=== PATIENT | male | born 1950 | race Caucasian/White ===

== ENCOUNTER 2017-10-06 09:36 | Outpatient (RCR) | payer MEDICARE, OTHER, SELFPAY ==
[2017-10-06 12:10] LABS: Absolute Lymphocyte Count 0.62 X10^3/ul (0.83-4.51); Absolute Neutrophil Count 4.2 X10^3/uL (2.0-7.7); Basophil# 0.03 X10^3/uL; Basophil% 0.5 % (0-1); Eosinophil# 0.29 X10^3/uL; Eosinophils% 5.1 % (0-5); Hematocrit 40.5 % (40-54); Hemoglobin 12.5 g/dl (13.0-16.5); Lymphocyte # 0.62 X10^3/ul (4.0); Lymphocyte % 10.8 % (19-41); Mean Corp Hgb Conc 30.9 g/gl (32-36); Mean Corpuscular Volume 84.4 fL (80-94); Mean Platelet Vol. 11.2 fl (6.2-12.0); Monocyte# 0.61 X10^3/uL; Monocyte% 10.7 % (0-10); Neutrophil # 4.16 X10^3/uL (2.7-7.7); Neutrophil % 72.7 % (47-70); Platelet Count 270 K/mm3 (150-450); RBC Distribution Width SD 55.1 fl (35.1-43.9); White Blood Count 5.7 K/mm3 (4.4-11.0)
[2017-10-06 12:25] LABS: POSITIVE COUNT NO; POSITIVE DIFFERENTIAL NO; POSITIVE MORPHOLOGY NO
[2017-10-06 12:27] LABS: Alanine Aminotransfer ALT/SGPT 26 U/L (12-78); Albumin, Serum 3.8 g/dL (3.4-5.0); Alkaline Phosphatase 46 U/L (45-117); Anion Gap 7 (5-15); BUN 31 mg/dL (7-18); Bilirubin, Direct 0.07 mg/dL (0.00-0.30); Calcium,Total 8.8 mg/dL (8.5-10.1); Chloride 100 mmol/L (98-107); Creatinine, Serum 1.35 mg/dL (0.70-1.30); EST Glomerular Filtration Rate 56 mL/min (>60); Est Glom Filt Rate - Afr Amer 68 mL/min (>60); GGTP 18 U/L (15-85); Glucose 97 mg/dL (70-110); Phosphorus 2.6 mg/dL (2.5-4.9); Potassium 4.4 mmol/L (3.5-5.1); Sodium Level 136 mmol/L (136-145); Uric Acid 5.9 mg/dL (3.5-7.2)
[2017-10-06 14:16] LABS: AST(SGOT) 23 U/L (15-37)
[2017-10-09 08:44] LABS: CMV by PCR Negative (Negative); Sirolimus,Blood 2.7 ng/mL (3.0-20.0); Tacrolimus (FK506) 4.8 ng/mL (2.0-20.0)
== END 2017-10-06 10:00 | disposition home or self-care (01) ==
LOC: MTLAB 09:36
PROVIDERS: Family Provider Family Medicine; PCP Family Medicine; Visit Provider Internal Medicine Pulmonary Disease
DX: Z48.24 Encounter for aftercare following lung transplant (principal); D89.9 Disorder involving the immune mechanism, unspecified; R79.9 Abnormal finding of blood chemistry, unspecified; Z94.2 Lung transplant status; Z79.899 Other long term (current) drug therapy
CPT/HCPCS: 36415; 80048; 80195; 80197; 82040; 82247; 82248; 82977; 83735; 84075; 84100; 84450; 84460; 84550; 85025; 87496

== ENCOUNTER 2017-12-03 07:31 | Outpatient (RCR) | payer MEDICARE, OTHER, SELFPAY ==
[2017-05-05 00:22] VITALS: BP 128/84
[2017-11-09 12:29] LABS: Absolute Lymphocyte Count 0.68 X10^3/ul (0.83-4.51); Absolute Neutrophil Count 4.3 X10^3/uL (2.0-7.7); Basophil# 0.04 X10^3/uL; Basophil% 0.7 % (0-1); Eosinophil# 0.19 X10^3/uL; Eosinophils% 3.3 % (0-5); Hematocrit 42.1 % (40-54); Hemoglobin 12.9 g/dl (13.0-16.5); Lymphocyte # 0.68 X10^3/ul (4.0); Lymphocyte % 11.8 % (19-41); Mean Corp Hgb Conc 30.6 g/gl (32-36); Mean Corpuscular Hgb 26.3 pg (27.0-32.0); Mean Corpuscular Volume 85.9 fL (80-94); Mean Platelet Vol. 11.9 fl (6.2-12.0); Monocyte# 0.56 X10^3/uL; Monocyte% 9.8 % (0-10); Neutrophil # 4.26 X10^3/uL (2.7-7.7); Neutrophil % 74.2 % (47-70); Platelet Count 282 K/mm3 (150-450); RBC Distribution Width CV 16.6 % (11.6-14.6); RBC Distribution Width SD 52.1 fl (35.1-43.9); White Blood Count 5.7 K/mm3 (4.4-11.0)
[2017-11-09 12:30] LABS: POSITIVE COUNT NO; POSITIVE DIFFERENTIAL NO; POSITIVE MORPHOLOGY NO
[2017-11-09 12:42] LABS: AST(SGOT) 19 U/L (15-37); Alanine Aminotransfer ALT/SGPT 28 U/L (16-61); Albumin, Serum 3.8 g/dL (3.2-5.0); Alkaline Phosphatase 49 U/L (45-117); Anion Gap 7 (5-15); BUN 29 mg/dL (7-18); BUN/Creat Ratio 25.4 RATIO (10-20); Calcium,Total 8.6 mg/dL (8.5-10.1); Chloride 103 mmol/L (98-107); Creatinine, Serum 1.14 mg/dL (0.70-1.30); EST Glomerular Filtration Rate 68 mL/min (>60); Est Glom Filt Rate - Afr Amer 83 mL/min (>60); GGTP 22 U/L (15-85); Glucose 100 mg/dL (74-106); Magnesium 2.2 mg/dL (1.6-2.6); Phosphorus 2.2 mg/dL (2.5-4.9); Potassium 4.6 mmol/L (3.5-5.1); Sodium Level 138 mmol/L (136-145); Uric Acid 6.5 mg/dL (3.5-7.2)
[2017-11-09 14:15] LABS: Cholesterol 269 mg/dL (200); High Density Lipoprotein 50 mg/dL; Triglycerides 280 mg/dL; Very Low Density Lipoprotein 56 mg/dL (5-40)
[2017-11-09 14:38] LABS: Hemoglobin A1c 5.7 % (4.2-6.3)
[2017-11-19 08:51] LABS: CMV by PCR Negative (Negative); Sirolimus,Blood 4.5 ng/mL (3.0-20.0); Tacrolimus (FK506) 5.5 ng/mL (2.0-20.0)
[2017-12-03 10:07] LABS: Absolute Lymphocyte Count 0.76 X10^3/ul (0.83-4.51); Basophil# 0.04 X10^3/uL; Basophil% 0.6 % (0-1); Eosinophil# 0.33 X10^3/uL; Eosinophils% 4.7 % (0-5); Hematocrit 40.1 % (40-54); Hemoglobin 12.5 g/dl (13.0-16.5); Lymphocyte # 0.76 X10^3/ul (4.0); Lymphocyte % 10.8 % (19-41); Mean Corp Hgb Conc 31.2 g/gl (32-36); Mean Corpuscular Hgb 26.5 pg (27.0-32.0); Mean Corpuscular Volume 85.1 fL (80-94); Mean Platelet Vol. 11.7 fl (6.2-12.0); Monocyte# 0.84 X10^3/uL; Monocyte% 11.9 % (0-10); Neutrophil # 5.04 X10^3/uL (2.7-7.7); Neutrophil % 71.7 % (47-70); POSITIVE COUNT NO; POSITIVE DIFFERENTIAL NO; POSITIVE MORPHOLOGY NO; Platelet Count 242 K/mm3 (150-450); RBC Distribution Width CV 15.2 % (11.6-14.6); RBC Distribution Width SD 47.1 fl (35.1-43.9); Red Blood Count 4.71 M/mm3 (4.6-6.2)
[2017-12-03 10:26] LABS: AST(SGOT) 15 U/L (15-37); Alanine Aminotransfer ALT/SGPT 20 U/L (16-61); Albumin, Serum 3.5 g/dL (3.2-5.0); Alkaline Phosphatase 50 U/L (45-117); Anion Gap 6 (5-15); BUN 32 mg/dL (7-18); BUN/Creat Ratio 25.4 RATIO (10-20); Bilirubin, Direct 0.05 mg/dL (0.00-0.30); Calcium,Total 8.3 mg/dL (8.5-10.1); Chloride 104 mmol/L (98-107); Creatinine, Serum 1.26 mg/dL (0.70-1.30); EST Glomerular Filtration Rate 61 mL/min (>60); Est Glom Filt Rate - Afr Amer 74 mL/min (>60); GGTP 16 U/L (15-85); Glucose 95 mg/dL (74-106); Magnesium 1.9 mg/dL (1.6-2.6); Phosphorus 2.7 mg/dL (2.5-4.9); Potassium 4.1 mmol/L (3.5-5.1); Sodium Level 140 mmol/L (136-145); Uric Acid 5.9 mg/dL (3.5-7.2)
[2017-12-06 07:54] LABS: CMV by PCR Negative (Negative); Sirolimus,Blood 2.2 ng/mL (3.0-20.0); Tacrolimus (FK506) 3.9 ng/mL (2.0-20.0)
== END 2017-12-03 08:00 | disposition home or self-care (01) ==
LOC: MTLAB 07:31
PROVIDERS: Family Provider Family Medicine; PCP Family Medicine; Visit Provider Internal Medicine Pulmonary Disease
DX: Z48.24 Encounter for aftercare following lung transplant (principal); Z94.2 Lung transplant status; D89.9 Disorder involving the immune mechanism, unspecified; R79.9 Abnormal finding of blood chemistry, unspecified; Z79.899 Other long term (current) drug therapy
CPT/HCPCS: 36415; 80048; 80061; 80195; 80197; 82040; 82247; 82248; 82977; 83036; 83735; 84075; 84100; 84450; 84460; 84550; 85025; 87496

== ENCOUNTER 2018-01-05 09:18 | Outpatient (RCR) | payer MEDICARE, OTHER, SELFPAY ==
[2018-01-05 11:18] LABS: Absolute Lymphocyte Count 0.53 X10^3/ul (0.83-4.51); Absolute Neutrophil Count 4.4 X10^3/uL (2.0-7.7); Basophil# 0.02 X10^3/uL; Basophil% 0.3 % (0-1); Eosinophils% 5.2 % (0-5); Hematocrit 40.5 % (40-54); Hemoglobin 12.6 g/dl (13.0-16.5); Lymphocyte # 0.53 X10^3/ul (4.0); Lymphocyte % 9.1 % (19-41); Mean Corp Hgb Conc 31.1 g/gl (32-36); Mean Corpuscular Hgb 26.5 pg (27.0-32.0); Mean Corpuscular Volume 85.3 fL (80-94); Mean Platelet Vol. 11.4 fl (6.2-12.0); Monocyte# 0.54 X10^3/uL; Monocyte% 9.3 % (0-10); Neutrophil # 4.41 X10^3/uL (2.7-7.7); Neutrophil % 75.8 % (47-70); Platelet Count 191 K/mm3 (150-450); RBC Distribution Width CV 15.7 % (11.6-14.6); RBC Distribution Width SD 47.9 fl (35.1-43.9); Red Blood Count 4.75 M/mm3 (4.6-6.2); White Blood Count 5.8 K/mm3 (4.4-11.0)
[2018-01-05 11:19] LABS: Differential Indicated SCAN CRITERIA MET; POSITIVE COUNT NO; POSITIVE DIFFERENTIAL YES; POSITIVE MORPHOLOGY NO
[2018-01-05 11:23] LABS: Hemoglobin A1c 6.1 % (4.2-6.3)
[2018-01-05 11:31] LABS: AST(SGOT) 18 U/L (15-37); Alanine Aminotransfer ALT/SGPT 22 U/L (16-61); Albumin, Serum 3.6 g/dL (3.2-5.0); Alkaline Phosphatase 50 U/L (45-117); Anion Gap 4 (5-15); BUN 26 mg/dL (7-18); BUN/Creat Ratio 19.1 RATIO (10-20); Bilirubin, Direct 0.09 mg/dL (0.00-0.30); Calcium,Total 8.6 mg/dL (8.5-10.1); Chloride 107 mmol/L (98-107); Creatinine, Serum 1.36 mg/dL (0.70-1.30); EST Glomerular Filtration Rate 56 mL/min (>60); Est Glom Filt Rate - Afr Amer 67 mL/min (>60); GGTP 16 U/L (15-85); Glucose 94 mg/dL (74-106); High Density Lipoprotein 42 mg/dL; Magnesium 2.1 mg/dL (1.6-2.6); Phosphorus 2.3 mg/dL (2.5-4.9); Potassium 4.3 mmol/L (3.5-5.1); Sodium Level 141 mmol/L (136-145); Uric Acid 6.2 mg/dL (3.5-7.2)
[2018-01-08 09:20] LABS: Tacrolimus (FK506) 6.7 ng/mL (2.0-20.0)
[2018-01-08 09:21] LABS: CMV by PCR Negative (Negative); Sirolimus,Blood 4.3 ng/mL (3.0-20.0)
== END 2018-01-05 10:00 | disposition home or self-care (01) ==
LOC: MTLAB 09:18
PROVIDERS: Family Provider Family Medicine; PCP Family Medicine; Visit Provider Internal Medicine Pulmonary Disease
DX: Z48.24 Encounter for aftercare following lung transplant (principal); Z94.2 Lung transplant status; D89.9 Disorder involving the immune mechanism, unspecified; R79.9 Abnormal finding of blood chemistry, unspecified; Z79.899 Other long term (current) drug therapy
CPT/HCPCS: 36415; 80048; 80195; 80197; 82040; 82247; 82248; 82977; 83036; 83718; 83735; 84075; 84100; 84450; 84460; 84550; 85025; 87496

== ENCOUNTER 2018-02-08 08:30 | Outpatient (RCR) | payer MEDICARE, OTHER, SELFPAY ==
[2018-02-08 10:07] LABS: Absolute Lymphocyte Count 0.55 X10^3/ul (0.83-4.51); Absolute Neutrophil Count 2.9 X10^3/uL (2.0-7.7); Basophil# 0.02 X10^3/uL; Basophil% 0.5 % (0-1); Eosinophil# 0.27 X10^3/uL; Eosinophils% 6.1 % (0-5); Hematocrit 38.6 % (40-54); Hemoglobin 12.2 g/dl (13.0-16.5); Lymphocyte # 0.55 X10^3/ul (4.0); Lymphocyte % 12.5 % (19-41); Mean Corp Hgb Conc 31.6 g/gl (32-36); Mean Corpuscular Hgb 27.5 pg (27.0-32.0); Mean Corpuscular Volume 86.9 fL (80-94); Mean Platelet Vol. 11.2 fl (6.2-12.0); Monocyte# 0.63 X10^3/uL; Monocyte% 14.3 % (0-10); Neutrophil # 2.93 X10^3/uL (2.7-7.7); Neutrophil % 66.6 % (47-70); Platelet Count 264 K/mm3 (150-450); RBC Distribution Width CV 16.9 % (11.6-14.6); RBC Distribution Width SD 53.5 fl (35.1-43.9); Red Blood Count 4.44 M/mm3 (4.6-6.2); White Blood Count 4.4 K/mm3 (4.4-11.0)
[2018-02-08 10:13] LABS: Differential Indicated SCAN CRITERIA MET; POSITIVE COUNT NO; POSITIVE DIFFERENTIAL YES; POSITIVE MORPHOLOGY NO
[2018-02-08 10:15] LABS: AST(SGOT) 16 U/L (15-37); Alanine Aminotransfer ALT/SGPT 18 U/L (16-61); Albumin, Serum 3.8 g/dL (3.2-5.0); Alkaline Phosphatase 45 U/L (45-117); Anion Gap 8 (5-15); BUN 41 mg/dL (7-18); BUN/Creat Ratio 32.3 RATIO (10-20); Bilirubin, Direct 0.07 mg/dL (0.00-0.30); Chloride 104 mmol/L (98-107); Creatinine, Serum 1.27 mg/dL (0.70-1.30); EST Glomerular Filtration Rate 60 mL/min (>60); Est Glom Filt Rate - Afr Amer 73 mL/min (>60); GGTP 17 U/L (15-85); Glucose 94 mg/dL (74-106); Magnesium 2.1 mg/dL (1.6-2.6); Phosphorus 3.2 mg/dL (2.5-4.9); Potassium 4.5 mmol/L (3.5-5.1); Sodium Level 140 mmol/L (136-145); Uric Acid 7.6 mg/dL (3.5-7.2)
[2018-02-11 09:26] LABS: CMV by PCR Negative (Negative); Sirolimus,Blood 3.5 ng/mL (3.0-20.0); Tacrolimus (FK506) 7.1 ng/mL (2.0-20.0)
== END 2018-02-08 09:00 | disposition home or self-care (01) ==
LOC: MTLAB 08:30
PROVIDERS: Family Provider Family Medicine; PCP Family Medicine; Visit Provider Internal Medicine Pulmonary Disease
DX: Z48.24 Encounter for aftercare following lung transplant (principal); Z94.2 Lung transplant status; D89.9 Disorder involving the immune mechanism, unspecified; R79.9 Abnormal finding of blood chemistry, unspecified; Z79.899 Other long term (current) drug therapy
CPT/HCPCS: 36415; 80048; 80195; 80197; 82040; 82247; 82248; 82977; 83735; 84075; 84100; 84450; 84460; 84550; 85025; 87496

== ENCOUNTER 2018-03-12 08:34 | Outpatient (RCR) | payer MEDICARE, OTHER, SELFPAY ==
--- NOTE | 2018-03-12 08:34 | DT_ITS ---
This patient was seen during an EMR downtime March 08, 2018 - March 15, 2018. This patient may have a combination of paper and electronic documentation or all paper documentation. All documentation is viewable within the e-chart portion of [employer] for each patient visit.
[2018-03-12 12:01] LABS: White Blood Count 5.3 K/mm3 (4.4-11.0)
[2018-03-12 12:02] LABS: Absolute Neutrophil Count 3.4 X10^3/uL (2.0-7.7); Basophil% 0.6 % (0-1); Eosinophils% 5.7 % (0-5); Hematocrit 40.3 % (40-54); Hemoglobin 12.7 g/dl (13.0-16.5); Lymphocyte % 12.7 % (19-41); Mean Corp Hgb Conc 31.5 g/gl (32-36); Mean Corpuscular Hgb 27.8 pg (27.0-32.0); Mean Corpuscular Volume 88.2 fL (80-94); Neutrophil # 3.38 X10^3/uL (2.7-7.7); Neutrophil % 63.8 % (47-70); POSITIVE COUNT NO; POSITIVE DIFFERENTIAL NO; POSITIVE MORPHOLOGY NO; Platelet Count 276 K/mm3 (150-450); RBC Distribution Width CV 16.3 % (11.6-14.6); RBC Distribution Width SD 52.3 fl (35.1-43.9); Red Blood Count 4.57 M/mm3 (4.6-6.2)
[2018-03-12 12:03] LABS: Absolute Lymphocyte Count 0.67 X10^3/ul (0.83-4.51); Basophil# 0.03 X10^3/uL; Lymphocyte # 0.67 X10^3/ul (4.0)
[2018-03-12 14:59] LABS: BUN 36 mg/dL (7-18); BUN/Creat Ratio 26.7 RATIO (10-20); Creatinine, Serum 1.35 mg/dL (0.70-1.30); EST Glomerular Filtration Rate 56 mL/min (>60); Est Glom Filt Rate - Afr Amer 68 mL/min (>60); Glucose 97 mg/dL (74-106)
[2018-03-12 15:00] LABS: AST(SGOT) 17 U/L (15-37); Alanine Aminotransfer ALT/SGPT 22 U/L (16-61); Albumin, Serum 3.7 g/dL (3.2-5.0); Alkaline Phosphatase 45 U/L (45-117); Anion Gap 9 (5-15); Bilirubin, Direct 0.08 mg/dL (0.00-0.30); Calcium,Total 8.8 mg/dL (8.5-10.1); Chloride 104 mmol/L (98-107); GGTP 17 U/L (15-85); Phosphorus 2.8 mg/dL (2.5-4.9); Potassium 4.5 mmol/L (3.5-5.1); Sodium Level 140 mmol/L (136-145); Uric Acid 6.5 mg/dL (3.5-7.2)
== END 2018-03-12 09:00 | disposition home or self-care (01) ==
LOC: MTLAB 08:34
PROVIDERS: Family Provider Family Medicine; PCP Family Medicine; Visit Provider Internal Medicine Pulmonary Disease
DX: D89.9 Disorder involving the immune mechanism, unspecified (principal); Z48.24 Encounter for aftercare following lung transplant; Z94.2 Lung transplant status; R79.9 Abnormal finding of blood chemistry, unspecified; Z79.899 Other long term (current) drug therapy
CPT/HCPCS: 36415; 80048; 80195; 80197; 82040; 82247; 82248; 82977; 83735; 84075; 84100; 84450; 84460; 84550; 85025; 87496

== ENCOUNTER 2018-04-06 08:21 | Outpatient (RCR) | payer MEDICARE, OTHER, SELFPAY ==
[2018-04-06 11:51] LABS: Absolute Lymphocyte Count 0.77 X10^3/ul (0.83-4.51); Absolute Neutrophil Count 3.5 X10^3/uL (2.0-7.7); Basophil# 0.04 X10^3/uL; Basophil% 0.8 % (0-1); Eosinophil# 0.27 X10^3/uL; Eosinophils% 5.2 % (0-5); Hematocrit 39.5 % (40-54); Hemoglobin 12.3 g/dl (13.0-16.5); Lymphocyte # 0.77 X10^3/ul (4.0); Lymphocyte % 14.8 % (19-41); Mean Corp Hgb Conc 31.1 g/gl (32-36); Mean Corpuscular Hgb 27.6 pg (27.0-32.0); Mean Corpuscular Volume 88.8 fL (80-94); Mean Platelet Vol. 11.8 fl (6.2-12.0); Monocyte# 0.61 X10^3/uL; Monocyte% 11.7 % (0-10); Neutrophil # 3.52 X10^3/uL (2.7-7.7); Neutrophil % 67.3 % (47-70); Platelet Count 252 K/mm3 (150-450); RBC Distribution Width CV 15.7 % (11.6-14.6); Red Blood Count 4.45 M/mm3 (4.6-6.2); White Blood Count 5.2 K/mm3 (4.4-11.0)
[2018-04-06 11:52] LABS: POSITIVE COUNT NO; POSITIVE DIFFERENTIAL NO; POSITIVE MORPHOLOGY NO
[2018-04-06 11:57] LABS: AST(SGOT) 23 U/L (15-37); Alanine Aminotransfer ALT/SGPT 28 U/L (16-61); Albumin, Serum 3.7 g/dL (3.2-5.0); Alkaline Phosphatase 43 U/L (45-117); BUN 28 mg/dL (7-18); BUN/Creat Ratio 18.5 RATIO (10-20); Bilirubin, Direct 0.08 mg/dL (0.00-0.30); Calcium,Total 8.7 mg/dL (8.5-10.1); Chloride 101 mmol/L (98-107); Cholesterol 251 mg/dL (200); Creatinine, Serum 1.51 mg/dL (0.70-1.30); EST Glomerular Filtration Rate 49 mL/min (>60); Est Glom Filt Rate - Afr Amer 60 mL/min (>60); GGTP 24 U/L (15-85); Glucose 98 mg/dL (74-106); Magnesium 2.2 mg/dL (1.6-2.6); Potassium 4.9 mmol/L (3.5-5.1); Sodium Level 139 mmol/L (136-145); Triglycerides 201 mg/dL
[2018-04-06 11:58] LABS: Anion Gap 9 (5-15); High Density Lipoprotein 50 mg/dL; Very Low Density Lipoprotein 40 mg/dL (5-40)
[2018-04-06 12:01] LABS: Hemoglobin A1c 5.8 % (4.2-6.3)
[2018-04-12 10:16] LABS: CMV by PCR Negative (Negative); Sirolimus,Blood 2.4 ng/mL (3.0-20.0)
== END 2018-04-06 09:00 ==
LOC: MTLAB 08:21
PROVIDERS: Family Provider Family Medicine; PCP Family Medicine; Visit Provider Internal Medicine Pulmonary Disease
DX: Z94.2 Lung transplant status (principal); D89.9 Disorder involving the immune mechanism, unspecified; Z48.24 Encounter for aftercare following lung transplant; R79.9 Abnormal finding of blood chemistry, unspecified; Z79.899 Other long term (current) drug therapy
CPT/HCPCS: 36415; 80048; 80061; 80195; 80197; 82040; 82247; 82248; 82977; 83036; 83735; 84075; 84100; 84450; 84460; 84550; 85025; 87496

== ENCOUNTER 2018-05-06 08:30 | Outpatient (RCR) | payer MEDICARE, OTHER, SELFPAY ==
[2018-05-06 10:23] LABS: Absolute Lymphocyte Count 0.56 X10^3/ul (0.83-4.51); Absolute Neutrophil Count 3.8 X10^3/uL (2.0-7.7); Basophil# 0.02 X10^3/uL; Basophil% 0.4 % (0-1); Eosinophil# 0.29 X10^3/uL; Eosinophils% 5.6 % (0-5); Hematocrit 42.5 % (40-54); Hemoglobin 12.9 g/dl (13.0-16.5); Lymphocyte # 0.56 X10^3/ul (4.0); Lymphocyte % 10.7 % (19-41); Mean Corp Hgb Conc 30.4 g/gl (32-36); Mean Corpuscular Volume 89.1 fL (80-94); Mean Platelet Vol. 10.6 fl (6.2-12.0); Monocyte# 0.54 X10^3/uL; Monocyte% 10.3 % (0-10); Neutrophil % 72.8 % (47-70); Platelet Count 278 K/mm3 (150-450); RBC Distribution Width CV 14.9 % (11.6-14.6); RBC Distribution Width SD 48.5 fl (35.1-43.9); Red Blood Count 4.77 M/mm3 (4.6-6.2); White Blood Count 5.2 K/mm3 (4.4-11.0)
[2018-05-06 10:25] LABS: Differential Indicated SCAN CRITERIA MET; POSITIVE COUNT NO; POSITIVE DIFFERENTIAL YES; POSITIVE MORPHOLOGY NO
[2018-05-06 10:49] LABS: AST(SGOT) 20 U/L (15-37); Alanine Aminotransfer ALT/SGPT 25 U/L (16-61); Albumin, Serum 3.7 g/dL (3.2-5.0); Alkaline Phosphatase 47 U/L (45-117); Bilirubin, Direct 0.09 mg/dL (0.00-0.30); Calcium,Total 9.1 mg/dL (8.5-10.1); GGTP 16 U/L (15-85); Phosphorus 3.6 mg/dL (2.5-4.9); Uric Acid 6.8 mg/dL (3.5-7.2)
[2018-05-09 09:07] LABS: Tacrolimus (FK506) 5.9 ng/mL (2.0-20.0)
[2018-05-13 11:08] LABS: CMV by PCR Negative (Negative); Sirolimus,Blood 7.1 ng/mL (3.0-20.0)
== END 2018-05-06 10:00 | disposition home or self-care (01) ==
LOC: MTLAB 08:30
PROVIDERS: Family Provider Family Medicine; PCP Family Medicine; Visit Provider Internal Medicine Pulmonary Disease
DX: Z94.2 Lung transplant status (principal); Z48.24 Encounter for aftercare following lung transplant; D89.9 Disorder involving the immune mechanism, unspecified; Z79.899 Other long term (current) drug therapy; R79.9 Abnormal finding of blood chemistry, unspecified
CPT/HCPCS: 36415; 80195; 80197; 82040; 82247; 82248; 82310; 82977; 83735; 84075; 84100; 84450; 84460; 84550; 85025; 87496

== ENCOUNTER 2018-06-11 08:34 | Outpatient (RCR) | payer MEDICARE, OTHER, SELFPAY ==
[2018-06-11 11:04] LABS: Absolute Lymphocyte Count 0.52 X10^3/ul (0.83-4.51); Absolute Neutrophil Count 4.8 X10^3/uL (2.0-7.7); Basophil# 0.03 X10^3/uL; Basophil% 0.5 % (0-1); Eosinophil# 0.26 X10^3/uL; Eosinophils% 4.1 % (0-5); Hematocrit 42.2 % (40-54); Lymphocyte # 0.52 X10^3/ul (4.0); Lymphocyte % 8.3 % (19-41); Mean Corp Hgb Conc 30.8 g/gl (32-36); Mean Corpuscular Hgb 27.3 pg (27.0-32.0); Mean Corpuscular Volume 88.7 fL (80-94); Mean Platelet Vol. 10.8 fl (6.2-12.0); Monocyte# 0.66 X10^3/uL; Monocyte% 10.5 % (0-10); Neutrophil # 4.81 X10^3/uL (2.7-7.7); Neutrophil % 76.4 % (47-70); Platelet Count 266 K/mm3 (150-450); RBC Distribution Width CV 15.1 % (11.6-14.6); RBC Distribution Width SD 48.9 fl (35.1-43.9); Red Blood Count 4.76 M/mm3 (4.6-6.2); White Blood Count 6.3 K/mm3 (4.4-11.0)
[2018-06-11 11:08] LABS: Differential Indicated SCAN CRITERIA MET; POSITIVE COUNT NO; POSITIVE DIFFERENTIAL YES; POSITIVE MORPHOLOGY NO
[2018-06-11 11:15] LABS: AST(SGOT) 21 U/L (15-37); Alanine Aminotransfer ALT/SGPT 27 U/L (16-61); Albumin, Serum 3.7 g/dL (3.2-5.0); Alkaline Phosphatase 46 U/L (45-117); Anion Gap 7 (5-15); BUN 33 mg/dL (7-18); BUN/Creat Ratio 25.4 RATIO (10-20); Bilirubin, Direct < 0.05 mg/dL (0.00-0.30); Calcium,Total 9.2 mg/dL (8.5-10.1); Chloride 104 mmol/L (98-107); EST Glomerular Filtration Rate 59 mL/min (>60); Est Glom Filt Rate - Afr Amer 71 mL/min (>60); GGTP 21 U/L (15-85); Glucose 98 mg/dL (74-106); Magnesium 1.8 mg/dL (1.6-2.6); Phosphorus 3.2 mg/dL (2.5-4.9); Potassium 4.7 mmol/L (3.5-5.1); Sodium Level 140 mmol/L (136-145); Uric Acid 6.2 mg/dL (3.5-7.2)
[2018-06-17 08:22] LABS: CMV by PCR Negative (Negative); Sirolimus,Blood 5.5 ng/mL (3.0-20.0); Tacrolimus (FK506) 7.5 ng/mL (2.0-20.0)
== END 2018-06-11 10:00 | disposition home or self-care (01) ==
LOC: MTLAB 08:34
PROVIDERS: Family Provider Family Medicine; PCP Family Medicine; Visit Provider Internal Medicine Pulmonary Disease
DX: Z94.2 Lung transplant status (principal); Z48.24 Encounter for aftercare following lung transplant; D89.9 Disorder involving the immune mechanism, unspecified; Z79.899 Other long term (current) drug therapy; R79.9 Abnormal finding of blood chemistry, unspecified
CPT/HCPCS: 36415; 80048; 80195; 80197; 82040; 82247; 82248; 82977; 83735; 84075; 84100; 84450; 84460; 84550; 85025; 87496

== ENCOUNTER 2018-07-12 08:18 | Outpatient (RCR) | payer MEDICARE, OTHER, SELFPAY ==
[2018-07-12 10:22] LABS: Absolute Neutrophil Count 4.2 X10^3/uL (2.0-7.7); Basophil# 0.03 X10^3/uL; Basophil% 0.5 % (0-1); Eosinophil# 0.31 X10^3/uL; Eosinophils% 5.3 % (0-5); Hematocrit 41.7 % (40-54); Lymphocyte % 12.1 % (19-41); Mean Corp Hgb Conc 31.2 g/gl (32-36); Mean Corpuscular Hgb 27.6 pg (27.0-32.0); Mean Corpuscular Volume 88.5 fL (80-94); Mean Platelet Vol. 10.9 fl (6.2-12.0); Monocyte# 0.58 X10^3/uL; Neutrophil # 4.16 X10^3/uL (2.7-7.7); Neutrophil % 71.8 % (47-70); Platelet Count 290 K/mm3 (150-450); RBC Distribution Width CV 15.1 % (11.6-14.6); RBC Distribution Width SD 49.2 fl (35.1-43.9); Red Blood Count 4.71 M/mm3 (4.6-6.2); White Blood Count 5.8 K/mm3 (4.4-11.0)
[2018-07-12 10:29] LABS: POSITIVE COUNT NO; POSITIVE DIFFERENTIAL NO; POSITIVE MORPHOLOGY NO
[2018-07-12 10:37] LABS: Hemoglobin A1c 5.8 % (4.2-6.3)
[2018-07-12 11:13] LABS: AST(SGOT) 19 U/L (15-37); Alanine Aminotransfer ALT/SGPT 26 U/L (16-61); Albumin, Serum 3.7 g/dL (3.2-5.0); Alkaline Phosphatase 47 U/L (45-117); BUN 43 mg/dL (7-18); Bilirubin, Direct 0.09 mg/dL (0.00-0.30); Calcium,Total 9.6 mg/dL (8.5-10.1); Chloride 101 mmol/L (98-107); Cholesterol 266 mg/dL (200); Creatinine, Serum 1.24 mg/dL (0.70-1.30); EST Glomerular Filtration Rate 62 mL/min (>60); Est Glom Filt Rate - Afr Amer 75 mL/min (>60); GGTP 21 U/L (15-85); Glucose 92 mg/dL (74-106); High Density Lipoprotein 53 mg/dL; Phosphorus 4.1 mg/dL (2.5-4.9); Potassium 4.6 mmol/L (3.5-5.1); Sodium Level 138 mmol/L (136-145); Triglycerides 222 mg/dL; Uric Acid 6.6 mg/dL (3.5-7.2)
[2018-07-16 13:37] LABS: CMV by PCR Negative (Negative); Sirolimus,Blood 4.9 ng/mL (3.0-20.0); Tacrolimus (FK506) 6.3 ng/mL (2.0-20.0)
== END 2018-07-12 10:00 | disposition home or self-care (01) ==
LOC: MTLAB 08:18
PROVIDERS: Family Provider Family Medicine; PCP Family Medicine; Referring Provider Internal Medicine Pulmonary Disease; Visit Provider Internal Medicine Pulmonary Disease
DX: Z94.2 Lung transplant status (principal); Z48.24 Encounter for aftercare following lung transplant; D89.9 Disorder involving the immune mechanism, unspecified; Z79.899 Other long term (current) drug therapy; R79.9 Abnormal finding of blood chemistry, unspecified
CPT/HCPCS: 36415; 80195; 80197; 82040; 82247; 82248; 82310; 82374; 82435; 82465; 82565; 82947; 82977; 83036; 83718; 83735; 84075; 84100; 84132; 84295; 84450; 84460; 84478; 84520; 84550; 85025; 87496

== ENCOUNTER → 2018-08-17 09:54 | Outpatient (CLI) | payer MEDICARE, OTHER, SELFPAY ==
--- NOTE | 2018-08-17 16:02 | SPIR_ITS ---
Spirometry PFT Testing Spirometry PFT Testing: COMPLETE PULMONARY FUNCTION TEST INTERPRETATION Brief HPI: Patient is a 68 year old male, currently under the care of Dr. Richey, who presents to [facility] for complete pulmonary function tests secondary to diagnosis of status post lung transplant. Respiratory therapist reports good effort and reproducible results. Interpretation: Forced expiration spirometry shows a severe large airways obstructive ventilatory defect with an FEV1 of 37% predicted. Bronchodilators were not used during the study. Spirograms are of good quality and plateau slowly, indicating slowly emptying areas of the lungs. The respiratory flow volume loop shows decreased expiratory flow rates at all lung volumes consistent with airway obstruction. No previous pulmonary function tests were available for review. Impression: Severe large airways obstructive ventilatory defect. No previous studies available for comparison.
== END ==
PROVIDERS: Family Provider Family Medicine; PCP Family Medicine
DX: Z94.2 Lung transplant status (principal)
CPT/HCPCS: 94010

== ENCOUNTER → 2018-09-16 08:58 | Outpatient (CLI) | payer MEDICARE, OTHER, SELFPAY ==
--- NOTE | 2018-09-16 10:15 | SPIR ---
Spirometry PFT Testing Spirometry PFT Testing: COMPLETE PULMONARY FUNCTION TEST INTERPRETATION Brief HPI: Patient is a 68 year old male, currently under the care of an outside physician, who presents to [facility] for complete pulmonary function tests secondary to diagnosis of status post lung transplant. Respiratory therapist reports good effort and reproducible results. Interpretation: Forced expiration spirometry shows a severe large airways obstructive ventilatory defect with an FEV1 of 37% predicted. Spirograms are of good quality and plateau slowly, indicating slowly emptying areas of the lungs. The respiratory flow volume loop shows decreased expiratory flow rates at all lung volumes consistent with airway obstruction. Compared to previous pulmonary function tests from 08/17/2018, there has been no significant change. Impression: Severe large airways obstructive ventilatory defect with no significant change compared to previous
--- OUTSIDE RECORDS SUMMARY | 2018-11-02 02:17 | XMS RPT_ITS | Summary of Care ---
:[address] [facility] Address [address] [place] [address] Phone Care Team Providers Name Role Phone Santino Nicholson MD Primary Care Provider Nell Howell RN Unavailable Unavailable Divya Chacon RN L[employer] Unavailable Binh Richey MD, PhD [employer] Attributed Madeline Sargent RN [employer] Unavailable Reason for Visit Reason Comments Medication Refill Encounter Details Date Type Department Care Team Description 08/31/2018 Refill Transplant Lung Ross Nell Howell, RN [address] [place] [address] Allergies No Known Allergiesas of this encounter Medications Prescription Sig. Disp. Refills Start Date End Date Status acetaminophen 325 take 1-2 06/06/2015 Active MG tablet tablets by mouth every 4 hours as needed for Mild Pain. Do NOT take Tylenol or products with Tylenol while taking this medication. The maximum daily dose of Tylenol is 4000 mg. Please do not take for fever unless you have discussed with your interior design coordinator. sirolimus Take 2 tablets 60 tablet 11 11/24/2017 Active (generic) 0.5 MG by mouth daily. Tab PANTOPRAZOLE 40 MG TAKE 1 TABLET 90 tablet 3 01/06/[address] BY MOUTH DAILY tabletIndications: Inpt Stress Ulcer Prophylaxis AZITHROMYCIN 250 TAKE 1 TABLET 90 tablet 01/06/2018 Active MG Tab tablet BY MOUTH DAILY PRAVASTATIN 20 MG TAKE 1 TABLET 90 tablet 01/06/2018 Active Tab tablet BY MOUTH AT BEDTIME.. METOPROLOL 50 MG TAKE 2 TABLETS 360 tablet 3 01/06/2018 Active tab regular BY MOUTH EVERY release 12 HOURS ALENDRONATE 70 MG TAKE 1 TABLET 12 tablet 3 01/06/2018 Active Tab tablet BY MOUTH EVERY 7 DAYS lisinopril 5 MG Take 1 tablet 90 tablet 3 01/07/2018 Active Tab tablet by mouth daily. mycophenolate Take 2 capsules 360 capsule 3 06/03/2018 Active mofetil (generic) by mouth 2 250 MG Cap capsule times daily. PREDNISONE 5 MG TAKE 1 TABLET 90 tablet 3 06/14/2018 Active Tab tablet BY MOUTH EVERY DAY FUROSEMIDE 20 MG TAKE 1 TABLET 90 tablet 3 06/14/2018 Active Tab tablet BY MOUTH DAILY SULFAMETHOXAZOLE-T TAKE 1 TABLET 39 tablet 3 06/14/2018 Active RIMETHOPRIM BY MOUTH EVERY 9 800-160 MG Tab per THURSDAY, tablet THURSDAY, AND THURSDAY MORNING tacrolimus Take 2mg (4 210 capsule 11 08/25/2018 Active (generic) 0.5 MG caps) in the Cap morning and 1.5mg (3 caps) in the evening. tacrolimus Take 2mg (4 30 capsule 11 08/30/2018 Active (generic) 0.5 MG caps) by mouth Cap in the morning and 1.5mg (3 caps) by mouth in the evening; Take 1-0.5mg cap every evening along with 1mg capsules to complete dose. tacrolimus 2mg QAM and 90 capsule 11 08/31/2018 Active (generic) 1 MG Cap 1.5mg QPM (Use capsule with 0.5mg capsule to complete dose) tacrolimus 2mg QAM and 90 capsule 11 08/30/2018 Discontinued (generic) 1 MG Cap 1.5mg QPM (Use 8 capsule with 0.5mg capsule to complete dose) as of this encounter Active Problems Problem Noted Date Obesity: body mass index of 35.0-39.9 04/15/2017 Chronic gastroesophageal reflux disease 03/04/2017 Overview: Added automatically from request for surgery [id number] Encounter for aftercare following lung transplant 02/24/2017 Overview: Added automatically from request for surgery [id number] S/P lung transplant 02/24/2017 Overview: Added automatically from request for surgery [id number] Chronic rejection of lung transplant 08/13/2016 Bronchiolitis obliterans syndrome, grade 3 05/19/2016 Lung transplant rejection 05/19/2016 Immunosuppression 04/17/2016 Lung transplant complication 04/17/2016 Vertebral compression fracture 12/22/2015 Pulmonary nodule 12/22/2015 Obesity 12/20/2015 Lung transplant status, bilateral 05/17/15 05/17/2015 High risk medication use 05/17/2015 Increased infection risk status post immunosuppressive therapy 05/17/2015 Aftercare following organ transplant 05/17/2015 Need for prophylactic antibiotic 05/17/2015 Pulmonary hypertension Resolved Problems Problem Noted Date Resolved Date S/P Taniya fundoplication (without gastrostomy tube) 04/15/2017 04/16/2018 procedure Acute rejection of lung transplant 05/28/2016 05/23/2017 Shingles 05/19/2016 05/19/2016 C. difficile colitis 05/28/2015 03/26/2016 Ileus 05/23/2015 03/26/2016 Postoperative hypovolemic shock 05/17/2015 03/26/2016 Hypotension 05/17/2015 03/26/2016 Acute blood loss anemia 05/17/2015 03/26/2016 Hematuria 05/17/2015 03/26/2016 Shock circulatory 05/17/2015 03/26/2016 Protein calorie malnutrition 05/17/2015 03/26/2016 Coagulopathy 05/17/2015 03/26/2016 Preoperative evaluation to rule out surgical 10/13/2014 05/17/2015 contraindication COPD (chronic obstructive pulmonary disease) 09/20/2014 03/26/2016 End stage COPD 03/26/2016 Chronic respiratory failure 03/26/2016 Hypoxemic respiratory failure, chronic 03/26/2016 Hypercapnia 03/26/2016 Hypoxemia 03/26/2016 Dyspnea 03/26/2016 Immunizations Name Dates Previously Given Next Due Hep A/Hep B Combined Vaccine 12/08/2014 Influenza Vaccine 07/20/2017 Tdap Vaccine 12/08/2014 influenza, injectable, quadrivalent, preservative 07/22/2018 free as of this encounter Social History Tobacco Use Types Packs/Day Years Used Date Former Smoker Cigarettes 1.5 40 Quit: 07/05/2014 Smokeless Tobacco: Never Used Alcohol Use Drinks/Week oz/Week Comments Yes 2 Cans of beer 1.0 Occasional Sex Assigned at Date Recorded Not on file as of this encounter Functional Status Functional Status Response Date of Assessment Are you deaf or do you have serious difficulty hearing? No 04/15/2017 Are you blind or do you have serious difficulty seeing, No 04/15/2017 even when wearing glasses? Do you have serious difficulty walking or climbing stairs No 04/15/2017 (5 years or older)? Do you have difficulty dressing or bathing (5 yrs or No 04/15/2017 older)? Because of a physical, mental, or emotional condition, do No 04/15/2017 you have difficulty doing errands alone such as visiting a doctor's office or shopping (5 yrs or older)? Cognitive Status Response Date of Assessment Because of a physical, mental, or emotional condition, do No 04/15/2017 you have serious difficulty concentrating, remembering, or making decisions (5 yrs or older)? as of this encounter Plan of Treatment Upcoming Encounters Date Type Specialty Care Team Description 10/21/2018 Appointment Diagnostic Radiology Courtney Hightower MD [address] [place] [address] 10/21/2018 Appointment Pulmonary Diagnostics Courtney Hightower MD [address] [place] [address] 10/21/2018 Office Visit Transplant Surgery Joel Negron MD [address] [place] [address] Health Maintenance Due Date Last Done Comments LUNG CANCER SCREENING 2006 ABDOMINAL AORTIC ANEURYSM HIGH 2016 RISK SCREEN PNEUMOCOCCAL VACCINE SERIES (1 of 2016 2 - PCV13) COLON CANCER SCREENING DISCUSSION 01/20/2017 01/21/2016 PROSTATE CANCER SCREENING 06/19/2018 06/19/2017, 06/19/2017, DISCUSSION 06/19/2017, Additional history exists POTASSIUM 07/12/2019 07/12/2018, 06/11/2018, 04/12/2018, Additional history exists LIPID SCREENING 04/12/2023 04/12/2018, 06/19/2017, 05/19/2016, Additional history exists TETANUS 12/08/2024 12/08/2014 HEPATITIS C VIRUS SCREENING Completed 12/04/2014 TDAP (ADULT) Completed 12/08/2014 INFLUENZA VACCINE Completed 07/22/2018, 07/20/2017, 07/08/2017, Additional history exists as of this encounter
--- OUTSIDE RECORDS SUMMARY | 2018-11-02 02:18 | XMS RPT_ITS ---
:1950 Author Organization OHIP Support Name Relationship Address Phone MARÍA ELENA ANTONIO Unavailable [address] + [place] [address] PACO KARIN Unavailable Unavailable Unavailable PACO, MARÍA ELENA Unavailable [address] + [place] [address] PACO KARIN Unavailable Unavailable Unavailable PACO, MARÍA ELENA Unavailable [address] + [place] [address] PACO, KARIN Unavailable Unavailable Unavailable PACO, MARÍA ELENA Unavailable [address] + [place] [address] PACO KARIN Unavailable Unavailable Unavailable PACO, NATALYA Unavailable [address] + [place] [address] R Unavailable Unavailable Unavailable PACO, NATALYA Unavailable [address] + [place] [address] R Unavailable Unavailable Unavailable PACO, NATALYA Unavailable [address] + [place] [address] R Unavailable Unavailable Unavailable PACO, NATALYA Unavailable [address] + [place] [address] R Unavailable Unavailable Unavailable PACO, NATALYA Unavailable [address] + [place] [address] R Unavailable Unavailable Unavailable PACO, NATALYA Unavailable [address] + [place] [address] R Unavailable Unavailable Unavailable PACO, NATALYA Unavailable [address] + [place] [address] R Unavailable Unavailable Unavailable PACO, MARÍA ELENA Unavailable [address] + [place] [address] PACO, KARIN Unavailable Unavailable Unavailable PACO, MARÍA ELENA Unavailable [address] + [place] [address] PACO KARIN Unavailable Unavailable Unavailable PACO, MARÍA ELENA Unavailable [address] + [place] [address] PACO, KARIN Unavailable Unavailable Unavailable PACO, MARÍA ELENA Unavailable [address] + [place] [address] PACO, KARIN Unavailable Unavailable Unavailable PACO, NATALYA Unavailable [address] + [place] [address] R Unavailable Unavailable Unavailable PACO, NATALYA Unavailable [address] + [place] [address] R Unavailable Unavailable Unavailable PACO, NATALYA Unavailable [address] + [place] [address] R Unavailable Unavailable Unavailable PACO, NATALYA Unavailable [address] + [place] [address] R Unavailable Unavailable Unavailable PACO, MARÍA ELENA Unavailable [address] + [place] [address] PACO, KARIN Unavailable Unavailable Unavailable PACO, MARÍA ELENA Unavailable [address] + [place] [address] PACO, KARIN Unavailable Unavailable Unavailable PACO, MARÍA ELENA Unavailable [address] + [place] [address] PACO, KARIN Unavailable Unavailable Unavailable PACO, MARÍA ELENA Unavailable [address] + [place] [address] PACO, KARIN Unavailable Unavailable Unavailable PACO, MARÍA ELENA Unavailable [address] + [place] [address] PACO, KARIN Unavailable Unavailable Unavailable PACO, MARÍA ELENA Unavailable [address] + [place] [address] PACO, KARIN Unavailable Unavailable Unavailable PACO, NATALYA Unavailable [address] + [place] [address] R Unavailable Unavailable Unavailable PACO, NATALYA Unavailable [address] [phone] [place] [address] R Unavailable Unavailable Unavailable PACO, NATALYA Unavailable [address] [phone] [place] [address] R Unavailable Unavailable Unavailable PACO, NATALYA Unavailable [address] [phone] [place] [address] R Unavailable Unavailable Unavailable PACO, MARÍA ELENA Unavailable [address] + [place] [address] KARIN ANTONIO Unavailable Unavailable Unavailable PACO, MARÍA ELENA Unavailable [address] + [place] [address] KARIN ANTONIO Unavailable Unavailable Unavailable PACO, MARÍA ELENA Unavailable [address] + [place] [address] PACO KARIN Unavailable Unavailable Unavailable PACO, MARÍA ELENA Unavailable [address] + [place] [address] PACO KARIN Unavailable Unavailable Unavailable PACO, NATALYA Unavailable [address] [phone] [place] [address] R Unavailable Unavailable Unavailable PACO, MARÍA ELENA Unavailable [address] + [place] [address] PACO KARIN Unavailable Unavailable Unavailable Care Team Providers Name Role Phone DESEAN RICHEY Attending Unavailable WILKINS, SUMI T Referring Unavailable HINDS, FINA K Primary Care Unavailable DESEAN RICHEY Attending Unavailable DESEAN RICHEY Referring Unavailable HINDS, FINA K Primary Care Unavailable SAMANTHA WHITE Attending Unavailable WILKINS, SUMI T Referring Unavailable HINDS, FINA K Primary Care Unavailable DESEAN RICHEY Attending Unavailable DESEAN RICHEY Referring Unavailable HINDS, FINA K Primary Care Unavailable RIKABI, FRANCIS A Admitting Unavailable RIKABI, ALI A Attending Unavailable HINDS, FINA K Primary Care Unavailable CATALINA CUMMINS Attending Unavailable CATALINA CUMMINS Referring Unavailable HINDS, FINA K Primary Care Unavailable CATALINA CUMMINS Attending Unavailable WILKINS, SUMI T Referring Unavailable HINDS, FINA K Primary Care Unavailable CATALINA CUMMINS Attending Unavailable WILKINS, SUMI T Referring Unavailable HINDS, FINA K Primary Care Unavailable BAUTISTA-DOUGLASCATALINA L Attending Unavailable WILKINS, SUMI T Referring Unavailable HINDS, FINA K Primary Care Unavailable DESEAN RICHEY Attending Unavailable DESEAN RICHEY Referring Unavailable HINDS, FINA K Primary Care Unavailable DESEAN RICHEY Attending Unavailable WILKINS, SUMI T Referring Unavailable HINDS, FINA K Primary Care Unavailable SAMANTHA WHITE Referring Unavailable HINDS, FINA K Primary Care Unavailable SAMANTHA WHITE Referring Unavailable HINDS, FINA K Primary Care Unavailable SAMANTHA WHITE Attending Unavailable SAMANTHA WHITE Referring Unavailable HINDS, FINA K Primary Care Unavailable SAMANTHA WHITE Referring Unavailable HINDS, FINA K Primary Care Unavailable POOJARY, ISHNA Attending Unavailable WILKINS, SUMI T Referring Unavailable HINDS, FINA K Primary Care Unavailable POOJARY, ISHNA Attending Unavailable RICHEYDESEAN FRANCIS Referring Unavailable HINDS, FINA K Primary Care Unavailable SAMANTHA WHITE Attending Unavailable WILKINS, SUMI T Referring Unavailable HINDS, FINA K Primary Care Unavailable POOJARY, ISHNA Attending Unavailable RICHEY, DESEAN Referring Unavailable HINDS, FINA K Primary Care Unavailable CATALINA ROJO Attending Unavailable Hinds, Fina Primary Care Unavailable iKrk Hennessy Attending Unavailable Gerhard, Kirk Referring Unavailable BAUTISTA-PLUMMER, CATALINA Attending Unavailable BAUTISTA-PLUMMER, CATALINA Referring Unavailable Hinds, Fina Primary Care Unavailable BAUTISTA-PLUMMER, CATALINA Attending Unavailable BAUTISTA-PLUMMER, CATALINA Referring Unavailable Hinds, Fina Primary Care Unavailable BAUTISTA-PLUMMER, CATALINA Attending Unavailable BAUTISTA-PLUMMER, CATALINA Referring Unavailable Hinds, Fina Primary Care Unavailable CATALINA ROJO Attending Unavailable CATALINA ROJO Referring Unavailable Hinds, Fina Primary Care Unavailable BAUTISTA-PLUMMER, CATALINA Attending Unavailable BAUTISTA-PLUMMER, CATALINA Referring Unavailable Hinds, Fina Primary Care Unavailable BAUTISTA-PLUMMER, CATALINA Attending Unavailable BAUTISTA-PLUMMER, CATALINA Referring Unavailable Hinds, Fina Primary Care Unavailable BAUTISTA-PLUMMER, CATALINA Attending Unavailable BAUTISTA-PLUMMER, CATALINA Referring Unavailable Hinds, Fina Primary Care Unavailable BAUTISTA-PLUMMER, CATALINA Attending Unavailable BAUTISTA-PLUMMER, CATALINA Referring Unavailable Hinds, Fina Primary Care Unavailable BAUTISTA-PLUMMER, CATALINA Attending Unavailable BAUTISTA-PLUMMER, CATALINA Referring Unavailable Hinds, Fina Primary Care Unavailable BAUTISTA-PLUMMER, CATALINA Attending Unavailable BAUTISTA-PLUMMER, CATALINA Referring Unavailable Hinds, Fina Primary Care Unavailable Hinds, Fina Primary Care Unavailable CATALINA ROJO Attending Unavailable CATALINA ROJO Referring Unavailable CATALINA ROJO Attending Unavailable CATALINA ROJO Referring Unavailable Hinds, Fina Primary Care Unavailable CATALINA ROJO Consulting Unavailable Kirk Hennessy Attending Unavailable Kirk Hennessy Referring Unavailable CATALINA ROJO Attending Unavailable CATALINA ROJO Referring Unavailable Hinds, Fina Primary Care Unavailable PROBLEMS PROBLEMS DATE TYPE CONDITION / CODE ATTENDING STATUS SOURCE 10/04/2018 Unknown Z94.2 - Lung CATALINA ROJO Active [place] transplant status Community / Z94.2(ICD-10) Hospital Repository 10/04/2018 Unknown Z79.899 - Other CATALINA ROJO Active [place] custodial Community (current) drug Hospital therapy / Repository Z79.899(ICD-10) 10/04/2018 Unknown R79.9 - Abnormal CATALINA ROJO Active [place] finding of [facility] chemistry, [facility] unspecified / Repository R79.9(ICD-10) 12/22/2015 Admitting Solitary NA Active [facility] diagnosis pulmonary nodule [place] / R91.1(ICD-10) [facility] Repository 04/12/2018 Admitting Abnormal finding DESEAN RICHEY Active [facility] diagnosis of blood University chemistry, [facility] unspecified / Center R79.9(ICD-10) Repository 04/12/2018 Admitting Hyperlipidemia, DESEAN RICHEY Active [facility] diagnosis unspecified / University E78.5(ICD-10) [facility] Repository 10/29/2017 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, [facility] unspecified / Center D89.9(ICD-10) Repository 04/12/2018 Admitting S/p Lung SAMANTHA WHITE Active [facility] diagnosis Transplant / University 255() [facility] Repository 04/02/2018 Unknown D89.9 - Disorder BAUTISTA-PLUMMER, Active [place] [facility] immune mechanism, [facility] unspecified / Repository D89.9(ICD-10) 03/04/2018 Unknown Z48.24 - BAUTISTA-PLUMMER, Active [place] Encounter for [facility] following lung Repository transplant / Z48.24(ICD-10) 10/29/2017 Admitting Lung transplant BAUTISTA-DOUGLAS, [facility] diagnosis status / [facility] [place] Z94.2(ICD-10) [facility] Repository 10/29/2017 Admitting Encounter for BAUTISTA-DOUGLAS, Active [facility] diagnosis aftercare CATALINA L [place] following lung [facility] transplant / Center Z48.24(ICD-10) Repository 10/29/2017 Admitting Unspecified BAUTISTA-DOUGLAS, 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 / [facility] J42(ICD-10) Center Repository 10/29/2017 Admitting Lung transplant RICAROLYNBI, ALI A Active [facility] diagnosis status (HCC) / University Z94.2(ICD-10) [facility] Repository 10/29/2017 Admitting Chronic RIKABI, ALI A Active [facility] diagnosis obstructive [facility] pulmonary [facility], Center unspecified ([facility]) Repository / J44.9(ICD-10) 10/29/2017 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 (current) drug [facility] therapy / [facility] Z79.899(ICD-10) Center Repository 10/29/2017 Admitting Disorder FRANCIS BAL A Active [facility] diagnosis involving the [facility] immune mechanism, [facility] unspecified ([facility]) Center / D89.9(ICD-10) Repository 10/29/2017 Admitting Encounter for FRANCIS BAL A Active [facility] diagnosis aftercare [facility] following lung [facility] transplant ([facility]) Center / Z48.24(ICD-10) Repository PROCEDURES PROCEDURES No Procedure Records FoundRESULTS RESULTS XR CHEST PA AND Observed: 10/21/2018 Status: F Source: [facility] LATERAL 1:[address] [facility] REPOSITORY EXAM: XR CHEST PA AND LATERAL, 10/21/2018 13:18 PM COMPARISON: April 12, 2018 CLINICAL INDICATIONS: s/p lung transplant RELEVANT CLINICAL HISTORY: Z94.2:S/P lung transplant FINDINGS: (Adequate technique) Implanted Devices: None Chest Wall: Clamshell sternotomy postop changes. Healed rib fractures bilaterally. Vale: Normal Mediastinum: Normal Pleural Spaces: Trace pleural effusions. No pneumothorax. Lungs: Bilateral lung transplant. No consolidation. 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 W/DIFF, AUTOMATED Collected: 10/15/2018 Status: F Source: [place] 8:20 AM [facility] REPOSITORY TYPE CODE TESTS RESULT OUT OF RANGE REFERENCE UNITS LAB L100.1000 4.4-11.0 K/mm3 Normal WBC 4.7 LAB L100.1200 4.6-6.2 M/mm3 Normal RBC 4.65 LAB L100.1300 13.0-16.5 g/dl Low HGB 12.6 LAB L100.1400 40-54 % Normal HCT 41.7 LAB L100.1500 80-94 fL Normal MCV 89.7 LAB L100.1600 27.0-32.0 pg Normal MCH 27.1 LAB L100.1700 32-36 g/gl Low MCHC 30.2 LAB L100.1810 11.6-14.6 % High RDW CV 15.6 LAB L100.1820 35.1-43.9 fl High RDW SD 50.4 LAB L100.1900 150-450 K/mm3 Normal PLT 267 LAB L100.2000 6.2-12.0 fl Normal MPV 10.9 LAB L100.2100 47-70 % Normal NEUT% 66.8 LAB L100.2200 19-41 % Low LY% 14.8 LAB L100.2300 0-10 % High MONO% 11.2 LAB L100.2400 0-5 % High EO% 6.6 LAB L100.2500 0-1 % Normal BASO% 0.4 LAB L100.2550 0.0-0.9 % Normal IM GRAN % 0.200 Result Comment: IG% - Immature Granulocytes (promyelocytes, myelocytes and metamyelocytes) > 1% indicates that a LEFT SHIFT is Present. LAB L100.2620 2.0-7.7 X10 3/uL Normal Absolute Neut 3.2 LAB L100.2720 0.83-4.51 X10 3/ul Low Absolute Lymph 0.70 Performed By: #### L100.0100 #### [facility] [address] [place], [address] COMPREHENSIVE METABOLIC Collected: 10/15/2018 Status: F Source: [facility] 8:20 AM [facility] REPOSITORY TYPE CODE TESTS RESULT OUT OF RANGE REFERENCE UNITS LAB L501.0100 74-106 mg/dL Normal GLU 91 Result Comment: Please note revised GLUCOSE reference range effective 2017. LAB L501.1000 7-18 mg/dL High BUN 35 LAB L501.1100 0.70-1.30 mg/dL High CREAT,SERUM 1.38 Result Comment: The validity of the calculated GFR AND GFRAA in patients over 70 years has not been determined. Clinical correlation is essential. LAB L501.1110 >60 mL/min Low EST GFR 55 Result Comment: Non- GFR Calc LAB L501.1115 >60 mL/min Normal EST GFR - AA 66 Result Comment: GFR Calc LAB L501.1300 10-20 RATIO High BUN/CRE 25.4 LAB L501.1500 6.4-8.2 g/dL T Normal PROT 7.4 LAB L501.1800 3.2-5.0 g/dL Normal ALB 3.8 LAB L501.1950 2.2-4.2 g/dL Normal GLOB 3.6 LAB L501.2000 0.9-2.4 RATIO Normal A/G 1.1 LAB L501.2200 8.5-10.1 mg/dL CA Normal 9.0 LAB L501.4100 15-37 U/L Normal AST 17 LAB L501.4305 45-117 U/L Normal ALK P 46 LAB L501.4405 16-61 U/L Normal ALT 25 LAB L501.4600 0.20-1.00 mg/dL T Normal BILI 0.30 LAB L501.5300 136-145 mmol/L NA Normal 138 LAB L501.5600 3.5-5.1 mmol/L K Normal 4.5 LAB L501.5900 98-107 mmol/L CL Normal 104 LAB L501.6100 21.0-32.0 mmol/L Normal CO2 27.0 LAB L501.6200 5-15 Normal GAP 7 Performed By: #### L500.4050, L501.1400, L501.2300, L501.4700, L501.5100, L501.5200 #### [facility] [address] [place], [place], [address] URIC ACID Collected: 10/15/2018 Status: F Source: [place] 8:20 AM [facility] REPOSITORY TYPE CODE TESTS RESULT OUT OF RANGE REFERENCE UNITS LAB L501.1400 3.5-7.2 mg/dL Normal URIC 6.7 Result Comment: The drugs N-Acetylcysteine and Metamizole may falsely depress this assay. Performed By: #### L500.4050, L501.1400, L501.2300, L501.4700, L501.5100, L501.5200 #### [facility] [address] [place], [place], [id number] PHOSPHORUS Collected: 10/15/2018 Status: F Source: [place] 8:20 AM [facility] REPOSITORY TYPE CODE TESTS RESULT OUT OF RANGE REFERENCE UNITS LAB L501.2300 2.5-4.9 mg/dL Normal PHOS 3.5 Performed By: #### L500.4050, L501.1400, L501.2300, L501.4700, L501.5100, L501.5200 #### [facility] [address] [place], [address] BILIRUBIN, DIRECT Collected: 10/15/2018 Status: F Source: [place] 8:20 AM [facility] REPOSITORY TYPE CODE TESTS RESULT OUT OF RANGE REFERENCE UNITS LAB L501.4700 0.00-0.30 mg/dL Normal D BILI 0.07 Performed By: #### L500.4050, L501.1400, L501.2300, L501.4700, L501.5100, L501.5200 #### [facility] [place], [place], [id number] GGTP Collected: 10/15/2018 Status: F Source: [place] 8:20 AM [facility] REPOSITORY TYPE CODE TESTS RESULT OUT OF RANGE REFERENCE UNITS LAB L501.5100 15-85 U/L Normal GGTP 20 Performed By: #### L500.4050, L501.1400, L501.2300, L501.4700, L501.5100, L501.5200 #### [facility] [address] [place], [place], [id number] (541) MAGNESIUM Collected: 10/15/2018 Status: F Source: [place] 8:20 AM [facility] REPOSITORY TYPE CODE TESTS RESULT OUT OF RANGE REFERENCE UNITS LAB L501.5200 1.6-2.6 mg/dL Normal MG 1.9 Performed By: #### L500.4050, L501.1400, L501.2300, L501.4700, L501.5100, L501.5200 #### [facility] [address] [place], [address] TACROLIMUS (PROGRAF) Collected: 10/15/2018 Status: F Source: [place] 8:20 AM [facility] REPOSITORY TYPE CODE TESTS RESULT OUT OF RANGE REFERENCE UNITS LAB L3380.1100 2.0-20.0 ng/mL Normal TACROLIMUS 6.1 Result Comment: Trough (immediately following transplant) 15.0 Trough (steady state, 2 weeks or more after transplant): 3.0 - 8.0 Detection Limit = 1.0 Performed by LC-MS/MS technology. Performed By: #### L3380.1000, L3400.1525, L3400.5200 #### [facility] (refer to report for specific site) refer to report for address and phone number CMV BY PCR Collected: 10/15/2018 Status: F Source: [place] 8:20 AM [facility] REPOSITORY TYPE CODE TESTS RESULT OUT OF RANGE REFERENCE UNITS LAB L3400.1525 Negative Normal CMV PCR Negative [id number] Result Comment: No Cytomegalovirus DNA Detected. This test was developed and its performance characteristics determined by [facility]. It has not been cleared or approved by the Food and Drug Administration. The FDA has determined that such clearance or approval is not necessary. Performed By: #### L3380.1000, L3400.1525, L3400.5200 #### [facility] (refer to report for specific site) refer to report for address and phone number SIROLIMUS (RAPAMUNE) Collected: 10/15/2018 Status: F Source: [place] LEVEL 8:20 AM [facility] REPOSITORY TYPE CODE TESTS RESULT OUT OF RANGE REFERENCE UNITS LAB L3400.5210 3.0-20.0 ng/mL Normal 4.0 SIROLIMUS,BL OOD Result Comment: Detection Limit = 1.0 Performed by LC/MS-MS technology Performed at: [address] [id number] Green Plumber: Sanjay Pope MD, Phone: [phone] Performed By: #### L3380.1000, L3400.1525, L3400.5200 #### [facility] (refer to report for specific site) refer to report for address and phone number CBC W/DIFF, AUTOMATED Collected: 09/24/2018 Status: F Source: [place] 9:28 AM [facility] REPOSITORY TYPE CODE TESTS RESULT OUT OF RANGE REFERENCE UNITS LAB L100.1000 4.4-11.0 K/mm3 Normal WBC 6.3 LAB L100.1200 4.6-6.2 M/mm3 Normal RBC 4.67 LAB L100.1300 13.0-16.5 g/dl Normal HGB 13.0 LAB L100.1400 40-54 % Normal HCT 41.7 LAB L100.1500 80-94 fL Normal MCV 89.3 LAB L100.1600 27.0-32.0 pg Normal MCH 27.8 LAB L100.1700 32-36 g/gl Low MCHC 31.2 LAB L100.1810 11.6-14.6 % High RDW CV 15.3 LAB L100.1820 35.1-43.9 fl High RDW SD 49.5 LAB L100.1900 150-450 K/mm3 Normal PLT 251 LAB L100.2000 6.2-12.0 fl Normal MPV 11.2 LAB L100.2100 47-70 % High NEUT% 73.2 LAB L100.2200 19-41 % Low LY% 11.3 LAB L100.2300 0-10 % Normal MONO% 9.4 LAB L100.2400 0-5 % High EO% 5.3 LAB L100.2500 0-1 % Normal BASO% 0.5 LAB L100.2550 0.0-0.9 % Normal IM GRAN % 0.300 Result Comment: IG% - Immature Granulocytes (promyelocytes, myelocytes and metamyelocytes) > 1% indicates that a LEFT SHIFT is Present. LAB L100.2620 2.0-7.7 X10 3/uL Normal Absolute Neut 4.6 LAB L100.2720 0.83-4.51 X10 3/ul Low Absolute Lymph 0.71 Performed By: #### L100.0100 #### [facility] [address] [facility]. [place], [place], [address] COMPREHENSIVE METABOLIC Collected: 09/24/2018 Status: F Source: [facility] 9:28 AM [facility] REPOSITORY TYPE CODE TESTS RESULT OUT OF RANGE REFERENCE UNITS LAB L501.0100 74-106 mg/dL Normal GLU 97 Result Comment: Please note revised GLUCOSE reference range effective 2017. LAB L501.1000 7-18 mg/dL High BUN 41 LAB L501.1100 0.70-1.30 mg/dL High CREAT,SERUM 1.38 Result Comment: The validity of the calculated GFR AND GFRAA in patients over 70 years has not been determined. Clinical correlation is essential. LAB L501.1110 >60 mL/min Low EST GFR 55 Result Comment: Non- GFR Calc LAB L501.1115 >60 mL/min Normal EST GFR - AA 66 Result Comment: GFR Calc LAB L501.1300 10-20 RATIO High BUN/CRE 29.7 LAB L501.1500 6.4-8.2 g/dL T Normal PROT 7.3 LAB L501.1800 3.2-5.0 g/dL Normal ALB 3.8 LAB L501.1950 2.2-4.2 g/dL Normal GLOB 3.5 LAB L501.2000 0.9-2.4 RATIO Normal A/G 1.1 LAB L501.2200 8.5-10.1 mg/dL CA Normal 9.0 LAB L501.4100 15-37 U/L Normal AST 16 LAB L501.4305 45-117 U/L Normal ALK P 46 LAB L501.4405 16-61 U/L Normal ALT 21 LAB L501.4600 0.20-1.00 mg/dL T Normal BILI 0.30 LAB L501.5300 136-145 mmol/L NA Normal 138 LAB L501.5600 3.5-5.1 mmol/L K Normal 4.5 LAB L501.5900 98-107 mmol/L CL Normal 103 LAB L501.6100 21.0-32.0 mmol/L Normal CO2 28.0 LAB L501.6200 5-15 Normal GAP 7 Performed By: #### L500.4050, L500.4100, L501.1400, L501.2300, L501.4700, L501.5100, L501.5200, L503.6030 #### [facility] [address] [place], [place], [address] LIPID PROFILE Collected: 09/24/2018 Status: F Source: [place] 9:28 AM [facility] REPOSITORY TYPE CODE TESTS RESULT OUT OF RANGE REFERENCE UNITS LAB L501.4900 200 mg/dL High CHOL 261 Result Comment: <200 mg/dL Desirable 200-240 mg/dL Borderline >240 mg/dL High Risk LAB L501.5000 mg/dL High TRIG 203 Result Comment: The drugs N-Acetylcysteine and Metamizole may falsely depress this assay. Serum Triglycerides Reference Interval Normal <150 mg/dL Borderline high 150 - 199 mg/dL High 200 - 499 mg/dL Very High > or = 500 mg/dL LAB L501.6400 mg/dL Normal HDL 48 Result Comment: The drugs N-Acetylcysteine and Metamizole may falsely depress this assay. Reference Range HDL <40 mg/dL Low HDL Cholesterol HDL >or= 60 mg/dL High HDL Cholesterol LAB L501.6500 0-130 mg/dL High LDL 172 LAB L501.6600 5-40 mg/dL High VLDL 41 Performed By: #### L500.4050, L500.4100, L501.1400, L501.2300, L501.4700, L501.5100, L501.5200, L503.6030 #### [facility] [address] [place], [place], [id number] URIC ACID Collected: 09/24/2018 Status: F Source: [place] 9:28 [facility] REPOSITORY TYPE CODE TESTS RESULT OUT OF RANGE REFERENCE UNITS LAB L501.1400 3.5-7.2 mg/dL Normal URIC 5.9 Result Comment: The drugs N-Acetylcysteine and Metamizole may falsely depress this assay. Performed By: #### L500.4050, L500.4100, L501.1400, L501.2300, L501.4700, L501.5100, L501.5200, L503.6030 #### [facility] [address] [facility] [place], [place], [address] PHOSPHORUS Collected: 09/24/2018 Status: F Source: [place] 9:28 AM [facility] REPOSITORY TYPE CODE TESTS RESULT OUT OF RANGE REFERENCE UNITS LAB L501.2300 2.5-4.9 mg/dL Normal PHOS 3.2 Performed By: #### L500.4050, L500.4100, L501.1400, L501.2300, L501.4700, L501.5100, L501.5200, L503.6030 #### [facility] [address] [place], [place], [address] BILIRUBIN, DIRECT Collected: 09/24/2018 Status: F Source: [facility] 9:28 AM [facility] REPOSITORY TYPE CODE TESTS RESULT OUT OF RANGE REFERENCE UNITS LAB L501.4700 0.00-0.30 mg/dL Normal D BILI 0.10 Performed By: #### L500.4050, L500.4100, L501.1400, L501.2300, L501.4700, L501.5100, L501.5200, L503.6030 #### [facility] [address] [place], [place], [id number] GGTP Collected: 09/24/2018 Status: F Source: [place] 9:28 AM [facility] REPOSITORY TYPE CODE TESTS RESULT OUT OF RANGE REFERENCE UNITS LAB L501.5100 15-85 U/L Normal GGTP 18 Performed By: #### L500.4050, L500.4100, L501.1400, L501.2300, L501.4700, L501.5100, L501.5200, L503.6030 #### [facility] [place], [place], [address] MAGNESIUM Collected: 09/24/2018 Status: F Source: [place] 9:28 AM [facility] REPOSITORY TYPE CODE TESTS RESULT OUT OF RANGE REFERENCE UNITS LAB L501.5200 1.6-2.6 mg/dL Normal MG 1.8 Performed By: #### L500.4050, L500.4100, L501.1400, L501.2300, L501.4700, L501.5100, L501.5200, L503.6030 #### [facility] [address] [place], [place], [id number] IRON+IRON BINDING Collected: 09/24/2018 Status: F Source: [facility] 9:28 AM [facility] REPOSITORY TYPE CODE TESTS RESULT OUT OF RANGE REFERENCE UNITS LAB L503.6075 250-450 ug/dL TIBC Normal 324 LAB L503.6150 65-175 ug/dL Low IRON 53 LAB L503.6250 15.0-55.0 % IRON Normal SATURATION 16.4 Performed By: #### L500.4050, L500.4100, L501.1400, L501.2300, L501.4700, L501.5100, L501.5200, L503.6030 #### [facility] [address] [place], [place], [address] HEMOGLOBIN A1C Collected: 09/24/2018 Status: F Source: [place] 9:28 AM [facility] REPOSITORY TYPE CODE TESTS RESULT OUT OF RANGE REFERENCE UNITS LAB L501.9985 4.2-6.3 % Normal HGB A1C 6.1 Performed By: #### L501.9985 #### [facility] [address] [place], [address] IMMUNOGLOBULINS G/A/M/E Collected: 09/24/2018 Status: F Source: [place] 9:28 AM [facility] REPOSITORY Order Comment: Is Patient Fasting? Y TYPE CODE TESTS RESULT OUT OF RANGE REFERENCE UNITS LAB L3200.3794 166-0094 mg/dL Normal IMMUNO G 746 LAB L3200.1400 61-437 mg/dL Normal IMMUNO A 71 LAB L3200.1500 20-172 mg/dL Low IMMUNOGL M 6 Result Comment: Result confirmed on concentration. LAB L3200.1600 0-100 IU/mL Normal IMMUNO E < 2 Performed By: #### L3200.1100, L3380.1000, L3400.1525, L3400.5200 #### [facility] (refer to report for specific site) refer to report for address and phone number TACROLIMUS (PROGRAF) Collected: 09/24/2018 Status: F Source: [place] 9:28 AM [facility] REPOSITORY Order Comment: Is Patient Fasting? Y TYPE CODE TESTS RESULT OUT OF RANGE REFERENCE UNITS LAB L3380.1100 2.0-20.0 ng/mL Normal TACROLIMUS 6.8 Result Comment: Trough (immediately following transplant) 15.0 Trough (steady state, 2 weeks or more after transplant): 3.0 - 8.0 Detection Limit = 1.0 Performed by LC-MS/MS technology. Performed By: #### L3200.1100, L3380.1000, L3400.1525, L3400.5200 #### [facility] (refer to report for specific site) refer to report for address and phone number CMV BY PCR Collected: 09/24/2018 Status: F Source: [place] 9:28 AM [facility] REPOSITORY Order Comment: Is Patient Fasting? Y TYPE CODE TESTS RESULT OUT OF RANGE REFERENCE UNITS LAB L3400.1525 Negative Normal CMV PCR Negative [id number] Result Comment: No Cytomegalovirus DNA Detected. This test was developed and its performance characteristics determined by [facility]. It has not been cleared or approved by the Food and Drug Administration. The FDA has determined that such clearance or approval is not necessary. Performed By: #### L3200.1100, L3380.1000, L3400.1525, L3400.5200 #### [facility] (refer to report for specific site) refer to report for address and phone number SIROLIMUS (RAPAMUNE) Collected: 09/24/2018 Status: F Source: [facility] 9:28 AM [facility] REPOSITORY Order Comment: Is Patient Fasting? Y TYPE CODE TESTS RESULT OUT OF RANGE REFERENCE UNITS LAB L3400.5210 3.0-20.0 ng/mL Normal 5.5 SIROLIMUS,BL OOD Result Comment: Detection Limit = 1.0 Performed by LC/MS-MS technology Performed at: [address] [id number] Green Plumber: John Latif PhD, Phone: [phone] Performed at: [facility] Lab[address] [id number] Green Plumber: Sanjay Pope MD, Phone: [phone] Performed By: #### L3200.1100, L3380.1000, L3400.1525, L3400.5200 #### [facility] (refer to report for specific site) refer to report for address and phone number SPIROMETRY PFT TESTING Observed: 09/17/2018 Status: F Source: [place] 6:02 AM [facility] REPOSITORY [facility] Pulmonary Services/Neurology [address] [place] [address] MR#: [id number] Acct: [id number] Name: KARIN ANTONIO Jr. Rep #: [id number] : 1950 68 From: Kirk Hennessy MD Referring Dr: Status: REG CLI Ordering Dr: Date: Location: [facility] Sex: M C Spirometry PFT Testing Spirometry PFT Testing: COMPLETE PULMONARY FUNCTION TEST INTERPRETATION Brief HPI: Patient is a 68 year old male, currently under the care of an outside physician, who presents to [facility] for complete pulmonary function tests secondary to diagnosis of status post lung transplant. Respiratory therapist reports good effort and reproducible results. Interpretation: Forced expiration spirometry shows a severe large airways obstructive ventilatory defect with an FEV1 of 37% predicted. Spirograms are of good quality and plateau slowly, indicating slowly emptying areas of the lungs. The respiratory flow volume loop shows decreased expiratory flow rates at all lung volumes consistent with airway obstruction. Compared to previous pulmonary function tests from 08/17/2018, there has been no significant change. Impression: Severe large airways obstructive ventilatory defect with no significant change compared to previous 09/17/18 0602 <Electronically signed by Kirk Hennessy MD> Date Kirk Hennessy MD CC: Date Dictated: 09/16/18 1015 Date Transcribed: 09/16/18 1015 Dandy Tender: LULÚ Signed SPIROMETRY PFT TESTING Observed: 08/18/2018 Status: F Source: [place] 5:47 AM [facility] REPOSITORY [facility] Pulmonary Services/Neurology [address] [place], [place] [id number] MR#: [id number] Acct: [id number] Name: KARIN ANTONIO Jr. Rep #: [id number] : 1950 68 From: Kirk Hennessy MD Referring Dr: Status: REG CLI Ordering Dr: Date: Location: [facility] Sex: M C Spirometry PFT Testing Spirometry PFT Testing: COMPLETE PULMONARY FUNCTION TEST INTERPRETATION Brief HPI: Patient is a 68 year old male, currently under the care of Dr. Richey, who presents to [facility] for complete pulmonary function tests secondary to diagnosis of status post lung transplant. Respiratory therapist reports good effort and reproducible results. Interpretation: Forced expiration spirometry shows a severe large airways obstructive ventilatory defect with an FEV1 of 37% predicted. Bronchodilators were not used during the study. Spirograms are of good quality and plateau slowly, indicating slowly emptying areas of the lungs. The respiratory flow volume loop shows decreased expiratory flow rates at all lung volumes consistent with airway obstruction. No previous pulmonary function tests were available for review. Impression: Severe large airways obstructive ventilatory defect. No previous studies available for comparison. 08/18/18 0547 <Electronically signed by Kirk Hennessy MD> Date Kirk Hennessy MD CC: Date Dictated: 08/17/181599 Date Transcribed: 08/17/181599 Dandy Tender: LULÚ Signed CT CHEST WITHOUT Observed: 07/22/2018 Status: F Source: [facility] CONTRAST 3:[address] [facility] REPOSITORY EXAM: CT CHEST WITHOUT CONTRAST, 07/22/2018 13:10 PM COMPARISON: CT January 04, 2018 CLINICAL INDICATIONS: Nodules; s/p Lung Transplant; RELEVANT CLINICAL HISTORY: Z94.2:S/P lung transplant D89.9:Immunosuppression Z48.24:Encounter for aftercare following lung transplant R91.1:Pulmonary nodule High Resolution; TECHNIQUE: Axial CT images were reconstructed from the volumetric data set, from the thoracic inlet through the adrenal glands. No intravenous contrast was used. Coronal MIP images were also reconstructed. FINDINGS: Lungs and Pleura: The patient is status post bilateral lung transplants.. Some respiratory motion artifact degrades the lung bases. No dominant mass, consolidation or pleural effusion. Scarring is again noted in the medial right lower lobe. This extends posteriorly to the pleural surface where there is focal thickening measuring 1.5 cm on axial image 49, previously 1.6 cm. A few punctate pulmonary nodules are again noted, unchanged. A mild mosaic pattern is faintly present as described previously. Tracheobronchial tree: No abnormality. Mediastinum/Vale: No mediastinal or hilar lymphadenopathy. Calcified granulomatous disease is present. The visualized thyroid and esophagus are unremarkable. Axilla and Supraclavicular Regions: No axillary or supraclavicular adenopathy. Cardiovascular: The heart size is top normal with no pericardial effusion. Calcified atherosclerotic disease is scattered throughout the aorta and coronary arteries. The aorta and central pulmonary vasculature are of normal caliber. Upper Abdomen: Limited evaluation the upper abdomen shows no active disease. The liver and spleen are of normal size and other visualized extent. The adrenal glands are normal. No ascites. Bones and Soft Tissue: No suspicious osseous lesion. Mild degenerative changes are noted throughout the thoracic spine. There is mild height loss at multiple levels in the thoracic spine, not significantly changed. Lower sternotomy wires in place. IMPRESSION: 1. Stable pleural-parenchymal scarring in the posterior right lung base with a previously measured focal area of pleural thickening in the posterior right base, essentially unchanged. No change in a couple punctate pulmonary nodules. No new lung lesions or disease. 2. Previously described mosaic pattern somewhat faint but grossly unchanged. 3. No thoracic lymphadenopathy or other active disease appreciated. W/DIFF, AUTOMATED Collected: 07/12/2018 Status: F Source: [facility] 8:28 AM [facility] REPOSITORY TYPE CODE TESTS RESULT OUT OF RANGE REFERENCE UNITS LAB L100.1000 4.4-11.0 K/mm3 Normal WBC 5.8 LAB L100.1200 4.6-6.2 M/mm3 Normal RBC 4.71 LAB L100.1300 13.0-16.5 g/dl Normal HGB 13.0 LAB L100.1400 40-54 % Normal HCT 41.7 LAB L100.1500 80-94 fL Normal MCV 88.5 LAB L100.1600 27.0-32.0 pg Normal MCH 27.6 LAB L100.1700 32-36 g/gl Low MCHC 31.2 LAB L100.1810 11.6-14.6 % High RDW CV 15.1 LAB L100.1820 35.1-43.9 fl High RDW SD 49.2 LAB L100.1900 150-450 K/mm3 Normal PLT 290 LAB L100.2000 6.2-12.0 fl Normal MPV 10.9 LAB L100.2100 47-70 % High NEUT% 71.8 LAB L100.2200 19-41 % Low LY% 12.1 LAB L100.2300 0-10 % Normal MONO% 10.0 LAB L100.2400 0-5 % High EO% 5.3 LAB L100.2500 0-1 % Normal BASO% 0.5 LAB L100.2550 0.0-0.9 % Normal IM GRAN % 0.300 Result Comment: IG% - Immature Granulocytes (promyelocytes, myelocytes and metamyelocytes) > 1% indicates that a LEFT SHIFT is Present. LAB L100.2620 2.0-7.7 X10 3/uL Normal Absolute Neut 4.2 LAB L100.2720 0.83-4.51 X10 3/ul Low Absolute Lymph 0.70 Performed By: #### L100.0100 #### [facility] [address] [place], [address] HEMOGLOBIN A1C Collected: 07/12/2018 Status: F Source: [place] 8:28 AM [facility] REPOSITORY TYPE CODE TESTS RESULT OUT OF RANGE REFERENCE UNITS LAB L501.9985 4.2-6.3 % Normal HGB A1C 5.8 Performed By: #### L501.9985 #### [facility] [address] [place], [place], [address] GLUCOSE Collected: 07/12/2018 Status: F Source: [place] 8:28 AM [facility] REPOSITORY TYPE CODE TESTS RESULT OUT OF RANGE REFERENCE UNITS LAB L501.0100 74-106 mg/dL Normal GLU 92 Result Comment: Please note revised GLUCOSE reference range effective 2017. Performed By: #### L501.0100, L501.1000, L501.1105, L501.1400, L501.1800, L501.2200, L501.2300, L501.4100, L501.4305, L501.4405, L501.4600, L501.4700, L501.4900, L501.5000, L501.5100, L501.5200, L501.53 00, L501.5600, L501.5900, L501.6100, L501.6400 #### [facility] [address] [place], [place], [address] BUN Collected: 07/12/2018 Status: F Source: [place] 8:28 AM [facility] REPOSITORY TYPE CODE TESTS RESULT OUT OF RANGE REFERENCE UNITS LAB L501.1000 7-18 mg/dL High BUN 43 Performed By: #### L501.0100, L501.1000, L501.1105, L501.1400, L501.1800, L501.2200, L501.2300, L501.4100, L501.4305, L501.4405, L501.4600, L501.4700, L501.4900, L501.5000, L501.5100, L501.5200, L501.53 00, L501.5600, L501.5900, L501.6100, L501.6400 #### [facility] [address] [place], [place], [address] SERUM CREATININE AND Collected: 07/12/2018 Status: F Source: [place] GFR 8:28 AM [facility] REPOSITORY TYPE CODE TESTS RESULT OUT OF RANGE REFERENCE UNITS LAB L501.1100 0.70-1.30 mg/dL Normal 1.24 CREAT,SERUM Result Comment: The validity of the calculated GFR AND GFRAA in patients over 70 years has not been determined. Clinical correlation is essential. LAB L501.1110 >60 mL/min Normal EST GFR 62 Result Comment: Non- GFR Calc LAB L501.1115 >60 mL/min Normal EST GFR - AA 75 Result Comment: GFR Calc Performed By: #### L501.0100, L501.1000, L501.1105, L501.1400, L501.1800, L501.2200, L501.2300, L501.4100, L501.4305, L501.4405, L501.4600, L501.4700, L501.4900, L501.5000, L501.5100, L501.5200, L501.53 00, L501.5600, L501.5900, L501.6100, L501.6400 #### [facility] [address] [place], [place], [address] URIC ACID Collected: 07/12/2018 Status: F Source: [place] 8:28 AM [facility] REPOSITORY TYPE CODE TESTS RESULT OUT OF RANGE REFERENCE UNITS LAB L501.1400 3.5-7.2 mg/dL Normal URIC 6.6 Result Comment: The drugs N-Acetylcysteine and Metamizole may falsely depress this assay. Performed By: #### L501.0100, L501.1000, L501.1105, L501.1400, L501.1800, L501.2200, L501.2300, L501.4100, L501.4305, L501.4405, L501.4600, L501.4700, L501.4900, L501.5000, L501.5100, L501.5200, L501.53 00, L501.5600, L501.5900, L501.6100, L501.6400 #### [facility] [address] [facility] [place], [place], [address] ALBUMIN, SERUM Collected: 07/12/2018 Status: F Source: [place] 8:28 AM [facility] REPOSITORY TYPE CODE TESTS RESULT OUT OF RANGE REFERENCE UNITS LAB L501.1800 3.2-5.0 g/dL Normal ALB 3.7 Performed By: #### L501.0100, L501.1000, L501.1105, L501.1400, L501.1800, L501.2200, L501.2300, L501.4100, L501.4305, L501.4405, L501.4600, L501.4700, L501.4900, L501.5000, L501.5100, L501.5200, L501.53 00, L501.5600, L501.5900, L501.6100, L501.6400 #### [facility] [address] [facility] [place], [address] CALCIUM,TOTAL Collected: 07/12/2018 Status: F Source: [place] 8:28 AM [facility] REPOSITORY TYPE CODE TESTS RESULT OUT OF RANGE REFERENCE UNITS LAB L501.2200 8.5-10.1 mg/dL Normal CA 9.6 Performed By: #### L501.0100, L501.1000, L501.1105, L501.1400, L501.1800, L501.2200, L501.2300, L501.4100, L501.4305, L501.4405, L501.4600, L501.4700, L501.4900, L501.5000, L501.5100, L501.5200, L501.53 00, L501.5600, L501.5900, L501.6100, L501.6400 #### [facility] [address] [place], [place], [address] PHOSPHORUS Collected: 07/12/2018 Status: F Source: [place] 8:28 AM [facility] REPOSITORY TYPE CODE TESTS RESULT OUT OF RANGE REFERENCE UNITS LAB L501.2300 2.5-4.9 mg/dL Normal PHOS 4.1 Performed By: #### L501.0100, L501.1000, L501.1105, L501.1400, L501.1800, L501.2200, L501.2300, L501.4100, L501.4305, L501.4405, L501.4600, L501.4700, L501.4900, L501.5000, L501.5100, L501.5200, L501.53 00, L501.5600, L501.5900, L501.6100, L501.6400 #### [facility] [place], [place], [address] AST(SGOT) Collected: 07/12/2018 Status: F Source: [place] 8:28 AM [facility] REPOSITORY TYPE CODE TESTS RESULT OUT OF RANGE REFERENCE UNITS LAB L501.4100 15-37 U/L Normal AST 19 Performed By: #### L501.0100, L501.1000, L501.1105, L501.1400, L501.1800, L501.2200, L501.2300, L501.4100, L501.4305, L501.4405, L501.4600, L501.4700, L501.4900, L501.5000, L501.5100, L501.5200, L501.53 00, L501.5600, L501.5900, L501.6100, L501.6400 #### [facility] [address] [place], [place], [address] ALKALINE PHOSPHATASE Collected: 07/12/2018 Status: F Source: [place] 8:28 AM [facility] REPOSITORY TYPE CODE TESTS RESULT OUT OF RANGE REFERENCE UNITS LAB L501.4305 45-117 U/L Normal ALK P 47 Performed By: #### L501.0100, L501.1000, L501.1105, L501.1400, L501.1800, L501.2200, L501.2300, L501.4100, L501.4305, L501.4405, L501.4600, L501.4700, L501.4900, L501.5000, L501.5100, L501.5200, L501.53 00, L501.5600, L501.5900, L501.6100, L501.6400 #### [facility] [address] [place], [address] ALANINE AMINOTRANSFERAS Collected: 07/12/2018 Status: F Source: [facility] (SGPT) 8:28 AM [facility] REPOSITORY TYPE CODE TESTS RESULT OUT OF RANGE REFERENCE UNITS LAB L501.4405 16-61 U/L Normal ALT 26 Performed By: #### L501.0100, L501.1000, L501.1105, L501.1400, L501.1800, L501.2200, L501.2300, L501.4100, L501.4305, L501.4405, L501.4600, L501.4700, L501.4900, L501.5000, L501.5100, L501.5200, L501.53 00, L501.5600, L501.5900, L501.6100, L501.6400 #### [facility] [address] [place], [address] TOTAL BILIRUBIN Collected: 07/12/2018 Status: F Source: [facility] 8:28 AM [facility] REPOSITORY TYPE CODE TESTS RESULT OUT OF RANGE REFERENCE UNITS LAB L501.4600 0.20-1.00 mg/dL Normal T BILI 0.30 Performed By: #### L501.0100, L501.1000, L501.1105, L501.1400, L501.1800, L501.2200, L501.2300, L501.4100, L501.4305, L501.4405, L501.4600, L501.4700, L501.4900, L501.5000, L501.5100, L501.5200, L501.53 00, L501.5600, L501.5900, L501.6100, L501.6400 #### [facility] [address] [place], [place], [id number] BILIRUBIN, DIRECT Collected: 07/12/2018 Status: F Source: [place] 8:28 AM [facility] REPOSITORY TYPE CODE TESTS RESULT OUT OF RANGE REFERENCE UNITS LAB L501.4700 0.00-0.30 mg/dL Normal D BILI 0.09 Performed By: #### L501.0100, L501.1000, L501.1105, L501.1400, L501.1800, L501.2200, L501.2300, L501.4100, L501.4305, L501.4405, L501.4600, L501.4700, L501.4900, L501.5000, L501.5100, L501.5200, L501.53 00, L501.5600, L501.5900, L501.6100, L501.6400 #### [facility]. [place], [place], [address] CHOLESTEROL Collected: 07/12/2018 Status: F Source: [place] 8:28 AM [facility] REPOSITORY TYPE CODE TESTS RESULT OUT OF RANGE REFERENCE UNITS LAB L501.4900 200 mg/dL High CHOL 266 Result Comment: <200 mg/dL Desirable 200-240 mg/dL Borderline >240 mg/dL High Risk Performed By: #### L501.0100, L501.1000, L501.1105, L501.1400, L501.1800, L501.2200, L501.2300, L501.4100, L501.4305, L501.4405, L501.4600, L501.4700, L501.4900, L501.5000, L501.5100, L501.5200, L501.53 00, L501.5600, L501.5900, L501.6100, L501.6400 #### [facility] [address] [facility] [place], [place], [address] TRIGLYCERIDES Collected: 07/12/2018 Status: F Source: [place] 8:28 AM [facility] REPOSITORY TYPE CODE TESTS RESULT OUT OF RANGE REFERENCE UNITS LAB L501.5000 mg/dL High TRIG 222 Result Comment: The drugs N-Acetylcysteine and Metamizole may falsely depress this assay. Serum Triglycerides Reference Interval Normal <150 mg/dL Borderline high 150 - 199 mg/dL High 200 - 499 mg/dL Very High > or = 500 mg/dL Performed By: #### L501.0100, L501.1000, L501.1105, L501.1400, L501.1800, L501.2200, L501.2300, L501.4100, L501.4305, L501.4405, L501.4600, L501.4700, L501.4900, L501.5000, L501.5100, L501.5200, L501.53 00, L501.5600, L501.5900, L501.6100, L501.6400 #### [facility] [address] [facility] [place], [place], [id number] GGTP Collected: 07/12/2018 Status: F Source: [place] 8:28 AM [facility] REPOSITORY TYPE CODE TESTS RESULT OUT OF RANGE REFERENCE UNITS LAB L501.5100 15-85 U/L Normal GGTP 21 Performed By: #### L501.0100, L501.1000, L501.1105, L501.1400, L501.1800, L501.2200, L501.2300, L501.4100, L501.4305, L501.4405, L501.4600, L501.4700, L501.4900, L501.5000, L501.5100, L501.5200, L501.53 00, L501.5600, L501.5900, L501.6100, L501.6400 #### [facility] [address] [facility] [place], [place], [address] MAGNESIUM Collected: 07/12/2018 Status: F Source: [facility] 8:28 AM [facility] REPOSITORY TYPE CODE TESTS RESULT OUT OF RANGE REFERENCE UNITS LAB L501.5200 1.6-2.6 mg/dL Normal MG 2.0 Performed By: #### L501.0100, L501.1000, L501.1105, L501.1400, L501.1800, L501.2200, L501.2300, L501.4100, L501.4305, L501.4405, L501.4600, L501.4700, L501.4900, L501.5000, L501.5100, L501.5200, L501.53 00, L501.5600, L501.5900, L501.6100, L501.6400 #### [facility]. [place], [place], [address] SODIUM LEVEL Collected: 07/12/2018 Status: F Source: [place] 8:28 AM [facility] REPOSITORY TYPE CODE TESTS RESULT OUT OF RANGE REFERENCE UNITS LAB L501.5300 136-145 mmol/L Normal NA 138 Performed By: #### L501.0100, L501.1000, L501.1105, L501.1400, L501.1800, L501.2200, L501.2300, L501.4100, L501.4305, L501.4405, L501.4600, L501.4700, L501.4900, L501.5000, L501.5100, L501.5200, L501.53 00, L501.5600, L501.5900, L501.6100, L501.6400 #### [facility]. [place], [place], [address] POTASSIUM Collected: 07/12/2018 Status: F Source: [place] 8:28 AM [facility] REPOSITORY TYPE CODE TESTS RESULT OUT OF RANGE REFERENCE UNITS LAB L501.5600 3.5-5.1 mmol/L Normal K 4.6 Performed By: #### L501.0100, L501.1000, L501.1105, L501.1400, L501.1800, L501.2200, L501.2300, L501.4100, L501.4305, L501.4405, L501.4600, L501.4700, L501.4900, L501.5000, L501.5100, L501.5200, L501.53 00, L501.5600, L501.5900, L501.6100, L501.6400 #### [facility] [address] [place], [place], [id number] CHLORIDE Collected: 07/12/2018 Status: F Source: [place] 8:28 AM [facility] REPOSITORY TYPE CODE TESTS RESULT OUT OF RANGE REFERENCE UNITS LAB L501.5900 98-107 mmol/L Normal CL 101 Performed By: #### L501.0100, L501.1000, L501.1105, L501.1400, L501.1800, L501.2200, L501.2300, L501.4100, L501.4305, L501.4405, L501.4600, L501.4700, L501.4900, L501.5000, L501.5100, L501.5200, L501.53 00, L501.5600, L501.5900, L501.6100, L501.6400 #### [facility] [address] [facility]. [place], [place], [id number] CARBON DIOXIDE Collected: 07/12/2018 Status: F Source: [place] 8:28 AM [facility] REPOSITORY TYPE CODE TESTS RESULT OUT OF RANGE REFERENCE UNITS LAB L501.6100 21.0-32.0 mmol/L Normal CO2 30.0 Performed By: #### L501.0100, L501.1000, L501.1105, L501.1400, L501.1800, L501.2200, L501.2300, L501.4100, L501.4305, L501.4405, L501.4600, L501.4700, L501.4900, L501.5000, L501.5100, L501.5200, L501.53 00, L501.5600, L501.5900, L501.6100, L501.6400 #### [facility] [address] [place], [place], [address] HIGH DENSITY Collected: 07/12/2018 Status: F Source: [facility] 8:28 AM [facility] REPOSITORY TYPE CODE TESTS RESULT OUT OF RANGE REFERENCE UNITS LAB L501.6400 mg/dL Normal HDL 53 Result Comment: The drugs N-Acetylcysteine and Metamizole may falsely depress this assay. Reference Range HDL <40 mg/dL Low HDL Cholesterol HDL >or= 60 mg/dL High HDL Cholesterol Performed By: #### L501.0100, L501.1000, L501.1105, L501.1400, L501.1800, L501.2200, L501.2300, L501.4100, L501.4305, L501.4405, L501.4600, L501.4700, L501.4900, L501.5000, L501.5100, L501.5200, L501.53 00, L501.5600, L501.5900, L501.6100, L501.6400 #### [facility] [address] [facility]. [place], [place], [id number] TACROLIMUS (PROGRAF) Collected: 07/12/2018 Status: F Source: [place] 8:28 [facility] REPOSITORY TYPE CODE TESTS RESULT OUT OF RANGE REFERENCE UNITS LAB L3380.1100 2.0-20.0 ng/mL Normal TACROLIMUS 6.3 Result Comment: Trough (immediately following transplant) 15.0 Trough (steady state, 2 weeks or more after transplant): 3.0 - 8.0 Detection Limit = 1.0 Performed by LC-MS/MS technology. Performed By: #### L3380.1000, L3400.1525, L3400.5200 #### [facility] (refer to report for specific site) refer to report for address and phone number CMV BY PCR Collected: 07/12/2018 Status: F Source: [facility] 8:28 AM [facility] REPOSITORY TYPE CODE TESTS RESULT OUT OF RANGE REFERENCE UNITS LAB L3400.1525 Negative Normal CMV PCR Negative [id number] Result Comment: No Cytomegalovirus DNA Detected. This test was developed and its performance characteristics determined by [facility] It has not been cleared or approved by the Food and Drug Administration. The FDA has determined that such clearance or approval is not necessary. Performed By: #### L3380.1000, L3400.1525, L3400.5200 #### [facility] (refer to report for specific site) refer to report for address and phone number SIROLIMUS (RAPAMUNE) Collected: 07/12/2018 Status: F Source: [facility] LEVEL 8:28 AM [facility] REPOSITORY TYPE CODE TESTS RESULT OUT OF RANGE REFERENCE UNITS LAB L3400.5210 3.0-20.0 ng/mL Normal 4.9 SIROLIMUS,BL OOD Result Comment: Detection Limit = 1.0 Performed by LC/MS-MS technology Performed at: [address] [id number] Green Plumber: Karin Lima MD, Phone: [phone] Performed By: #### L3380.1000, L3400.1525, L3400.5200 #### [facility] (refer to report for specific site) refer to report for address and phone number CBC W/DIFF, AUTOMATED Collected: 06/11/2018 Status: F Source: [facility] 8:41 AM [facility] REPOSITORY TYPE CODE TESTS RESULT OUT OF RANGE REFERENCE UNITS LAB L100.1000 4.4-11.0 K/mm3 Normal WBC 6.3 LAB L100.1200 4.6-6.2 M/mm3 Normal RBC 4.76 LAB L100.1300 13.0-16.5 g/dl Normal HGB 13.0 LAB L100.1400 40-54 % Normal HCT 42.2 LAB L100.1500 80-94 fL Normal MCV 88.7 LAB L100.1600 27.0-32.0 pg Normal MCH 27.3 LAB L100.1700 32-36 g/gl Low MCHC 30.8 LAB L100.1810 11.6-14.6 % High RDW CV 15.1 LAB L100.1820 35.1-43.9 fl High RDW SD 48.9 LAB L100.1900 150-450 K/mm3 Normal PLT 266 LAB L100.2000 6.2-12.0 fl Normal MPV 10.8 LAB L100.2100 47-70 % High NEUT% 76.4 LAB L100.2200 19-41 % Low LY% 8.3 LAB L100.2300 0-10 % High MONO% 10.5 LAB L100.2400 0-5 % Normal EO% 4.1 LAB L100.2500 0-1 % Normal BASO% 0.5 LAB L100.2550 0.0-0.9 % Normal IM GRAN % 0.200 Result Comment: IG% - Immature Granulocytes (promyelocytes, myelocytes and metamyelocytes) > 1% indicates that a LEFT SHIFT is Present. LAB L100.2620 2.0-7.7 X10 3/uL Normal Absolute Neut 4.8 LAB L100.2720 0.83-4.51 X10 3/ul Low Absolute Lymph 0.52 Performed By: #### L100.0100 #### [facility] [address] [place], [address] BASIC METABOLIC Collected: 06/11/2018 Status: F Source: [facility] PROFILE ([facility]) 8:41 AM [facility] REPOSITORY TYPE CODE TESTS RESULT OUT OF RANGE REFERENCE UNITS LAB L501.0100 74-106 mg/dL Normal GLU 98 Result Comment: Please note revised GLUCOSE reference range effective 2017. LAB L501.1000 7-18 mg/dL High BUN 33 LAB L501.1100 0.70-1.30 mg/dL Normal CREAT,SERUM 1.30 Result Comment: The validity of the calculated GFR AND GFRAA in patients over 70 years has not been determined. Clinical correlation is essential. LAB L501.1110 >60 mL/min Low EST GFR 59 Result Comment: Non- GFR Calc LAB L501.1115 >60 mL/min Normal EST GFR - AA 71 Result Comment: GFR Calc LAB L501.1300 10-20 RATIO High BUN/CRE 25.4 LAB L501.2200 8.5-10.1 mg/dL CA Normal 9.2 LAB L501.5300 136-145 mmol/L NA Normal 140 LAB L501.5600 3.5-5.1 mmol/L K Normal 4.7 LAB L501.5900 98-107 mmol/L CL Normal 104 LAB L501.6100 21.0-32.0 mmol/L Normal CO2 29.0 LAB L501.6200 5-15 Normal GAP 7 Performed By: #### L500.2500, L501.1400, L501.1800, L501.2300, L501.4100, L501.4305, L501.4405, L501.4600, L501.4700, L501.5100, L501.5200 #### [facility] [address] [place], [place], [address] URIC ACID Collected: 06/11/2018 Status: F Source: [place] 8:41 AM [facility] REPOSITORY TYPE CODE TESTS RESULT OUT OF RANGE REFERENCE UNITS LAB L501.1400 3.5-7.2 mg/dL Normal URIC 6.2 Result Comment: The drugs N-Acetylcysteine and Metamizole may falsely depress this assay. Performed By: #### L500.2500, L501.1400, L501.1800, L501.2300, L501.4100, L501.4305, L501.4405, L501.4600, L501.4700, L501.5100, L501.5200 #### [facility] [address] [place], [place], [address] ALBUMIN, SERUM Collected: 06/11/2018 Status: F Source: [place] 8:41 AM [facility] REPOSITORY TYPE CODE TESTS RESULT OUT OF RANGE REFERENCE UNITS LAB L501.1800 3.2-5.0 g/dL Normal ALB 3.7 Performed By: #### L500.2500, L501.1400, L501.1800, L501.2300, L501.4100, L501.4305, L501.4405, L501.4600, L501.4700, L501.5100, L501.5200 #### [facility] [address] [place], [place], [address] PHOSPHORUS Collected: 06/11/2018 Status: F Source: [place] 8:41 AM [facility] REPOSITORY TYPE CODE TESTS RESULT OUT OF RANGE REFERENCE UNITS LAB L501.2300 2.5-4.9 mg/dL Normal PHOS 3.2 Performed By: #### L500.2500, L501.1400, L501.1800, L501.2300, L501.4100, L501.4305, L501.4405, L501.4600, L501.4700, L501.5100, L501.5200 #### [facility] [address] [place], [place], [id number] AST(SGOT) Collected: 06/11/2018 Status: F Source: [place] 8:41 AM [facility] REPOSITORY TYPE CODE TESTS RESULT OUT OF RANGE REFERENCE UNITS LAB L501.4100 15-37 U/L Normal AST 21 Performed By: #### L500.2500, L501.1400, L501.1800, L501.2300, L501.4100, L501.4305, L501.4405, L501.4600, L501.4700, L501.5100, L501.5200 #### [facility] [address] [place], [address] ALKALINE PHOSPHATASE Collected: 06/11/2018 Status: F Source: [place] 8:41 AM [facility] REPOSITORY TYPE CODE TESTS RESULT OUT OF RANGE REFERENCE UNITS LAB L501.4305 45-117 U/L Normal ALK P 46 Performed By: #### L500.2500, L501.1400, L501.1800, L501.2300, L501.4100, L501.4305, L501.4405, L501.4600, L501.4700, L501.5100, L501.5200 #### [facility] [address] [place], [address] ALANINE AMINOTRANSFERAS Collected: 06/11/2018 Status: F Source: [facility] ([facility]PT) 8:41 AM [facility] REPOSITORY TYPE CODE TESTS RESULT OUT OF RANGE REFERENCE UNITS LAB L501.4405 16-61 U/L Normal ALT 27 Performed By: #### L500.2500, L501.1400, L501.1800, L501.2300, L501.4100, L501.4305, L501.4405, L501.4600, L501.4700, L501.5100, L501.5200 #### [facility] [address] [facility] [place], [place], [address] TOTAL BILIRUBIN Collected: 06/11/2018 Status: F Source: [place] 8:41 AM [facility] REPOSITORY TYPE CODE TESTS RESULT OUT OF RANGE REFERENCE UNITS LAB L501.4600 0.20-1.00 mg/dL Normal T BILI 0.30 Performed By: #### L500.2500, L501.1400, L501.1800, L501.2300, L501.4100, L501.4305, L501.4405, L501.4600, L501.4700, L501.5100, L501.5200 #### [facility] [address] [place] [address]. [place], [place], [address] BILIRUBIN, DIRECT Collected: 06/11/2018 Status: F Source: [place] 8:41 AM [facility] REPOSITORY TYPE CODE TESTS RESULT OUT OF RANGE REFERENCE UNITS LAB L501.4700 0.00-0.30 mg/dL Normal D BILI < 0.05 Performed By: #### L500.2500, L501.1400, L501.1800, L501.2300, L501.4100, L501.4305, L501.4405, L501.4600, L501.4700, L501.5100, L501.5200 #### [facility] [address] [facility] [place], [place], [id number] GGTP Collected: 06/11/2018 Status: F Source: [place] 8:41 AM [facility] REPOSITORY TYPE CODE TESTS RESULT OUT OF RANGE REFERENCE UNITS LAB L501.5100 15-85 U/L Normal GGTP 21 Performed By: #### L500.2500, L501.1400, L501.1800, L501.2300, L501.4100, L501.4305, L501.4405, L501.4600, L501.4700, L501.5100, L501.5200 #### [facility] [address] [place], [place], [address] MAGNESIUM Collected: 06/11/2018 Status: F Source: [place] 8:41 AM [facility] REPOSITORY TYPE CODE TESTS RESULT OUT OF RANGE REFERENCE UNITS LAB L501.5200 1.6-2.6 mg/dL Normal MG 1.8 Performed By: #### L500.2500, L501.1400, L501.1800, L501.2300, L501.4100, L501.4305, L501.4405, L501.4600, L501.4700, L501.5100, L501.5200 #### [facility] [address] [place], [place], [address] TACROLIMUS (PROGRAF) Collected: 06/11/2018 Status: F Source: [place] 8:41 AM [facility] REPOSITORY TYPE CODE TESTS RESULT OUT OF RANGE REFERENCE UNITS LAB L3380.1100 2.0-20.0 ng/mL Normal TACROLIMUS 7.5 Result Comment: Trough (immediately following transplant) 15.0 Trough (steady state, 2 weeks or more after transplant): 3.0 - 8.0 Detection Limit = 1.0 Performed by LC-MS/MS technology. Performed By: #### L3380.1000, L3400.1525, L3400.5200 #### [facility] (refer to report for specific site) refer to report for address and phone number CMV BY PCR Collected: 06/11/2018 Status: F Source: [place] 8:41 AM [facility] REPOSITORY TYPE CODE TESTS RESULT OUT OF RANGE REFERENCE UNITS LAB L3400.1525 Negative Normal CMV PCR Negative [id number] Result Comment: No Cytomegalovirus DNA Detected. This test was developed and its performance characteristics determined by [facility]. It has not been cleared or approved by the Food and Drug Administration. The FDA has determined that such clearance or approval is not necessary. Performed By: #### L3380.1000, L3400.1525, L3400.5200 #### [facility] (refer to report for specific site) refer to report for address and phone number SIROLIMUS (RAPAMUNE) Collected: 06/11/2018 Status: F Source: [facility] LEVEL 8:41 AM [facility] REPOSITORY TYPE CODE TESTS RESULT OUT OF RANGE REFERENCE UNITS LAB L3400.5210 3.0-20.0 ng/mL Normal 5.5 SIROLIMUS,BL OOD Result Comment: Detection Limit = 1.0 Performed by LC/MS-MS technology Performed at: [facility] [id number] Green Plumber: Karin Lima MD, Phone: [phone] Performed By: #### L3380.1000, L3400.1525, L3400.5200 #### [facility] (refer to report for specific site) refer to report for address and phone number CBC W/DIFF, AUTOMATED Collected: 05/06/2018 Status: F Source: [facility] 8:40 AM [facility] REPOSITORY TYPE CODE TESTS RESULT OUT OF RANGE REFERENCE UNITS LAB L100.1000 4.4-11.0 K/mm3 Normal WBC 5.2 LAB L100.1200 4.6-6.2 M/mm3 Normal RBC 4.77 LAB L100.1300 13.0-16.5 g/dl Low HGB 12.9 LAB L100.1400 40-54 % Normal HCT 42.5 LAB L100.1500 80-94 fL Normal MCV 89.1 LAB L100.1600 27.0-32.0 pg Normal MCH 27.0 LAB L100.1700 32-36 g/gl Low MCHC 30.4 LAB L100.1810 11.6-14.6 % High RDW CV 14.9 LAB L100.1820 35.1-43.9 fl High RDW SD 48.5 LAB L100.1900 150-450 K/mm3 Normal PLT 278 LAB L100.2000 6.2-12.0 fl Normal MPV 10.6 LAB L100.2100 47-70 % High NEUT% 72.8 LAB L100.2200 19-41 % Low LY% 10.7 LAB L100.2300 0-10 % High MONO% 10.3 LAB L100.2400 0-5 % High EO% 5.6 LAB L100.2500 0-1 % Normal BASO% 0.4 LAB L100.2550 0.0-0.9 % Normal IM GRAN % 0.200 Result Comment: IG% - Immature Granulocytes (promyelocytes, myelocytes and metamyelocytes) > 1% indicates that a LEFT SHIFT is Present. LAB L100.2620 2.0-7.7 X10 3/uL Normal Absolute Neut 3.8 LAB L100.2720 0.83-4.51 X10 3/ul Low Absolute Lymph 0.56 Performed By: #### L100.0100 #### [facility] [address] [place], [address] URIC ACID Collected: 05/06/2018 Status: F Source: [place] 8:40 AM [facility] REPOSITORY TYPE CODE TESTS RESULT OUT OF RANGE REFERENCE UNITS LAB L501.1400 3.5-7.2 mg/dL Normal URIC 6.8 Result Comment: The drugs N-Acetylcysteine and Metamizole may falsely depress this assay. Performed By: #### L501.1400, L501.1800, L501.2200, L501.2300, L501.4100, L501.4305, L501.4405, L501.4600, L501.4700, L501.5100, L501.5200 #### [facility] [address] [place], [place], [id number] (480) ALBUMIN, SERUM Collected: 05/06/2018 Status: F Source: [place] 8:40 AM [facility] REPOSITORY TYPE CODE TESTS RESULT OUT OF RANGE REFERENCE UNITS LAB L501.1800 3.2-5.0 g/dL Normal ALB 3.7 Performed By: #### L501.1400, L501.1800, L501.2200, L501.2300, L501.4100, L501.4305, L501.4405, L501.4600, L501.4700, L501.5100, L501.5200 #### [facility] [address] [place], [place], [address] CALCIUM,TOTAL Collected: 05/06/2018 Status: F Source: [place] 8:40 AM [facility] REPOSITORY TYPE CODE TESTS RESULT OUT OF RANGE REFERENCE UNITS LAB L501.2200 8.5-10.1 mg/dL Normal CA 9.1 Performed By: #### L501.1400, L501.1800, L501.2200, L501.2300, L501.4100, L501.4305, L501.4405, L501.4600, L501.4700, L501.5100, L501.5200 #### [facility] [address] [place], [place], [id number] PHOSPHORUS Collected: 05/06/2018 Status: F Source: [place] 8:40 AM [facility] REPOSITORY TYPE CODE TESTS RESULT OUT OF RANGE REFERENCE UNITS LAB L501.2300 2.5-4.9 mg/dL Normal PHOS 3.6 Performed By: #### L501.1400, L501.1800, L501.2200, L501.2300, L501.4100, L501.4305, L501.4405, L501.4600, L501.4700, L501.5100, L501.5200 #### [facility] [address] [place] [address]. [place], [place], [id number] AST(SGOT) Collected: 05/06/2018 Status: F Source: [place] 8:40 AM [facility] REPOSITORY TYPE CODE TESTS RESULT OUT OF RANGE REFERENCE UNITS LAB L501.4100 15-37 U/L Normal AST 20 Performed By: #### L501.1400, L501.1800, L501.2200, L501.2300, L501.4100, L501.4305, L501.4405, L501.4600, L501.4700, L501.5100, L501.5200 #### [facility] [facility] [place], [place], [id number] ALKALINE PHOSPHATASE Collected: 05/06/2018 Status: F Source: [place] 8:40 AM [facility] REPOSITORY TYPE CODE TESTS RESULT OUT OF RANGE REFERENCE UNITS LAB L501.4305 45-117 U/L Normal ALK P 47 Performed By: #### L501.1400, L501.1800, L501.2200, L501.2300, L501.4100, L501.4305, L501.4405, L501.4600, L501.4700, L501.5100, L501.5200 #### [facility] [address] [place], [place], [id number] ALANINE AMINOTRANSFERAS Collected: 05/06/2018 Status: F Source: [facility] (SGPT) 8:40 AM [facility] REPOSITORY TYPE CODE TESTS RESULT OUT OF RANGE REFERENCE UNITS LAB L501.4405 16-61 U/L Normal ALT 25 Performed By: #### L501.1400, L501.1800, L501.2200, L501.2300, L501.4100, L501.4305, L501.4405, L501.4600, L501.4700, L501.5100, L501.5200 #### [facility] [address] [place] [address]. [place], [place], [address] TOTAL BILIRUBIN Collected: 05/06/2018 Status: F Source: [place] 8:40 AM [facility] REPOSITORY TYPE CODE TESTS RESULT OUT OF RANGE REFERENCE UNITS LAB L501.4600 0.20-1.00 mg/dL Normal T BILI 0.30 Performed By: #### L501.1400, L501.1800, L501.2200, L501.2300, L501.4100, L501.4305, L501.4405, L501.4600, L501.4700, L501.5100, L501.5200 #### [facility] [address] [place] [address]. [place], [place], [address] BILIRUBIN, DIRECT Collected: 05/06/2018 Status: F Source: [place] 8:40 AM [facility] REPOSITORY TYPE CODE TESTS RESULT OUT OF RANGE REFERENCE UNITS LAB L501.4700 0.00-0.30 mg/dL Normal D BILI 0.09 Performed By: #### L501.1400, L501.1800, L501.2200, L501.2300, L501.4100, L501.4305, L501.4405, L501.4600, L501.4700, L501.5100, L501.5200 #### [facility] [address] [facility] [place], [place], [address] GGTP Collected: 05/06/2018 Status: F Source: [place] 8:40 AM [facility] REPOSITORY TYPE CODE TESTS RESULT OUT OF RANGE REFERENCE UNITS LAB L501.5100 15-85 U/L Normal GGTP 16 Performed By: #### L501.1400, L501.1800, L501.2200, L501.2300, L501.4100, L501.4305, L501.4405, L501.4600, L501.4700, L501.5100, L501.5200 #### [facility] [address] [facility] [place], [place], [id number] MAGNESIUM Collected: 05/06/2018 Status: F Source: [place] 8:40 AM [facility] REPOSITORY TYPE CODE TESTS RESULT OUT OF RANGE REFERENCE UNITS LAB L501.5200 1.6-2.6 mg/dL Normal MG 2.0 Performed By: #### L501.1400, L501.1800, L501.2200, L501.2300, L501.4100, L501.4305, L501.4405, L501.4600, L501.4700, L501.5100, L501.5200 #### [facility] [address] [facility] [place], [place], [address] TACROLIMUS (PROGRAF) Collected: 05/06/2018 Status: F Source: [place] 8:40 AM [facility] REPOSITORY TYPE CODE TESTS RESULT OUT OF RANGE REFERENCE UNITS LAB L3380.1100 2.0-20.0 ng/mL Normal TACROLIMUS 5.9 Result Comment: Trough (immediately following transplant) 15.0 Trough (steady state, 2 weeks or more after transplant): 3.0 - 8.0 Detection Limit = 1.0 Performed by LC-MS/MS technology. Performed at: - [facility] [id number] Green Plumber: Karin Lima MD, Phone: [phone] Performed By: #### L3380.1000 #### [facility] (refer to report for specific site) refer to report for address and phone number CMV BY PCR Collected: 05/06/2018 Status: F Source: [facility] 8:40 AM [facility] REPOSITORY TYPE CODE TESTS RESULT OUT OF RANGE REFERENCE UNITS LAB L3400.1525 Negative Normal CMV PCR Negative [id number] Result Comment: No Cytomegalovirus DNA Detected. This test was developed and its performance characteristics determined by [employer] [facility]. It has not been cleared or approved by the Food and Drug Administration. The FDA has determined that such clearance or approval is not necessary. Performed By: #### L3400.1525, L3400.5200 #### [facility] (refer to report for specific site) refer to report for address and phone number SIROLIMUS (RAPAMUNE) Collected: 05/06/2018 Status: F Source: [facility] LEVEL 8:40 AM [facility] REPOSITORY TYPE CODE TESTS RESULT OUT OF RANGE REFERENCE UNITS LAB L3400.5210 3.0-20.0 ng/mL Normal 7.1 SIROLIMUS,BL OOD Result Comment: Detection Limit = 1.0 Performed by LC/MS-MS technology Performed at: [address] [id number] Green Plumber: Karin Lima MD, Phone: [phone] Performed By: #### L3400.1525, L3400.5200 #### [facility] (refer to report for specific site) refer to report for address and phone number XR CHEST PA AND Observed: 04/12/2018 Status: F Source: [place] [facility] 1:[address] 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 Multiple midthoracic compression deformities. Vale: Normal Mediastinum: Normal Pleural Spaces: Small right pleural effusion. No pneumothorax. Lungs: Mild bibasilar airspace disease. Cardiac Silhouette: Normal, without overall or specific chamber enlargement, or abnormal calcification Thoracic Aorta: Normal Pulmonary Vessels: Normal, without PVH IMPRESSION: Small right pleural effusion with mild bibasilar airspace disease. CARDIOGRAM Observed: 04/12/2018 Status: F Source: [facility] 11:[address] [facility] REPOSITORY Limited image quality study. Definity was used. Normal left ventricular chamber size and function, estimated LVEF 55-60%. No diastolic dysfunction. The RV is not optimally seen, Grossly, the right ventricular size and function are normal. Valves are not well see, however, there is no significant valvular regurgitation or stenosis on Doppler signals. Normal RVSP of 26mmHg. RA pressure is 3 mmHg. CBC,PLATELET,DIFFERENTIAL - CCL Collected: Status: F Source: [facility] 04/12/2018 7:[address] [facility] REPOSITORY TYPE CODE TESTS RESULT OUT OF REFERENCE UNITS RANGE LAB WBC 4.23-9.07 K/uL WBC Count 6.00 LAB RBC 4.63-6.08 M/uL Low RBC Count 4.50 LAB HGB 13.7-17.5 g/dL Low Hemoglobin 12.4 LAB HCT 40.1-51.0 % Low Hematocrit 39.7 LAB MCV 79.0-92.2 fL Mean Cell Volume 88.2 Result Comment: Results inconsistent with previous results LAB MCH 25.7-32.2 pg Mean Cell 27.6 Hgb LAB MCHC 32.3-36.5 g/dL Mean Cell 31.2 Low Hgb Conc LAB RDW 11.6-14.4 % RBC 15.3 High Distribution LAB PLT 163-337 K/uL Platelet 253 Count LAB MPV 9.4-12.4 fL Mean 11.2 Platelet Volume LAB NRBC 0.0-0.2 /100 WBC NUCLEATED 0.0 RBC LAB DTYPE Electronic DIFFERENTIAL TYPE Differential LAB IGRE % IMMATURE 0.5 GRANS % LAB SEGS % NEUTROPHIL 70.4 SEGMENTED LAB LYM % LYMPHOCYTE 12.3 % LAB MON % MONOCYTE % 10.0 LAB EOS % EOSINOPHIL 5.8 % LAB BASO % BASOPHIL % 1.0 LAB IGABS <0.04 K/uL IMMATURE 0.03 GRANS ABSOLUTE LAB SBANS 1.78-5.38 K/uL SEGS + 4.22 Bands,Absolute LAB ALYM 1.32-3.57 K/uL Abs Lymph 0.74 Low LAB AMONO 0.30-0.82 K/uL Abs Garfield 0.60 LAB AEOS <0.55 K/uL Abs Eos 0.35 LAB ABASO <0.09 K/uL Abs Baso 0.06 Performed By: #### CBCDFC, CA, CHM7, GGTB, HDLT, HFP, IPB, IRBC, LDO, MGO, URICB, IGA, IGG, IGMB, PALB, FT4, FERIB, TSH, TACRO, SIRO, A1CB, D25OH #### [place] [id number] #### CMVPCR #### [place] [id number] #### YCOT #### Reference lab information reported with result CALCIUM Collected: 04/12/2018 Status: F Source: [facility] 7:[address] [facility] REPOSITORY TYPE CODE TESTS RESULT OUT OF REFERENCE UNITS RANGE LAB CA 8.6-10.5 mg/dL Calcium 9.3 Performed By: #### CBCDFC, CA, CHM7, GGTB, HDLT, HFP, IPB, IRBC, LDO, MGO, URICB, IGA, IGG, IGMB, PALB, FT4, FERIB, TSH, TACRO, SIRO, A1CB, D25OH #### [place] [address] #### CMVPCR #### [place] [address] #### YCOT #### Reference lab information reported with result CHEM 7 Collected: 04/12/2018 Status: F Source: [facility] 7:[address] [facility] REPOSITORY TYPE CODE TESTS RESULT OUT OF REFERENCE UNITS RANGE LAB BUN 7-22 mg/dL BUN High 34 LAB NA 133-143 mmol/L Sodium 137 LAB K 3.5-5.0 mmol/L Potassium 4.6 LAB CL 98-108 mmol/L Chloride 101 LAB CO2 22-30 mmol/L Carbon Dioxide 28 LAB GLUC 70-99 mg/dL Glucose High 101 LAB CREA 0.70-1.30 mg/dL High Creatinine 1.38 LAB GAP 7-17 mmol/L Anion Gap 13 LAB BC BUN/CREA Ratio 25 LAB OSMC 278-305 mOsm/kg Osmolality 296 (Calc) LAB GFR >60 mL/min/1.73 Low sqM Est GFR,non 52 Citizen Of [place] LAB GFRA >60 mL/min/1.73 sqM Est GFR, >60 Performed By: #### CBCDFC, CA, CHM7, GGTB, HDLT, HFP, IPB, IRBC, LDO, MGO, URICB, IGA, IGG, IGMB, PALB, FT4, FERIB, TSH, TACRO, SIRO, A1CB, D25OH #### [place] [address] #### CMVPCR #### [place] [address] #### YCOT #### Reference lab information reported with result GGT Collected: 04/12/2018 Status: F Source: [facility] 7:[address] [facility] REPOSITORY TYPE CODE TESTS RESULT OUT OF RANGE REFERENCE UNITS LAB GGT 8-64 U/L GGT 13 Performed By: #### CBCDFC, CA, CHM7, GGTB, HDLT, HFP, IPB, IRBC, LDO, MGO, URICB, IGA, IGG, IGMB, PALB, FT4, FERIB, TSH, TACRO, SIRO, A1CB, D25OH #### [place] [address] #### CMVPCR #### [place] [address] #### YCOT #### Reference lab information reported with result LIPID PROFILE Collected: 04/12/2018 Status: F Source: [facility] 7:[address] [facility] REPOSITORY TYPE CODE TESTS RESULT OUT OF REFERENCE UNITS RANGE LAB OSIRIS <200 mg/dL Cholesterol High 280 Result Comment: [<200 mg/dL: Desirable] [200-239 mg/dL: Borderline High] [>239 mg/dL: High] LAB TRIGE <150 mg/dL Triglycerides High 287 Result Comment: [<150 mg/dL: Desirable] [150-199 mg/dL: Borderline] [200-499 mg/dL: High] [>500 mg/dL: Very High] LAB HDLC >40.0 mg/dL HDL Cholesterol 54 Result Comment: [<40 mg/dL: Low (High Risk)] [>59 mg/dL: High (Low Risk)] LAB LDL 0-99 mg/dL Calculated LDL High Cholesterol 169 Result Comment: [<100 mg/dL: Optimal] [100-129 mg/dL: Near Optimal] [130-159 mg/dL: Borderline High] [160-189 mg/dL: High] [>189 mg/dL: Very High] LAB CHR <4.5 High Tot CHOL/HDL 5.2 Result Comment: [<4.5: Low risk] LAB NHCHOL <130 mg/dL Non HDL High Cholesterol 226 Performed By: #### CBCDFC, CA, CHM7, GGTB, HDLT, HFP, IPB, IRBC, LDO, MGO, URICB, IGA, IGG, IGMB, PALB, FT4, FERIB, TSH, TACRO, SIRO, A1CB, D25OH #### [facility] [place] [address] #### CMVPCR #### [place] [address] #### YCOT #### Reference lab information reported with result HEPATIC FUNCTION Collected: 04/12/2018 Status: F Source: [facility] 7:[address] [facility] REPOSITORY TYPE CODE TESTS RESULT OUT OF REFERENCE UNITS RANGE LAB ALB 3.5-5.0 g/dL Albumin 4.4 LAB BILD <0.3 mg/dL Bilirubin Direct 0.0 LAB BILT <1.5 mg/dL Bilirubin Total 0.4 LAB ALP 32-126 U/L Alkaline Phosphatase 42 LAB ALT 10-52 U/L ALT 15 LAB AST 14-40 U/L AST 18 LAB TP 6.4-8.3 g/dL Total Protein 7.2 Performed By: #### CBCDFC, CA, CHM7, GGTB, HDLT, HFP, IPB, IRBC, LDO, MGO, URICB, IGA, IGG, IGMB, PALB, FT4, FERIB, TSH, TACRO, SIRO, A1CB, D25OH #### [facility] [id number] [place] [address] [address] #### CMVPCR #### [address] [address] #### YCOT #### Reference lab information reported with result INORGANIC PHOSPHATE Collected: 04/12/2018 Status: F Source: [facility] 7:[address] [facility] REPOSITORY TYPE CODE TESTS RESULT OUT OF REFERENCE UNITS RANGE LAB IP 2.2-4.6 mg/dL Inorg Phosphate 3.2 Performed By: #### CBCDFC, CA, CHM7, GGTB, HDLT, HFP, IPB, IRBC, LDO, MGO, URICB, IGA, IGG, IGMB, PALB, FT4, FERIB, TSH, TACRO, SIRO, A1CB, D25OH #### [facility] [address] [place] [address] #### CMVPCR #### [address] [address] #### YCOT #### Reference lab information reported with result IRON*TIBC (TRANSFERRIN) Collected: 04/12/2018 Status: F Source: [facility] 7:[address] [facility] REPOSITORY TYPE CODE TESTS RESULT OUT OF REFERENCE UNITS RANGE LAB IRON 40-174 mcg/dL Iron 81 LAB TIBC 298-596 mcg/dL Total Iron Binding Capacity 431 LAB IRONS 20-55 % Low *Iron*Saturation 19 LAB MCCABE 200-400 mg/dL Transferrin 289 Performed By: #### CBCDFC, CA, CHM7, GGTB, HDLT, HFP, IPB, IRBC, LDO, MGO, URICB, IGA, IGG, IGMB, PALB, FT4, FERIB, TSH, TACRO, SIRO, A1CB, D25OH #### [facility] [id number] [place] [address] [address] #### CMVPCR #### [address] [address] #### YCOT #### Reference lab information reported with result LD TOTAL Collected: 04/12/2018 Status: F Source: [facility] 7:52 [facility] REPOSITORY TYPE CODE TESTS RESULT OUT OF RANGE REFERENCE UNITS LAB LD 100-190 U/L High LD Total 231 Performed By: #### CBCDFC, CA, CHM7, GGTB, HDLT, HFP, IPB, IRBC, LDO, MGO, URICB, IGA, IGG, IGMB, PALB, FT4, FERIB, TSH, TACRO, SIRO, A1CB, D25OH #### [place] [address] #### CMVPCR #### [place] [address] #### YCOT #### Reference lab information reported with result MAGNESIUM Collected: 04/12/2018 Status: F Source: [facility] 7:[address] [place] [address] REPOSITORY TYPE CODE TESTS RESULT OUT OF REFERENCE UNITS RANGE LAB MG 1.6-2.6 mg/dL Magnesium 2.1 Performed By: #### CBCDFC, CA, CHM7, GGTB, HDLT, HFP, IPB, IRBC, LDO, MGO, URICB, IGA, IGG, IGMB, PALB, FT4, FERIB, TSH, TACRO, SIRO, A1CB, D25OH #### [place] [address] #### CMVPCR #### [address] [address] #### YCOT #### Reference lab information reported with result URIC ACID Collected: 04/12/2018 Status: F Source: [place] [address]:[id number] [place] [address] REPOSITORY TYPE CODE TESTS RESULT OUT OF RANGE REFERENCE UNITS LAB URIC 3.5-7.0 mg/dL Uric Acid 6.9 Performed By: #### CBCDFC, CA, CHM7, GGTB, HDLT, HFP, IPB, IRBC, LDO, MGO, URICB, IGA, IGG, IGMB, PALB, FT4, FERIB, TSH, TACRO, SIRO, A1CB, D25OH #### [facility] [id number] [place] [address] #### CMVPCR #### [place] [address] #### YCOT #### Reference lab information reported with result IGA Collected: 04/12/2018 Status: F Source: [facility] 7:[address] [facility] REPOSITORY TYPE CODE TESTS RESULT OUT OF RANGE REFERENCE UNITS LAB IGA 90-410 mg/dL Low IgA 61 Performed By: #### CBCDFC, CA, CHM7, GGTB, HDLT, HFP, IPB, IRBC, LDO, MGO, URICB, IGA, IGG, IGMB, PALB, FT4, FERIB, TSH, TACRO, SIRO, A1CB, D25OH #### [address] [address] #### CMVPCR #### [address] [address] #### YCOT #### Reference lab information reported with result IGG Collected: 04/12/2018 Status: F Source: [facility] 7:[address] [facility] REPOSITORY TYPE CODE TESTS RESULT OUT OF RANGE REFERENCE UNITS LAB IGG 600-1560 mg/dL IgG 771 Performed By: #### CBCDFC, CA, CHM7, GGTB, HDLT, HFP, IPB, IRBC, LDO, MGO, URICB, IGA, IGG, IGMB, PALB, FT4, FERIB, TSH, TACRO, SIRO, A1CB, D25OH #### [id number] [place] [address] #### CMVPCR #### [address] [address] #### YCOT #### Reference lab information reported with result IGM Collected: 04/12/2018 Status: F Source: [facility] 7:[address] [facility] REPOSITORY TYPE CODE TESTS RESULT OUT OF RANGE REFERENCE UNITS LAB IGM 30-360 mg/dL Low IgM <20 Performed By: #### CBCDFC, CA, CHM7, GGTB, HDLT, HFP, IPB, IRBC, LDO, MGO, URICB, IGA, IGG, IGMB, PALB, FT4, FERIB, TSH, TACRO, SIRO, A1CB, D25OH #### [place] [address] #### CMVPCR #### [place] [address] #### YCOT #### Reference lab information reported with result PREALBUMIN Collected: 04/12/2018 Status: F Source: [facility] 7:[address] [facility] REPOSITORY TYPE CODE TESTS RESULT OUT OF REFERENCE UNITS RANGE LAB PALB 17-34 mg/dL High Prealbumin 36 Performed By: #### CBCDFC, CA, CHM7, GGTB, HDLT, HFP, IPB, IRBC, LDO, MGO, URICB, IGA, IGG, IGMB, PALB, FT4, FERIB, TSH, TACRO, SIRO, A1CB, D25OH #### [place] [address] #### CMVPCR #### [place] [address] #### YCOT #### Reference lab information reported with result FREE T4 Collected: 04/12/2018 Status: F Source: [facility] 7:[address] [facility] REPOSITORY TYPE CODE TESTS RESULT OUT OF RANGE REFERENCE UNITS LAB FT4 0.89-1.76 ng/dL Free T4 1.26 Performed By: #### CBCDFC, CA, CHM7, GGTB, HDLT, HFP, IPB, IRBC, LDO, MGO, URICB, IGA, IGG, IGMB, PALB, FT4, FERIB, TSH, TACRO, SIRO, A1CB, D25OH #### [facility] [address] [place] [address] #### CMVPCR #### [place] [address] #### YCOT #### Reference lab information reported with result FERRITIN Collected: 04/12/2018 Status: F Source: [facility] 7:52 [facility] REPOSITORY TYPE CODE TESTS RESULT OUT OF RANGE REFERENCE UNITS LAB FERI 22-322 ng/mL *Ferritin 22 Performed By: #### CBCDFC, CA, CHM7, GGTB, HDLT, HFP, IPB, IRBC, LDO, MGO, URICB, IGA, IGG, IGMB, PALB, FT4, FERIB, TSH, TACRO, SIRO, A1CB, D25OH #### [place] [address] #### CMVPCR #### [place] [address] #### YCOT #### Reference lab information reported with result TSH, HIGH SENSITIVITY Collected: 04/12/2018 Status: F Source: [facility] 7:52 [facility] REPOSITORY TYPE CODE TESTS RESULT OUT OF REFERENCE UNITS RANGE LAB TSH 0.550-4.780 uIU/mL TSH, High Sensitivity 2.240 Performed By: #### CBCDFC, CA, CHM7, GGTB, HDLT, HFP, IPB, IRBC, LDO, MGO, URICB, IGA, IGG, IGMB, PALB, FT4, FERIB, TSH, TACRO, SIRO, A1CB, D25OH #### [place] [address] #### CMVPCR #### [place] [address] #### YCOT #### Reference lab information reported with result TACROLIMUS, TROUGH Collected: 04/12/2018 Status: F Source: [facility] 7:[address] [facility] REPOSITORY TYPE CODE TESTS RESULT OUT OF REFERENCE UNITS RANGE LAB TACRO 5-15 ng/mL Tacrolimus, 12.3 Trough Result Comment: Method performed is a chemiluminescent microparticle immunoassay on the [employer] i2000. Performed By: #### CBCDFC, CA, CHM7, GGTB, HDLT, HFP, IPB, IRBC, LDO, MGO, URICB, IGA, IGG, IGMB, PALB, FT4, FERIB, TSH, TACRO, SIRO, A1CB, D25OH #### [place] [address] #### CMVPCR #### [place] [address] #### YCOT #### Reference lab information reported with result SIROLIMUS, TROUGH Collected: 04/12/2018 Status: F Source: [facility] 7:52 [facility] REPOSITORY TYPE CODE TESTS RESULT OUT OF REFERENCE UNITS RANGE LAB SIRO 5.0-30.0 ng/mL Low Sirolimus, 4.4 Trough Result Comment: Method performed is a chemiluminescent microparticle immunoassay on the [employer] i2000. Performed By: #### CBCDFC, CA, CHM7, GGTB, HDLT, HFP, IPB, IRBC, LDO, MGO, URICB, IGA, IGG, IGMB, PALB, FT4, FERIB, TSH, TACRO, SIRO, A1CB, D25OH #### [place] [address] #### CMVPCR #### [address] [address] #### YCOT #### Reference lab information reported with result HEMOGLOBIN A1C Collected: 04/12/2018 Status: F Source: [facility] 7:52 [facility] REPOSITORY TYPE CODE TESTS RESULT OUT OF REFERENCE UNITS RANGE LAB A1C 4.7-5.6 % Hemoglobin A1C 5.6 LAB EAG mg/dL Estimated 114 Average Glucose Performed By: #### CBCDFC, CA, CHM7, GGTB, HDLT, HFP, IPB, IRBC, LDO, MGO, URICB, IGA, IGG, IGMB, PALB, FT4, FERIB, TSH, TACRO, SIRO, A1CB, D25OH #### [id number] [place] [address] #### CMVPCR #### [place] [address] #### YCOT #### Reference lab information reported with result 25-OH VITAMIN D Collected: 04/12/2018 Status: F Source: [facility] 7:[address] [facility] REPOSITORY TYPE CODE TESTS RESULT OUT OF REFERENCE UNITS RANGE LAB D25OH 30.0-100.0 ng/mL Low 25-OH Vitamin 28.9 D Total Result Comment: <10 Deficiency 10-29 Insufficiency 30-100 Optimal Level >100 Possible Toxicity Performed By: #### CBCDFC, CA, CHM7, GGTB, HDLT, HFP, IPB, IRBC, LDO, MGO, URICB, IGA, IGG, IGMB, PALB, FT4, FERIB, TSH, TACRO, SIRO, A1CB, D25OH #### [place] [address] #### CMVPCR #### [place] [address] #### YCOT #### Reference lab information reported with result QUANTITATIVE CMV BY PCR Collected: 04/12/2018 Status: F Source: [facility] 7:[address] [facility] REPOSITORY TYPE CODE TESTS RESULT OUT OF REFERENCE UNITS RANGE LAB CMV1IU <50 IU/mL CMV by PCR, <50 IU/mL, plasma Result Comment: This test was performed using a real time CMV PCR assay. The dynamic range for this assay is 50-156,000,000 IU/mL. Results should be interpreted in conjunction with other clinical and laboratory findings. Performed By: #### CBCDFC, CA, CHM7, GGTB, HDLT, HFP, IPB, IRBC, LDO, MGO, URICB, IGA, IGG, IGMB, PALB, FT4, FERIB, TSH, TACRO, SIRO, A1CB, D25OH #### [id number] [place] [address] #### CMVPCR #### [address] [address] #### YCOT #### Reference lab information reported with result NICOTINE AND Collected: 04/12/2018 Status: F Source: [facility] 7:[address] [facility] REPOSITORY TYPE CODE TESTS RESULT OUT OF REFERENCE UNITS RANGE LAB NICOT ng/mL Nicotine <2 LAB XCOT ng/mL Cotinine <2 Result Comment: (NOTE) REFERENCE RANGE FOR NICOTINE: Smokers: 2-10 ng/mL Nonsmokers: <=4 ng/mL REFERENCE RANGE FOR COTININE: Smokers: 16-145 ng/mL Nonsmokers: <=8 ng/mL Individuals exposed to second-hand or passive tobacco smoke may demonstrate concentrations of nicotine and cotinine greater than those indicated for non-smokers. This test was developed and its analytical performance characteristics have been determined by [employer] [place], [place]. It has not been cleared or approved by the U.S. Food and Drug Administration. This assay has been validated pursuant to the CLIA regulations and is used for clinical purposes. Test Performed by [facility], [facility], [address] [place] [address] Ponce Hebert M.D., Ph.D., Director of Laboratories , CLIA [id number] Test sent to [facility] Lab Performed By: #### CBCDFC, CA, CHM7, GGTB, HDLT, HFP, IPB, IRBC, LDO, MGO, URICB, IGA, IGG, IGMB, PALB, FT4, FERIB, TSH, TACRO, SIRO, A1CB, D25OH #### [address] [address] [address] #### CMVPCR #### [place] [address] #### YCOT #### Reference lab information reported with result CBC W/DIFF, AUTOMATED Collected: 04/06/2018 Status: F Source: [facility] 8:29 AM [facility] REPOSITORY TYPE CODE TESTS RESULT OUT OF RANGE REFERENCE UNITS LAB L100.1000 4.4-11.0 K/mm3 Normal WBC 5.2 LAB L100.1200 4.6-6.2 M/mm3 Low RBC 4.45 LAB L100.1300 13.0-16.5 g/dl Low HGB 12.3 LAB L100.1400 40-54 % Low HCT 39.5 LAB L100.1500 80-94 fL Normal MCV 88.8 LAB L100.1600 27.0-32.0 pg Normal MCH 27.6 LAB L100.1700 32-36 g/gl Low MCHC 31.1 LAB L100.1810 11.6-14.6 % High RDW CV 15.7 LAB L100.1820 35.1-43.9 fl High RDW SD 51.0 LAB L100.1900 150-450 K/mm3 Normal PLT 252 LAB L100.2000 6.2-12.0 fl Normal MPV 11.8 LAB L100.2100 47-70 % Normal NEUT% 67.3 LAB L100.2200 19-41 % Low LY% 14.8 LAB L100.2300 0-10 % High MONO% 11.7 LAB L100.2400 0-5 % High EO% 5.2 LAB L100.2500 0-1 % Normal BASO% 0.8 LAB L100.2550 0.0-0.9 % Normal IM GRAN % 0.200 Result Comment: IG% - Immature Granulocytes (promyelocytes, myelocytes and metamyelocytes) > 1% indicates that a LEFT SHIFT is Present. LAB L100.2620 2.0-7.7 X10 3/uL Normal Absolute Neut 3.5 LAB L100.2720 0.83-4.51 X10 3/ul Low Absolute Lymph 0.77 Performed By: #### L100.0100 #### [facility] [address] [place], [address] BASIC METABOLIC Collected: 04/06/2018 Status: F Source: [facility] PROFILE (BMP) 8:29 AM [facility] REPOSITORY TYPE CODE TESTS RESULT OUT OF RANGE REFERENCE UNITS LAB L501.0100 74-106 mg/dL Normal GLU 98 Result Comment: Please note revised GLUCOSE reference range effective 2017. LAB L501.1000 7-18 mg/dL High BUN 28 LAB L501.1100 0.70-1.30 mg/dL High CREAT,SERUM 1.51 Result Comment: The validity of the calculated GFR AND GFRAA in patients over 70 years has not been determined. Clinical correlation is essential. LAB L501.1110 >60 mL/min Low EST GFR 49 Result Comment: Non- GFR Calc LAB L501.1115 >60 mL/min Normal EST GFR - AA 60 Result Comment: GFR Calc LAB L501.1300 10-20 RATIO Normal BUN/CRE 18.5 LAB L501.2200 8.5-10.1 mg/dL CA Normal 8.7 LAB L501.5300 136-145 mmol/L NA Normal 139 LAB L501.5600 3.5-5.1 mmol/L K Normal 4.9 LAB L501.5900 98-107 mmol/L CL Normal 101 LAB L501.6100 21.0-32.0 mmol/L Normal CO2 29.0 LAB L501.6200 5-15 Normal GAP 9 Performed By: #### L500.2500, L500.4100, L501.1400, L501.1800, L501.2300, L501.4100, L501.4305, L501.4405, L501.4600, L501.4700, L501.5100, L501.5200 #### [facility] [address] [place], [address] LIPID PROFILE Collected: 04/06/2018 Status: F Source: [facility] 8:29 AM [facility] REPOSITORY TYPE CODE TESTS RESULT OUT OF RANGE REFERENCE UNITS LAB L501.4900 200 mg/dL High CHOL 251 Result Comment: <200 mg/dL Desirable 200-240 mg/dL Borderline >240 mg/dL High Risk LAB L501.5000 mg/dL High TRIG 201 Result Comment: The drugs N-Acetylcysteine and Metamizole may falsely depress this assay. Serum Triglycerides Reference Interval Normal <150 mg/dL Borderline high 150 - 199 mg/dL High 200 - 499 mg/dL Very High > or = 500 mg/dL LAB L501.6400 mg/dL Normal HDL 50 Result Comment: The drugs N-Acetylcysteine and Metamizole may falsely depress this assay. Reference Range HDL <40 mg/dL Low HDL Cholesterol HDL >or= 60 mg/dL High HDL Cholesterol LAB L501.6500 0-130 mg/dL High LDL 161 LAB L501.6600 5-40 mg/dL Normal VLDL 40 Performed By: #### L500.2500, L500.4100, L501.1400, L501.1800, L501.2300, L501.4100, L501.4305, L501.4405, L501.4600, L501.4700, L501.5100, L501.5200 #### [facility] [address] [place], [place], [id number] URIC ACID Collected: 04/06/2018 Status: F Source: [facility] 8:29 AM [facility] REPOSITORY TYPE CODE TESTS RESULT OUT OF RANGE REFERENCE UNITS LAB L501.1400 3.5-7.2 mg/dL Normal URIC 7.0 Result Comment: The drugs N-Acetylcysteine and Metamizole may falsely depress this assay. Performed By: #### L500.2500, L500.4100, L501.1400, L501.1800, L501.2300, L501.4100, L501.4305, L501.4405, L501.4600, L501.4700, L501.5100, L501.5200 #### [facility] [address] [place], [place], [id number] ALBUMIN, SERUM Collected: 04/06/2018 Status: F Source: [facility] 8:29 AM [facility] REPOSITORY TYPE CODE TESTS RESULT OUT OF RANGE REFERENCE UNITS LAB L501.1800 3.2-5.0 g/dL Normal ALB 3.7 Performed By: #### L500.2500, L500.4100, L501.1400, L501.1800, L501.2300, L501.4100, L501.4305, L501.4405, L501.4600, L501.4700, L501.5100, L501.5200 #### [facility] [address] [place], [place], [id number] PHOSPHORUS Collected: 04/06/2018 Status: F Source: [facility] 8:29 AM [facility] REPOSITORY TYPE CODE TESTS RESULT OUT OF RANGE REFERENCE UNITS LAB L501.2300 2.5-4.9 mg/dL Normal PHOS 3.0 Performed By: #### L500.2500, L500.4100, L501.1400, L501.1800, L501.2300, L501.4100, L501.4305, L501.4405, L501.4600, L501.4700, L501.5100, L501.5200 #### [facility] [place], [place], [id number] AST(SGOT) Collected: 04/06/2018 Status: F Source: [facility] 8:29 AM [facility] REPOSITORY TYPE CODE TESTS RESULT OUT OF RANGE REFERENCE UNITS LAB L501.4100 15-37 U/L Normal AST 23 Performed By: #### L500.2500, L500.4100, L501.1400, L501.1800, L501.2300, L501.4100, L501.4305, L501.4405, L501.4600, L501.4700, L501.5100, L501.5200 #### [facility] [place], [place], [id number] ALKALINE PHOSPHATASE Collected: 04/06/2018 Status: F Source: [facility] 8:29 AM [facility] REPOSITORY TYPE CODE TESTS RESULT OUT OF RANGE REFERENCE UNITS LAB L501.4305 45-117 U/L Low ALK P 43 Performed By: #### L500.2500, L500.4100, L501.1400, L501.1800, L501.2300, L501.4100, L501.4305, L501.4405, L501.4600, L501.4700, L501.5100, L501.5200 #### [facility] [address] [place], [place], [id number] ALANINE AMINOTRANSFERAS Collected: 04/06/2018 Status: F Source: [facility] (SGPT) 8:29 AM [facility] REPOSITORY TYPE CODE TESTS RESULT OUT OF RANGE REFERENCE UNITS LAB L501.4405 16-61 U/L Normal ALT 28 Performed By: #### L500.2500, L500.4100, L501.1400, L501.1800, L501.2300, L501.4100, L501.4305, L501.4405, L501.4600, L501.4700, L501.5100, L501.5200 #### [facility] [address] [place] [address]. [place], [place], [id number] TOTAL BILIRUBIN Collected: 04/06/2018 Status: F Source: [facility] 8:29 AM [facility] REPOSITORY TYPE CODE TESTS RESULT OUT OF RANGE REFERENCE UNITS LAB L501.4600 0.20-1.00 mg/dL Normal T BILI 0.30 Performed By: #### L500.2500, L500.4100, L501.1400, L501.1800, L501.2300, L501.4100, L501.4305, L501.4405, L501.4600, L501.4700, L501.5100, L501.5200 #### [facility] [address] [place] [address]. [place], [place], [id number] BILIRUBIN, DIRECT Collected: 04/06/2018 Status: F Source: [facility] 8:29 AM [facility] REPOSITORY TYPE CODE TESTS RESULT OUT OF RANGE REFERENCE UNITS LAB L501.4700 0.00-0.30 mg/dL Normal D BILI 0.08 Performed By: #### L500.2500, L500.4100, L501.1400, L501.1800, L501.2300, L501.4100, L501.4305, L501.4405, L501.4600, L501.4700, L501.5100, L501.5200 #### [facility] [place], [place], [address] GGTP Collected: 04/06/2018 Status: F Source: [place] 8:29 AM [facility] REPOSITORY TYPE CODE TESTS RESULT OUT OF RANGE REFERENCE UNITS LAB L501.5100 15-85 U/L Normal GGTP 24 Performed By: #### L500.2500, L500.4100, L501.1400, L501.1800, L501.2300, L501.4100, L501.4305, L501.4405, L501.4600, L501.4700, L501.5100, L501.5200 #### [facility] [address] [place], [place], [address] MAGNESIUM Collected: 04/06/2018 Status: F Source: [place] 8:29 AM [facility] REPOSITORY TYPE CODE TESTS RESULT OUT OF RANGE REFERENCE UNITS LAB L501.5200 1.6-2.6 mg/dL Normal MG 2.2 Performed By: #### L500.2500, L500.4100, L501.1400, L501.1800, L501.2300, L501.4100, L501.4305, L501.4405, L501.4600, L501.4700, L501.5100, L501.5200 #### [facility]. [place], [place], [address] HEMOGLOBIN A1C Collected: 04/06/2018 Status: F Source: [place] 8:29 AM [facility] REPOSITORY TYPE CODE TESTS RESULT OUT OF RANGE REFERENCE UNITS LAB L501.9985 4.2-6.3 % Normal HGB A1C 5.8 Performed By: #### L501.9985 #### [facility] [address] [facility] [place], [place], [address] TACROLIMUS (PROGRAF) Collected: 04/06/2018 Status: F Source: [place] 8:29 AM [facility] REPOSITORY TYPE CODE TESTS RESULT OUT OF RANGE REFERENCE UNITS LAB [id number] 2.0-20.0 ng/mL Normal TACROLIMUS 5.0 Result Comment: Trough (immediately following transplant) 15.0 Trough (steady state, 2 weeks or more after transplant): 3.0 - 8.0 Detection Limit = 1.0 Performed by LC-MS/MS technology. Performed By: #### L3380.1000, L3400.1525, L3400.5200 #### [facility] (refer to report for specific site) refer to report for address and phone number CMV BY PCR Collected: 04/06/2018 Status: F Source: RAMANDEEP 8:29 AM [facility] REPOSITORY TYPE CODE TESTS RESULT OUT OF RANGE REFERENCE UNITS LAB L3400.1525 Negative Normal CMV PCR Negative [id number] Result Comment: No Cytomegalovirus DNA Detected. This test was developed and its performance characteristics determined by [facility] [employer]. It has not been cleared or approved by the Food and Drug Administration. The FDA has determined that such clearance or approval is not necessary. Performed By: #### L3380.1000, L3400.1525, L3400.5200 #### [facility] (refer to report for specific site) refer to report for address and phone number SIROLIMUS (RAPAMUNE) Collected: 04/06/2018 Status: F Source: RAMANDEEP LEVEL 8:29 AM [facility] REPOSITORY TYPE CODE TESTS RESULT OUT OF RANGE REFERENCE UNITS LAB L3400.5210 3.0-20.0 ng/mL Low 2.4 SIROLIMUS,BL OOD Result Comment: Detection Limit = 1.0 Performed by LC/MS-MS technology Performed at: [address] [id number] Green Plumber: Karin Lima MD, Phone: [phone] Performed By: #### L3380.1000, L3400.1525, L3400.5200 #### [facility] (refer to report for specific site) refer to report for address and phone number DOWNTIME REPORT Observed: 03/25/2018 Status: F Source: RAMANDEEP 12:26 PM [facility] REPOSITORY [facility] Medical Records Department [address] [place] [address] Downtime Report MR#: [id number] Acct: [id number] Name: PACOKARIN Jr. Rep #: [id number] : 1950 67 From: Sky Hinds PCP: Fina Hinds MD Status: REG RCR This patient was seen during an EMR downtime March 08, 2018 - March 15, 2018. This patient may have a combination of paper and electronic documentation or all paper documentation. All documentation is viewable within the e-chart portion of [employer] for each patient visit. CBC W/DIFF, AUTOMATED Collected: 03/12/2018 Status: F Source: RAMANDEEP 8:44 AM [facility] REPOSITORY TYPE CODE TESTS RESULT OUT OF RANGE REFERENCE UNITS LAB L100.1000 4.4-11.0 K/mm3 Normal WBC 5.3 LAB L100.1200 4.6-6.2 M/mm3 Low RBC 4.57 LAB L100.1300 13.0-16.5 g/dl Low HGB 12.7 LAB L100.1400 40-54 % Normal HCT 40.3 LAB L100.1500 80-94 fL Normal MCV 88.2 LAB L100.1600 27.0-32.0 pg Normal MCH 27.8 LAB L100.1700 32-36 g/gl Low MCHC 31.5 LAB L100.1810 11.6-14.6 % High RDW CV 16.3 LAB L100.1820 35.1-43.9 fl High RDW SD 52.3 LAB L100.1900 150-450 K/mm3 Normal PLT 276 LAB L100.2000 6.2-12.0 fl Normal MPV 11.0 LAB L100.2100 47-70 % Normal NEUT% 63.8 LAB L100.2200 19-41 % Low LY% 12.7 LAB L100.2300 0-10 % High MONO% 17.0 LAB L100.2400 0-5 % High EO% 5.7 LAB L100.2500 0-1 % Normal BASO% 0.6 LAB L100.2550 0.0-0.9 % Normal IM GRAN % 0.200 Result Comment: IG% - Immature Granulocytes (promyelocytes, myelocytes and metamyelocytes) > 1% indicates that a LEFT SHIFT is Present. LAB L100.2620 2.0-7.7 X10 3/uL Normal Absolute Neut 3.4 LAB L100.2720 0.83-4.51 X10 3/ul Low Absolute Lymph 0.67 Performed By: #### L100.0100 #### [facility] [place], [address] BASIC METABOLIC Collected: 03/12/2018 Status: F Source: RAMANDEEP PROFILE ([facility]) 8:44 AM [facility] REPOSITORY TYPE CODE TESTS RESULT OUT OF RANGE REFERENCE UNITS LAB L501.0100 74-106 mg/dL Normal GLU 97 Result Comment: Please note revised GLUCOSE reference range effective 2017. LAB L501.1000 7-18 mg/dL High BUN 36 LAB L501.1100 0.70-1.30 mg/dL High CREAT,SERUM 1.35 Result Comment: The validity of the calculated GFR AND GFRAA in patients over 70 years has not been determined. Clinical correlation is essential. LAB L501.1110 >60 mL/min Low EST GFR 56 LAB L501.1115 >60 mL/min Normal EST GFR - AA 68 LAB L501.1300 10-20 RATIO High BUN/CRE 26.7 LAB L501.2200 8.5-10.1 mg/dL Normal CA 8.8 LAB L501.5300 136-145 mmol/L Normal NA 140 LAB L501.5600 3.5-5.1 mmol/L Normal K 4.5 LAB L501.5900 98-107 mmol/L Normal CL 104 LAB L501.6100 21.0-32.0 mmol/L Normal CO2 27.0 LAB L501.6200 5-15 Normal GAP 9 Performed By: #### L500.2500, L501.1400, L501.1800, L501.2300, L501.4100, L501.4305, L501.4405, L501.4600, L501.4700, L501.5100, L501.5200 #### [facility] [address] [place], [address] URIC ACID Collected: 03/12/2018 Status: F Source: RAMANDEEP 8:44 AM [facility] REPOSITORY TYPE CODE TESTS RESULT OUT OF RANGE REFERENCE UNITS LAB L501.1400 3.5-7.2 mg/dL Normal URIC 6.5 Result Comment: The drugs N-Acetylcysteine and Metamizole may falsely depress this assay. Performed By: #### L500.2500, L501.1400, L501.1800, L501.2300, L501.4100, L501.4305, L501.4405, L501.4600, L501.4700, L501.5100, L501.5200 #### [facility] [address] [place], [address] ALBUMIN, SERUM Collected: 03/12/2018 Status: F Source: BRAINTREE 8:44 AM [facility] REPOSITORY TYPE CODE TESTS RESULT OUT OF RANGE REFERENCE UNITS LAB L501.1800 3.2-5.0 g/dL Normal ALB 3.7 Performed By: #### L500.2500, L501.1400, L501.1800, L501.2300, L501.4100, L501.4305, L501.4405, L501.4600, L501.4700, L501.5100, L501.5200 #### [facility] [facility] [address] [facility] [address] [place], [place], [id number] PHOSPHORUS Collected: 03/12/2018 Status: F Source: BRAINTREE 8:44 AM [facility] REPOSITORY TYPE CODE TESTS RESULT OUT OF RANGE REFERENCE UNITS LAB L501.2300 2.5-4.9 mg/dL Normal PHOS 2.8 Performed By: #### L500.2500, L501.1400, L501.1800, L501.2300, L501.4100, L501.4305, L501.4405, L501.4600, L501.4700, L501.5100, L501.5200 #### [facility] [place], [address] AST(SGOT) Collected: 03/12/2018 Status: F Source: BRAINTREE 8:44 AM [facility] REPOSITORY TYPE CODE TESTS RESULT OUT OF RANGE REFERENCE UNITS LAB L501.4100 15-37 U/L Normal AST 17 Performed By: #### L500.2500, L501.1400, L501.1800, L501.2300, L501.4100, L501.4305, L501.4405, L501.4600, L501.4700, L501.5100, L501.5200 #### [facility] [place], [address] ALKALINE PHOSPHATASE Collected: 03/12/2018 Status: F Source: RAMANDEEP 8:44 AM [facility] REPOSITORY TYPE CODE TESTS RESULT OUT OF RANGE REFERENCE UNITS LAB L501.4305 45-117 U/L Normal ALK P 45 Performed By: #### L500.2500, L501.1400, L501.1800, L501.2300, L501.4100, L501.4305, L501.4405, L501.4600, L501.4700, L501.5100, L501.5200 #### [facility] [address] [place], [place], [id number] ALANINE AMINOTRANSFERAS Collected: 03/12/2018 Status: F Source: RAMANDEEP (SGPT) 8:44 AM [facility] REPOSITORY TYPE CODE TESTS RESULT OUT OF RANGE REFERENCE UNITS LAB L501.4405 16-61 U/L Normal ALT 22 Performed By: #### L500.2500, L501.1400, L501.1800, L501.2300, L501.4100, L501.4305, L501.4405, L501.4600, L501.4700, L501.5100, L501.5200 #### [facility] [address] [place], [address] TOTAL BILIRUBIN Collected: 03/12/2018 Status: F Source: RAMANDEEP 8:44 AM [facility] REPOSITORY TYPE CODE TESTS RESULT OUT OF RANGE REFERENCE UNITS LAB L501.4600 0.20-1.00 mg/dL Normal T BILI 0.30 Performed By: #### L500.2500, L501.1400, L501.1800, L501.2300, L501.4100, L501.4305, L501.4405, L501.4600, L501.4700, L501.5100, L501.5200 #### [facility] [address] [place], [place], [id number] BILIRUBIN, DIRECT Collected: 03/12/2018 Status: F Source: BRAINTREE 8:44 AM [facility] REPOSITORY TYPE CODE TESTS RESULT OUT OF RANGE REFERENCE UNITS LAB L501.4700 0.00-0.30 mg/dL Normal D BILI 0.08 Performed By: #### L500.2500, L501.1400, L501.1800, L501.2300, L501.4100, L501.4305, L501.4405, L501.4600, L501.4700, L501.5100, L501.5200 #### [facility] [address] [place], [place], [address] GGTP Collected: 03/12/2018 Status: F Source: BRAINTREE 8:44 AM [facility] REPOSITORY TYPE CODE TESTS RESULT OUT OF RANGE REFERENCE UNITS LAB L501.5100 15-85 U/L Normal GGTP 17 Performed By: #### L500.2500, L501.1400, L501.1800, L501.2300, L501.4100, L501.4305, L501.4405, L501.4600, L501.4700, L501.5100, L501.5200 #### [facility] [facility] [place], [place], [id number] MAGNESIUM Collected: 03/12/2018 Status: F Source: BRAINTREE 8:44 AM [facility] REPOSITORY TYPE CODE TESTS RESULT OUT OF RANGE REFERENCE UNITS LAB L501.5200 1.6-2.6 mg/dL Normal MG 2.0 Performed By: #### L500.2500, L501.1400, L501.1800, L501.2300, L501.4100, L501.4305, L501.4405, L501.4600, L501.4700, L501.5100, L501.5200 #### [facility] [address] [place], [place], [id number] TACROLIMUS (PROGRAF) Collected: 03/12/2018 Status: F Source: BRAINTREE 8:44 AM [facility] REPOSITORY TYPE CODE TESTS RESULT OUT OF RANGE REFERENCE UNITS LAB L3380.1100 Normal TACROLIMUS Result Comment: TEST RESULT LIMITS Tacrolimus (FK506), Blood 5.3 ng/mL 2.0 - 20.0 Trough (immediately following transplant) 15.0 Trough (steady state, 2 weeks or more after transplant): 3.0 - 8.0 Detection Limit = 1.0 Performed by LC-MS/MS technology. TESTING PERFORMED AT [facility]. ORIGINAL REPORT ON FILE IN LAB CONTAINS ADDITIONAL TEST SITE INFORMATION. Performed By: #### L3380.1000, L3400.1525, L3400.5200 #### [facility] (refer to report for specific site) refer to report for address and phone number CMV BY PCR Collected: 03/12/2018 Status: F Source: BRAINTREE 8:44 AM [facility] REPOSITORY TYPE CODE TESTS RESULT OUT OF RANGE REFERENCE UNITS LAB L3400.1525 Normal CMV PCR [id number] Result Comment: TEST RESULT LIMITS CMV PCR Negative Negative No Cytomegalovirus DNA Detected. This test was developed and its performance characteristics determined by [facility]. It has not been cleared or approved by the Food and Drug Administration. The FDA has determined that such clearance or approval is not necessary. Performed By: #### L3380.1000, L3400.1525, L3400.5200 #### [facility] (refer to report for specific site) refer to report for address and phone number SIROLIMUS (RAPAMUNE) Collected: 03/12/2018 Status: F Source: RAMANDEEP LEVEL 8:44 AM [facility] REPOSITORY TYPE CODE TESTS RESULT OUT OF RANGE REFERENCE UNITS LAB L3400.5210 Normal SIROLIMUS,BL OOD Result Comment: TEST RESULT LIMITS Sirolimus (Rapamune), Blood Sirolimus, Blood 3.9 ng/mL 3.0 - 20.0 Detection Limit = 1.0 Performed by LC/MS-MS technology TESTING PERFORMED AT [facility]. ORIGINAL REPORT ON FILE IN LAB CONTAINS ADDITIONAL TEST SITE INFORMATION. Performed By: #### L3380.1000, L3400.1525, L3400.5200 #### [facility] (refer to report for specific site) refer to report for address and phone number CBC W/DIFF, AUTOMATED Collected: 02/08/2018 Status: F Source: RAMANDEEP 8:38 AM [facility] REPOSITORY TYPE CODE TESTS RESULT OUT OF RANGE REFERENCE UNITS LAB L100.1000 4.4-11.0 K/mm3 Normal WBC 4.4 LAB L100.1200 4.6-6.2 M/mm3 Low RBC 4.44 LAB L100.1300 13.0-16.5 g/dl Low HGB 12.2 LAB L100.1400 40-54 % Low HCT 38.6 LAB L100.1500 80-94 fL Normal MCV 86.9 LAB L100.1600 27.0-32.0 pg Normal MCH 27.5 LAB L100.1700 32-36 g/gl Low MCHC 31.6 LAB L100.1810 11.6-14.6 % High RDW CV 16.9 LAB L100.1820 35.1-43.9 fl High RDW SD 53.5 LAB L100.1900 150-450 K/mm3 Normal PLT 264 LAB L100.2000 6.2-12.0 fl Normal MPV 11.2 LAB L100.2100 47-70 % Normal NEUT% 66.6 LAB L100.2200 19-41 % Low LY% 12.5 LAB L100.2300 0-10 % High MONO% 14.3 LAB L100.2400 0-5 % High EO% 6.1 LAB L100.2500 0-1 % Normal BASO% 0.5 LAB L100.2550 0.0-0.9 % Normal IM GRAN % 0.000 Result Comment: IG% - Immature Granulocytes (promyelocytes, myelocytes and metamyelocytes) > 1% indicates that a LEFT SHIFT is Present. LAB L100.2620 2.0-7.7 X10 3/uL Normal Absolute Neut 2.9 LAB L100.2720 0.83-4.51 X10 3/ul Low Absolute Lymph 0.55 LAB L100.4500 Normal SMEAR COMMENT COMMENT Result Comment: LYMPHOPENIA NOTED Performed By: #### L100.0100 #### [facility] [address] [facility] [place], [place], [address] BASIC METABOLIC Collected: 02/08/2018 Status: F Source: BRAINTREE PROFILE (BMP) 8:38 AM [facility] REPOSITORY TYPE CODE TESTS RESULT OUT OF RANGE REFERENCE UNITS LAB L501.0100 74-106 mg/dL Normal GLU 94 Result Comment: Please note revised GLUCOSE reference range effective 2017. LAB L501.1000 7-18 mg/dL High BUN 41 LAB L501.1100 0.70-1.30 mg/dL Normal CREAT,SERUM 1.27 Result Comment: The validity of the calculated GFR AND GFRAA in patients over 70 years has not been determined. Clinical correlation is essential. LAB L501.1110 >60 mL/min Normal EST GFR 60 Result Comment: Non- GFR Calc LAB L501.1115 >60 mL/min Normal EST GFR - AA 73 Result Comment: GFR Calc LAB L501.1300 10-20 RATIO High BUN/CRE 32.3 LAB L501.2200 8.5-10.1 mg/dL CA Normal 9.0 LAB L501.5300 136-145 mmol/L NA Normal 140 LAB L501.5600 3.5-5.1 mmol/L K Normal 4.5 LAB L501.5900 98-107 mmol/L CL Normal 104 LAB L501.6100 21.0-32.0 mmol/L Normal CO2 28.0 LAB L501.6200 5-15 Normal GAP 8 Performed By: #### L500.2500, L501.1400, L501.1800, L501.2300, L501.4100, L501.4305, L501.4405, L501.4600, L501.4700, L501.5100, L501.5200 #### [facility] [address] [place], [place], [id number] URIC ACID Collected: 02/08/2018 Status: F Source: BRAINTREE 8:38 AM [facility] REPOSITORY TYPE CODE TESTS RESULT OUT OF RANGE REFERENCE UNITS LAB L501.1400 3.5-7.2 mg/dL High URIC 7.6 Result Comment: The drugs N-Acetylcysteine and Metamizole may falsely depress this assay. Performed By: #### L500.2500, L501.1400, L501.1800, L501.2300, L501.4100, L501.4305, L501.4405, L501.4600, L501.4700, L501.5100, L501.5200 #### [facility] [address] [place], [place], [id number] ALBUMIN, SERUM Collected: 02/08/2018 Status: F Source: BRAINTREE 8:38 AM [facility] REPOSITORY TYPE CODE TESTS RESULT OUT OF RANGE REFERENCE UNITS LAB L501.1800 3.2-5.0 g/dL Normal ALB 3.8 Performed By: #### L500.2500, L501.1400, L501.1800, L501.2300, L501.4100, L501.4305, L501.4405, L501.4600, L501.4700, L501.5100, L501.5200 #### [facility] [address] [place], [place], [id number] PHOSPHORUS Collected: 02/08/2018 Status: F Source: BRAINTREE 8:38 AM [facility] REPOSITORY TYPE CODE TESTS RESULT OUT OF RANGE REFERENCE UNITS LAB L501.2300 2.5-4.9 mg/dL Normal PHOS 3.2 Performed By: #### L500.2500, L501.1400, L501.1800, L501.2300, L501.4100, L501.4305, L501.4405, L501.4600, L501.4700, L501.5100, L501.5200 #### [facility] [address] [place], [place], [address] AST(SGOT) Collected: 02/08/2018 Status: F Source: BRAINTREE 8:38 AM [facility] REPOSITORY TYPE CODE TESTS RESULT OUT OF RANGE REFERENCE UNITS LAB L501.4100 15-37 U/L Normal AST 16 Performed By: #### L500.2500, L501.1400, L501.1800, L501.2300, L501.4100, L501.4305, L501.4405, L501.4600, L501.4700, L501.5100, L501.5200 #### [facility] [address] [place], [place], [id number] ALKALINE PHOSPHATASE Collected: 02/08/2018 Status: F Source: BRAINTREE 8:38 AM [facility] REPOSITORY TYPE CODE TESTS RESULT OUT OF RANGE REFERENCE UNITS LAB L501.4305 45-117 U/L Normal ALK P 45 Performed By: #### L500.2500, L501.1400, L501.1800, L501.2300, L501.4100, L501.4305, L501.4405, L501.4600, L501.4700, L501.5100, L501.5200 #### [facility] [address] [place], [address] ALANINE AMINOTRANSFERAS Collected: 02/08/2018 Status: F Source: RAMANDEEP (SGPT) 8:38 AM [facility] REPOSITORY TYPE CODE TESTS RESULT OUT OF RANGE REFERENCE UNITS LAB L501.4405 16-61 U/L Normal ALT 18 Performed By: #### L500.2500, L501.1400, L501.1800, L501.2300, L501.4100, L501.4305, L501.4405, L501.4600, L501.4700, L501.5100, L501.5200 #### [facility] [address] [place], [place], [id number] BILIRUBIN, TOTAL Collected: 02/08/2018 Status: F Source: BRAINTREE 8:38 AM [facility] REPOSITORY TYPE CODE TESTS RESULT OUT OF RANGE REFERENCE UNITS LAB L501.4600 0.20-1.00 mg/dL Normal T BILI 0.20 Performed By: #### L500.2500, L501.1400, L501.1800, L501.2300, L501.4100, L501.4305, L501.4405, L501.4600, L501.4700, L501.5100, L501.5200 #### [facility] [address] [place], [place], [id number] BILIRUBIN, DIRECT Collected: 02/08/2018 Status: F Source: BRAINTREE 8:38 AM [facility] REPOSITORY TYPE CODE TESTS RESULT OUT OF RANGE REFERENCE UNITS LAB L501.4700 0.00-0.30 mg/dL Normal D BILI 0.07 Performed By: #### L500.2500, L501.1400, L501.1800, L501.2300, L501.4100, L501.4305, L501.4405, L501.4600, L501.4700, L501.5100, L501.5200 #### [facility] [address] [place] [address]. [place], [place], [id number] GGTP Collected: 02/08/2018 Status: F Source: BRAINTREE 8:38 AM [facility] REPOSITORY TYPE CODE TESTS RESULT OUT OF RANGE REFERENCE UNITS LAB L501.5100 15-85 U/L Normal GGTP 17 Performed By: #### L500.2500, L501.1400, L501.1800, L501.2300, L501.4100, L501.4305, L501.4405, L501.4600, L501.4700, L501.5100, L501.5200 #### [facility] [address] [place], [place], [id number] MAGNESIUM Collected: 02/08/2018 Status: F Source: BRAINTREE 8:38 AM [facility] REPOSITORY TYPE CODE TESTS RESULT OUT OF RANGE REFERENCE UNITS LAB L501.5200 1.6-2.6 mg/dL Normal MG 2.1 Performed By: #### L500.2500, L501.1400, L501.1800, L501.2300, L501.4100, L501.4305, L501.4405, L501.4600, L501.4700, L501.5100, L501.5200 #### [facility] [place], [address] TACROLIMUS (PROGRAF) Collected: 02/08/2018 Status: F Source: BRAINTREE 8:38 AM [facility] REPOSITORY TYPE CODE TESTS RESULT OUT OF RANGE REFERENCE UNITS LAB L3380.1100 2.0-20.0 ng/mL Normal TACROLIMUS 7.1 Result Comment: Trough (immediately following transplant) 15.0 Trough (steady state, 2 weeks or more after transplant): 3.0 - 8.0 Detection Limit = 1.0 Performed by LC-MS/MS technology. Performed By: #### L3380.1000, L3400.1525, L3400.5200 #### [facility] (refer to report for specific site) refer to report for address and phone number CMV BY PCR Collected: 02/08/2018 Status: F Source: BRAINTREE 8:38 AM [facility] REPOSITORY TYPE CODE TESTS RESULT OUT OF RANGE REFERENCE UNITS LAB L3400.1525 Negative Normal CMV PCR Negative [id number] Result Comment: No Cytomegalovirus DNA Detected. This test was developed and its performance characteristics determined by [employer]. It has not been cleared or approved by the Food and Drug Administration. The FDA has determined that such clearance or approval is not necessary. Performed By: #### L3380.1000, L3400.1525, L3400.5200 #### [facility] (refer to report for specific site) refer to report for address and phone number SIROLIMUS (RAPAMUNE) Collected: 02/08/2018 Status: F Source: [facility] 8:38 AM [facility] REPOSITORY TYPE CODE TESTS RESULT OUT OF RANGE REFERENCE UNITS LAB L3400.5210 3.0-20.0 ng/mL Normal 3.5 SIROLIMUS,BL OOD Result Comment: Detection Limit = 1.0 Performed by LC/MS-MS technology Performed at: [address] [id number] Green Plumber: Karin Lima MD, Phone: [phone] Performed By: #### L3380.1000, L3400.1525, L3400.5200 #### [facility] (refer to report for specific site) refer to report for address and phone number CBC W/DIFF, AUTOMATED Collected: 01/05/2018 Status: F Source: RAMANDEEP 9:30 AM [facility] REPOSITORY TYPE CODE TESTS RESULT OUT OF RANGE REFERENCE UNITS LAB L100.1000 4.4-11.0 K/mm3 Normal WBC 5.8 LAB L100.1200 4.6-6.2 M/mm3 Normal RBC 4.75 LAB L100.1300 13.0-16.5 g/dl Low HGB 12.6 LAB L100.1400 40-54 % Normal HCT 40.5 LAB L100.1500 80-94 fL Normal MCV 85.3 LAB L100.1600 27.0-32.0 pg Low MCH 26.5 LAB L100.1700 32-36 g/gl Low MCHC 31.1 LAB L100.1810 11.6-14.6 % High RDW CV 15.7 LAB L100.1820 35.1-43.9 fl High RDW SD 47.9 LAB L100.1900 150-450 K/mm3 Normal PLT 191 LAB L100.2000 6.2-12.0 fl Normal MPV 11.4 LAB L100.2100 47-70 % High NEUT% 75.8 LAB L100.2200 19-41 % Low LY% 9.1 LAB L100.2300 0-10 % Normal MONO% 9.3 LAB L100.2400 0-5 % High EO% 5.2 LAB L100.2500 0-1 % Normal BASO% 0.3 LAB L100.2550 0.0-0.9 % Normal IM GRAN % 0.300 Result Comment: IG% - Immature Granulocytes (promyelocytes, myelocytes and metamyelocytes) > 1% indicates that a LEFT SHIFT is Present. LAB L100.2620 2.0-7.7 X10 3/uL Normal Absolute Neut 4.4 LAB L100.2720 0.83-4.51 X10 3/ul Low Absolute Lymph 0.53 LAB L100.4500 Normal SMEAR COMMENT COMMENT Result Comment: SLIDE SCANNED - LYMPHOPENIA NOTED. Performed By: #### L100.0100 #### [facility] [place] [place], [address] HEMOGLOBIN A1C Collected: 01/05/2018 Status: F Source: RAMANDEEP 9:30 AM [facility] REPOSITORY TYPE CODE TESTS RESULT OUT OF RANGE REFERENCE UNITS LAB L501.9985 4.2-6.3 % Normal HGB A1C 6.1 Performed By: #### L501.9985 #### [facility] [address] [place], [place], [address] BASIC METABOLIC Collected: 01/05/2018 Status: F Source: RAMANDEEP PROFILE (BMP) 9:30 AM [facility] REPOSITORY TYPE CODE TESTS RESULT OUT OF RANGE REFERENCE UNITS LAB L501.0100 74-106 mg/dL Normal GLU 94 Result Comment: Please note revised GLUCOSE reference range effective 2017. LAB L501.1000 7-18 mg/dL High BUN 26 LAB L501.1100 0.70-1.30 mg/dL High CREAT,SERUM 1.36 Result Comment: The validity of the calculated GFR AND GFRAA in patients over 70 years has not been determined. Clinical correlation is essential. LAB L501.1110 >60 mL/min Low EST GFR 56 Result Comment: Non- GFR Calc LAB L501.1115 >60 mL/min Normal EST GFR - AA 67 Result Comment: GFR Calc LAB L501.1300 10-20 RATIO Normal BUN/CRE 19.1 LAB L501.2200 8.5-10.1 mg/dL CA Normal 8.6 LAB L501.5300 136-145 mmol/L NA Normal 141 LAB L501.5600 3.5-5.1 mmol/L K Normal 4.3 LAB L501.5900 98-107 mmol/L CL Normal 107 LAB L501.6100 21.0-32.0 mmol/L Normal CO2 30.0 LAB L501.6200 5-15 Low GAP 4 Performed By: #### L500.2500, L501.1400, L501.1800, L501.2300, L501.4100, L501.4305, L501.4405, L501.4600, L501.4700, L501.5100, L501.5200, L501.6400 #### [facility] [address] [place], [address] URIC ACID Collected: 01/05/2018 Status: F Source: [place] 9:30 AM [facility] REPOSITORY TYPE CODE TESTS RESULT OUT OF RANGE REFERENCE UNITS LAB L501.1400 3.5-7.2 mg/dL Normal URIC 6.2 Result Comment: The drugs N-Acetylcysteine and Metamizole may falsely depress this assay. Performed By: #### L500.2500, L501.1400, L501.1800, L501.2300, L501.4100, L501.4305, L501.4405, L501.4600, L501.4700, L501.5100, L501.5200, L501.6400 #### [facility] [address] [place], [address] ALBUMIN, SERUM Collected: 01/05/2018 Status: F Source: BRAINTREE 9:30 AM [facility] REPOSITORY TYPE CODE TESTS RESULT OUT OF RANGE REFERENCE UNITS LAB L501.1800 3.2-5.0 g/dL Normal ALB 3.6 Performed By: #### L500.2500, L501.1400, L501.1800, L501.2300, L501.4100, L501.4305, L501.4405, L501.4600, L501.4700, L501.5100, L501.5200, L501.6400 #### [facility] [address] [place], [place], [id number] PHOSPHORUS Collected: 01/05/2018 Status: F Source: BRAINTREE 9:30 AM [facility] REPOSITORY TYPE CODE TESTS RESULT OUT OF RANGE REFERENCE UNITS LAB L501.2300 2.5-4.9 mg/dL Low PHOS 2.3 Performed By: #### L500.2500, L501.1400, L501.1800, L501.2300, L501.4100, L501.4305, L501.4405, L501.4600, L501.4700, L501.5100, L501.5200, L501.6400 #### [facility] [address] [place], [address] AST(SGOT) Collected: 01/05/2018 Status: F Source: RAMANDEEP 9:30 AM [facility] REPOSITORY TYPE CODE TESTS RESULT OUT OF RANGE REFERENCE UNITS LAB L501.4100 15-37 U/L Normal AST 18 Performed By: #### L500.2500, L501.1400, L501.1800, L501.2300, L501.4100, L501.4305, L501.4405, L501.4600, L501.4700, L501.5100, L501.5200, L501.6400 #### [facility] [address] [place], [place], [address] ALKALINE PHOSPHATASE Collected: 01/05/2018 Status: F Source: RAMANDEEP 9:30 AM [facility] REPOSITORY TYPE CODE TESTS RESULT OUT OF RANGE REFERENCE UNITS LAB L501.4305 45-117 U/L Normal ALK P 50 Performed By: #### L500.2500, L501.1400, L501.1800, L501.2300, L501.4100, L501.4305, L501.4405, L501.4600, L501.4700, L501.5100, L501.5200, L501.6400 #### [facility] [address] [place], [place], [id number] ALANINE AMINOTRANSFERAS Collected: 01/05/2018 Status: F Source: RAMANDEEP (SGPT) 9:30 AM [facility] REPOSITORY TYPE CODE TESTS RESULT OUT OF RANGE REFERENCE UNITS LAB L501.4405 16-61 U/L Normal ALT 22 Result Comment: Please note revised ALT reference range effective 2017. Performed By: #### L500.2500, L501.1400, L501.1800, L501.2300, L501.4100, L501.4305, L501.4405, L501.4600, L501.4700, L501.5100, L501.5200, L501.6400 #### [facility] [address] [place], [place], [id number] BILIRUBIN, TOTAL Collected: 01/05/2018 Status: F Source: RAMANDEEP 9:30 AM [facility] REPOSITORY TYPE CODE TESTS RESULT OUT OF RANGE REFERENCE UNITS LAB L501.4600 0.20-1.00 mg/dL Normal T BILI 0.40 Performed By: #### L500.2500, L501.1400, L501.1800, L501.2300, L501.4100, L501.4305, L501.4405, L501.4600, L501.4700, L501.5100, L501.5200, L501.6400 #### [facility] [address] [place], [place], [address] BILIRUBIN, DIRECT Collected: 01/05/2018 Status: F Source: BRAINTREE 9:30 AM [facility] REPOSITORY TYPE CODE TESTS RESULT OUT OF RANGE REFERENCE UNITS LAB L501.4700 0.00-0.30 mg/dL Normal D BILI 0.09 Performed By: #### L500.2500, L501.1400, L501.1800, L501.2300, L501.4100, L501.4305, L501.4405, L501.4600, L501.4700, L501.5100, L501.5200, L501.6400 #### [facility] [place], [place], [id number] GGTP Collected: 01/05/2018 Status: F Source: BRAINTREE 9:30 AM [facility] REPOSITORY TYPE CODE TESTS RESULT OUT OF RANGE REFERENCE UNITS LAB L501.5100 15-85 U/L Normal GGTP 16 Performed By: #### L500.2500, L501.1400, L501.1800, L501.2300, L501.4100, L501.4305, L501.4405, L501.4600, L501.4700, L501.5100, L501.5200, L501.6400 #### [facility] [address] [place], [place], [id number] MAGNESIUM Collected: 01/05/2018 Status: F Source: BRAINTREE 9:30 AM [facility] REPOSITORY TYPE CODE TESTS RESULT OUT OF RANGE REFERENCE UNITS LAB L501.5200 1.6-2.6 mg/dL Normal MG 2.1 Result Comment: Please note revised Magnesium reference range effective 2017. Performed By: #### L500.2500, L501.1400, L501.1800, L501.2300, L501.4100, L501.4305, L501.4405, L501.4600, L501.4700, L501.5100, L501.5200, L501.6400 #### [facility] [address] [place], [place], [address] HIGH DENSITY Collected: 01/05/2018 Status: F Source: [place]RA[place] LIPOPROTEIN 9:30 AM [facility] REPOSITORY TYPE CODE TESTS RESULT OUT OF RANGE REFERENCE UNITS LAB L501.6400 mg/dL Normal HDL 42 Result Comment: The drugs N-Acetylcysteine and Metamizole may falsely depress this assay. Reference Range HDL <40 mg/dL Low HDL Cholesterol HDL >or= 60 mg/dL High HDL Cholesterol Performed By: #### L500.2500, L501.1400, L501.1800, L501.2300, L501.4100, L501.4305, L501.4405, L501.4600, L501.4700, L501.5100, L501.5200, L501.6400 #### [facility] [address] [place], [place], [address] TACROLIMUS (PROGRAF) Collected: 01/05/2018 Status: F Source: BRAINTREE 9:30 AM [facility] REPOSITORY TYPE CODE TESTS RESULT OUT OF RANGE REFERENCE UNITS LAB L3380.1100 2.0-20.0 ng/mL Normal TACROLIMUS 6.7 Result Comment: Trough (immediately following transplant) 15.0 Trough (steady state, 2 weeks or more after transplant): 3.0 - 8.0 Detection Limit = 1.0 Performed by LC-MS/MS technology. Performed By: #### L3380.1000, L3400.1525, L3400.5200 #### [facility] (refer to report for specific site) refer to report for address and phone number CMV BY PCR Collected: 01/05/2018 Status: F Source: RAMANDEEP 9:30 AM [facility] REPOSITORY TYPE CODE TESTS RESULT OUT OF RANGE REFERENCE UNITS LAB L3400.1525 Negative Normal CMV PCR Negative [id number] Result Comment: No Cytomegalovirus DNA Detected. This test was developed and its performance characteristics determined by [facility]. It has not been cleared or approved by the Food and Drug Administration. The FDA has determined that such clearance or approval is not necessary. Performed By: #### L3380.1000, L3400.1525, L3400.5200 #### [facility] (refer to report for specific site) refer to report for address and phone number SIROLIMUS (RAPAMUNE) Collected: 01/05/2018 Status: F Source: RAMANDEEP LEVEL 9:30 AM [facility] REPOSITORY TYPE CODE TESTS RESULT OUT OF RANGE REFERENCE UNITS LAB L3400.5210 3.0-20.0 ng/mL Normal 4.3 SIROLIMUS,BL OOD Result Comment: Detection Limit = 1.0 Performed by LC/MS-MS technology Performed at: [address] [id number] Green Plumber: Karin Lima MD, Phone: [phone] Performed By: #### L3380.1000, L3400.1525, L3400.5200 #### [facility] (refer to report for specific site) refer to report for address and phone number ALLOSCREEN RECIPIENT Collected: 01/04/2018 Status: F Source: [facility] 3:[address] [facility] REPOSITORY TYPE CODE TESTS RESULT OUT OF REFERENCE UNITS RANGE LAB CPRA 0 % cPRA 0 LAB ABSPA A antibody Not specificity applicable LAB ABSPB B Antibody Not Specificity applicable LAB ABSPCW C Antibody Not Specificity applicable LAB ABSPDR DR Antibody Not Specificity applicable LAB ABDQB1 DQB1 Not Antibody applicable Specificity LAB ABDQA1 DQA1 Not Antibody applicable Specificity LAB ABSPDP DPB1 Not Antibody applicable Specificity LAB ABSPC Antibody NO DSA Specific DETECTED Interpretati LAB [facility] Comment Antibody Specificity testing performed by [facility]. Result Comment: Some of the reagents used for testing in the Clinical Histocompatibility Laboratory have yet to be approved by the FDA. Our certification by CLIA to perform high complexity tests allo ws us to use these reagents in the context of a stringent QC program, and obviates the need for FDA approval. Testing performed by the [facility] Clinical Histocompatibility Laboratory. [facility] number: [id number] CLIA number: [id number], Director: Chriss Lynn, PhD, D([facility]). Performed By: #### ALLOR #### [facility] [address] [place] [address] [facility] [address] [place], [place] [address] CT CHEST WITHOUT Observed: 01/04/2018 Status: F Source: [place] [facility] 2:[address] 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 No intravenous contrast was used. Coronal MIP images were also reconstructed. This patient underwent a CT examination using radiation exposure as low as reasonably achievable. CTDIvol and DLP radiation exposure values for each series were: Exposure: 1; Series: 2; Anatomy: Chest; Phantom: 32 cm; CTDIvol: 8; DLP: [address] are the volume Computed Tomography (CT) Dose Index (CTDIvol) and the Dose Length Product (DLP), and are measured in units of mGy and mGy-cm, respectively. These indicators are not patient dose, but values generated from the CT scanner acquisition factors and may substantially underestimate or overestimate the absorbed dose based on patient size and other factors. FINDINGS: Lungs and Pleura: Bilateral lung transplant. There is diffuse mosaic groundglass centrilobular nodules in the right lower lobe which are likely infectious/inflammatory. Unchanged pleural-based nodularity in the posterior right lower lobe adjacent curvilinear linear atelectasis extending towards the hilum continues to measure 1.6 cm. Other small scattered pulmonary nodules such as the 3 mm middle lobe nodule are also stable. Persistent trace bilateral pleural effusions. Tracheobronchial tree: Mild narrowing of the left bronchial anastomosis, similar to the prior. Mild right lower lobe bronchiectasis and bronchial wall thickening. Mediastinum/Vale: No mediastinal or hilar lymphadenopathy. Axilla and Supraclavicular Regions: No axillary or supraclavicular adenopathy. Cardiovascular: Heart is normal in size. No pericardial effusion. Atherosclerotic calcifications in the coronary arteries, the aorta and aortic branch vessels. The pulmonary arteries are normal. Right central venous catheter has been removed. Upper Abdomen: Calcified splenic granulomas. Status post Taniya fundoplication. Bones and Soft Tissue: Status post clamshell sternotomy with sternal wires in place. Multilevel compression deformities within the mid and lower thoracic spine without new fracture. Healed bilateral rib fractures. IMPRESSION: 1. Status post bilateral lung transplant with persistent mild narrowing of the left bronchial anastomosis. 2. New vague groundglass centrilobular nodules throughout the right lower lung which are likely infectious/inflammatory. 3. Mild bronchial wall thickening and bronchiectasis in the right lower lobe. This may be related to chronic infection/aspiration. 4. Redemonstration of a 1.6 cm nodular opacity along the posterior aspect of the right lower lobe with curvilinear atelectasis extending towards the hilum. This is adjacent to chronic small right effusion and is suspected to be developing round atelectasis. W/DIFF, AUTOMATED Collected: 12/03/2017 Status: F Source: [place] 7:35 AM [facility] REPOSITORY TYPE CODE TESTS RESULT OUT OF RANGE REFERENCE UNITS LAB L100.1000 4.4-11.0 K/mm3 Normal WBC 7.0 LAB L100.1200 4.6-6.2 M/mm3 Normal RBC 4.71 LAB L100.1300 13.0-16.5 g/dl Low HGB 12.5 LAB L100.1400 40-54 % Normal HCT 40.1 LAB L100.1500 80-94 fL Normal MCV 85.1 LAB L100.1600 27.0-32.0 pg Low MCH 26.5 LAB L100.1700 32-36 g/gl Low MCHC 31.2 LAB L100.1810 11.6-14.6 % High RDW CV 15.2 LAB L100.1820 35.1-43.9 fl High RDW SD 47.1 LAB L100.1900 150-450 K/mm3 Normal PLT 242 LAB L100.2000 6.2-12.0 fl Normal MPV 11.7 LAB L100.2100 47-70 % High NEUT% 71.7 LAB L100.2200 19-41 % Low LY% 10.8 LAB L100.2300 0-10 % High MONO% 11.9 LAB L100.2400 0-5 % Normal EO% 4.7 LAB L100.2500 0-1 % Normal BASO% 0.6 LAB L100.2550 0.0-0.9 % Normal IM GRAN % 0.300 Result Comment: IG% - Immature Granulocytes (promyelocytes, myelocytes and metamyelocytes) > 1% indicates that a LEFT SHIFT is Present. LAB L100.2620 2.0-7.7 X10 3/uL Normal Absolute Neut 5.0 LAB L100.2720 0.83-4.51 X10 3/ul Low Absolute Lymph 0.76 Performed By: #### L100.0100 #### [facility] [address] [place], [address] BASIC METABOLIC Collected: 12/03/2017 Status: F Source: [place]RA[place] PROFILE (BMP) 7:35 AM [facility] REPOSITORY TYPE CODE TESTS RESULT OUT OF RANGE REFERENCE UNITS LAB L501.0100 74-106 mg/dL Normal GLU 95 Result Comment: Please note revised GLUCOSE reference range effective 2017. LAB L501.1000 7-18 mg/dL High BUN 32 LAB L501.1100 0.70-1.30 mg/dL Normal CREAT,SERUM 1.26 Result Comment: The validity of the calculated GFR AND GFRAA in patients over 70 years has not been determined. Clinical correlation is essential. LAB L501.1110 >60 mL/min Normal EST GFR 61 Result Comment: Non- GFR Calc LAB L501.1115 >60 mL/min Normal EST GFR - AA 74 Result Comment: GFR Calc LAB L501.1300 10-20 RATIO High BUN/CRE 25.4 LAB L501.2200 8.5-10.1 mg/dL Low CA 8.3 LAB L501.5300 136-145 mmol/L NA Normal 140 LAB L501.5600 3.5-5.1 mmol/L K Normal 4.1 LAB L501.5900 98-107 mmol/L CL Normal 104 LAB L501.6100 21.0-32.0 mmol/L Normal CO2 30.0 LAB L501.6200 5-15 Normal GAP 6 Performed By: #### L500.2500, L501.1400, L501.1800, L501.2300, L501.4100, L501.4305, L501.4405, L501.4600, L501.4700, L501.5100, L501.5200 #### [facility] [address] [place], [place], [address] URIC ACID Collected: 12/03/2017 Status: F Source: [place] 7:35 AM [facility] REPOSITORY TYPE CODE TESTS RESULT OUT OF RANGE REFERENCE UNITS LAB L501.1400 3.5-7.2 mg/dL Normal URIC 5.9 Result Comment: The drugs N-Acetylcysteine and Metamizole may falsely depress this assay. Performed By: #### L500.2500, L501.1400, L501.1800, L501.2300, L501.4100, L501.4305, L501.4405, L501.4600, L501.4700, L501.5100, L501.5200 #### [facility] [address] [place], [place], [address] ALBUMIN, SERUM Collected: 12/03/2017 Status: F Source: [place]RA[place] 7:35 AM [facility] REPOSITORY TYPE CODE TESTS RESULT OUT OF RANGE REFERENCE UNITS LAB L501.1800 3.2-5.0 g/dL Normal ALB 3.5 Performed By: #### L500.2500, L501.1400, L501.1800, L501.2300, L501.4100, L501.4305, L501.4405, L501.4600, L501.4700, L501.5100, L501.5200 #### [facility] [address] [place], [place], [address] PHOSPHORUS Collected: 12/03/2017 Status: F Source: [place] 7:35 AM [facility] REPOSITORY TYPE CODE TESTS RESULT OUT OF RANGE REFERENCE UNITS LAB L501.2300 2.5-4.9 mg/dL Normal PHOS 2.7 Performed By: #### L500.2500, L501.1400, L501.1800, L501.2300, L501.4100, L501.4305, L501.4405, L501.4600, L501.4700, L501.5100, L501.5200 #### [facility] [address] [place], [place], [address] AST(SGOT) Collected: 12/03/2017 Status: F Source: [place] 7:35 AM [facility] REPOSITORY TYPE CODE TESTS RESULT OUT OF RANGE REFERENCE UNITS LAB L501.4100 15-37 U/L Normal AST 15 Performed By: #### L500.2500, L501.1400, L501.1800, L501.2300, L501.4100, L501.4305, L501.4405, L501.4600, L501.4700, L501.5100, L501.5200 #### [facility] [address] [place], [place], [id number] ALKALINE PHOSPHATASE Collected: 12/03/2017 Status: F Source: [place] 7:35 AM [facility] REPOSITORY TYPE CODE TESTS RESULT OUT OF RANGE REFERENCE UNITS LAB L501.4305 45-117 U/L Normal ALK P 50 Performed By: #### L500.2500, L501.1400, L501.1800, L501.2300, L501.4100, L501.4305, L501.4405, L501.4600, L501.4700, L501.5100, L501.5200 #### [facility] [address] [place], [address] ALANINE AMINOTRANSFERAS Collected: 12/03/2017 Status: F Source: [place] (SGPT) 7:35 AM [facility] REPOSITORY TYPE CODE TESTS RESULT OUT OF RANGE REFERENCE UNITS LAB L501.4405 16-61 U/L Normal ALT 20 Result Comment: Please note revised ALT reference range effective 2017. Performed By: #### L500.2500, L501.1400, L501.1800, L501.2300, L501.4100, L501.4305, L501.4405, L501.4600, L501.4700, L501.5100, L501.5200 #### [facility] [address] [place], [place], [address] BILIRUBIN, TOTAL Collected: 12/03/2017 Status: F Source: [place] 7:35 AM [facility] REPOSITORY TYPE CODE TESTS RESULT OUT OF RANGE REFERENCE UNITS LAB L501.4600 0.20-1.00 mg/dL Normal T BILI 0.30 Performed By: #### L500.2500, L501.1400, L501.1800, L501.2300, L501.4100, L501.4305, L501.4405, L501.4600, L501.4700, L501.5100, L501.5200 #### [facility] [address] [place] [address]. [place], [place], [id number] BILIRUBIN, DIRECT Collected: 12/03/2017 Status: F Source: [place] 7:35 AM [facility] REPOSITORY TYPE CODE TESTS RESULT OUT OF RANGE REFERENCE UNITS LAB L501.4700 0.00-0.30 mg/dL Normal D BILI 0.05 Performed By: #### L500.2500, L501.1400, L501.1800, L501.2300, L501.4100, L501.4305, L501.4405, L501.4600, L501.4700, L501.5100, L501.5200 #### [facility] [facility] [place], [place], [id number] GGTP Collected: 12/03/2017 Status: F Source: [place] 7:35 AM [facility] REPOSITORY TYPE CODE TESTS RESULT OUT OF RANGE REFERENCE UNITS LAB L501.5100 15-85 U/L Normal GGTP 16 Performed By: #### L500.2500, L501.1400, L501.1800, L501.2300, L501.4100, L501.4305, L501.4405, L501.4600, L501.4700, L501.5100, L501.5200 #### [facility] [address] [place], [address] MAGNESIUM Collected: 12/03/2017 Status: F Source: [place] 7:35 AM [facility] REPOSITORY TYPE CODE TESTS RESULT OUT OF RANGE REFERENCE UNITS LAB L501.5200 1.6-2.6 mg/dL Normal MG 1.9 Result Comment: Please note revised Magnesium reference range effective 2017. Performed By: #### L500.2500, L501.1400, L501.1800, L501.2300, L501.4100, L501.4305, L501.4405, L501.4600, L501.4700, L501.5100, L501.5200 #### [facility] [address] [place], [place], [address] TACROLIMUS (PROGRAF) Collected: 12/03/2017 Status: F Source: [place] 7:35 AM [facility] REPOSITORY TYPE CODE TESTS RESULT OUT OF RANGE REFERENCE UNITS LAB L3380.1100 2.0-20.0 ng/mL Normal TACROLIMUS 3.9 Result Comment: Trough (immediately following transplant) 15.0 Trough (steady state, 2 weeks or more after transplant): 3.0 - 8.0 Detection Limit = 1.0 Performed by LC-MS/MS technology. Performed By: #### L3380.1000, L3400.1525, L3400.5200 #### [facility] (refer to report for specific site) refer to report for address and phone number CMV BY PCR Collected: 12/03/2017 Status: F Source: [place] 7:35 AM [facility] REPOSITORY TYPE CODE TESTS RESULT OUT OF RANGE REFERENCE UNITS LAB L3400.1525 Negative Normal CMV PCR Negative [id number] Result Comment: No Cytomegalovirus DNA Detected. This test was developed and its performance characteristics determined by [facility] [employer] It has not been cleared or approved by the Food and Drug Administration. The FDA has determined that such clearance or approval is not necessary. Performed By: #### L3380.1000, L3400.1525, L3400.5200 #### [facility] (refer to report for specific site) refer to report for address and phone number SIROLIMUS (RAPAMUNE) Collected: 12/03/2017 Status: F Source: RAMANDEEP LEVEL 7:35 AM [facility] REPOSITORY TYPE CODE TESTS RESULT OUT OF RANGE REFERENCE UNITS LAB L3400.5210 3.0-20.0 ng/mL Low 2.2 SIROLIMUS,BL OOD Result Comment: Detection Limit = 1.0 Performed by LC/MS-MS technology Performed at: - [facility] [id number] Green Plumber: Karin Lima MD, Phone: [phone] Performed By: #### L3380.1000, L3400.1525, L3400.5200 #### [facility] (refer to report for specific site) refer to report for address and phone number CBC W/DIFF, AUTOMATED Collected: 11/09/2017 Status: F Source: RAMANDEEP 9:40 AM [facility] REPOSITORY TYPE CODE TESTS RESULT OUT OF RANGE REFERENCE UNITS LAB L100.1000 4.4-11.0 K/mm3 Normal WBC 5.7 LAB L100.1200 4.6-6.2 M/mm3 Normal RBC 4.90 LAB L100.1300 13.0-16.5 g/dl Low HGB 12.9 LAB L100.1400 40-54 % Normal HCT 42.1 LAB L100.1500 80-94 fL Normal MCV 85.9 LAB L100.1600 27.0-32.0 pg Low MCH 26.3 LAB L100.1700 32-36 g/gl Low MCHC 30.6 LAB L100.1810 11.6-14.6 % High RDW CV 16.6 LAB L100.1820 35.1-43.9 fl High RDW SD 52.1 LAB L100.1900 150-450 K/mm3 Normal PLT 282 LAB L100.2000 6.2-12.0 fl Normal MPV 11.9 LAB L100.2100 47-70 % High NEUT% 74.2 LAB L100.2200 19-41 % Low LY% 11.8 LAB L100.2300 0-10 % Normal MONO% 9.8 LAB L100.2400 0-5 % Normal EO% 3.3 LAB L100.2500 0-1 % Normal BASO% 0.7 LAB L100.2550 0.0-0.9 % Normal IM GRAN % 0.200 Result Comment: IG% - Immature Granulocytes (promyelocytes, myelocytes and metamyelocytes) > 1% indicates that a LEFT SHIFT is Present. LAB L100.2620 2.0-7.7 X10 3/uL Normal Absolute Neut 4.3 LAB L100.2720 0.83-4.51 X10 3/ul Low Absolute Lymph 0.68 Performed By: #### L100.0100 #### [facility] [address] [facility] [place], [address] BASIC METABOLIC Collected: 11/09/2017 Status: F Source: BRAINTREE PROFILE ([facility]) 9:40 AM [facility] REPOSITORY TYPE CODE TESTS RESULT OUT OF RANGE REFERENCE UNITS LAB L501.0100 74-106 mg/dL Normal GLU 100 LAB L501.1000 7-18 mg/dL High BUN 29 LAB L501.1100 0.70-1.30 mg/dL Normal 1.14 CREAT,SERUM Result Comment: The validity of the calculated GFR AND GFRAA in patients over 70 years has not been determined. Clinical correlation is essential. LAB L501.1110 >60 mL/min Normal EST GFR 68 Result Comment: Non- GFR Calc LAB L501.1115 >60 mL/min Normal EST GFR - AA 83 Result Comment: GFR Calc LAB L501.1300 10-20 RATIO High BUN/CRE 25.4 LAB L501.2200 8.5-10.1 mg/dL CA Normal 8.6 LAB L501.5300 136-145 mmol/L NA Normal 138 LAB L501.5600 3.5-5.1 mmol/L K Normal 4.6 LAB L501.5900 98-107 mmol/L CL Normal 103 LAB L501.6100 21.0-32.0 mmol/L Normal CO2 28.0 LAB L501.6200 5-15 Normal GAP 7 Performed By: #### L500.2500, L501.1400, L501.1800, L501.2300, L501.4100, L501.4305, L501.4405, L501.4600, L501.4700, L501.5100, L501.5200, L500.4100 #### [facility] [address] [facility] [place], [address] URIC ACID Collected: 11/09/2017 Status: F Source: [place] 9:40 AM [facility] REPOSITORY TYPE CODE TESTS RESULT OUT OF RANGE REFERENCE UNITS LAB L501.1400 3.5-7.2 mg/dL Normal URIC 6.5 Result Comment: The drugs N-Acetylcysteine and Metamizole may falsely depress this assay. Performed By: #### L500.2500, L501.1400, L501.1800, L501.2300, L501.4100, L501.4305, L501.4405, L501.4600, L501.4700, L501.5100, L501.5200, L500.4100 #### [facility]. [place], [address] ALBUMIN, SERUM Collected: 11/09/2017 Status: F Source: BRAINTREE 9:40 AM [facility] REPOSITORY TYPE CODE TESTS RESULT OUT OF RANGE REFERENCE UNITS LAB L501.1800 3.2-5.0 g/dL Normal ALB 3.8 Performed By: #### L500.2500, L501.1400, L501.1800, L501.2300, L501.4100, L501.4305, L501.4405, L501.4600, L501.4700, L501.5100, L501.5200, L500.4100 #### [facility] [place], [address] PHOSPHORUS Collected: 11/09/2017 Status: F Source: BRAINTREE 9:40 AM [facility] REPOSITORY TYPE CODE TESTS RESULT OUT OF RANGE REFERENCE UNITS LAB L501.2300 2.5-4.9 mg/dL Low PHOS 2.2 Performed By: #### L500.2500, L501.1400, L501.1800, L501.2300, L501.4100, L501.4305, L501.4405, L501.4600, L501.4700, L501.5100, L501.5200, L500.4100 #### [facility] Laboratory [address] [facility]. [place], [place], [id number] AST(SGOT) Collected: 11/09/2017 Status: F Source: BRAINTREE 9:40 AM [facility] REPOSITORY TYPE CODE TESTS RESULT OUT OF RANGE REFERENCE UNITS LAB L501.4100 15-37 U/L Normal AST 19 Performed By: #### L500.2500, L501.1400, L501.1800, L501.2300, L501.4100, L501.4305, L501.4405, L501.4600, L501.4700, L501.5100, L501.5200, L500.4100 #### [facility] [address] [facility]. [place], [place], [id number] ALKALINE PHOSPHATASE Collected: 11/09/2017 Status: F Source: BRA[place] 9:40 AM [facility] REPOSITORY TYPE CODE TESTS RESULT OUT OF RANGE REFERENCE UNITS LAB L501.4305 45-117 U/L Normal ALK P 49 Performed By: #### L500.2500, L501.1400, L501.1800, L501.2300, L501.4100, L501.4305, L501.4405, L501.4600, L501.4700, L501.5100, L501.5200, L500.4100 #### [facility] [address] [facility] [place], [address] ALANINE AMINOTRANSFERAS Collected: 11/09/2017 Status: F Source: BRAINTREE (SGPT) 9:40 AM [facility] REPOSITORY TYPE CODE TESTS RESULT OUT OF RANGE REFERENCE UNITS LAB L501.4405 16-61 U/L Normal ALT 28 Result Comment: Please note revised ALT reference range effective 2017. Performed By: #### L500.2500, L501.1400, L501.1800, L501.2300, L501.4100, L501.4305, L501.4405, L501.4600, L501.4700, L501.5100, L501.5200, L500.4100 #### [facility] Laboratory [address] [place], [address] BILIRUBIN, TOTAL Collected: 11/09/2017 Status: F Source: BRAINT[place] 9:40 AM [facility] REPOSITORY TYPE CODE TESTS RESULT OUT OF RANGE REFERENCE UNITS LAB L501.4600 0.20-1.00 mg/dL Normal T BILI 0.20 Performed By: #### L500.2500, L501.1400, L501.1800, L501.2300, L501.4100, L501.4305, L501.4405, L501.4600, L501.4700, L501.5100, L501.5200, L500.4100 #### [facility] [address] [place], [address] BILIRUBIN, DIRECT Collected: 11/09/2017 Status: F Source: BRA[place] 9:40 AM [facility] REPOSITORY TYPE CODE TESTS RESULT OUT OF RANGE REFERENCE UNITS LAB L501.4700 0.00-0.30 mg/dL Normal D BILI 0.30 Performed By: #### L500.2500, L501.1400, L501.1800, L501.2300, L501.4100, L501.4305, L501.4405, L501.4600, L501.4700, L501.5100, L501.5200, L500.4100 #### [facility] Laboratory [address] [place] [address]. [place], [place], [id number] GGTP Collected: 11/09/2017 Status: F Source: BRA[place] 9:40 AM [facility] REPOSITORY TYPE CODE TESTS RESULT OUT OF RANGE REFERENCE UNITS LAB L501.5100 15-85 U/L Normal GGTP 22 Performed By: #### L500.2500, L501.1400, L501.1800, L501.2300, L501.4100, L501.4305, L501.4405, L501.4600, L501.4700, L501.5100, L501.5200, L500.4100 #### [facility] [address] [place], [address] MAGNESIUM Collected: 11/09/2017 Status: F Source: BRA[place] 9:40 AM [facility] REPOSITORY TYPE CODE TESTS RESULT OUT OF RANGE REFERENCE UNITS LAB L501.5200 1.6-2.6 mg/dL Normal MG 2.2 Result Comment: Please note revised Magnesium reference range effective 2017. Performed By: #### L500.2500, L501.1400, L501.1800, L501.2300, L501.4100, L501.4305, L501.4405, L501.4600, L501.4700, L501.5100, L501.5200, L500.4100 #### [facility] [address] [place], [place], [phone] LIPID PROFILE Collected: 11/09/2017 Status: F Source: [place] 9:40 AM [facility] REPOSITORY TYPE CODE TESTS RESULT OUT OF RANGE REFERENCE UNITS LAB L501.4900 200 mg/dL High CHOL 269 Result Comment: <200 mg/dL Desirable 200-240 mg/dL Borderline >240 mg/dL High Risk LAB L501.5000 mg/dL High TRIG 280 Result Comment: The drugs N-Acetylcysteine and Metamizole may falsely depress this assay. Serum Triglycerides Reference Interval Normal <150 mg/dL Borderline high 150 - 199 mg/dL High 200 - 499 mg/dL Very High > or = 500 mg/dL LAB L501.6400 mg/dL Normal HDL 50 Result Comment: The drugs N-Acetylcysteine and Metamizole may falsely depress this assay. Reference Range HDL <40 mg/dL Low HDL Cholesterol HDL >or= 60 mg/dL High HDL Cholesterol LAB L501.6500 0-130 mg/dL High LDL 163 LAB L501.6600 5-40 mg/dL High VLDL 56 Performed By: #### L500.2500, L501.1400, L501.1800, L501.2300, L501.4100, L501.4305, L501.4405, L501.4600, L501.4700, L501.5100, L501.5200, L500.4100 #### [facility] [address] [place], [place], [id number] HEMOGLOBIN A1C Collected: 11/09/2017 Status: F Source: [place]RA[place] 9:40 AM [facility] REPOSITORY TYPE CODE TESTS RESULT OUT OF RANGE REFERENCE UNITS LAB L501.9985 4.2-6.3 % Normal HGB A1C 5.7 Performed By: #### L501.9985 #### [facility] Laboratory [place], [address] TACROLIMUS (PROGRAF) Collected: 11/09/2017 Status: F Source: BRA[place] 9:40 AM [facility] REPOSITORY TYPE CODE TESTS RESULT OUT OF RANGE REFERENCE UNITS LAB L3380.1100 2.0-20.0 ng/mL Normal TACROLIMUS 5.5 Result Comment: Trough (immediately following transplant) 15.0 Trough (steady state, 2 weeks or more after transplant): 3.0 - 8.0 Detection Limit = 1.0 Performed by LC-MS/MS technology. Performed By: #### L3380.1000, L3400.1525, L3400.5200 #### [facility] (refer to report for specific site) refer to report for address and phone number CMV BY PCR Collected: 11/09/2017 Status: F Source: [place]RA[place] 9:40 AM [facility] REPOSITORY TYPE CODE TESTS RESULT OUT OF RANGE REFERENCE UNITS LAB L3400.1525 Negative Normal CMV PCR Negative [id number] Result Comment: No Cytomegalovirus DNA Detected. This test was developed and its performance characteristics determined by [employer]. It has not been cleared or approved by the Food and Drug Administration. The FDA has determined that such clearance or approval is not necessary. Performed By: #### L3380.1000, L3400.1525, L3400.5200 #### [facility] (refer to report for specific site) refer to report for address and phone number SIROLIMUS (RAPAMUNE) Collected: 11/09/2017 Status: F Source: [facility] 9:40 AM [facility] REPOSITORY TYPE CODE TESTS RESULT OUT OF RANGE REFERENCE UNITS LAB L3400.5210 3.0-20.0 ng/mL Normal 4.5 SIROLIMUS,BL OOD Result Comment: Detection Limit = 1.0 Performed by LC/MS-MS technology Performed at: [address] [id number] Green Plumber: Karin Lima MD, Phone: [phone] Performed By: #### L3380.1000, L3400.1525, L3400.5200 #### [facility] (refer to report for specific site) refer to report for address and phone number VENOUS ACCESS Observed: 11/02/2017 Status: F Source: [facility] REMOVAL 3:[address] [facility] REPOSITORY EXAM: IR VENOUS ACCESS REMOVAL, 11/02/2017 09:47 AM CLINICAL INDICATIONS: [facility] Client Experience Specialist: Radha Swann CNP Local Anesthetic: Lidocaine 2% 10 mls A time-out was performed. Informed, verbal consent was obtained. ......................................... TECHNIQUE: Position: The patient was positioned flat on their bed. The right chest and right indwelling catheter were prepped and draped. Procedure: The suture was cut. The cuff of the right IJ tunneled Palindrome catheter was bluntly dissected from the tissue. The catheter was withdrawn and pressure was held over the entry point of the catheter into the vein and over the subcutaneous tunnel. Hemostasis was maintained with pressure. Triple antibiotic ointment and a sterile, occlusive dressing was applied over the former catheter exit site. COMPLICATIONS: There was no active bleeding or other complications. ESTIMATED BLOOD LOSS: trace. FINDINGS: The tunnel appeared non-infected. The entire catheter was removed intact. IMPRESSION: Successful removal of a right IJ tunneled Palindrome catheter. I personally viewed and interpreted these images and I have reviewed and approved this report. Meds Event Details User 9:34 AM 11/02/17 Timeout: TimeOut Verified by Maryse Enriquez RN at 11/02/2017 9:34 AM [place] 9:38 AM 11/02/17 lidocaine 2 % injection 400 mg 10 mL Given Rate: 0 Route: Other CS IR Physician Event Details User 9:34 AM 11/02/17 Timeout: TimeOut Verified by Maryse Enriquez RN at 11/02/2017 9:34 AM [place] ALLERGIES ALLERGIES DATE TYPE / CODE NAME / CODE REACTION SEVERITY SOURCE 01/17/2016 Drug No Known Unknown [facility] Allergy/4160 Allergies/F00 Hospital 26209(SNOMED 1229550(RXNOR Repository CT) M) ENCOUNTERS ENCOUNTERS ADMIT/DISCHARGE ACCOUNT NUMBER ADMITTING ENCOUNTER LOCATION SOURCE CLASS 10/21/2018 [id number] Ambulatory Building:[facility] Repository 10/21/2018 [id number] Ambulatory Building:[facility] Repository 10/21/2018 [id number] Ambulatory Building:[address] Repository 10/21/2018 [id number] Ambulatory Building:[facility] Repository 10/15/2018 [id number] Ambulatory [facility] ding:MTLAB Repository 09/24/2018/09/24/20 [id number] Ambulatory [address] ding:MTLAB Repository 09/16/2018 [id number] Ambulatory [facility]MSBuilding: [facility] Repository 09/16/2018 [id number] Ambulatory [facility] ding:PSN Repository 09/14/2018 [id number] Ambulatory [facility] ding:LAB.FUT Repository URE 08/17/2018 [id number] Ambulatory [facility] ding:PSN Repository 08/17/2018 [id number] Ambulatory BMSBuilding: [facility] Repository 07/22/2018 [id number] Ambulatory Building:[facility] Repository 07/22/2018 [id number] Ambulatory Building:[facility] Repository 07/22/2018 [id number] Ambulatory Building:[address] Repository 07/22/2018 [id number] Ambulatory Building:[facility] Repository 07/12/2018/07/12/20 [id number] Ambulatory [address] ding:MTLAB Repository 06/11/2018/09/07 [id number] Ambulatory [place] 18 [facility] Hospital ding:MTLAB Repository 05/15/2018 [id number] Ambulatory Ramandeep Ramandeep [facility] Hospital ding:MTLAB Repository 05/06/2018/05/06/20 [id number] Ambulatory [place] 18 [facility] Hospital ding:MTLAB Repository 04/12/2018 [id number] Ambulatory Building:R [facility] Repository 04/12/2018 [id number] Ambulatory Building:D8E [facility] Repository 04/12/2018 [id number] Ambulatory Building:[address] Repository 04/12/2018 [id number] Ambulatory Building:[facility] Repository 04/12/2018 [id number] Ambulatory Building:[facility] Repository 04/12/2018 [id number] Ambulatory Building:[facility] Repository 04/06/2018/04/06/20 [id number] Ambulatory [place] 18 [facility] ding:MTLAB Repository 03/12/2018/03/12/20 [id number] Ambulatory [place] Ramandeep 18 [facility] ding:MTLAB Repository 02/08/2018/02/09/20 [id number] Ambulatory [place] 18 [facility] ding:MTLAB Repository 01/05/2018/01/06/20 [id number] Ambulatory [place] 18 [facility] Hospital ding:MTLAB Repository 01/04/2018 [id number] Ambulatory Building:[facility] Repository 01/04/2018 [id number] Ambulatory Building:[facility] Repository 01/04/2018 [id number] Ambulatory Building:[facility] Repository 01/04/2018 [id number] Ambulatory Building:[address] Repository 12/03/2017/12/04/19 [id number] Ambulatory Ramandeep Ramandeep 18 [facility] Hospital ding:MTLAB Repository 11/02/2017/11/02/19 [id number] FRANCIS BAL Ambulatory Building:[place] [address] A VIRRoom: [facility] Repository PAYERS PAYERS ENCOUNTER GUARANTOR PAYER SUBSCRIBER SOURCE 10/21/2018 KARIN Mars Primary KARIN Mars [facility] GERBERDOB: Insurance:MEDICARE A GERBERDOB: [place] [id number] AND BPolicy Number: [id number] [facility], [id number] [address] [place] [address] 666[address]Voy: Date:2704-51-18[place], [place] Repository Name:CARE [id number]: (481) (CD) [phone] () 10/21/2018 Secondary [facility] Jerad [facility] Insurance:AARPPolicy GERBERDOB: University Number: [id number] [facility] [id number] [address] [place] [address] Date:1786-25-32BlfeSan [place], [place] Repository Name:MANAGED CARE [id number]: () 10/21/2018 KARIN D Primary KARIN Mars [facility] GERBERDOB: Insurance:MEDICARE A GERBERDOB: [place] [id number] AND BPolicy Number: [id number] [facility], [id number] [address] [place] [address] [place] [address]Nui: Date:4148-77-80QoneSan [place], [place] Repository Name:CARE [id number]: (379) (RL) [phone] () 10/21/2018 Secondary [facility] Jerad [facility] Insurance:AARPPolicy GERBERDOB: University Number: [id number] [facility] [id number] [address] [place] [address] Date:9611-52-48ZczwSan [place], [place] Repository Name:MANAGED CARE [id number]: () 10/21/2018 KARIN D Primary KARIN Mars [facility] GERBERDOB: Insurance:MEDICARE A GERBERDOB: [place] [id number] AND BPolicy Number: [id number] [facility], [id number] [address] [place] [address] 318[address]Wdy: Date:2593-77-45HcqkSan [place], [place] Repository Name:CARE [id number]: (330) (NA) [phone] (HP) 10/21/2018 Secondary KARIN D [facility] Insurance:AARPPolicy GERBERDOB: University Number: [id number] [facility] [id number] [address] [place] [address] Date:4755-20-80[place]amsSan [place], [place] Repository Name:MANAGED CARE [id number]: () 10/21/2018 KARIN D Primary KARIN D [facility] GERBERDOB: Insurance:MEDICARE A GERBERDOB: [place] [id number] AND BPolicy Number: [id number] [facility], [id number] [address] [place] [address]Laq: Date:5114-22-90NowiSan [place], [place] Repository Name:CARE [id number]: (494) (AF) [phone] () 10/21/2018 Secondary [facility] D [facility] Insurance:AARPPolicy GERBERDOB: [place] Number: [id number] [facility] [id number] [address] [place] [address] Date:3607-08-85GxztSan [place], [place] Repository Name:MANAGED CARE [id number]: () 10/15/2018 KARIN D PACO Primary KARIN D PACO [place] [facility] [facility] Insurance:MEDICARE Jr.: [place], [place] PART A BPolic [id number] Hospital 90115Nwq: (330) Number: Repository [phone] () [id number] Date:2018-05-06 10/15/2018 Secondary KARIN D PACO [place] Insurance:AARPPolicy Jr.: Community Number: [id number] Hospital [id number] Repository Date:1924-89-07[address], [place] [address]CO: 10/15/2018 Tertiary NOT GIVENUNK [place] Insurance:SELF PAY [facility] Number: Effective Repository Date:2018-10-04 09/24/2018 KARIN D PACO Primary KARIN D PACO [place] Jr[address] Insurance:MEDICARE Jr.: [place] PART A [facility] [id number] Hospital 31962Apa: (330) Number: Repository [phone] () [id number] Date:2018-05-06 09/24/2018 Secondary KARIN D PACO Ramandeep Insurance:AARPPolicy Jr.: Community Number: [id number] Hospital [id number] Repository Date:2370-98-38[address], [place] [address]RE: 09/24/2018 Tertiary NOT GIVENUNK Ramandeep Insurance:SELF PAY [facility] Number: Effective Repository Date:2018-08-05 09/16/2018 KARIN D PACO Primary KARIN D PACO [place] Jr[address] Insurance:MEDICARE Jr.: [place] PART A [facility] [id number] Hospital 44080Kff: (330) Number: Repository [phone] () [id number] Date:2018-07-27 09/16/2018 Secondary KARIN D APCO [place] Insurance:AARPPolicy Jr.: Community Number: [id number] [id number] Repository Date:4832-28-81[address], [place] [address]SN: 09/16/2018 Tertiary NOT GIVENUNK [place] Insurance:SELF PAY [facility] Number: Effective Repository Date:2018-09-16 09/16/2018 KARIN D PACO Primary KARIN D PACO [place]ande[place] [address] Insurance:MEDICARE Jr.: [place] PART A [facility] [id number] Hospital 09658Xgs: (330) Number: Repository [phone] () [id number] Date:2018-07-27 09/16/2018 Secondary KARIN D PACO [place] Insurance:AARPPolicy Jr.: Community Number: [id number] Hospital [id number] Repository Date:9059-53-31[address], [place] [address]SV: 09/16/2018 Tertiary NOT GIVENUNK Ramandeep Insurance:SELF PAY [facility] Number: Effective Repository Date:2018-07-27 09/14/2018 KARIN D PACO Primary KARIN D PACO Ramande[place] [address] Insurance:MEDICARE Jr.: [place] PART A [facility] [id number] Hospital 51825Bhh: (330) Number: Repository [phone] () [id number] Date:2018-09-14 09/14/2018 Secondary KARIN D PACO Ramandeep Insurance:AARPPolicy Jr.: Community Number: [id number] Hospital [id number] Repository Date:3477-21-19[address]LF[place], [place] [address]QY: 09/14/2018 Tertiary NOT GIVENUNK Ramandeep Insurance:SELF PAY [facility] Number: Effective Repository Date:2018-09-14 08/17/2018 KARIN D PACO Primary KARIN D PACO [place] [address] Insurance:MEDICARE Jr.: [place] PART A [facility] [id number] Hospital 32493Alu: (330) Number: Repository [phone] ) [id number] Date:2018-07-27 08/17/2018 Secondary KARIN D PACO [place] Insurance:AARPPolicy Jr.: Community Number: [id number] Hospital [id number] Repository Date:5126-13-48EJ [address]JIELS[place], [place] [address]WJ: 08/17/2018 Tertiary NOT GIVENUNK [place] Insurance:SELF PAY [facility] Number: Effective Repository Date:2018-07-27 08/17/2018 KARIN Jerad PACO Primary KARIN [place] Jr[address] Insurance:MEDICARE Jr.: [place] PART A BPolicy [id number] Hospital 31867Ajm: (330) Number: Repository [phone] () [id number] Date:2018-07-27 08/17/2018 Secondary KARIN Jerad PACO [place] Insurance:AARPPolicy Jr.: [facility] Number: [id number] Hospital [id number] Repository Date:7011-24-66SZ [address]PVCPGZN, [place] [address]YQ: 08/17/2018 Tertiary NOT GIVENUNK [place] Insurance:SELF PAY [facility] Number: Effective Repository Date:2018-08-17 07/22/2018 KARIN D Primary KARIN Mars [facility] GERBERDOB: Insurance:MEDICARE A [facility]: [place] [id number] AND BPolicy Number: [id number] [facility] [id number] [address] [place] [address]Tcp: Date:0881-50-25KtseSan [place], [place] Repository Name:CARE 29718Hbu: (384) (RI) [phone] () 07/22/2018 Secondary KARIN Jerad [facility] Insurance:AARPPolicy GERBERDOB: [place] Number: [id number] [facility] [id number] [address] [place] [address] Date:9684-26-04LwekSan [place], [place] Repository Name:MANAGED CARE [id number]: () 07/22/2018 KARIN D Primary KARIN D [facility] GERBERDOB: Insurance:MEDICARE A GERBERDOB: [place] [id number] AND BPolicy Number: [id number] [facility] [id number] [address] [place] [address]Xaf: Date:0975-58-66PihaSan [place], [place] Repository Name:CARE 00101Bhd: (660) (XR) [phone] () 07/22/2018 Secondary [facility] D [facility] Insurance:AARPPolicy GERBERDOB: University Number: [id number] [facility] [id number] 4 [facility] Center Date:5084-95-30PtarSan [place], [place] Repository Name:MANAGED CARE 50390Nor: () 07/22/2018 KARIN D Primary KARIN D [facility] GERBERDOB: Insurance:MEDICARE A GERBERDOB: [place] [id number] AND BPolicy Number: [id number] [facility], [id number] [address] [place] [address]Ozk: Date:3106-13-93UegzSan [place], [place] Repository Name:CARE 72651Plu: (330) (HP) [phone] () 07/22/2018 Secondary [facility] Insurance:AARPPolicy GERBERDOB: University Number: [id number] [facility] [id number] 4 [facility] Center Date:7499-59-90EqtfSan [place], [place] Repository Name:MANAGED CARE 42988Xdb: () 07/22/2018 KARIN D Primary KARIN D [facility] GERBERDOB: Insurance:MEDICARE A GERBERDOB: [place] [id number] AND BPolicy Number: [id number] [facility], [id number] 4 [facility] [place] [address]Zte: Date:9450-52-90BdzbSan [place], [place] Repository Name:CARE [id number]: (330) (HP) [phone] () 07/22/2018 Secondary [facility] Insurance:AARPPolicy GERBERDOB: University Number: [id number] [facility] [id number] 4 [facility] Center Date:6199-72-34UkeeSan [place], [place] Repository Name:[facility] CARE [id number]: () 07/12/2018 KARIN D PACO Primary KARIN D PACO [place] Jr[address] Insurance:MEDICARE Jr.: [place] PART A [facility] [id number] Hospital 41278Xhr: (129) Number: Repository [phone] () [id number] Date:2018-05-06 07/12/2018 Secondary KARIN D PACO [place] Insurance:AARPPolicy Jr.: Community Number: [id number] Hospital [id number] Repository Date:5752-43-37[address] [place] [address]UM: 07/12/2018 Tertiary NOT GIVENUNK Ramandeep Insurance:SELF PAY [facility] Number: Effective Repository Date:2018-07-06 06/11/2018 KARIN D PACO Primary KARIN D PACO [place] Jr[address] Insurance:MEDICARE Jr.: [place] PART A [facility] [id number] Hospital 26075Jit: (237) Number: Repository [phone] () [id number] Date:2018-05-06 06/11/2018 Secondary KARIN D PACO [place] Insurance:AARPPolicy Jr.: Community Number: [id number] Hospital [id number] Repository Date:8254-48-06[address]ESJHZFC, [place] [address]QO: 06/11/2018 Tertiary NOT GIVENUNK [place] Insurance:SELF PAY [facility] Number: Effective Repository Date:2018-06-09 05/15/2018 KARIN D PACO Primary KARIN D PACO [place] Jr[address] Insurance:MEDICARE Jr.: [place] PART A [facility] [id number] Hospital 10916Qmc: (097) Number: Repository [phone] () [id number] Date:2017-11-06 05/15/2018 Secondary KARIN Jerad [place] Insurance:AARPPolicy Jr.: Community Number: [id number] Hospital [id number] Repository Date:5611-96-01[address]NGXPNK, [place] [address]FP: 05/15/2018 Tertiary NOT GIVENUNK [place] [facility]Y [facility] [facility] Number: Effective Repository Date:2018-05-07 05/06/2018 KARIN D PACO Primary KARIN D PACO [place] Jr[address] Insurance:MEDICARE Jr.: [place], [place] PART A [facility] [id number] Hospital 28480Bql: (330) Number: Repository [phone] () [id number] Date:2018-05-06 05/06/2018 Secondary KARIN Jerad ANTONIO Ramandeep Insurance:AARPPolicy Jr.: Community Number: [id number] Hospital [id number] Repository Date:3855-57-33[address], [place] [address]UC: 05/06/2018 Tertiary NOT GIVENUNK Ramandeep Insurance:SELF PAY [facility] Number: Effective Repository Date:2018-05-06 04/12/2018 KARIN D Primary KARIN D [facility] GERBERDOB: Insurance:MEDICARE A GERBERDOB: [place] [id number] AND [facility] Number: [id number] [facility] [id number] [address] [place] [address] 20641Tgm: Date:6083-93-68ElzwSan [place], [place] Repository Name:CARE [id number]: (597) (AU) [phone] () 04/12/2018 Secondary KARIN D [facility] Insurance:AARPPolicy GERBERDOB: [place] Number: [id number] [facility] [id number] [address] [place] [address] Date:2723-46-73GyyfSan [place], [place] Repository Name:MANAGED CARE [id number]: () 04/12/2018 KARIN D Primary KARIN D [facility] GERBERDOB: Insurance:MEDICARE A GERBERDOB: [place] [id number] AND BPolicy Number: [id number] [facility], [id number] [address] [place] [address] [place] [address]Zjm: Date:4475-04-75OzxjSan [place], [place] Repository Name:CARE [id number]: (960) (HP) [phone] () 04/12/2018 Secondary KARIN D [facility] Insurance:AARPPolicy GERBERDOB: University Number: [id number] [facility] [id number] [address] [place] [address] Date:7186-47-80AjgzSan [place], [place] Repository Name:MANAGED CARE [id number]: () 04/12/2018 KARIN D Primary KARIN D [facility] GERBERDOB: Insurance:MEDICARE A GERBERDOB: [place] AND BPolicy Number: [id number] [facility], [id number] [address] [place] [address] 94148Xqt: Date:7015-68-59LxwdSan [place], [place] Repository Name:CARE [id number]: (589) (LK) [phone] () 04/12/2018 Secondary [facility] D [facility] Insurance:AARPPolicy GERBERDOB: University Number: [id number] [facility] [id number] [address] [place] [address] Date:5352-46-98KyxbSan [place], [place] Repository Name:MANAGED CARE [id number]: () 04/12/2018 KARIN D Primary KARIN D [facility] GERBERDOB: Insurance:MEDICARE A GERBERDOB: [place] AND BPolicy Number: [id number] [facility], [id number] [address] [place] [address] [place] [address]Gnt: Date:3377-95-64SzsbSan [place], [place] Repository Name:CARE [id number]: (130) (YW) [phone] () 04/12/2018 Secondary [facility] Insurance:AARPPolicy GERBERDOB: University Number: [id number] [facility] [id number] 4 [facility] Date:7808-92-47WzvwSan [place], [place] Repository Name:MANAGED CARE [id number]: () 04/12/2018 KARIN D Primary KARIN D [facility] GERBERDOB: Insurance:MEDICARE A GERBERDOB: [place] [id number] AND BPolicy Number: [id number] [facility], [id number] [address] [place] [address] 22779Vup: Date:1925-59-95LbvrSan [place], [place] Repository Name:CARE [id number]: (330) (HP) [phone] () 04/12/2018 Secondary [facility] Insurance:AARPPolicy GERBERDOB: University Number: [id number] [facility] [id number] 4 [facility] Center Date:4648-65-97WhydSan [place], [place] Repository Name:MANAGED CARE [id number]: () 04/12/2018 KARIN D Primary [facility] D [facility] GERBERDOB: Insurance:MEDICARE A GERBERDOB: [place] [id number] AND BPolicy Number: [id number] [facility], [id number] 4 [facility] [place] [address]Wzn: Date:2222-14-25IzukSan [place], [place] Repository Name:CARE [id number]: (330) (HP) [phone] () 04/12/2018 Secondary [facility] Insurance:AARPPolicy GERBERDOB: University Number: [id number] [facility] [id number] 4 [facility] Center Date:8618-01-64KkpcSan [place], [place] Repository Name:[facility] CARE [id number]: () 04/06/2018 KARIN D PACO Primary KARIN D PACO Ramandeep Jr.[address] Insurance:MEDICARE Jr.: [place] PART A [facility] [id number] Hospital 39603Ome: 330) Number: Repository [phone] () [id number] Date:2017-11-06 04/06/2018 Secondary KARIN D PACO Ramandeep Insurance:AARPPolicy Jr.: Community Number: [id number] Hospital [id number] Repository Date:0360-89-11[address] [place] [address]KO: 04/06/2018 Tertiary NOT GIVENUNK Ramandeep Insurance:SELF PAY [facility] Number: Effective Repository Date:2018-04-02 03/12/2018 KARIN D PACO Primary KARIN D PACO [place] Jr[address] Insurance:MEDICARE Jr.: [place] [facility] [id number] Hospital 09565Bub: (330) Number: Repository [phone] () [id number] Date:2017-11-06 03/12/2018 Secondary KARIN D PACO Ramandeep Insurance:AARPPolicy Jr.: Community Number: [id number] Hospital [id number] Repository Date:9630-25-88[address]PO[place], [place] [address]XN: 03/12/2018 Tertiary NOT GIVENUNK [place] Insurance:SELF PAY [facility] Number: Effective Repository Date:2018-03-04 02/08/2018 KARIN D PACO Primary KARIN D PACO [place] Jr[address] Insurance:MEDICARE Jr.: [place] [facility] [id number] Hospital 01196Uzg: (330) Number: Repository [phone] () [id number] Date:2017-11-06 02/08/2018 Secondary KARIN D PACO Ramandeep Insurance:AARPPolicy Jr.: Community Number: [id number] Hospital [id number] Repository Date:1507-75-81[address]ZVHJX[place]X, [place] [address]IE: 02/08/2018 Tertiary NOT GIVENUNK [place] Insurance:SELF PAY [facility] Number: Effective Repository Date:2018-02-02 01/05/2018 KARIN Jerad PACO Primary KARIN ANTONIO Ramandeep Jr.[address] Insurance:MEDICARE Jr.: [place] PART [place] [facility] [id number] Hospital 20280Fsn: (431) Number: Repository [phone] () [id number] Date:2017-11-06 01/05/2018 Secondary KARIN ANTONIO Ramandeep Insurance:AARPPolicy Jr.: Community Number: [id number] Hospital [id number] Repository Date:2458-02-47[address], [place] [address]QS: 01/05/2018 Tertiary NOT GIVENUNK Ramandeep Insurance:SELF PAY [facility] Number: Effective Repository Date:2018-01-04 01/04/2018 KARIN Jerad Primary KARIN Mars [facility] GERBERDOB: Insurance:MEDICARE A [facility] [place] [id number] AND BPolic Number: [id number] [facility] [id number] [address] [place] [address]Vnh: Date:7912-32-66OvhySan [place], [place] Repository Name:CARE [id number]: ([phone]) (UC) [phone] () 01/04/2018 Secondary KARIN Mars [facility] Insurance:AARPPolicy GERBERDOB: [place] Number: [id number] [facility] [id number] [address] [place] [address] Date:7187-17-54JedwSan [place], [place] Repository Name:MANAGED CARE [id number]: () 01/04/2018 KARIN D Primary KARIN D [facility] GERBERDOB: Insurance:MEDICARE A GERBERDOB: [place] [id number] AND BPolicy Number: [id number] [facility], [id number] [address] [place] [address] [place] [address]Ync: Date:5084-70-54NzvsSan [place], [place] Repository Name:CARE [id number]: (330) (HP) [phone] (HP) 01/04/2018 Secondary [facility] Insurance:AARPPolicy GERBERDOB: University Number: [id number] [facility] [id number] [address] [place] [address] Date:6184-92-53TmzvSan [place], [place] Repository Name:MANAGED CARE [id number]: () 01/04/2018 KARIN D Primary KARIN D [facility] GERBERDOB: Insurance:MEDICARE A GERBERDOB: [place] [id number] AND BPolicy Number: [id number] [facility], [id number] [address] [place] [address] [place] [address]Ude: Date:5501-57-45AaxtSan [place], [place] Repository Name:CARE [id number]: (330) (HP) [phone] (HP) 01/04/2018 Secondary [facility] Insurance:AARPPolicy GERBERDOB: University Number: [id number] [facility] [id number] [address] [place] [address] Date:8003-08-95AqumSan [place], [place] Repository Name:MANAGED CARE [id number]: () 01/04/2018 KARIN D Primary KARIN Jerad [facility] GERBERDOB: Insurance:MEDICARE A GERBERDOB: [place] [id number] AND BPolicy Number: [id number] [facility], [id number] [address] [place] [address] [place] [address]Kbo: Date:4725-71-10ErggSan [place], [place] Repository Name:CARE [id number]: (034) (FY) [phone] () 01/04/2018 Secondary KARIN D [facility] Insurance:AARPPolicy GERBERDOB: University Number: [id number] [facility] [id number] [address] [place] [address] Date:5798-73-03Wkuc [place] Repository Name:MANAGED CARE [id number]: () 12/03/2017 KARIN D PACO Primary KARIN D PACO [place] Jr[address] [facility] Insurance:MEDICARE Jr.: [place] [facility] [id number] Hospital 26388Mof: (624) Number: Repository [phone] () [id number] Date:2017-11-06 12/03/2017 Secondary KARIN ANTONIO [place] Insurance:AARPPolicy Jr.: [facility] Number: [id number] Hospital [id number] Repository Date:9561-81-38[address], [place] [address]TX: 12/03/2017 Tertiary NOT GIVENUNK Ramandeep Insurance:SELF PAY [facility] Number: Effective Repository Date:2017-11-06 11/02/2017 KARIN D Primary KARIN Jerad [facility] GERBERDOB: Insurance:MEDICARE A GERBERDOB: [place] [id number] AND [facility] Number: [id number] [facility] [id number] [address] [place] [address] 78[address]Skv: Date:0144-89-25GmxzSan [place], [place] Repository Name:CARE [id number]: (648) (BQ) [phone] () 11/02/2017 Secondary KARIN D [facility] Insurance:AARPPolicy GERBERDOB: University Number: [id number] [facility] [id number] [address] [place] [address] Date:9574-99-61ThzySan [place], [place] Repository Name:MANAGED CARE [id number]: ()
== END ==
PROVIDERS: Family Provider Family Medicine; PCP Family Medicine
DX: Z94.2 Lung transplant status (principal)
CPT/HCPCS: 94010

== ENCOUNTER 2018-09-24 09:20 | Outpatient (RCR) | payer MEDICARE, OTHER, SELFPAY ==
[2018-09-24 10:32] LABS: Absolute Lymphocyte Count 0.71 X10^3/ul (0.83-4.51); Absolute Neutrophil Count 4.6 X10^3/uL (2.0-7.7); Basophil# 0.03 X10^3/uL; Basophil% 0.5 % (0-1); Eosinophil# 0.33 X10^3/uL; Eosinophils% 5.3 % (0-5); Hematocrit 41.7 % (40-54); Lymphocyte # 0.71 X10^3/ul (4.0); Lymphocyte % 11.3 % (19-41); Mean Corp Hgb Conc 31.2 g/gl (32-36); Mean Corpuscular Hgb 27.8 pg (27.0-32.0); Mean Corpuscular Volume 89.3 fL (80-94); Mean Platelet Vol. 11.2 fl (6.2-12.0); Monocyte# 0.59 X10^3/uL; Monocyte% 9.4 % (0-10); Neutrophil % 73.2 % (47-70); Platelet Count 251 K/mm3 (150-450); RBC Distribution Width CV 15.3 % (11.6-14.6); RBC Distribution Width SD 49.5 fl (35.1-43.9); Red Blood Count 4.67 M/mm3 (4.6-6.2); White Blood Count 6.3 K/mm3 (4.4-11.0)
[2018-09-24 10:33] LABS: POSITIVE COUNT NO; POSITIVE DIFFERENTIAL NO; POSITIVE MORPHOLOGY NO
[2018-09-24 10:58] LABS: ALB/GLOB Ratio 1.1 RATIO (0.9-2.4); AST(SGOT) 16 U/L (15-37); Alanine Aminotransfer ALT/SGPT 21 U/L (16-61); Albumin, Serum 3.8 g/dL (3.2-5.0); Alkaline Phosphatase 46 U/L (45-117); Anion Gap 7 (5-15); BUN 41 mg/dL (7-18); BUN/Creat Ratio 29.7 RATIO (10-20); Chloride 103 mmol/L (98-107); Cholesterol 261 mg/dL (200); Creatinine, Serum 1.38 mg/dL (0.70-1.30); EST Glomerular Filtration Rate 55 mL/min (>60); Est Glom Filt Rate - Afr Amer 66 mL/min (>60); GGTP 18 U/L (15-85); Globulin 3.5 g/dL (2.2-4.2); Glucose 97 mg/dL (74-106); High Density Lipoprotein 48 mg/dL; Iron 53 ug/dL (65-175); Iron Binding Capacity,Total 324 ug/dL (250-450); Magnesium 1.8 mg/dL (1.6-2.6); PERCENT IRON SATURATION 16.4 % (15.0-55.0); Phosphorus 3.2 mg/dL (2.5-4.9); Potassium 4.5 mmol/L (3.5-5.1); Protein, Total 7.3 g/dL (6.4-8.2); Sodium Level 138 mmol/L (136-145); Triglycerides 203 mg/dL; Uric Acid 5.9 mg/dL (3.5-7.2); Very Low Density Lipoprotein 41 mg/dL (5-40)
[2018-09-24 11:03] LABS: Hemoglobin A1c 6.1 % (4.2-6.3)
[2018-09-29 03:05] LABS: Immunoglobulin A 71 mg/dL (61-437); Immunoglobulin E < 2 IU/mL (0-100); Immunoglobulin G 746 mg/dL (700-1600)
[2018-09-29 12:12] LABS: CMV by PCR Negative (Negative); Immunoglobulin M 6 mg/dL (20-172); Sirolimus,Blood 5.5 ng/mL (3.0-20.0); Tacrolimus (FK506) 6.8 ng/mL (2.0-20.0)
== END 2018-09-24 10:00 | disposition home or self-care (01) ==
LOC: MTLAB 09:20
PROVIDERS: Family Provider Family Medicine; PCP Family Medicine
DX: R79.9 Abnormal finding of blood chemistry, unspecified (principal); Z94.2 Lung transplant status; Z48.24 Encounter for aftercare following lung transplant; D89.9 Disorder involving the immune mechanism, unspecified; Z79.899 Other long term (current) drug therapy; Z51.81 Encounter for therapeutic drug level monitoring
CPT/HCPCS: 36415; 80053; 80061; 80195; 80197; 82248; 82784; 82785; 82977; 83036; 83540; 83550; 83735; 84100; 84550; 85025; 87496

== ENCOUNTER 2018-10-15 08:16 | Outpatient (RCR) | payer MEDICARE, OTHER, SELFPAY ==
[2018-10-15 10:19] LABS: Absolute Neutrophil Count 3.2 X10^3/uL (2.0-7.7); Basophil# 0.02 X10^3/uL; Basophil% 0.4 % (0-1); Eosinophil# 0.31 X10^3/uL; Eosinophils% 6.6 % (0-5); Hematocrit 41.7 % (40-54); Hemoglobin 12.6 g/dl (13.0-16.5); Lymphocyte % 14.8 % (19-41); Mean Corp Hgb Conc 30.2 g/gl (32-36); Mean Corpuscular Hgb 27.1 pg (27.0-32.0); Mean Corpuscular Volume 89.7 fL (80-94); Mean Platelet Vol. 10.9 fl (6.2-12.0); Monocyte# 0.53 X10^3/uL; Monocyte% 11.2 % (0-10); Neutrophil # 3.16 X10^3/uL (2.7-7.7); Neutrophil % 66.8 % (47-70); Platelet Count 267 K/mm3 (150-450); RBC Distribution Width CV 15.6 % (11.6-14.6); RBC Distribution Width SD 50.4 fl (35.1-43.9); Red Blood Count 4.65 M/mm3 (4.6-6.2); White Blood Count 4.7 K/mm3 (4.4-11.0)
[2018-10-15 10:31] LABS: POSITIVE COUNT NO; POSITIVE DIFFERENTIAL NO; POSITIVE MORPHOLOGY NO
[2018-10-15 10:49] LABS: ALB/GLOB Ratio 1.1 RATIO (0.9-2.4); AST(SGOT) 17 U/L (15-37); Alanine Aminotransfer ALT/SGPT 25 U/L (16-61); Albumin, Serum 3.8 g/dL (3.2-5.0); Alkaline Phosphatase 46 U/L (45-117); Anion Gap 7 (5-15); BUN 35 mg/dL (7-18); BUN/Creat Ratio 25.4 RATIO (10-20); Bilirubin, Direct 0.07 mg/dL (0.00-0.30); Chloride 104 mmol/L (98-107); Creatinine, Serum 1.38 mg/dL (0.70-1.30); EST Glomerular Filtration Rate 55 mL/min (>60); Est Glom Filt Rate - Afr Amer 66 mL/min (>60); GGTP 20 U/L (15-85); Globulin 3.6 g/dL (2.2-4.2); Glucose 91 mg/dL (74-106); Magnesium 1.9 mg/dL (1.6-2.6); Phosphorus 3.5 mg/dL (2.5-4.9); Potassium 4.5 mmol/L (3.5-5.1); Protein, Total 7.4 g/dL (6.4-8.2); Sodium Level 138 mmol/L (136-145); Uric Acid 6.7 mg/dL (3.5-7.2)
[2018-10-20 14:07] LABS: CMV by PCR Negative (Negative); Tacrolimus (FK506) 6.1 ng/mL (2.0-20.0)
== END 2018-10-15 10:00 | disposition home or self-care (01) ==
LOC: MTLAB 08:16
PROVIDERS: Family Provider Family Medicine; PCP Family Medicine
DX: Z94.2 Lung transplant status (principal); R79.9 Abnormal finding of blood chemistry, unspecified; Z48.24 Encounter for aftercare following lung transplant; D89.9 Disorder involving the immune mechanism, unspecified; Z79.899 Other long term (current) drug therapy; Z51.81 Encounter for therapeutic drug level monitoring
CPT/HCPCS: 36415; 80053; 80195; 80197; 82248; 82977; 83735; 84100; 84550; 85025; 87496

== ENCOUNTER 2018-11-05 07:58 | Outpatient (RCR) | payer MEDICARE, OTHER, SELFPAY ==
[2018-11-05 10:35] LABS: Absolute Lymphocyte Count 0.69 X10^3/ul (0.83-4.51); Absolute Neutrophil Count 3.8 X10^3/uL (2.0-7.7); Basophil# 0.03 X10^3/uL; Basophil% 0.5 % (0-1); Eosinophil# 0.31 X10^3/uL; Eosinophils% 5.7 % (0-5); Hematocrit 41.9 % (40-54); Lymphocyte # 0.69 X10^3/ul (4.0); Lymphocyte % 12.6 % (19-41); Mean Corpuscular Hgb 27.7 pg (27.0-32.0); Mean Corpuscular Volume 89.1 fL (80-94); Mean Platelet Vol. 11.4 fl (6.2-12.0); Monocyte# 0.64 X10^3/uL; Monocyte% 11.7 % (0-10); Neutrophil % 69.3 % (47-70); Platelet Count 259 K/mm3 (150-450); RBC Distribution Width CV 15.8 % (11.6-14.6); RBC Distribution Width SD 51.1 fl (35.1-43.9); White Blood Count 5.5 K/mm3 (4.4-11.0)
[2018-11-05 10:39] LABS: POSITIVE COUNT NO; POSITIVE DIFFERENTIAL NO; POSITIVE MORPHOLOGY NO
[2018-11-05 10:48] LABS: AST(SGOT) 18 U/L (15-37); Alanine Aminotransfer ALT/SGPT 26 U/L (16-61); Albumin, Serum 3.8 g/dL (3.2-5.0); Alkaline Phosphatase 46 U/L (45-117); Anion Gap 4 (5-15); BUN 34 mg/dL (7-18); Bilirubin, Direct 0.11 mg/dL (0.00-0.30); Calcium,Total 8.7 mg/dL (8.5-10.1); Chloride 104 mmol/L (98-107); Creatinine, Serum 1.31 mg/dL (0.70-1.30); EST Glomerular Filtration Rate 58 mL/min (>60); Est Glom Filt Rate - Afr Amer 70 mL/min (>60); GGTP 19 U/L (15-85); Globulin 3.7 g/dL (2.2-4.2); Glucose 95 mg/dL (74-106); Iron 95 ug/dL (65-175); Iron Binding Capacity,Total 328 ug/dL (250-450); Phosphorus 3.2 mg/dL (2.5-4.9); Protein, Total 7.5 g/dL (6.4-8.2); Sodium Level 138 mmol/L (136-145); Uric Acid 6.4 mg/dL (3.5-7.2)
[2018-11-11 07:58] LABS: CMV by PCR Negative (Negative); Tacrolimus (FK506) 5.8 ng/mL (2.0-20.0)
== END 2018-11-05 08:00 | disposition home or self-care (01) ==
LOC: MTLAB 07:58
PROVIDERS: Family Provider Family Medicine; PCP Family Medicine; Referring Provider Internal Medicine Pulmonary Disease; Visit Provider Internal Medicine Pulmonary Disease
DX: Z79.899 Other long term (current) drug therapy (principal); Z94.2 Lung transplant status; Z48.24 Encounter for aftercare following lung transplant; D89.9 Disorder involving the immune mechanism, unspecified; R79.9 Abnormal finding of blood chemistry, unspecified; Z51.81 Encounter for therapeutic drug level monitoring
CPT/HCPCS: 36415; 80053; 80197; 82248; 82977; 83540; 83550; 84100; 84550; 85025; 87496

== ENCOUNTER → 2018-11-18 09:47 | Outpatient (CLI) | payer MEDICARE, OTHER, SELFPAY ==
--- NOTE | 2018-11-19 14:03 | PFT ---
INTRODUCTION: The patient is a 68-year-old male that presents for pulmonary function studies post lung transplantation. Respiratory therapy reports good patient effort. Bronchodilators were used during testing. INTERPRETATION: Forced expiration spirometry demonstrates the presence of a severe large airways obstructive ventilatory defect. There was no significant response to aerosolized bronchodilators, based upon strict ATS criteria. Spirograms are of good quality and do not plateau indicating low emptying of the lungs. The respiratory flow volume loop revealed decreased expiratory flow rates at all lung volumes consistent with airways obstruction. Body plethysmography was performed and revealed lung volumes to be within normal limits. Diffusing capacity by single breath CO is relatively preserved at 75% of predicted. IMPRESSION: These pulmonary function studies demonstrate the presence of an irreversible severe large airways obstructive ventilatory defect. Lung volumes and diffusing capacity are within normal limits.
== END ==
PROVIDERS: Family Provider Family Medicine; PCP Family Medicine
DX: Z94.2 Lung transplant status (principal); Z48.24 Encounter for aftercare following lung transplant; Z79.899 Other long term (current) drug therapy
CPT/HCPCS: 94060; 94726; 94729

== ENCOUNTER 2018-12-03 08:29 | Outpatient (RCR) | payer MEDICARE, OTHER, SELFPAY ==
[2018-12-03 10:15] LABS: Absolute Lymphocyte Count 0.86 X10^3/ul (0.83-4.51); Absolute Neutrophil Count 4.3 X10^3/uL (2.0-7.7); Basophil# 0.03 X10^3/uL; Basophil% 0.5 % (0-1); Eosinophil# 0.29 X10^3/uL; Eosinophils% 4.9 % (0-5); Hematocrit 43.1 % (40-54); Lymphocyte # 0.86 X10^3/ul (4.0); Lymphocyte % 14.4 % (19-41); Mean Corp Hgb Conc 30.2 g/gl (32-36); Mean Corpuscular Volume 89.4 fL (80-94); Mean Platelet Vol. 10.7 fl (6.2-12.0); Monocyte# 0.46 X10^3/uL; Monocyte% 7.7 % (0-10); Neutrophil # 4.32 X10^3/uL (2.7-7.7); Neutrophil % 72.3 % (47-70); POSITIVE COUNT NO; POSITIVE DIFFERENTIAL NO; POSITIVE MORPHOLOGY NO; Platelet Count 266 K/mm3 (150-450); RBC Distribution Width CV 15.1 % (11.6-14.6); RBC Distribution Width SD 48.8 fl (35.1-43.9); Red Blood Count 4.82 M/mm3 (4.6-6.2)
[2018-12-03 10:16] LABS: AST(SGOT) 20 U/L (15-37); Alanine Aminotransfer ALT/SGPT 26 U/L (16-61); Albumin, Serum 3.8 g/dL (3.2-5.0); Alkaline Phosphatase 45 U/L (45-117); Anion Gap 7 (5-15); BUN 43 mg/dL (7-18); BUN/Creat Ratio 29.9 RATIO (10-20); Bilirubin, Direct 0.09 mg/dL (0.00-0.30); Calcium,Total 8.6 mg/dL (8.5-10.1); Chloride 103 mmol/L (98-107); Cholesterol 202 mg/dL (200); Creatinine, Serum 1.44 mg/dL (0.70-1.30); EST Glomerular Filtration Rate 52 mL/min (>60); Est Glom Filt Rate - Afr Amer 63 mL/min (>60); GGTP 17 U/L (15-85); Globulin 3.7 g/dL (2.2-4.2); Glucose 95 mg/dL (74-106); High Density Lipoprotein 54 mg/dL; Iron 76 ug/dL (65-175); Iron Binding Capacity,Total 302 ug/dL (250-450); Magnesium 1.9 mg/dL (1.6-2.6); PERCENT IRON SATURATION 25.2 % (15.0-55.0); Phosphorus 3.2 mg/dL (2.5-4.9); Potassium 4.5 mmol/L (3.5-5.1); Protein, Total 7.5 g/dL (6.4-8.2); Sodium Level 137 mmol/L (136-145); Triglycerides 200 mg/dL; Uric Acid 6.5 mg/dL (3.5-7.2); Very Low Density Lipoprotein 40 mg/dL (5-40)
[2018-12-03 10:18] LABS: Hemoglobin A1c 5.9 % (4.2-6.3)
[2018-12-08 09:38] LABS: Immunoglobulin A 58 mg/dL (61-437); Immunoglobulin G 727 mg/dL (700-1600)
[2018-12-08 12:07] LABS: CMV by PCR Negative (Negative); Immunoglobulin M 6 mg/dL (20-172); Sirolimus,Blood 4.3 ng/mL (3.0-20.0); Tacrolimus (FK506) 6.6 ng/mL (2.0-20.0)
== END 2018-12-03 09:00 ==
LOC: MTLAB 08:29
PROVIDERS: Family Provider Family Medicine; PCP Family Medicine
DX: Z94.2 Lung transplant status (principal); R79.9 Abnormal finding of blood chemistry, unspecified; Z48.24 Encounter for aftercare following lung transplant; D89.9 Disorder involving the immune mechanism, unspecified; Z79.899 Other long term (current) drug therapy; Z51.81 Encounter for therapeutic drug level monitoring
CPT/HCPCS: 36415; 80053; 80061; 80195; 80197; 82248; 82784; 82977; 83036; 83540; 83550; 83735; 84100; 84550; 85025; 87496

== ENCOUNTER → 2018-12-16 09:41 | Outpatient (CLI) | payer MEDICARE, OTHER, SELFPAY ==
--- NOTE | 2018-12-17 10:52 | SPIR ---
Spirometry PFT Testing Spirometry PFT Testing: INTRODUCTION: The patient is a 68-year-old male that presents for pulmonary function studies post lung transplantation. Respiratory therapy reports good patient effort. INTERPRETATION: Forced expiration spirometry demonstrates the presence of a severe obstructive ventilatory defect with an FEV1 of 38% of predicted. Spirograms are of good quality and do not plateau indicating slow emptying of the lungs. The respiratory flow volume loop reveals decreased expiratory flow rates at all lung volumes consistent with airways obstruction. IMPRESSION: Severe obstructive ventilatory impairment.
== END ==
PROVIDERS: Family Provider Family Medicine; PCP Family Medicine
DX: D89.9 Disorder involving the immune mechanism, unspecified (principal); Z94.2 Lung transplant status; Z48.24 Encounter for aftercare following lung transplant; Z79.899 Other long term (current) drug therapy
CPT/HCPCS: 94010

== ENCOUNTER 2019-01-10 08:51 | Outpatient (RCR) | payer MEDICARE, OTHER, SELFPAY ==
[2019-01-10 09:56] LABS: Absolute Lymphocyte Count 0.77 X10^3/ul (0.83-4.51); Absolute Neutrophil Count 4.2 X10^3/uL (2.0-7.7); Basophil# 0.04 X10^3/uL; Basophil% 0.7 % (0-1); Eosinophil# 0.36 X10^3/uL; Hematocrit 41.3 % (40-54); Hemoglobin 12.8 g/dl (13.0-16.5); Lymphocyte # 0.77 X10^3/ul (4.0); Lymphocyte % 12.7 % (19-41); Mean Corpuscular Hgb 27.7 pg (27.0-32.0); Mean Corpuscular Volume 89.4 fL (80-94); Monocyte# 0.69 X10^3/uL; Monocyte% 11.4 % (0-10); Neutrophil # 4.17 X10^3/uL (2.7-7.7); Platelet Count 237 K/mm3 (150-450); RBC Distribution Width CV 15.5 % (11.6-14.6); RBC Distribution Width SD 50.2 fl (35.1-43.9); Red Blood Count 4.62 M/mm3 (4.6-6.2)
[2019-01-10 10:05] LABS: POSITIVE COUNT NO; POSITIVE DIFFERENTIAL NO; POSITIVE MORPHOLOGY NO
[2019-01-10 10:20] LABS: AST(SGOT) 20 U/L (15-37); Alanine Aminotransfer ALT/SGPT 25 U/L (16-61); Albumin, Serum 3.8 g/dL (3.2-5.0); Alkaline Phosphatase 42 U/L (45-117); Anion Gap 6 (5-15); BUN 31 mg/dL (7-18); BUN/Creat Ratio 23.1 RATIO (10-20); Bilirubin, Direct 0.07 mg/dL (0.00-0.30); Calcium,Total 9.2 mg/dL (8.5-10.1); Chloride 101 mmol/L (98-107); Creatinine, Serum 1.34 mg/dL (0.70-1.30); EST Glomerular Filtration Rate 56 mL/min (>60); Est Glom Filt Rate - Afr Amer 68 mL/min (>60); GGTP 18 U/L (15-85); Glucose 109 mg/dL (74-106); Magnesium 1.8 mg/dL (1.6-2.6); Phosphorus 3.6 mg/dL (2.5-4.9); Potassium 4.4 mmol/L (3.5-5.1); Sodium Level 138 mmol/L (136-145)
[2019-01-13 15:35] LABS: CMV by PCR Negative (Negative); Sirolimus,Blood 4.6 ng/mL (3.0-20.0)
== END 2019-02-01 16:00 | disposition home or self-care (01) ==
LOC: MTLAB 08:51
PROVIDERS: Family Provider Family Medicine; PCP Family Medicine
DX: Z94.2 Lung transplant status (principal); R79.9 Abnormal finding of blood chemistry, unspecified; Z48.24 Encounter for aftercare following lung transplant; D89.9 Disorder involving the immune mechanism, unspecified; Z79.899 Other long term (current) drug therapy; Z51.81 Encounter for therapeutic drug level monitoring
CPT/HCPCS: 80048; 80195; 80197; 82040; 82247; 82248; 82977; 83735; 84075; 84100; 84450; 84460; 84550; 85025; 87496

== ENCOUNTER 2019-02-07 08:22 | Outpatient (RCR) | payer MEDICARE, OTHER, SELFPAY ==
[2019-02-07 10:49] LABS: Absolute Lymphocyte Count 0.57 X10^3/ul (0.83-4.51); Absolute Neutrophil Count 3.6 X10^3/uL (2.0-7.7); Basophil# 0.04 X10^3/uL; Basophil% 0.7 % (0-1); Eosinophil# 0.44 X10^3/uL; Eosinophils% 8.2 % (0-5); Hemoglobin 12.9 g/dl (13.0-16.5); Lymphocyte # 0.57 X10^3/ul (4.0); Lymphocyte % 10.6 % (19-41); Mean Corp Hgb Conc 30.7 g/gl (32-36); Mean Corpuscular Hgb 27.6 pg (27.0-32.0); Mean Corpuscular Volume 89.9 fL (80-94); Mean Platelet Vol. 10.8 fl (6.2-12.0); Monocyte# 0.79 X10^3/uL; Monocyte% 14.7 % (0-10); Neutrophil # 3.55 X10^3/uL (2.7-7.7); Neutrophil % 65.8 % (47-70); Platelet Count 240 K/mm3 (150-450); RBC Distribution Width CV 15.5 % (11.6-14.6); RBC Distribution Width SD 50.6 fl (35.1-43.9); Red Blood Count 4.67 M/mm3 (4.6-6.2); White Blood Count 5.4 K/mm3 (4.4-11.0)
[2019-02-07 10:50] LABS: Differential Indicated SCAN CRITERIA MET; POSITIVE COUNT NO; POSITIVE DIFFERENTIAL YES; POSITIVE MORPHOLOGY NO
[2019-02-07 11:08] LABS: AST(SGOT) 23 U/L (15-37); Alanine Aminotransfer ALT/SGPT 27 U/L (16-61); Albumin, Serum 3.7 g/dL (3.2-5.0); Alkaline Phosphatase 44 U/L (45-117); Anion Gap 6 (5-15); BUN 35 mg/dL (7-18); BUN/Creat Ratio 23.8 RATIO (10-20); Bilirubin, Direct 0.06 mg/dL (0.00-0.30); Chloride 103 mmol/L (98-107); Creatinine, Serum 1.47 mg/dL (0.70-1.30); EST Glomerular Filtration Rate 51 mL/min (>60); Est Glom Filt Rate - Afr Amer 61 mL/min (>60); GGTP 26 U/L (15-85); Glucose 112 mg/dL (74-106); Magnesium 2.2 mg/dL (1.6-2.6); Phosphorus 3.3 mg/dL (2.5-4.9); Potassium 4.8 mmol/L (3.5-5.1); Sodium Level 138 mmol/L (136-145); Uric Acid 6.4 mg/dL (3.5-7.2)
[2019-02-15 10:49] LABS: CMV by PCR Negative (Negative); Sirolimus,Blood 4.7 ng/mL (3.0-20.0); Tacrolimus (FK506) 3.2 ng/mL (2.0-20.0)
== END 2019-02-07 10:00 | disposition home or self-care (01) ==
LOC: MTLAB 08:22
PROVIDERS: Family Provider Family Medicine; PCP Family Medicine
DX: Z94.2 Lung transplant status (principal); R79.9 Abnormal finding of blood chemistry, unspecified; Z48.24 Encounter for aftercare following lung transplant; D89.9 Disorder involving the immune mechanism, unspecified; Z79.899 Other long term (current) drug therapy; Z51.81 Encounter for therapeutic drug level monitoring
CPT/HCPCS: 36415; 80048; 80195; 80197; 82040; 82247; 82248; 82977; 83735; 84075; 84100; 84450; 84460; 84550; 85025; 87496

== ENCOUNTER → 2019-03-01 | Outpatient (CLI) | payer MEDICARE, OTHER, SELFPAY ==
--- NOTE | 2019-03-01 11:32 | SPIR ---
Spirometry PFT Testing Spirometry PFT Testing: COMPLETE PULMONARY FUNCTION TEST INTERPRETATION Brief HPI: Patient is a 68 year old male, currently under the care of Dr. Chapin, who presents to [facility] for complete pulmonary function tests secondary to diagnosis of post lung transplant. Respiratory therapist reports good effort and reproducible results. Interpretation: Forced expiration spirometry shows a very severe large airways obstructive ventilatory defect with an FEV1 of 33% predicted. Bronchodilators were not tested. Spirograms are of good quality and plateau slowly, indicating slowly emptying areas of the lungs. The respiratory flow volume loop shows decreased expiratory flow rates at all lung volumes consistent with airway obstruction. Compared to previous pulmonary function tests from 12/16/2018, a significant reduction in FEV1 by 13%. Impression: Very severe large airways obstructive ventilatory defect. Bronchial reactivity not tested.
--- NOTE | 2019-03-01 11:35 | SPIR_ITS ---
Spirometry PFT Testing Spirometry PFT Testing: COMPLETE PULMONARY FUNCTION TEST INTERPRETATION Brief HPI: Patient is a 68 year old male, currently under the care of Dr. Chapin, who presents to [facility] for complete pulmonary function tests secondary to diagnosis of post lung transplant. Respiratory therapist reports good effort and reproducible results. Interpretation: Forced expiration spirometry shows a very severe large airways obstructive ventilatory defect with an FEV1 of 33% predicted. Bronchodilators were not tested. Spirograms are of good quality and plateau slowly, indicating slowly emptying areas of the lungs. The respiratory flow volume loop shows decreased expiratory flow rates at all lung volumes consistent with airway obstruction. Compared to previous pulmonary function tests from 12/16/2018, a significant r eduction in FEV1 by 13%. Impression: Very severe large airways obstructive ventilatory defect. Bronchial reactivity not tested.
== END | disposition home or self-care (01) ==
PROVIDERS: Family Provider Family Medicine; PCP Family Medicine
DX: R79.9 Abnormal finding of blood chemistry, unspecified (principal); Z94.2 Lung transplant status; Z48.24 Encounter for aftercare following lung transplant; Z51.81 Encounter for therapeutic drug level monitoring; Z79.899 Other long term (current) drug therapy
CPT/HCPCS: 94010

== ENCOUNTER 2019-03-24 08:33 | Outpatient (RCR) | payer MEDICARE, OTHER, SELFPAY ==
[2019-03-24 09:55] LABS: Mean Corpuscular Hgb 28.4 pg (27.0-32.0); Mean Corpuscular Volume 91.7 fL (80-94); Mean Platelet Vol. 11.1 fl (6.2-12.0); Platelet Count 248 K/mm3 (150-450); RBC Distribution Width CV 17.2 % (11.6-14.6); RBC Distribution Width SD 55.9 fl (35.1-43.9); Red Blood Count 4.58 M/mm3 (4.6-6.2); White Blood Count 9.1 K/mm3 (4.4-11.0)
[2019-03-24 10:15] LABS: Scan Indicated on CBC? Y/N NO
[2019-03-24 10:40] LABS: AST(SGOT) 17 U/L (15-37); Alanine Aminotransfer ALT/SGPT 23 U/L (16-61); Albumin, Serum 3.7 g/dL (3.2-5.0); Alkaline Phosphatase 45 U/L (45-117); Anion Gap 5 (5-15); BUN 33 mg/dL (7-18); BUN/Creat Ratio 21.9 RATIO (10-20); Bilirubin, Direct 0.09 mg/dL (0.00-0.30); Calcium,Total 9.3 mg/dL (8.5-10.1); Chloride 102 mmol/L (98-107); Creatinine, Serum 1.51 mg/dL (0.70-1.30); EST Glomerular Filtration Rate 49 mL/min (>60); Est Glom Filt Rate - Afr Amer 59 mL/min (>60); GGTP 21 U/L (15-85); Glucose 107 mg/dL (74-106); Magnesium 1.9 mg/dL (1.6-2.6); Phosphorus 3.4 mg/dL (2.5-4.9); Potassium 4.4 mmol/L (3.5-5.1); Sodium Level 137 mmol/L (136-145); Uric Acid 6.4 mg/dL (3.5-7.2)
[2019-03-28 11:29] LABS: CMV by PCR Negative (Negative); Sirolimus,Blood 1.2 ng/mL (3.0-20.0); Tacrolimus (FK506) 5.3 ng/mL (2.0-20.0)
== END 2019-03-24 09:00 | disposition home or self-care (01) ==
LOC: MTLAB 08:33
PROVIDERS: Family Provider Family Medicine; PCP Family Medicine
DX: Z94.2 Lung transplant status (principal); R79.9 Abnormal finding of blood chemistry, unspecified; Z48.24 Encounter for aftercare following lung transplant; D89.9 Disorder involving the immune mechanism, unspecified; Z79.899 Other long term (current) drug therapy; Z51.81 Encounter for therapeutic drug level monitoring
CPT/HCPCS: 36415; 80048; 80195; 80197; 82040; 82247; 82248; 82977; 83735; 84075; 84100; 84450; 84460; 84550; 85027; 87496

== ENCOUNTER → 2019-03-31 | Outpatient (CLI) | payer MEDICARE, OTHER, SELFPAY ==
--- NOTE | 2019-03-31 14:38 | SPIR ---
Spirometry PFT Testing Spirometry PFT Testing: COMPLETE PULMONARY FUNCTION TEST INTERPRETATION Brief HPI: Patient is a 68 year old male, currently under the care of Dr. Dye, who presents to [facility] for complete pulmonary function tests secondary to diagnosis of post lung transplant. Respiratory therapist reports good effort and reproducible results. Interpretation: Forced expiration spirometry shows a very severe large airways obstructive ventilatory defect with an FEV1 of 34% predicted. There was no bronchodilator used. Spirograms are of good quality and plateau slowly, indicating slowly emptying areas of the lungs. The respiratory flow volume loop shows decreased expiratory flow rates at all lung volumes consistent with airway obstruction. Compared to previous pulmonary function tests from 03/01/2019, there has been no significant change. Impression: Very severe large airways obstructive ventilatory defect. A component of restriction cannot be excluded
== END | disposition home or self-care (01) ==
LOC: PSN 06:51
PROVIDERS: Family Provider Family Medicine; PCP Family Medicine
DX: Z94.2 Lung transplant status (principal); Z48.24 Encounter for aftercare following lung transplant; Z51.81 Encounter for therapeutic drug level monitoring; Z79.899 Other long term (current) drug therapy
CPT/HCPCS: 94010

== ENCOUNTER 2019-05-05 09:20 | Outpatient (RCR) | payer MEDICARE, OTHER, SELFPAY ==
[2019-05-05 12:32] LABS: Absolute Lymphocyte Count 0.75 X10^3/uL (0.83-4.51); Basophil# 0.06 X10^3/uL; Basophil% 0.7 % (0-1); Eosinophils% 4.9 % (0-5); Hemoglobin 12.4 g/dL (13.0-16.5); Lymphocyte # 0.75 X10^3/ul (4.0); Lymphocyte % 9.3 % (19-41); Mean Corpuscular Hgb 28.9 pg (27.0-32.0); Mean Corpuscular Volume 93.2 fL (80-94); Mean Platelet Vol. 11.3 fl (6.2-12.0); Monocyte# 0.91 X10^3/uL; Monocyte% 11.2 % (0-10); NRBC Flagged by Analyzer 0 % (0-5); Neutrophil # 5.95 X10^3/uL (2.7-7.7); Neutrophil % 73.7 % (47-70); Platelet Count 233 K/mm3 (150-450); RBC Distribution Width CV 16.6 % (11.6-14.6); RBC Distribution Width SD 55.6 fl (35.1-43.9); Red Blood Count 4.29 M/mm3 (4.6-6.2); White Blood Count 8.1 K/mm3 (4.4-11.0)
[2019-05-05 13:00] LABS: AST(SGOT) 13 U/L (15-37); Alanine Aminotransfer ALT/SGPT 24 U/L (16-61); Albumin, Serum 3.8 g/dL (3.2-5.0); Alkaline Phosphatase 47 U/L (45-117); Anion Gap 3 (5-15); BUN 35 mg/dL (7-18); BUN/Creat Ratio 23.3 RATIO (10-20); Bilirubin, Direct 0.16 mg/dL (0.00-0.30); Chloride 103 mmol/L (98-107); EST Glomerular Filtration Rate 50 mL/min (>60); Est Glom Filt Rate - Afr Amer 60 mL/min (>60); GGTP 21 U/L (15-85); Glucose 105 mg/dL (74-106); Magnesium 2.1 mg/dL (1.6-2.6); Potassium 4.8 mmol/L (3.5-5.1); Sodium Level 135 mmol/L (136-145); Uric Acid 6.3 mg/dL (3.5-7.2)
[2019-05-09 10:28] LABS: CMV by PCR Negative (Negative); Sirolimus,Blood 1.5 ng/mL (3.0-20.0); Tacrolimus (FK506) 7.3 ng/mL (2.0-20.0)
== END 2019-05-05 10:20 | disposition home or self-care (01) ==
LOC: MTLAB 09:20
PROVIDERS: Family Provider Family Medicine; PCP Family Medicine
DX: Z94.2 Lung transplant status (principal); R79.9 Abnormal finding of blood chemistry, unspecified; Z48.24 Encounter for aftercare following lung transplant; D89.9 Disorder involving the immune mechanism, unspecified; Z79.899 Other long term (current) drug therapy; Z51.81 Encounter for therapeutic drug level monitoring
CPT/HCPCS: 36415; 80048; 80195; 80197; 82040; 82247; 82248; 82977; 83735; 84075; 84100; 84450; 84460; 84550; 85025; 87496

== ENCOUNTER → 2019-05-31 | Outpatient (CLI) | payer MEDICARE, OTHER, SELFPAY ==
--- NOTE | 2019-06-01 13:25 | PFT ---
INTRODUCTION: The patient is a 69-year-old male that presents for pulmonary function studies secondary to a diagnosis of post lung transplant. Respiratory therapy reports good patient effort. INTERPRETATION: Forced expiration spirometry demonstrates the presence of a severe large airways obstructive ventilatory defect with an FEV1 of 37% of predicted. Spirograms are of fair quality and do not plateau indicating slow emptying of the lungs. The respiratory flow volume loop reveals decreased expiratory flow rates at all lung volumes consistent with airways obstruction. Body plethysmography was performed and reveals lung volumes to be within normal limits. Diffusing capacity by single breath CO is preserved at 73% of predicted. IMPRESSION: Severe large airways obstructive ventilatory defect with preserved lung volumes and diffusing capacity.
== END | disposition home or self-care (01) ==
LOC: PSN 12:45
PROVIDERS: Family Provider Family Medicine; PCP Family Medicine
DX: R79.9 Abnormal finding of blood chemistry, unspecified (principal); Z94.2 Lung transplant status; Z51.81 Encounter for therapeutic drug level monitoring; Z79.899 Other long term (current) drug therapy; Z48.24 Encounter for aftercare following lung transplant
CPT/HCPCS: 94010; 94726; 94729

== ENCOUNTER 2019-06-07 08:26 | Outpatient (RCR) | payer MEDICARE, OTHER, SELFPAY ==
[2019-06-07 10:38] LABS: Cholesterol 177 mg/dL (200); Ferritin 65 ng/mL (26-388); High Density Lipoprotein 43 mg/dL; Iron 65 ug/dL (65-175); Iron Binding Capacity,Total 289 ug/dL (250-450); PERCENT IRON SATURATION 22.5 % (15.0-55.0); Triglycerides 227 mg/dL; Very Low Density Lipoprotein 45 mg/dL (5-40)
[2019-06-07 10:48] LABS: Hemoglobin A1c 5.7 % (4.2-6.3)
[2019-06-08 12:07] LABS: Immunoglobulin A 55 mg/dL (61-437); Immunoglobulin G 725 mg/dL (700-1600)
[2019-06-08 12:20] LABS: Immunoglobulin M 9 mg/dL (20-172); Transferrin 231 mg/dL (200-370)
== END 2019-06-07 18:00 | disposition home or self-care (01) ==
LOC: MTLAB 08:26
PROVIDERS: Family Provider Family Medicine; PCP Family Medicine
DX: Z94.2 Lung transplant status (principal); R79.9 Abnormal finding of blood chemistry, unspecified; Z48.24 Encounter for aftercare following lung transplant; D89.9 Disorder involving the immune mechanism, unspecified; Z79.899 Other long term (current) drug therapy; Z51.81 Encounter for therapeutic drug level monitoring
CPT/HCPCS: 36415; 80061; 82728; 82784; 83036; 83540; 83550; 84466

== ENCOUNTER 2019-07-05 09:02 | Outpatient (RCR) | payer MEDICARE, OTHER, SELFPAY ==
[2019-07-05 12:28] LABS: Absolute Lymphocyte Count 1.17 X10^3/uL (0.83-4.51); Absolute Neutrophil Count 6.1 X10^3/uL (2.0-7.7); Basophil# 0.06 X10^3/uL; Basophil% 0.7 % (0-1); Eosinophils% 6.8 % (0-5); Hematocrit 44.2 % (40-54); Hemoglobin 13.3 g/dL (13.0-16.5); Lymphocyte # 1.17 X10^3/ul (4.0); Lymphocyte % 13.3 % (19-41); Mean Corp Hgb Conc 30.1 g/dL (32-36); Mean Corpuscular Hgb 28.1 pg (27.0-32.0); Mean Corpuscular Volume 93.2 fL (80-94); Monocyte# 0.83 X10^3/uL; Monocyte% 9.4 % (0-10); NRBC Flagged by Analyzer 0 % (0-5); Neutrophil # 6.13 X10^3/uL (2.7-7.7); Neutrophil % 69.5 % (47-70); Platelet Count 275 K/mm3 (150-450); RBC Distribution Width CV 14.6 % (11.6-14.6); RBC Distribution Width SD 49.9 fl (35.1-43.9); Red Blood Count 4.74 M/mm3 (4.6-6.2); White Blood Count 8.8 K/mm3 (4.4-11.0)
[2019-07-05 12:39] LABS: AST(SGOT) 19 U/L (15-37); Alanine Aminotransfer ALT/SGPT 27 U/L (16-61); Alkaline Phosphatase 56 U/L (45-117); Anion Gap 3 (5-15); BUN 34 mg/dL (7-18); BUN/Creat Ratio 22.7 RATIO (10-20); Bilirubin, Direct 0.09 mg/dL (0.00-0.30); Calcium,Total 9.4 mg/dL (8.5-10.1); Chloride 101 mmol/L (98-107); EST Glomerular Filtration Rate 49 mL/min (>60); Est Glom Filt Rate - Afr Amer 60 mL/min (>60); GGTP 20 U/L (15-85); Glucose 111 mg/dL (74-106); Phosphorus 3.7 mg/dL (2.5-4.9); Potassium 4.7 mmol/L (3.5-5.1); Sodium Level 136 mmol/L (136-145); Uric Acid 6.8 mg/dL (3.5-7.2)
[2019-07-08 11:06] LABS: CMV Antibody IgG > 10.00 U/mL (0.00-0.59); Sirolimus,Blood 6.5 ng/mL (3.0-20.0); Tacrolimus (FK506) 8.4 ng/mL (2.0-20.0)
== END 2019-08-04 16:00 | disposition home or self-care (01) ==
LOC: MTLAB 09:02
PROVIDERS: Family Provider Family Medicine; PCP Family Medicine
DX: Z94.2 Lung transplant status (principal); R79.9 Abnormal finding of blood chemistry, unspecified; Z48.24 Encounter for aftercare following lung transplant; D89.9 Disorder involving the immune mechanism, unspecified; Z79.899 Other long term (current) drug therapy; Z51.81 Encounter for therapeutic drug level monitoring
CPT/HCPCS: 36415; 80048; 80195; 80197; 82040; 82247; 82248; 82977; 83735; 84075; 84100; 84450; 84460; 84550; 85025; 86644

== ENCOUNTER 2019-08-05 08:22 | Outpatient (RCR) | payer MEDICARE, OTHER, SELFPAY ==
[2019-08-05 10:19] LABS: Absolute Lymphocyte Count 0.94 X10^3/uL (0.83-4.51); Absolute Neutrophil Count 7.6 X10^3/uL (2.0-7.7); Basophil# 0.07 X10^3/uL; Basophil% 0.7 % (0-1); Eosinophil# 0.69 X10^3/uL; Eosinophils% 6.8 % (0-5); Hematocrit 43.8 % (40-54); Hemoglobin 13.2 g/dL (13.0-16.5); Lymphocyte # 0.94 X10^3/ul (4.0); Lymphocyte % 9.3 % (19-41); Mean Corp Hgb Conc 30.1 g/dL (32-36); Mean Corpuscular Hgb 27.8 pg (27.0-32.0); Mean Corpuscular Volume 92.2 fL (80-94); Mean Platelet Vol. 10.9 fl (6.2-12.0); Monocyte% 6.9 % (0-10); NRBC Flagged by Analyzer 0 % (0-5); Neutrophil # 7.64 X10^3/uL (2.7-7.7); Neutrophil % 75.9 % (47-70); Platelet Count 272 K/mm3 (150-450); RBC Distribution Width CV 14.8 % (11.6-14.6); Red Blood Count 4.75 M/mm3 (4.6-6.2); White Blood Count 10.1 K/mm3 (4.4-11.0)
[2019-08-05 10:36] LABS: ALB/GLOB Ratio 0.9 RATIO (0.9-2.4); AST(SGOT) 21 U/L (15-37); Alanine Aminotransfer ALT/SGPT 26 U/L (16-61); Albumin, Serum 3.7 g/dL (3.2-5.0); Alkaline Phosphatase 57 U/L (45-117); Anion Gap 8 (5-15); BUN 34 mg/dL (7-18); BUN/Creat Ratio 22.7 RATIO (10-20); Bilirubin, Direct 0.09 mg/dL (0.00-0.30); Calcium,Total 9.4 mg/dL (8.5-10.1); Chloride 102 mmol/L (98-107); EST Glomerular Filtration Rate 49 mL/min (>60); Est Glom Filt Rate - Afr Amer 60 mL/min (>60); Glucose 101 mg/dL (74-106); Phosphorus 3.2 mg/dL (2.5-4.9); Potassium 4.5 mmol/L (3.5-5.1); Protein, Total 7.7 g/dL (6.4-8.2); Sodium Level 140 mmol/L (136-145); Uric Acid 6.8 mg/dL (3.5-7.2)
[2019-08-08 12:46] LABS: CMV by PCR Negative (Negative); Tacrolimus (FK506) 5.8 ng/mL (2.0-20.0)
== END 2019-08-05 18:00 | disposition home or self-care (01) ==
LOC: MTLAB 08:22
PROVIDERS: Family Provider Family Medicine; PCP Family Medicine
DX: Z94.2 Lung transplant status (principal); R79.9 Abnormal finding of blood chemistry, unspecified; Z48.24 Encounter for aftercare following lung transplant; D89.9 Disorder involving the immune mechanism, unspecified; Z79.899 Other long term (current) drug therapy; Z51.81 Encounter for therapeutic drug level monitoring
CPT/HCPCS: 36415; 80053; 80197; 82248; 83735; 84100; 84550; 85025; 87496

== ENCOUNTER → 2019-08-05 | Outpatient (CLI) | payer MEDICARE, OTHER, SELFPAY ==
--- NOTE | 2019-08-06 07:00 | SPIR ---
Spirometry PFT Testing Spirometry PFT Testing: COMPLETE PULMONARY FUNCTION TEST INTERPRETATION Brief HPI: Patient is a 69 year old male, currently under the care of Dr. Binh Richey, who presents to [facility] for complete pulmonary function tests secondary to diagnosis of status post lung transplant. Respiratory therapist reports good effort and reproducible results. Interpretation: Forced expiration spirometry shows a severe large airways obstructive ventilatory defect with an FEV1 of 37% predicted. Bronchodilator response was not ordered. Spirograms are of good quality and plateau slowly, indicating slowly emptying areas of the lungs. The respiratory flow volume loop shows decreased expiratory flow rates at all lung volumes consistent with airway obstruction. Compared to previous pulmonary function tests from 05/31/2019, there has been no significant change. Impression: Severe obstructive ventilatory defect with no significant change compared to May 2019
== END | disposition home or self-care (01) ==
LOC: PSN 07:46
PROVIDERS: Family Provider Family Medicine; PCP Family Medicine; Referring Provider Internal Medicine Critical Care Medicine; Visit Provider Internal Medicine Critical Care Medicine
DX: R79.9 Abnormal finding of blood chemistry, unspecified (principal); Z94.2 Lung transplant status; Z48.24 Encounter for aftercare following lung transplant; Z79.899 Other long term (current) drug therapy; Z51.81 Encounter for therapeutic drug level monitoring
CPT/HCPCS: 36415; 80053; 80197; 82248; 83735; 84100; 84550; 85025; 87496; 94010

== ENCOUNTER 2019-09-05 07:24 | Outpatient (RCR) | payer MEDICARE, OTHER, SELFPAY ==
[2019-09-05 10:06] LABS: Absolute Lymphocyte Count 0.99 X10^3/uL (0.83-4.51); Absolute Neutrophil Count 7.1 X10^3/uL (2.0-7.7); Basophil# 0.05 X10^3/uL; Basophil% 0.5 % (0-1); Eosinophils% 5.3 % (0-5); Hematocrit 41.4 % (40-54); Hemoglobin 12.4 g/dL (13.0-16.5); Lymphocyte # 0.99 X10^3/ul (4.0); Lymphocyte % 10.5 % (19-41); Mean Corpuscular Hgb 27.7 pg (27.0-32.0); Mean Corpuscular Volume 92.4 fL (80-94); Mean Platelet Vol. 11.4 fl (6.2-12.0); Monocyte# 0.73 X10^3/uL; Monocyte% 7.7 % (0-10); NRBC Flagged by Analyzer 0 % (0-5); Neutrophil # 7.12 X10^3/uL (2.7-7.7); Neutrophil % 75.7 % (47-70); Platelet Count 253 K/mm3 (150-450); RBC Distribution Width SD 54.1 fl (35.1-43.9); Red Blood Count 4.48 M/mm3 (4.6-6.2); White Blood Count 9.4 K/mm3 (4.4-11.0)
[2019-09-05 10:22] LABS: Hemoglobin A1c 5.8 % (4.2-6.3)
[2019-09-05 10:27] LABS: AST(SGOT) 17 U/L (15-37); Alanine Aminotransfer ALT/SGPT 24 U/L (16-61); Albumin, Serum 3.6 g/dL (3.2-5.0); Alkaline Phosphatase 44 U/L (45-117); Anion Gap 6 (5-15); BUN 35 mg/dL (7-18); BUN/Creat Ratio 25.2 RATIO (10-20); Calcium,Total 8.4 mg/dL (8.5-10.1); Chloride 106 mmol/L (98-107); Creatinine, Serum 1.39 mg/dL (0.70-1.30); EST Glomerular Filtration Rate 54 mL/min (>60); Est Glom Filt Rate - Afr Amer 65 mL/min (>60); Ferritin 40 ng/mL (26-388); GGTP 19 U/L (15-85); Glucose 103 mg/dL (74-106); Iron 48 ug/dL (65-175); Iron Binding Capacity,Total 298 ug/dL (250-450); Magnesium 2.3 mg/dL (1.6-2.6); PERCENT IRON SATURATION 16.1 % (15.0-55.0); Phosphorus 2.8 mg/dL (2.5-4.9); Potassium 4.6 mmol/L (3.5-5.1); Sodium Level 139 mmol/L (136-145); Uric Acid 7.2 mg/dL (3.5-7.2)
[2019-09-08 00:33] LABS: Immunoglobulin A 70 mg/dL (61-437); Immunoglobulin G 925 mg/dL (700-1600)
[2019-09-08 11:31] LABS: CMV by PCR Negative (Negative); Immunoglobulin M 12 mg/dL (20-172); Tacrolimus (FK506) 4.4 ng/mL (2.0-20.0); Transferrin 241 mg/dL (200-370)
== END 2019-09-05 18:00 | disposition home or self-care (01) ==
LOC: MTLAB 07:24
PROVIDERS: Family Provider Family Medicine; PCP Family Medicine
DX: Z94.2 Lung transplant status (principal); R79.9 Abnormal finding of blood chemistry, unspecified; Z48.24 Encounter for aftercare following lung transplant; D89.9 Disorder involving the immune mechanism, unspecified; Z79.899 Other long term (current) drug therapy; Z51.81 Encounter for therapeutic drug level monitoring
CPT/HCPCS: 36415; 80048; 80195; 80197; 82040; 82247; 82248; 82728; 82784; 82977; 83036; 83540; 83550; 83735; 84075; 84100; 84450; 84460; 84466; 84550; 85025; 87496

== ENCOUNTER 2019-09-07 08:52 | Inpatient (IN) | payer MEDICARE, OTHER, SELFPAY ==
[2019-09-07] VITALS (18 sets, daily range): BP systolic 104–141; BP diastolic 64–106; PULSE 42–96; RESP 12–24; TEMP 36.6–37.9; O2SAT 73–100; BMI 35.6; BMI 37.1; BMI 37.0
--- NOTE | 2019-09-07 09:04 | ED.RN ---
upon arrival to triage pt complains of rt sided abdominal pain. pt denies cp or sob. this rn observes pt wheezing slightly and places o2 saturation. initial reading 63 % on room air. pt questioned again and agrees he has been having increased sob and has had a lung transplant. pt to room 8
--- NOTE | 2019-09-07 09:05 | RAD_ITS ---
STUDY: X-RAY CHEST REASON FOR EXAM: Male, 69 years old. Shortness of breath. TECHNIQUE: PA and lateral views of the chest. COMPARISON: Comparison is made with prior study dated March 30, 2014. FINDINGS: EKG electrodes are seen. Small bilateral pleural effusions with underlying atelectasis and/or infiltration more prominent on the left side. There is no demonstrated pleural abnormality. Sternal cerclage wires and vascular clips are present from a prior sternotomy and coronary artery bypass graft procedure (CABG). Normal mediastinum and david. Normal visualized pulmonary arteries. There is atherosclerotic tortuosity of the aortic arch and descending thoracic aorta. There is demineralization of the osseous structures. Normal visualized ribs, clavicles, and shoulders. There is no demonstrated abnormality of the visualized soft tissue structures of the upper abdomen. RAD/Chest PA and Lateral IMPRESSION: Small bilateral effusions with underlying atelectasis and/or infiltrates worse on the left side. Electronically Signed: Chas Vilchis, at 10:16 EST , Service support ,
--- NOTE | 2019-09-07 09:05 | EKG12_ITS ---
Test Reason : SOB Blood Pressure : / mmHG Vent. Rate : 087 BPM Atrial Rate : 087 BPM P-R Int : 132 ms QRS Dur : 096 ms QT Int : 336 ms P-R-T Axes : 066 040 042 degrees QTc Int : 404 ms Normal sinus rhythm Normal ECG Confirmed by LAURYN LIMON, SON ([id number]), social media editor ROB HINDS ([id number]) on 09/11/2019 9:46:53 AM Referred By: Khang Holt Confirmed By:SADI COMBS MD
--- NOTE | 2019-09-07 09:06 | CT_ITS ---
STUDY: CT ABDOMEN AND PELVIS WITHOUT CONTRAST REASON FOR EXAM: Male, 69 years old. Right lower quadrant pain. Shortness of breath. RADIATION DOSAGE (If Supplied By Facility): CTDIvol = ( 16.03 ) mGy, DLP = ( 905.37 ) mGycm TECHNIQUE: Transaxial images were obtained from the dome of the diaphragm to the symphysis pubis without oral contrast, and without intravenous contrast. Sagittal and coronal images were reconstructed. Individualized dose optimization techniques were used for this CT. COMPARISON: None. FINDINGS: Small bilateral pleural effusions. There is a 1.3 cm x 1.1 cm pleural-based nodule in the posterior medial segment of the right lower lobe. Mild scarring at the lung bases. The visualized portions of the heart are within normal limits. Normal liver. There are multiple small gallstones. There are multiple benign calcified granulomata of the spleen. Normal pancreas. Normal bilateral adrenal glands. Normal right kidney. Normal left kidney. There is a small hiatal hernia. Normal small intestine. Normal colon. There is a tubular, thick-walled appendix (>7mm), consistent with acute appendicitis. Dense appendicoliths are seen within the proximal lumen of the appendix. Inflammatory changes are seen in the right lower quadrant in the periappendiceal region as well as surrounding the cecum. There is diffuse atherosclerotic calcification of the abdominal aorta. The distal abdominal aorta is slightly dilated measuring 3.1 cm.. Normal inferior vena cava. Normal retroperitoneum. Diffusely thickened urinary bladder wall. The bladder is contracted. There is a small umbilical hernia containing fat. There are diffuse degenerative changes of the visualized lumbar spine. Loss of height of the superior endplate of the T11, T12 and L1 vertebrae. CT/Abdomen/Pelvis without Cont IMPRESSION: Findings in keeping with acute appendicitis with inflammatory changes in the right lower quadrant. Dense appendicoliths are seen within the appendiceal lumen. Multiple small gallstones. Electronically Signed: Chas Vilchis, at 10:20 EST , Service support ,
--- NOTE | 2019-09-07 09:07 | ED.DCSUM_ITS ---
History of Present Illness Chief Complaint: Shortness of Breath Detail of Chief Complaint: Abdominal pain, shortness of breath Informant: Patient Onset: Days - 2 days Current Severity: Moderate Maximum Severity: Moderate Narrative: Patient presents with right mid and lower abdominal pain that started 2 days ago. He denies nausea or vomiting. He had normal bowel movements. He denies urinary symptoms. Pain is not changed with eating, but patient does state he has not had much of an appetite. He has not noted fever or chills. Patient does report increased shortness of breath over the same time period. Patient had a double lung transplant in 2014. He has not had significant cough. He denies chest pain. Patient denies any prior abdominal surgeries. He did have a skin cancer lesion removed from his left axilla approximately 3 weeks ago. - Past Medical History (1) Lung transplant recipient Status: Chronic (2) Skin cancer Status: Chronic Past Medical History - Allergies and Home Meds Allergies/Adverse Reactions: Allergies No Known Allergies Allergy (Verified 09/07/19 08:57) Primary Care Physician: Fahad Jones MD [Primary Care Provider] - Prior records reviewed: Yes Surgical History: - - Lung transplant Lives: Spouse/ Significant Other Smoking Status: Former smoker Review of Systems General: Denies: Chills, Fever Eyes: Denies: Visual changes - bilaterally ENT: Denies: Bilateral ear pain, Sore throat Cardiovascular: Denies: Chest pain, Palpitations Respiratory: Reports: Dyspnea, Cough - Minimal cough, unchanged from baseline. Denies: Sputum Gastrointestinal: Reports: Abdominal pain. Denies: Nausea, Vomiting, Diarrhea, Constipation Genitourinary: Denies: Dysuria, Hematuria Musculoskeletal: Denies: Back pain, Extremity Pain Neurological: Denies: Headache Hematologic: Denies: Easy bruising Allergy: Denies: Uticaria Physical Exam Vital Signs/Narrative: Vital Signs Temp Pulse Resp BP Pulse Ox 09/07/19 08:52 98.6 F 42 L 22 H 120/73 73 Inital Vital Signs reviewed: Yes General: Well nourished, Well developed Head: Normocephalic ENT: Moist mucous membranes Neck: Supple Cardiovascular: Regular rate, Regular rhythm Respiratory: No distress, CTA bilaterally Abdomen: Soft, Tender - Right mid to lower abdominal tenderness., Hypoactive bowel sounds. Negative for: Guarding, Rebound tenderness Extremities: Nontender Skin: - - Fingertips are cool and pale to the touch. Neurological: Alert, Oriented x3 Psychological: Normal affect Diagnostic/Tx/Re-eval Impressions Chest X-Ray 09/07/19 09:05 IMPRESSION: Small bilateral effusions with underlying atelectasis and/or infiltrates worse on the left side. Electronically Signed: Chas Mame, at 10:16 EST , Service support , Abdomen/Pelvis CT 09/07/19 09:06 IMPRESSION: Findings in keeping with acute appendicitis with inflammatory changes in the right lower quadrant. Dense appendicoliths are seen within the appendiceal lumen. Multiple small gallstones. Electronically Signed: Chas Mame, at 10:20 EST , Service support , 09/07/19 09:05 Chest PA and Lateral [RAD] Stat 09/07/19 09:06 Abdomen/Pelvis without Cont [CT] Stat Laboratory Results 09/07/19 09/07/19 09/07/19 09:10 09:10 09:35 WBC 15.3 H RBC 4.56 L Hgb 12.9 L Hct 41.8 MCV 91.7 MCH 28.3 MCHC 30.9 L RDW Std Deviation 54.5 H RDW Coeff of Uma 16.2 H Plt Count 244 MPV 11.0 Immature Gran % (Auto) 0.700 Neut % (Auto) 87.5 H Lymph % (Auto) 5.1 L [place] % (Auto) 6.4 Eos % (Auto) 0.2 Baso % (Auto) 0.1 Absolute Neuts (auto) 13.4 H Absolute Lymphs (auto) 0.78 L Nucleated RBC % 0 Sodium 134 L Potassium 4.5 Chloride 98 Carbon Dioxide 30.0 Anion Gap 6 BUN 28 H Creatinine 1.61 H Estim Creat Clear Calc 41.06 Est GFR (MDRD) Af Amer 55 L Est GFR (MDRD) Non-Af 46 L BUN/Creatinine Ratio 17.4 Glucose 143 H Calcium 9.1 Total Bilirubin 0.80 Direct Bilirubin 0.23 AST 13 L ALT 20 Alkaline Phosphatase 52 Total Protein 7.8 Albumin 3.6 Globulin 4.2 Lipase 40 L Urine Color Yellow Urine Clarity Clear Urine pH 5.0 Ur Specific [place] 1.015 Urine Protein 30 H Urine Glucose (UA) Normal Urine Ketones 5 H Urine Occult Blood Negative Urine Nitrite Negative Urine Bilirubin 1 H Urine Urobilinogen Normal Ur Leukocyte Esterase 25 H Urine RBC 0 SEEN Urine WBC 0-5 SEEN Ur Squamous Epith Cells 0 SEEN Urine Bacteria 0 SEEN Hyaline Casts 0-5 SEEN Urine Mucus 0 SEEN - EKG Initial EKG Interpretation: Sinus Rhythm - Sinus 87 with no acute ischemia. - Medical Decision Making Patient was noted to be bradycardic and hypoxic in triage. It is noted that these values were taken off of a pulse ox. Patient's fingers are cool and pale. We are not getting a good waveform. In the room patient's heart rate is in the 80s. Warm blankets were applied to his hands and patient is placed on nasal cannula. Test results are discussed with patient and at bedside. His oxygen sat is currently 96% on 1 L nasal cannula. Patient did develop a fever to 100.1. He is given Tylenol along with a dose of Zosyn. I spoke with Dr. Hennessy who follows the patient from a pulmonary standpoint. He stated that he would be glad to see the patient postop if any needs arise, but I should talk with his transplant team in [place]. I spoke with Dr. Holt as well as anesthesia. I spoke with Dr. Negron, lung transplant physician at [facility]. He states the patient underwent general anesthesia in August at their facility without any difficulty and he does not anticipate difficulty with him having general anesthesia here. Per his notes patient has been using oxygen as needed and does tend to desat with exercise but quickly recovers. He was recently taken off 1 of his antirejection medications due to slow wound healing from his recent surgeries and patient confirms he has not yet restarted this medication. ED Disposition - Plan for ED Patient: Disposition: Acute Care [facility] Diagnosis: Appendicitis Referrals: Fahad Jones MD [Primary Care Provider] -
[2019-09-07 09:20] LABS: Absolute Lymphocyte Count 0.78 X10^3/uL (0.83-4.51); Absolute Neutrophil Count 13.4 X10^3/uL (2.0-7.7); Basophil# 0.02 X10^3/uL; Basophil% 0.1 % (0-1); Eosinophil# 0.03 X10^3/uL; Eosinophils% 0.2 % (0-5); Hematocrit 41.8 % (40-54); Hemoglobin 12.9 g/dL (13.0-16.5); Lymphocyte # 0.78 X10^3/ul (4.0); Lymphocyte % 5.1 % (19-41); Mean Corp Hgb Conc 30.9 g/dL (32-36); Mean Corpuscular Hgb 28.3 pg (27.0-32.0); Mean Corpuscular Volume 91.7 fL (80-94); Monocyte# 0.98 X10^3/uL; Monocyte% 6.4 % (0-10); NRBC Flagged by Analyzer 0 % (0-5); Neutrophil % 87.5 % (47-70); Platelet Count 244 K/mm3 (150-450); RBC Distribution Width CV 16.2 % (11.6-14.6); RBC Distribution Width SD 54.5 fl (35.1-43.9); Red Blood Count 4.56 M/mm3 (4.6-6.2); White Blood Count 15.3 K/mm3 (4.4-11.0)
[2019-09-07] MEDS: Metoclopramide 10 MG/2 ML Vial IV (09:21)
[2019-09-07] MEDS: Morphine 4 MG/ML Syringe IV (09:21)
[2019-09-07 09:35] LABS: AST(SGOT) 13 U/L (15-37); Alanine Aminotransfer ALT/SGPT 20 U/L (16-61); Albumin, Serum 3.6 g/dL (3.2-5.0); Alkaline Phosphatase 52 U/L (45-117); Anion Gap 6 (5-15); BUN 28 mg/dL (7-18); BUN/Creat Ratio 17.4 RATIO (10-20); Bilirubin, Direct 0.23 mg/dL (0.00-0.30); Calcium,Total 9.1 mg/dL (8.5-10.1); Chloride 98 mmol/L (98-107); Creatinine, Serum 1.61 mg/dL (0.70-1.30); EST Glomerular Filtration Rate 46 mL/min (>60); Est Glom Filt Rate - Afr Amer 55 mL/min (>60); Estimated Creatinine Clearance 41.06 ml/min; Globulin 4.2 g/dL (2.2-4.2); Glucose 143 mg/dL (74-106); Lipase 40 U/L (73-393); Potassium 4.5 mmol/L (3.5-5.1); Protein, Total 7.8 g/dL (6.4-8.2); Sodium Level 134 mmol/L (136-145)
[2019-09-07 09:42] LABS: Bacteria 0 SEEN /hpf (None Seen); Mucous, Urine 0 SEEN /hpf (<or=2+); Red Blood Cells-Urine 0 SEEN /hpf (0-5); Squamous Epithelial Cells - UA 0 SEEN /hpf (0-5)
[2019-09-07] MEDS: 0.9% Normal Saline 1,000 ML 150 ML IV (09:45)
[2019-09-07 09:46] LABS: Color, Urine Yellow (Yellow); Glucose, Dipstick Normal (Normal); Ketone-Dipstick 5 mg/dl (Negative); Leukocyte Esterase-Dipstick 25 /ul (Negative); Nitrite-Dipstick Negative (Negative); Occult Blood-Urine Negative /ul (Negative); Protein-Dipstick 30 mg/dl (Negative); Specific Gravity, Urine 1.015 (1.002-1.030); Urine Bilirubin Dipstick 1 mg/dL (Negative); Urine Clarity Clear (Clear); Urine Urobilinogen Normal (Normal)
[2019-09-07 10:04] LABS: Hyaline Cast 0-5 SEEN /lpf (0-5); White Blood Cells 0-5 SEEN /hpf (0-5)
[2019-09-07] MEDS: Acetaminophen 500 MG Tablet 1000 MG PO (11:36)
--- NOTE | 2019-09-07 12:08 | NURSING ---
med surg blade appendicitis
--- NOTE | 2019-09-07 13:22 | HP.PCM_ITS ---
Problem List (1) Lung transplant recipient Status: Chronic (2) Skin cancer Status: Chronic (3) Appendicitis Status: Acute History of Present Illness Date of Admission: 09/07/19 Chief Complaint: Acute appendicitis The patient is a 69 year old M who presented to the ED with right lower quadrant pain since yesterday morning. Patient states the pain has progressively become worse. He denies nausea, vomiting, constipation, diarrhea. He denies fever at home. He notes lack of appetite. He denies previous RLQ abdominal pain. Patient states he had his shingles vaccination on Thursday and thought this may be a reaction to the vaccine. He has a history of bilateral lung transplant in 2014 at [facility] this was complicated by slight rejection. He had photopheresis which helped with the rejection process. 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 He is not currently on oxygen at home and lives a normal daily life. He continues to be on prednisone and antirejection medication from his transplant. He also notes history of squamous cell skin lesion and graft placement this year by [facility] plastic surgery. Patient was then found to have an enlarged lymph node in the left axilla. Patient was evaluated by Dr. Maher at [facility] who performed an excision of this lymph node approximately 2 weeks ago. A JEFF drain was left behind. Patient was due to have this removed tomorrow. 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 Patient states he has had a laparoscopic Taniya fundoplication approximately 2 years ago at [facility]. Patient denies cardiac history, previous myocardial infarction, stroke or blood clots. CT scan of the ab/pel demonstrated acute appendicitis. Past Medical History Past Medical History (Chronic Problems): Chronic Problems Lung transplant recipient (Chronic) Skin cancer (Chronic) Allergies No Known Allergies Allergy (Verified 09/07/19 08:57) Home Medications: Ambulatory Orders Medication Instructions Recorded Acetaminophen [Tylenol] 325 mg PO Q4H PRN 01/21/16 Alendronate Sodium [Fosamax] 70 mg PO RIDLEY 01/21/16 Aspirin 325 mg PO DAILY@0800 01/21/16 Azithromycin [Zithromax] 250 mg PO MOWEFR 01/21/16 Furosemide [Lasix] 20 mg PO DAILY 01/21/16 Pantoprazole Sodium [Protonix] 40 mg PO DAILY 01/21/16 Smz/Tmp Ds [Bactrim Ds] 800 mg PO MOWEFR 01/21/16 Tacrolimus Anhydrous [Prograf] 1 mg PO BID 01/21/16 Ferrous Sulfate 325 mg PO DAILY 09/07/19 Lisinopril 5 mg PO DAILY 09/07/19 Metoprolol Tartrate 100 mg PO BID 09/07/19 Multivitamin with Minerals 1 tab PO DAILY 09/07/19 [Multiple Vitamin] Prednisone 5 mg PO DAILY 09/07/19 Rosuvastatin Calcium 20 mg PO DAILY 09/07/19 Surgical History: - - Bilateral Lung transplant, Taniya fundoplication, excision squamous cell skin cancer, left shoulder Psychiatric History: No pertinent psych hx Lives: Spouse/ Significant Other Smoking Status: Former smoker - *Family History Maternal History Items: No pertinent history Paternal History Items: No pertinent history Review of Systems Constitutional: Reports: Anorexia. Denies: Chills, Fever, Weight Change HEENT: Denies: Head Aches, Sinus Congestion, Sinus Drainage Cardiovascular: Denies: Chest Pain, Palpitations Respiratory: Denies: Cough, Shortness of breath at rest, Sputum production Gastrointestinal: Reports: Abdominal Pain. Denies: Constipation, Diarrhea, Nausea, Vomiting Genitourinary: Denies: Dysuria Musculoskeletal: Denies: Joint Pain, Joint Tenderness Skin: Denies: Rash, Wounds Neurological: Denies: Numbness, Tingling, Focal weakness Psychiatric: Denies: Anxiety, Depression, Homicidal Ideations, Suicidal I deations Hematologic/ Lymphatic: Denies: Easy Bruising, Easy Bleeding VTE Information - Inpt Only VTE Present on Admission: Yes VTE Mechan Device Prophylaxis: SCD's Patient Problems: Active and Suspected Problems Appendicitis (Acute) - Physical Exam Vitals/I&O's: Vital Signs Temp Pulse Resp BP Pulse Ox 98.9 F 84 20 H 104/64 96 09/07/19 12:32 09/07/19 12:32 09/07/19 12:32 09/07/19 12:32 09/07/19 12:32 Oxygen Flow Rate (L/min) 1 Oxygen Delivery Method Nasal Cannula Weight: 228 lb Body Mass Index (BMI) 35.6 Intake and Output for Last 24 Hours 09/05/19 09/06/19 09/07/19 23:59 23:59 23:59 Intake Total 100 / 100 Balance 100 / 100 General: Alert, Oriented x3, Cooperative HEENT: Atraumatic, PERRLA, EOMI, Normocephalic Neck: Supple, No JVD, Negative Carotid Bruits Lungs: Clear to auscultation, Normal air movement Cardiovascular: Regular rate, No murmurs Abdomen: Soft, Hypoactive Bowel Sounds, Distended, Obese, Tender - right lower quadrant Extremities: No edema, Capillary Refill Less than 3 Seconds Skin: No rashes, No breakdown Musculoskeletal: No Tenderness to Palpation of Joints or Extremities Neurological: Neuro grossly intact Psych/Mental Status: Normal Affect, Appropriate Laboratory Results 09/07/19 09:10: WBC 15.3 H, RBC 4.56 L, Hgb 12.9 L, Hct 41.8, MCV 91.7, MCH 28.3, MCHC 30.9 L, RDW Std Deviation 54.5 H, RDW Coeff of Uma 16.2 H, Plt Count 244, MPV 11.0, Immature Gran % (Auto) 0.700, Neut % (Auto) 87.5 H, Lymph % (Auto) 5.1 L, [place] % (Auto) 6.4, Eos % (Auto) 0.2, Baso % (Auto) 0.1, Absolute Neuts (auto) 13.4 H, Absolute Lymphs (auto) 0.78 L, Nucleated RBC % 0 09/07/19 09:10: Sodium 134 L, Potassium 4.5, Chloride 98, Carbon Dioxide 30.0, Anion Gap 6, BUN 28 H, Creatinine 1.61 H, Estim Creat Clear Calc 41.06, Est GFR (MDRD) Af Amer 55 L, Est GFR (MDRD) Non-Af 46 L, BUN/Creatinine Ratio 17.4, Glucose 143 H, Calcium 9.1, Total Bilirubin 0.80, Direct Bilirubin 0.23, AST 13 L, ALT 20, Alkaline Phosphatase 52, Total Protein 7.8, Albumin 3.6, Globulin 4.2, Lipase 40 L 09/07/19 09:35: Urine Color Yellow, Urine Clarity Clear, Urine pH 5.0, Ur Specific [place] 1.015, Urine Protein 30 H, Urine Glucose (UA) Normal, Urine Ketones 5 H, Urine Occult Blood Negative, Urine Nitrite Negative, Urine Bilirubin 1 H, Urine Urobilinogen Normal, Ur Leukocyte Esterase 25 H, Urine RBC 0 SEEN, Urine WBC 0-5 SEEN, Ur Squamous Epith Cells 0 SEEN, Urine Bacteria 0 SEEN, Hyaline Casts 0-5 SEEN, Urine Mucus 0 SEEN Current Medications Sodium Chloride () 1,000 mls @ 150 mls/hr IV .[id number] [facility] Last Admin: 09/07/19 09:45 Dose: 150 mls/hr Documented by: Assessment/Plan All Active Problems Appendicitis (Acute) I am seeing this patient in conjunction with Dr. Holt. Impression: Right lower quadrant pain. Acute appendicitis. Plan: Dr. Holt will also independently evaluate this patient. Dr. Holt will plan to perform a laparoscopic appendectomy. Procedure details, risks and benefits have been explained in detail to the patient. Patient and his spouse have had the opportunity to ask and have questions answered. Patient verbally understands and agrees with the plan. Dr. Holt and anesthesia have discussed the patient's double lung transplant status. Thank you for allowing us to participate in this patient's care. Code Visit Office Visits / Consults: [id number] IP Consult L3
--- NOTE | 2019-09-07 15:00 | APP_PTH ---
PATIENT: KARIN ANTONIO Jr. LOC: MS3 U#:[id number] AGE/SX: 69/M ROOM: MO321 RE09/07/[address]: Dr. Joel Mccallum MD : 1950 BED: 1 DIS: 09/09/2019 SPEC #: [id number] RECD: 09/07/19 16:13 STATUS: BRETT REQ #: [id number] PAIGE: 09/07/19 15:[address]: Khang Holt DEPT: SURGICAL PATHOLOGY RECD BY: Donald Jimenez ENTERED: 09/08/19 10:35 SP TYPE: APPENDIX OTHR DR: MD Dr. Khang Cristobal MD Dr. Eric Smith, MD Tissues: Appendix, NOS Procedures: Surgery Specimen Level III Comments: @ Ordering doctor for SUIII edited from to @ by MATHEW at 09/08/19 1259 @ Submitting doctor edited from to @ by RGOOD at 09/08/19 1259 HEADER OPERATION: Laparoscopic appendectomy PRE-OP DIAGNOSIS: Acute retrocele appendicitis TISSUE SUBMITTED: Appendix MICROSCOPIC DIAGNOSIS Appendix, appendectomy: Acute necrotizing appendicitis. Acute serositis. AM:shannan 09/09/19 MICROSCOPIC DESCRIPTION Slides are reviewed. GROSS DESCRIPTION Received is one container labeled with the patient's name and designated appendix. The specimen consists of an appendix measuring 5 cm in length and 1.2 cm in diameter. Serial sections reveal patent lumen with fecal material. No gross perforation is identified. The serosa is tejeda-batista in color. Stainless Steel Finisher sections are submitted in one cassette. / AM:shannan 09/08/19 TC:2 CPT: 94827
[2019-09-07] MEDS: Bupivacaine Mpf 0.5% 30 ML VIAL (15:22)
--- NOTE | 2019-09-07 15:44 | OP.PCM_ITS ---
Problem List (1) Appendicitis Status: Acute Qualifiers: Appendicitis type: acute appendicitis Acute appendicitis type: with localized peritonitis Appendicitis gangrene presence: with gangrene Appendicitis perforation presence: without perforation Appendicitis abscess presence: without abscess Qualified Code(s): K35.31 - Acute appendicitis with localized peritonitis and gangrene, without perforation Report of Operation Date of Procedure: 09/07/19 Pre-Operative Diagnosis: Acute retrocecal appendicitis Post-Operative Diagnosis: Same Surgery/Procedure Performed:: Laparoscopic appendectomy Type of Anesthesia:: General Anesthesiologist: Vazquez Parrish Specimen's removed: Appendix Drains: 15 round Juve-Ortega Estimated Blood Loss (mL): < 25 cc Fluids Replaced: 300 cc lr Description of Procedure: Patient was brought into the operating room. Placed in the supine position. Under general endotracheal ovation the abdomen was sterilely prepped draped usual fashion. Local was injected supraumbilically. Incision was made dissection was carried down to the fascia. The fascia was grasped with Maciel. Varies needle was placed inside the abdomen. The abdomen was insufflated to 15 torr. A 10/12 trocar was placed without difficulty. Suprapubic #5 trochars placed in the left lower quadrant #5 trocar was placed both of these under direct visualization without injury to underlying structures. Patient was placed in the head down rotated to the left. Dissected in the retro-cecal area acute appendicitis with gangrene was identified. He came down on the mesoappendix with the Enseal cleaning off the base and then transected the base with a 45 linear cutter. I placed a specimen specimen bag delivered through the umbilical port without difficulty. Given the fact that there was some purulent fluid in the pelvis and this was a gangrenous appendix I placed a #15 round Juve-Ortega drain in the right upper quadrant going down into the pelvis. I irrigated out the area the drain was sutured in place with a 3-0 nylon. I remove the trochars under direct visualization good hemostasis was noted. I closed the fascia the umbilical port with a [id number] stitch of 0 Vicryl. Skin incisions were closed with some particular stitches of 4-[address] yaima-Strips were applied sterile dressings were applied and the patient tolerated the procedure well. - Admit VTE Documentation VTE Present on Admission: No VTE Mechan Device Prophylaxis: SCD's VTE Pharm Prophylaxis ordered?: No Reason prophylaxis not ordered:: Treatment Not Indicated
[2019-09-07] MEDS: Lactated Ringers 1,000 ML 100 ML IV (16:05)
--- NOTE | 2019-09-07 17:33 | CON.PCM_ITS ---
Problem List (1) Hyperlipidemia Status: Chronic (2) Hypertension Status: Chronic (3) COPD (chronic obstructive pulmonary disease) Status: Chronic (4) Lung transplant recipient Status: Chronic (5) Skin cancer Status: Chronic (6) Appendicitis Status: Acute Qualifiers: Appendicitis type: acute appendicitis Acute appendicitis type: with localized peritonitis Appendicitis gangrene presence: with gangrene Appendicitis perforation presence: without perforation Appendicitis abscess presence: without abscess Qualified Code(s): K35.31 - Acute appendicitis with localized peritonitis and gangrene, without perforation Reason for Consult Date of Consultation: 09/07/19 Reason for Consultation: Postoperative medical management. History of Present Illness: The patient is a 69 year old M patient with past medical history as mentioned above underwent emergent laparoscopic appendectomy today for acute retrocecal appendicitis with gangrene and localized peritonitis and I am seeing this patient in consultation for postoperative medical management. At this time, patient is alert and oriented x3. He denies any complaints. He denies abdominal pain, nausea or vomiting. He denies chest pain or shortness of breath. His vital signs are stable, afebrile. He had a history of lung transplant that was done for COPD in 2014 and he has been on long-term prednisone, Prograf as well as prophylactic Bactrim and Zithromax. He has history of hypertension which has been under control with metoprolol and lisinopril. He has history of hyperlipidemia and he has been on statins. His routine blood work was remarkable for leukocytosis with neutrophilia, BUN of 28 and creatinine of 1.61. LFT and lipase were unremarkable. Urinalysis showed no evidence of infection. Chest x-ray revealed small bilateral pleural effusion, more on the right side with bilateral basilar atelectasis. CT scan abdomen and pelvis without contrast revealed acute appendicitis with inflammatory changes for which patient went for surgery today. Past Medical History Past Medical History (Chronic Problems): Chronic Problems Hyperlipidemia (Chronic) Hypertension (Chronic) COPD (chronic obstructive pulmonary disease) (Chronic) Lung transplant recipient (Chronic) Skin cancer (Chronic) Allergies No Known Allergies Allergy (Verified 09/07/19 08:57) Home Medications: Ambulatory Orders Medication Instructions Recorded Acetaminophen [Tylenol] 325 mg PO Q4H PRN 01/21/16 Alendronate Sodium [Fosamax] 70 mg PO RIDLEY 01/21/16 Aspirin 325 mg PO DAILY@0800 01/21/16 Azithromycin [Zithromax] 250 mg PO MOWEFR 01/21/16 Furosemide [Lasix] 20 mg PO DAILY 01/21/16 Pantoprazole Sodium [Protonix] 40 mg PO DAILY 01/21/16 Smz/Tmp Ds [Bactrim Ds] 800 mg PO MOWEFR 01/21/16 Tacrolimus Anhydrous [Prograf] 1 mg PO BID 01/21/16 Ferrous Sulfate 325 mg PO DAILY 09/07/19 Lisinopril 5 mg PO DAILY 09/07/19 Metoprolol Tartrate 100 mg PO BID 09/07/19 Multivitamin with Minerals 1 tab PO DAILY 09/07/19 [Multiple Vitamin] Prednisone 5 mg PO DAILY 09/07/19 Rosuvastatin Calcium 20 mg PO DAILY 09/07/19 Surgical History: - - Bilateral Lung transplant, Taniya fundoplication, excision squamous cell skin cancer. Psychiatric History: No pertinent psych hx Lives: Spouse/ Significant Other Smoking Status: Former smoker Alcohol: Occasional Drugs: None - *Family History Maternal History Items: No pertinent history Paternal History Items: No pertinent history Review of Systems Constitutional: Denies: Anorexia, Chills, Fever, Weakness Eyes: Denies: Blurred vision, Double vision, Drainage, Redness HEENT: Denies: Difficulty Hearing, Ear Pain, Eye Pain, Nasal bleeding, Nasal Congestion, Sore Throat Cardiovascular: Denies: Chest Pain, Chest Pressure, Chest Tightness, Palpitations, Syncope Respiratory: Denies: Cough, Pleuritic Pain, Shortness of Breath, Sputum production, Wheezing Gastrointestinal: Denies: Abdominal Pain, Constipation, Diarrhea, Nausea, V omiting Genitourinary: Denies: Dysuria, Frequency, Hematuria Musculoskeletal: Denies: Arm Pain, Back Pain, Foot Pain Skin: Denies: Dryness, Rash Neurological: Denies: Balance problems, Double vision, Change in Speech, Slurred speech, Confusion, Headaches, Incoordination, Numbness Psychiatric: Denies: Anxiety, Depression Endocrine: Denies: Change in Body Habitus, Polydipsia, Polyuria Patient Problems: Active and Suspected Problems Appendicitis (Acute) - Physical Exam Vitals/I&O's: Vital Signs Temp Pulse Resp BP Pulse Ox 98.6 F 92 16 121/70 H 100 09/07/19 16:51 09/07/19 16:51 09/07/19 16:51 09/07/19 16:51 09/07/19 16:51 Oxygen Flow Rate (L/min) 2 Oxygen Delivery Method Nasal Cannula Weight: 240 lb 8.389 oz Body Mass Index (BMI) 37.0 Intake and Output for Last 24 Hours 09/05/19 09/06/19 09/07/19 23:59 23:59 23:59 Intake Total 1100 / 1100 Output Total 60 / 60 Balance 1040 / 1040 General: Alert, Oriented x3, Cooperative, No apparent distress HEENT: Atraumatic, PERRLA, EOMI, Normocephalic Oral: Moist Mucosa, No Gingival or Mucosal Lesions/ Ulcerations Neck: Supple, No JVD, Negative Carotid Bruits, Trachea Midline, Thyroid Normal Size and Texture Lungs: Clear to auscultation, Normal air movement, No rhonchi, No wheeze, No rales, Diminished Cardiovascular: Regular rate, Regular Rhythm, Normal S1, Normal S2, PMI Normal Abdomen: Bowel Sounds Present, Soft, No Hepato-splenomegaly, Distended, Tender Extremities: No clubbing, No cyanosis, No edema Skin: No rashes, No breakdown Lymphatic: No Cervical, Supraclavicular, or Inguinal Adenopathy Neurological: Cranial nerves II-XII grossly intact, Motor Exam 5/5 strength throughout Psych/Mental Status: Normal Affect, Appropriate, Alert and oriented to time, place, person, mood and affect Laboratory Results 09/07/19 09:10: WBC 15.3 H, RBC 4.56 L, Hgb 12.9 L, Hct 41.8, MCV 91.7, MCH 28.3, MCHC 30.9 L, RDW Std Deviation 54.5 H, RDW Coeff of Uma 16.2 H, Plt Count 244, MPV 11.0, Immature Gran % (Auto) 0.700, Neut % (Auto) 87.5 H, Lymph % (Auto) 5.1 L, [place] % (Auto) 6.4, Eos % (Auto) 0.2, Baso % (Auto) 0.1, Absolute Neuts (auto) 13.4 H, Absolute Lymphs (auto) 0.78 L, Nucleated RBC % 0 09/07/19 09:10: Sodium 134 L, Potassium 4.5, Chloride 98, Carbon Dioxide 30.0, Anion Gap 6, BUN 28 H, Creatinine 1.61 H, Estim Creat Clear Calc 41.06, Est GFR (MDRD) Af Amer 55 L, Est GFR (MDRD) Non-Af 46 L, BUN/Creatinine Ratio 17.4, Glucose 143 H, Calcium 9.1, Total Bilirubin 0.80, Direct Bilirubin 0.23, AST 13 L, ALT 20, Alkaline Phosphatase 52, Total Protein 7.8, Albumin 3.6, Globulin 4.2, Lipase 40 L 09/07/19 09:35: Urine Color Yellow, Urine Clarity Clear, Urine pH 5.0, Ur Specific [place] 1.015, Urine Protein 30 H, Urine Glucose (UA) Normal, Urine Ketones 5 H, Urine Occult Blood Negative, Urine Nitrite Negative, Urine Bilirubin 1 H, Urine Urobilinogen Normal, Ur Leukocyte Esterase 25 H, Urine RBC 0 SEEN, Urine WBC 0-5 SEEN, Ur Squamous Epith Cells 0 SEEN, Urine Bacteria 0 SEEN, Hyaline Casts 0-5 SEEN, Urine Mucus 0 SEEN Clinical Impression(s) from Imaging Studies Chest X-Ray 09/07/19 09:05 IMPRESSION: Small bilateral effusions with underlying atelectasis and/or infiltrates worse on the left side. Electronically Signed: Chas Vilchis, at 10:16 EST , Service support , Abdomen/Pelvis CT 09/07/19 09:06 IMPRESSION: Findings in keeping with acute appendicitis with inflammatory changes in the right lower quadrant. Dense appendicoliths are seen within the appendiceal lumen. Multiple small gallstones. Electronically Signed: Chas Vilchis, at 10:20 EST , Service support , Current Medications Alendronate Sodium (Fosamax) 70 mg PO RIDLEY [facility] Furosemide (Lasix) 20 mg PO DAILY [facility] Hydromorphone HCl (Dilaudid Inj) 0.5 - 1 mg IV Q2H PRN PRN PRN Reason: Pain Score 1-10/10 Hydromorphone HCl (Dilaudid Inj) 0.5 - 1 mg IV Q2H PRN PRN PRN Reason: Pain Score 1-10/10 Sodium Chloride () 1,000 mls @ 150 mls/hr IV .Q6H40M [facility] Last Infusion: 09/07/19 16:00 Dose: Infused Documented by: Piperacillin Sod/Tazobactam (Sod 3.375 gm/ Sodium Chloride) 50 mls @ 12.5 mls /hr IV Q8 [facility] Lactated Ringer's () 1,000 mls @ 100 mls/hr IV .Q10H [facility] Last Admin: 09/07/19 16:05 Dose: 100 mls/hr Documented by: Lisinopril (Zestril) 5 mg PO DAILY [facility] Metoprolol Tartrate (Lopressor (Beta Sharmaine)) 100 mg PO BID [facility] Ondansetron HCl (Zofran) 4 mg IV Q8H PRN PRN PRN Reason: NAUSEA Oxycodone HCl (Oxyir) 5 - 10 mg PO Q4H PRN PRN PRN Reason: Pain Score 1-10/10 Pantoprazole Sodium (Protonix) 40 mg PO DAILY [facility] Prednisone () 5 mg PO DAILY@0800 [facility] Tacrolimus (Prograf) 1 mg PO BID [facility] Assessment/Plan All Active Problems Appendicitis (Acute) This is a 69 years old male patient presented to the emergency room because of abdominal pain and shortness of breath, found to have acute appendicitis and underwent emergent laparoscopic appendectomy and I am seeing this patient for consultation for postoperative medical management. #1 acute gangrenous appendicitis: Status post emergent laparoscopic appendectomy, drain in place, postoperative day 0. Patient is on IV Zosyn, IV fluids. He is on IV morphine PRN for pain as well as OxyIR PRN for pain. His vital signs are stable. Routine blood work reviewed, revealed leukocytosis. Patient denies any abdominal pain. General surgery on the case. Plan to repeat CBC and BMP tomorrow morning. #2 status post lung transplant: At this time, respiratory status is stable. Chest x-ray reviewed, revealed small bilateral pleural effusion with atelectasis. Patient is already on Prograf and prednisone, on prophylactic Zithromax and Bactrim long-term. Plan to continue Prograf, Zithromax and Bactrim, DC prednisone, start IV hydrocortisone stress dose, recommend incentive spirometer, ambulate as tolerated. #3 hypertension: Blood pressure stable, continue lisinopril and metoprolol. #4 COPD: Status post lung transplant. Recommend albuterol as needed, incentive spirometer as above. #5 hyperlipidemia: Statins held. #6 DVT prophylaxis: SCDs. This note was generated with [employer] dictation software. It may contain incorrect words, spelling, and punctuation that were not noted in checking the note before signing. Code Visit Inpatient E&M: 34438 Init Hosp L2
[2019-09-07] MEDS: 0.9% Normal Saline 1,000 ML 100 ML IV (21:16)
[2019-09-07] MEDS: Acetaminophen 325 MG Tablet 650 MG PO (21:30)
[2019-09-07] MEDS: Metoprolol Tartrate 100 MG Tablet PO (21:32)
[2019-09-07] MEDS: Tacrolimus Anhydrous 1 MG Capsule PO (21:33)
[2019-09-08] VITALS (9 sets, daily range): BP systolic 109–147; BP diastolic 70–79; PULSE 79–92; RESP 16–20; TEMP 36.5–37.1; O2SAT 93–99
[2019-09-08] MEDS: oxyCODONE 5 MG Tablet PO ×3 (02:11→21:53)
[2019-09-08] MEDS: Acetaminophen 325 MG Tablet 650 MG PO ×2 (05:05→20:54)
[2019-09-08] MEDS: 0.9% Saline Lock 10 ML Syringe IV ×2 (05:06→21:51)
[2019-09-08] MEDS: Hydrocortisone Sod Succinate 100 MG/2 ML Vial 50 MG IV ×3 (05:06→21:49)
[2019-09-08 06:17] LABS: Absolute Lymphocyte Count 0.68 X10^3/uL (0.83-4.51); Absolute Neutrophil Count 6.8 X10^3/uL (2.0-7.7); Basophil# 0.02 X10^3/uL; Basophil% 0.2 % (0-1); Eosinophils% 1.2 % (0-5); Hematocrit 35.3 % (40-54); Hemoglobin 10.7 g/dL (13.0-16.5); Lymphocyte # 0.68 X10^3/ul (4.0); Lymphocyte % 8.2 % (19-41); Mean Corp Hgb Conc 30.3 g/dL (32-36); Mean Corpuscular Hgb 28.5 pg (27.0-32.0); Mean Corpuscular Volume 93.9 fL (80-94); Mean Platelet Vol. 11.2 fl (6.2-12.0); Monocyte# 0.62 X10^3/uL; Monocyte% 7.5 % (0-10); NRBC Flagged by Analyzer 0 % (0-5); Neutrophil # 6.81 X10^3/uL (2.7-7.7); Neutrophil % 82.2 % (47-70); Platelet Count 184 K/mm3 (150-450); RBC Distribution Width CV 16.2 % (11.6-14.6); RBC Distribution Width SD 56.2 fl (35.1-43.9); Red Blood Count 3.76 M/mm3 (4.6-6.2); White Blood Count 8.3 K/mm3 (4.4-11.0)
[2019-09-08 06:45] LABS: Anion Gap 2 (5-15); BUN 26 mg/dL (7-18); BUN/Creat Ratio 16.5 RATIO (10-20); Calcium,Total 7.9 mg/dL (8.5-10.1); Chloride 106 mmol/L (98-107); Creatinine, Serum 1.58 mg/dL (0.70-1.30); EST Glomerular Filtration Rate 47 mL/min (>60); Est Glom Filt Rate - Afr Amer 56 mL/min (>60); Estimated Creatinine Clearance 41.84 ml/min; Glucose 119 mg/dL (74-106); Potassium 4.7 mmol/L (3.5-5.1); Sodium Level 138 mmol/L (136-145)
[2019-09-08] MEDS: 0.9% Normal Saline 1,000 ML 100 ML IV ×2 (06:54→16:48)
--- NOTE | 2019-09-08 08:19 | PCM.PN.SRG ---
Patient Problems: Active and Suspected Problems Appendicitis (Acute) Subjective: Patient evaluated resting comfortably in bed. He denies nausea, vomiting. He notes abdominal soreness. He denies fever. He tolerated a regular diet this morning. Negative flatus and BM. - Physical Exam Vitals/I&O's: Vital Signs Temp Pulse Resp BP Pulse Ox 97.7 F L 79 16 123/75 H 99 09/08/19 05:11 09/08/19 05:11 09/08/19 05:11 09/08/19 05:11 09/08/19 05:11 Oxygen Flow Rate (L/min) 2 Oxygen Delivery Method Nasal Cannula Weight: 240 lb 8.389 oz Body Mass Index (BMI) 37.0 Intake and Output for Last 24 Hours 09/06/19 09/07/19 09/08/19 23:59 23:59 23:59 Intake Total 1858.33 / 1858.33 1270.33 / 1270.33 Output Total 85 / 85 640 / 640 Balance 1773.33 / 1773.33 630.33 / 630.33 General: Alert, Oriented x3, Cooperative Abdomen: Hypoactive Bowel Sounds, Distended, Tender - generalized, - - Incisions c/d/i. JEFF drain with SA fluid. Skin: - - JEFF drain intact left axillary Laboratory Results 09/07/19 09:10: WBC 15.3 H, RBC 4.56 L, Hgb 12.9 L, Hct 41.8, MCV 91.7, MCH 28.3, MCHC 30.9 L, RDW Std Deviation 54.5 H, RDW Coeff of Uma 16.2 H, Plt Count 244, MPV 11.0, Immature Gran % (Auto) 0.700, Neut % (Auto) 87.5 H, Lymph % (Auto) 5.1 L, [place] % (Auto) 6.4, Eos % (Auto) 0.2, Baso % (Auto) 0.1, Absolute Neuts (auto) 13.4 H, Absolute Lymphs (auto) 0.78 L, Nucleated RBC % 0 09/07/19 09:10: Sodium 134 L, Potassium 4.5, Chloride 98, Carbon Dioxide 30.0, Anion Gap 6, BUN 28 H, Creatinine 1.61 H, Estim Creat Clear Calc 41.06, Est GFR (MDRD) Af Amer 55 L, Est GFR (MDRD) Non-Af 46 L, BUN/Creatinine Ratio 17.4, Glucose 143 H, Calcium 9.1, Total Bilirubin 0.80, Direct Bilirubin 0.23, AST 13 L, ALT 20, Alkaline Phosphatase 52, Total Protein 7.8, Albumin 3.6, Globulin 4.2, Lipase 40 L 09/07/19 09:35: Urine Color Yellow, Urine Clarity Clear, Urine pH 5.0, Ur Specific [place] 1.015, Urine Protein 30 H, Urine Glucose (UA) Normal, Urine Ketones 5 H, Urine Occult Blood Negative, Urine Nitrite Negative, Urine Bilirubin 1 H, Urine Urobilinogen Normal, Ur Leukocyte Esterase 25 H, Urine RBC 0 SEEN, Urine WBC 0-5 SEEN, Ur Squamous Epith Cells 0 SEEN, Urine Bacteria 0 SEEN, Hyaline Casts 0-5 SEEN, Urine Mucus 0 SEEN 09/08/19 06:00: WBC 8.3, RBC 3.76 L, Hgb 10.7 L, Hct 35.3 L, MCV 93.9, MCH 28.5, MCHC 30.3 L, RDW Std Deviation 56.2 H, RDW Coeff of Uma 16.2 H, Plt Count 184, MPV 11.2, Immature Gran % (Auto) 0.700, Neut % (Auto) 82.2 H, Lymph % (Auto) 8.2 L, [place] % (Auto) 7.5, Eos % (Auto) 1.2, Baso % (Auto) 0.2, Absolute Neuts (auto) 6.8, Absolute Lymphs (auto) 0.68 L, Nucleated RBC % 0 09/08/19 06:00: Sodium 138, Potassium 4.7, Chloride 106, Carbon Dioxide 30.0, Anion Gap 2 L, BUN 26 H, Creatinine 1.58 H, Estim Creat Clear Calc 41.84, Est GFR (MDRD) Af Amer 56 L, Est GFR (MDRD) Non-Af 47 L, BUN/Creatinine Ratio 16.5, Glucose 119 H, Calcium 7.9 L Current Medications Acetaminophen (Tylenol) 650 mg PO Q6H PRN PRN PRN Reason: Pain Score 1-3/Temp > 100.7 F Last Admin: 09/08/19 05:05 Dose: 650 mg Documented by: Alendronate Sodium (Fosamax) 70 mg PO RIDLEY [facility] Furosemide (Lasix) 20 mg PO DAILY [facility] Hydrocortisone Sodium Succinate (Solu-Cortef) 50 mg IV Q8 [facility] Last Admin: 09/08/19 05:06 Dose: 50 mg Documented by: Hydromorphone HCl (Dilaudid Inj) 0.5 - 1 mg IV Q2H PRN PRN PRN Reason: Pain Score 1-10/10 Hydromorphone HCl (Dilaudid Inj) 0.5 - 1 mg IV Q2H PRN PRN PRN Reason: Pain Score 1-10/10 Piperacillin Sod/Tazobactam (Sod 3.375 gm/ Sodium Chloride) 50 mls @ 12.5 mls/hr IV Q8 [facility] Last Admin: 09/08/19 05:04 Dose: 12.5 mls/hr Documented by: Sodium Chloride () 250 mls @ 15 mls/hr IV .[id number] PRN PRN Reason: Saline Flush Last Infusion: 09/08/19 05:04 Dose: 0 mls/hr Documented by: Sodium Chloride () 1,000 mls @ 100 mls/hr IV .Q10H [facility] Last Admin: 09/08/19 06:54 Dose: 100 mls/hr Documented by: Lisinopril (Zestril) 5 mg PO DAILY [facility] Metoprolol Tartrate (Lopressor (Beta Sharmaine)) 100 mg PO BID [facility] Last Admin: 09/07/19 21:32 Dose: 100 mg Documented by: Ondansetron HCl (Zofran) 4 mg IV Q8H PRN PRN PRN Reason: NAUSEA Oxycodone HCl (Oxyir) 5 - 10 mg PO Q4H PRN PRN PRN Reason: Pain Score 1-10/10 Last Admin: 09/08/19 02:11 Dose: 5 mg Documented by: Pantoprazole Sodium (Protonix) 40 mg PO DAILY [facility] Sodium Chloride () 10 - 40 ml IV UD PRN PRN Reason: SALINE FLUSH Last Admin: 09/08/19 05:06 Dose: 10 ml Documented by: Tacrolimus (Prograf) 1 mg PO BID [facility] Last Admin: 09/07/19 21:33 Dose: 1 mg Documented by: Medical Necessity - Tobacco Use Smoking Status: Former smoker Assessment/Plan All Active Problems Appendicitis (Acute) I am seeing this patient in conjunction with Dr. Holt. S/p laparoscopic appendectomy Will discuss patient with Dr. Holt Leave JEFF drain intact Patient distended Await GI function Labs reviewed Possible discharge later today, more likely tomorrow. Continue IV antibiotics Will remove left axillary drain later today We will continue to monitor this patient Code Visit Inpatient E&M: 64787 [facility] Hosp L1 - No charge
--- NOTE | 2019-09-08 08:46 | PN_ITS ---
Patient Problems: Active and Suspected Problems Appendicitis (Acute) Reason for Visit: Follow-up laparoscopic appendectomy Subjective: Patient is a 69-year-old gentleman admitted with abdominal pain found to have acute gangrenous appendicitis for which patient underwent emergent laparoscopic appendectomy on 09/07/2019 hospitalist service consulted to assist with management of patient medical comorbidities Objective: GENERAL: cooperative HEENT: Atraumatic; EYES; Anicteric, Normal Conjunctiva NECK; supple, normal thyroid, RESPIRATORY: Diminished to auscultation CARDIOVASCULAR: Regular S1 S2, GI: soft, normoactive bowel sounds, : No Renal angle tenderness; EXTREMITIES: No edema, no clubbing, MUSCULOSKELETAL: no muscle waisting NEURO: Awake; no lateralizing signs. SKIN: No Rash PSYCH; Flat affect Vitals/I&O's: Vital Signs Temp Pulse Resp BP Pulse Ox 97.7 F L 79 16 123/75 H 99 09/08/19 05:11 09/08/19 05:11 09/08/19 05:11 09/08/19 05:11 09/08/19 05:11 Oxygen Flow Rate (L/min) 2 Oxygen Delivery Method Nasal Cannula Weight: 109.1 kg Body Mass Index (BMI) 37.0 Intake and Output for Last 24 Hours 09/06/19 09/07/19 09/08/19 23:59 23:59 23:59 Intake Total 1858.33 / 1858.33 1270.33 / 1270.33 Output Total 85 / 85 640 / 640 Balance 1773.33 / 1773.33 630.33 / 630.33 Laboratory Results 09/07/19 09:10: WBC 15.3 H, RBC 4.56 L, Hgb 12.9 L, Hct 41.8, MCV 91.7, MCH 28.3, MCHC 30.9 L, RDW Std Deviation 54.5 H, RDW Coeff of Uma 16.2 H, Plt Count 244, MPV 11.0, Immature Gran % (Auto) 0.700, Neut % (Auto) 87.5 H, Lymph % (Auto) 5.1 L, [place] % (Auto) 6.4, Eos % (Auto) 0.2, Baso % (Auto) 0.1, Absolute Neuts (auto) 13.4 H, Absolute Lymphs (auto) 0.78 L, Nucleated RBC % 0 09/07/19 09:10: Sodium 134 L, Potassium 4.5, Chloride 98, Carbon Dioxide 30.0, Anion Gap 6, BUN 28 H, Creatinine 1.61 H, Estim Creat Clear Calc 41.06, Est GFR (MDRD) Af Amer 55 L, Est GFR (MDRD) Non-Af 46 L, BUN/Creatinine Ratio 17.4, Glucose 143 H, Calcium 9.1, Total Bilirubin 0.80, Direct Bilirubin 0.23, AST 13 L, ALT 20, Alkaline Phosphatase 52, Total Protein 7.8, Albumin 3.6, Globulin 4.2, Lipase 40 L 09/07/19 09:35: Urine Color Yellow, Urine Clarity Clear, Urine pH 5.0, Ur Specific [place] 1.015, Urine Protein 30 H, Urine Glucose (UA) Normal, Urine Ketones 5 H, Urine Occult Blood Negative, Urine Nitrite Negative, Urine Bilirubin 1 H, Urine Urobilinogen Normal, Ur Leukocyte Esterase 25 H, Urine RBC 0 SEEN, Urine WBC 0-5 SEEN, Ur Squamous Epith Cells 0 SEEN, Urine Bacteria 0 SEEN, Hyaline Casts 0-5 SEEN, Urine Mucus 0 SEEN 09/08/19 06:00: WBC 8.3, RBC 3.76 L, Hgb 10.7 L, Hct 35.3 L, MCV 93.9, MCH 28.5, MCHC 30.3 L, RDW Std Deviation 56.2 H, RDW Coeff of Uma 16.2 H, Plt Count 184, MPV 11.2, Immature Gran % (Auto) 0.700, Neut % (Auto) 82.2 H, Lymph % (Auto) 8.2 L, [place] % (Auto) 7.5, Eos % (Auto) 1.2, Baso % (Auto) 0.2, Absolute Neuts (auto) 6.8, Absolute Lymphs (auto) 0.68 L, Nucleated RBC % 0 09/08/19 06:00: Sodium 138, Potassium 4.7, Chloride 106, Carbon Dioxide 30.0, Anion Gap 2 L, BUN 26 H, Creatinine 1.58 H, Estim Creat Clear Calc 41.84, Est GFR (MDRD) Af Amer 56 L, Est GFR (MDRD) Non-Af 47 L, BUN/Creatinine Ratio 16.5, Glucose 119 H, Calcium 7.9 L Current Medications Acetaminophen (Tylenol) 650 mg PO Q6H PRN PRN PRN Reason: Pain Score 1-3/Temp > 100.7 F Last Admin: 09/08/19 05:05 Dose: 650 mg Documented by: Alendronate Sodium (Fosamax) 70 mg PO RIDLEY [facility] Furosemide (Lasix) 20 mg PO DAILY [facility] Hydrocortisone Sodium Succinate (Solu-Cortef) 50 mg IV Q8 [facility] Last Admin: 09/08/19 05:06 Dose: 50 mg Documented by: Hydromorphone HCl (Dilaudid Inj) 0.5 - 1 mg IV Q2H PRN PRN PRN Reason: Pain Score 1-10/10 Hydromorphone HCl (Dilaudid Inj) 0.5 - 1 mg IV Q2H PRN PRN PRN Reason: Pain Score 1-10/10 Piperacillin Sod/Tazobactam (Sod 3.375 gm/ Sodium Chloride) 50 mls @ 12.5 mls/hr IV Q8 [facility] Last Admin: 09/08/19 05:04 Dose: 12.5 mls/hr Documented by: Sodium Chloride () 250 mls @ 15 mls/hr IV .[id number] PRN PRN Reason: Saline Flush Last Infusion: 09/08/19 05:04 Dose: 0 mls/hr Documented by: Sodium Chloride () 1,000 mls @ 100 mls/hr IV .Q10H [facility] Last Admin: 09/08/19 06:54 Dose: 100 mls/hr Documented by: Lisinopril (Zestril) 5 mg PO DAILY [facility] Metoprolol Tartrate (Lopressor (Beta Sharmaine)) 100 mg PO BID [facility] Last Admin: 09/07/19 21:32 Dose: 100 mg Documented by: Ondansetron HCl (Zofran) 4 mg IV Q8H PRN PRN PRN Reason: NAUSEA Oxycodone HCl (Oxyir) 5 - 10 mg PO Q4H PRN PRN PRN Reason: Pain Score 1-10/10 Last Admin: 09/08/19 02:11 Dose: 5 mg Documented by: Pantoprazole Sodium (Protonix) 40 mg PO DAILY [facility] Sodium Chloride () 10 - 40 ml IV UD PRN PRN Reason: SALINE FLUSH Last Admin: 09/08/19 05:06 Dose: 10 ml Documented by: Tacrolimus (Prograf) 1 mg PO BID [facility] Last Admin: 09/07/19 21:33 Dose: 1 mg Documented by: STROKE Vital Signs/Narrative: Vital Signs Temp Pulse Resp BP Pulse Ox 09/08/19 05:11 97.7 F L 79 16 123/75 H 99 Medical Necessity - Tobacco Use Smoking Status: Former smoker Assessment/Plan All Active Problems Appendicitis (Acute) Patient is a 69-year-old gentleman admitted with abdominal pain found to have acute gangrenous appendicitis for which patient underwent emergent laparoscopic appendectomy on 09/07/2019 hospitalist service consulted to assist with management of patient medical comorbidities 1. Acute gangrenous appendicitis ~Status post laparoscopic appendectomy on 09/07/2019. Patient managed with IV antibiotics. Postoperative orders regarding pain management and when to begin diet defer to general surgery 2. 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 Did continue a set for prednisone which was replaced with IV hydrocortisone 3. Chronic kidney disease stage III ~Baseline creatinine around 1.5 admitting creatinine was 1.68 patient is on IV fluids with subsequent monitoring 4. Hypertension ~ blood pressure controlled, home medications continued with dose adjustment as needed 5. Dyslipidemia ~patient is on statin therapy, continued at home dose 6. Obesity with BMI of 37.1 ~Weight loss advised 7. DVT prophylaxis ~ on enoxaparin Advance planning; did discuss with the patient and family regarding advanced directives as well as CODE STATUS. Did explain the various scenarios involved ( FULL CODE, DNR CCA, DNR CCA with no intubation, and DNR CC and what each meant) patient elected main full code with intubation and CPR if needed. Order was placed. Time spent on discussion 18 minutes. Code Visit Inpatient E&M: 31616 Subs Hosp L2 Procedures: 34356 Advncd Care Plan 30 Min
--- NOTE | 2019-09-08 11:50 | CASEMGMT ---
RN TRUPTI PATENT AGENT CM to room to meet with patient for initial transition planning/care coordination assessment. KAIDEN LYLES introduced self and role at [facility]. Pt voices understanding and consents to assessment at this time. Pt resting in bed in no distress at this time. Pt is A/O at this time and answers all questions appropriately. Care providers, pharmacy, and demographics verified at this time. PCP: Dr Jones Specialists: [facility]/Transplant Team Preferred Pharmacy: [facility] Retail Insurance: [facility], A[employer] Prescription Benefit: Yes Living Will/HPOA: Has both LW and HCPOA, who is his , Princess Craft LNOK: Living Arrangements: Lives with his in bi-level home. Denies difficulty with stairs. Independent prior to hospitalization. supportive. Transportation: Pt states drives self and states no transportation concerns at this time. also drives. DME: Denies using any DME and denies needs. HHC/SNF: No history of either. No needs identified. Pt wishes to return home and states has no concerns with going home at time of discharge. CM to follow for any discharge planning/needs. Pt voices no further concerns/needs at this time. Advised pt to ask for CM if any further questions/concerns/needs arise. Voices understanding. Pt discharge plan: Home Plan: Home Alayna BRUCE RN, CM
[2019-09-08] MEDS: Pantoprazole Sodium 40 MG Tablet PO (12:16)
[2019-09-08] MEDS: Furosemide 20 MG Tablet PO (12:17)
[2019-09-08] MEDS: Metoprolol Tartrate 100 MG Tablet PO ×2 (12:17→21:53)
[2019-09-08] MEDS: Lisinopril 5 MG Tablet PO (12:17)
[2019-09-08] MEDS: Tacrolimus Anhydrous 1 MG Capsule PO ×2 (12:21→21:52)
[2019-09-09 02:10] VITALS: BP 127/92; PULSE 83; RESP 18; TEMP 36.4; O2SAT 99
[2019-09-09] MEDS: 0.9% Normal Saline 1,000 ML 100 ML IV (02:30)
[2019-09-09] MEDS: Hydrocortisone Sod Succinate 100 MG/2 ML Vial 50 MG IV (05:29)
[2019-09-09] MEDS: 0.9% Saline Lock 10 ML Syringe IV (05:30)
[2019-09-09 05:48] LABS: Absolute Lymphocyte Count 0.61 X10^3/uL (0.83-4.51); Absolute Neutrophil Count 7.2 X10^3/uL (2.0-7.7); Basophil# 0.02 X10^3/uL; Basophil% 0.2 % (0-1); Eosinophil# 0.07 X10^3/uL; Eosinophils% 0.8 % (0-5); Hematocrit 40.2 % (40-54); Lymphocyte # 0.61 X10^3/ul (4.0); Lymphocyte % 7.2 % (19-41); Mean Corp Hgb Conc 29.9 g/dL (32-36); Mean Corpuscular Hgb 28.2 pg (27.0-32.0); Mean Corpuscular Volume 94.4 fL (80-94); Mean Platelet Vol. 10.9 fl (6.2-12.0); Monocyte# 0.53 X10^3/uL; Monocyte% 6.3 % (0-10); NRBC Flagged by Analyzer 0 % (0-5); Neutrophil % 84.9 % (47-70); Platelet Count 241 K/mm3 (150-450); RBC Distribution Width CV 15.9 % (11.6-14.6); RBC Distribution Width SD 55.8 fl (35.1-43.9); Red Blood Count 4.26 M/mm3 (4.6-6.2); White Blood Count 8.5 K/mm3 (4.4-11.0)
[2019-09-09 06:05] LABS: BUN 23 mg/dL (7-18); Creatinine, Serum 1.29 mg/dL (0.70-1.30); Glucose 130 mg/dL (74-106)
[2019-09-09 06:06] LABS: Anion Gap 2 (5-15); BUN/Creat Ratio 17.8 RATIO (10-20); Calcium,Total 7.9 mg/dL (8.5-10.1); Chloride 108 mmol/L (98-107); EST Glomerular Filtration Rate 59 mL/min (>60); Est Glom Filt Rate - Afr Amer 71 mL/min (>60); Estimated Creatinine Clearance 51.24 ml/min; Magnesium 2.3 mg/dL (1.6-2.6); Potassium 4.8 mmol/L (3.5-5.1); Sodium Level 138 mmol/L (136-145)
[2019-09-09 07:19] VITALS: O2SAT 98
--- NOTE | 2019-09-09 07:21 | PN_ITS ---
Patient Problems: Active and Suspected Problems Appendicitis (Acute) Vitals/I&O's: Vital Signs Temp Pulse Resp BP Pulse Ox 97.5 F L 83 18 127/92 H 99 09/09/19 02:10 09/09/19 02:10 09/09/19 02:10 09/09/19 02:10 09/09/19 02:10 Oxygen Flow Rate (L/min) 1 Oxygen Delivery Method Nasal Cannula Weight: 109.1 kg Body Mass Index (BMI) 37.0 Intake and Output for Last 24 Hours 09/07/19 09/08/19 09/09/19 23:59 23:59 23:59 Intake Total 1858.33 / 1858.33 3210.33 / 3710.33 1969 / 1969 Output Total 85 / 85 1900 / 1901 876 / 876 Balance 1773.33 / 1773.33 1310.33 / 1809.33 1094 / 1094 Laboratory Results 09/09/19 05:30: WBC 8.5, RBC 4.26 L, Hgb 12.0 L, Hct 40.2, MCV 94.4 H, MCH 28.2, MCHC 29.9 L, RDW Std Deviation 55.8 H, RDW Coeff of Uma 15.9 H, Plt Count 241, MPV 10.9, Immature Gran % (Auto) 0.600, Neut % (Auto) 84.9 H, Lymph % (Auto) 7.2 L, [place] % (Auto) 6.3, Eos % (Auto) 0.8, Baso % (Auto) 0.2, Absolute Neuts (auto) 7.2, Absolute Lymphs (auto) 0.61 L, Nucleated RBC % 0 09/09/19 05:30: Sodium 138, Potassium 4.8, Chloride 108 H, Carbon Dioxide 28.0, Anion Gap 2 L, BUN 23 H, Creatinine 1.29, Estim Creat Clear Calc 51.24, Est GFR (MDRD) Af Amer 71, Est GFR (MDRD) Non-Af 59 L, BUN/Creatinine Ratio 17.8, Glucose 130 H, Calcium 7.9 L, Magnesium 2.3 Current Medications Acetaminophen (Tylenol) 650 mg PO Q6H PRN PRN PRN Reason: Pain Score 1-3/Temp > 100.7 F Last Admin: 09/08/19 20:54 Dose: 650 mg Documented by: Alendronate Sodium (Fosamax) 70 mg PO RIDLEY [facility] Furosemide (Lasix) 20 mg PO DAILY [facility] Last Admin: 09/08/19 12:17 Dose: 20 mg Documented by: Hydrocortisone Sodium Succinate (Solu-Cortef) 50 mg IV Q8 [facility] Last Admin: 09/09/19 05:29 Dose: 50 mg Documented by: Hydromorphone HCl (Dilaudid Inj) 0.5 - 1 mg IV Q2H PRN PRN PRN Reason: Pain Score 1-10/10 Hydromorphone HCl (Dilaudid Inj) 0.5 - 1 mg IV Q2H PRN PRN PRN Reason: Pain Score 1-10/10 Piperacillin Sod/Tazobactam (Sod 3.375 gm/ Sodium Chloride) 50 mls @ 12.5 mls/hr IV Q8 [facility] Last Admin: 09/09/19 05:39 Dose: 12.5 mls/hr Documented by: Sodium Chloride () 250 mls @ 15 mls/hr IV .[id number] PRN PRN Reason: Saline Flush Last Infusion: 09/08/19 17:58 Dose: 15 mls/hr Documented by: Sodium Chloride () 1,000 mls @ 100 mls/hr IV .Q10H [facility] Last Admin: 09/09/19 02:30 Dose: 100 mls/hr Documented by: Lisinopril (Zestril) 5 mg PO DAILY [facility] Last Admin: 09/08/19 12:17 Dose: 5 mg Documented by: Metoprolol Tartrate (Lopressor (Beta Sharmaine)) 100 mg PO BID [facility] Last Admin: 09/08/19 21:53 Dose: 100 mg Documented by: Ondansetron HCl (Zofran) 4 mg IV Q8H PRN PRN PRN Reason: NAUSEA Oxycodone HCl (Oxyir) 5 - 10 mg PO Q4H PRN PRN PRN Reason: Pain Score 1-10/10 Last Admin: 09/08/19 21:53 Dose: 5 mg Documented by: Pantoprazole Sodium (Protonix) 40 mg PO DAILY [facility] Last Admin: 09/08/19 12:16 Dose: 40 mg Documented by: Sodium Chloride () 10 - 40 ml IV UD PRN PRN Reason: SALINE FLUSH Last Admin: 09/09/19 05:30 Dose: 10 ml Documented by: Tacrolimus (Prograf) 1 mg PO BID [facility] Last Admin: 09/08/19 21:52 Dose: 1 mg Documented by: Medical Necessity - Tobacco Use Smoking Status: Former smoker Assessment/Plan All Active Problems Appendicitis (Acute)
--- NOTE | 2019-09-09 07:22 | PN_ITS ---
Patient Problems: Active and Suspected Problems Appendicitis (Acute) Reason for Visit: Postoperative day 2 following appendectomy Subjective: Postoperative day 2 following appendectomy, patient seen [facility] Objective: GENERAL: cooperative HEENT: Atraumatic; EYES; Anicteric, Normal Conjunctiva NECK; supple, normal thyroid, RESPIRATORY: Diminished to auscultation CARDIOVASCULAR: Regular S1 S2, GI: Abdomen is distended, JEFF drain RLQ : No Renal angle tenderness; EXTREMITIES: No edema, no clubbing, MUSCULOSKELETAL: no muscle waisting NEURO: Awake; no lateralizing signs. SKIN: No Rash PSYCH; Flat affect Vitals/I&O's: Vital Signs Temp Pulse Resp BP Pulse Ox 97.5 F L 83 18 127/92 H 99 09/09/19 02:10 09/09/19 02:10 09/09/19 02:10 09/09/19 02:10 09/09/19 02:10 Oxygen Flow Rate (L/min) 1 Oxygen Delivery Method Nasal Cannula Weight: 109.1 kg Body Mass Index (BMI) 37.0 Intake and Output for Last 24 Hours 09/07/19 09/08/19 09/09/19 23:59 23:59 23:59 Intake Total 1858.33 / 1858.33 3210.33 / 3710.33 1970 / 1970 Output Total 85 / 85 1900 / 1901 876 / 876 Balance 1773.33 / 1773.33 1310.33 / 1809.33 1094 / 1094 Laboratory Results 09/09/19 05:30: WBC 8.5, RBC 4.26 L, Hgb 12.0 L, Hct 40.2, MCV 94.4 H, MCH 28.2, MCHC 29.9 L, RDW Std Deviation 55.8 H, RDW Coeff of Uma 15.9 H, Plt Count 241, MPV 10.9, Immature Gran % (Auto) 0.600, Neut % (Auto) 84.9 H, Lymph % (Auto) 7.2 L, [place] % (Auto) 6.3, Eos % (Auto) 0.8, Baso % (Auto) 0.2, Absolute Neuts (auto) 7.2, Absolute Lymphs (auto) 0.61 L, Nucleated RBC % 0 09/09/19 05:30: Sodium 138, Potassium 4.8, Chloride 108 H, Carbon Dioxide 28.0, Anion Gap 2 L, BUN 23 H, Creatinine 1.29, Estim Creat Clear Calc 51.24, Est GFR (MDRD) Af Amer 71, Est GFR (MDRD) Non-Af 59 L, BUN/Creatinine Ratio 17.8, Glucose 130 H, Calcium 7.9 L, Magnesium 2.3 Current Medications Acetaminophen (Tylenol) 650 mg PO Q6H PRN PRN PRN Reason: Pain Score 1-3/Temp > 100.7 F Last Admin: 09/08/19 20:54 Dose: 650 mg Documented by: Alendronate Sodium (Fosamax) 70 mg PO RIDLEY [facility] Furosemide (Lasix) 20 mg PO DAILY [facility] Last Admin: 09/08/19 12:17 Dose: 20 mg Documented by: Hydrocortisone Sodium Succinate (Solu-Cortef) 50 mg IV Q8 [facility] Last Admin: 09/09/19 05:29 Dose: 50 mg Documented by: Hydromorphone HCl (Dilaudid Inj) 0.5 - 1 mg IV Q2H PRN PRN PRN Reason: Pain Score 1-10/10 Hydromorphone HCl (Dilaudid Inj) 0.5 - 1 mg IV Q2H PRN PRN PRN Reason: Pain Score 1-10/10 Piperacillin Sod/Tazobactam (Sod 3.375 gm/ Sodium Chloride) 50 mls @ 12.5 mls/hr IV Q8 [facility] Last Admin: 09/09/19 05:39 Dose: 12.5 mls/hr Documented by: Sodium Chloride () 250 mls @ 15 mls/hr IV .[id number] PRN PRN Reason: Saline Flush Last Infusion: 09/08/19 17:58 Dose: 15 mls/hr Documented by: Sodium Chloride () 1,000 mls @ 100 mls/hr IV .Q10H [facility] Last Admin: 09/09/19 02:30 Dose: 100 mls/hr Documented by: Lisinopril (Zestril) 5 mg PO DAILY [facility] Last Admin: 09/08/19 12:17 Dose: 5 mg Documented by: Metoprolol Tartrate (Lopressor (Beta Sharmaine)) 100 mg PO BID [facility] Last Admin: 09/08/19 21:53 Dose: 100 mg Documented by: Ondansetron HCl (Zofran) 4 mg IV Q8H PRN PRN PRN Reason: NAUSEA Oxycodone HCl (Oxyir) 5 - 10 mg PO Q4H PRN PRN PRN Reason: Pain Score 1-10/10 Last Admin: 09/08/19 21:53 Dose: 5 mg Documented by: Pantoprazole Sodium (Protonix) 40 mg PO DAILY [facility] Last Admin: 09/08/19 12:16 Dose: 40 mg Documented by: Sodium Chloride () 10 - 40 ml IV UD PRN PRN Reason: SALINE FLUSH Last Admin: 09/09/19 05:30 Dose: 10 ml Documented by: Tacrolimus (Prograf) 1 mg PO BID [facility] Last Admin: 09/08/19 21:52 Dose: 1 mg Documented by: Medical Necessity - Tobacco Use Smoking Status: Former smoker Assessment/Plan All Active Problems Appendicitis (Acute) Patient is a 69-year-old gentleman admitted with abdominal pain found to have acute gangrenous appendicitis for which patient underwent emergent laparoscopic appendectomy on 09/07/2019 hospitalist service consulted to assist with management of patient medical comorbidities 1. Acute gangrenous appendicitis ~Status post laparoscopic appendectomy on 09/07/2019. Patient managed with IV antibiotics. Postoperative orders regarding pain management and when to begin diet defer to general surgery ?09/09/2019 postoperative day 2 patient tolerating oral diet passing gas. 2. 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 Did continue a set for prednisone which was replaced with IV hydrocortisone 3. Chronic kidney disease stage III ~Baseline creatinine around 1.5 admitting creatinine was 1.68 patient is on IV fluids with subsequent monitoring ?09/09/2019 patient has had significant improvement in creatinine down to 1.29. 4. Hypertension ~ blood pressure controlled, home medications continued with dose adjustment as needed 5. Dyslipidemia ~patient is on statin therapy, continued at home dose 6. Obesity with BMI of 37.1 ~Weight loss advised 7. DVT prophylaxis ~ on enoxaparin Code Visit Inpatient E&M: 58842 Subs Hosp L2
[2019-09-09 08:10] VITALS: BP 154/98; PULSE 83; RESP 18; TEMP 37; O2SAT 93
[2019-09-09] MEDS: oxyCODONE 5 MG Tablet PO (08:54)
[2019-09-09 09:00] VITALS: RESP 18
--- NOTE | 2019-09-09 09:31 | DCINST_ITS ---
Discharge Diet: Light diet - advance as tolerated - if you have questions about your diet instructions, please talk to you doctor. Discharge Activity: May Not Drive - for 3-5 days or while taking narcotic pain meds. May shower in (days): 1 Call your doctor if your incision/area has: Continuous Slow Oozing, Sudden Increased Bleeding, Increased Pain/ Swelling, Increased Redness, Foul Smelling Discharge Call your doctor if you observe: Fever of 101 or Higher Suture Line Care: Avoid Pulling/Pushing, Avoid Pinching/Bending Additional Dressing/Incision Instructions:: Keep dressing clean and dry. Change or remove dressing in 2 days. Leave steri strips for 1 week. May protect with a gauze bandaid. Medications to take at Discharge Acetaminophen [Tylenol] 325 mg PO Q4H PRN 01/21/16 Alendronate Sodium [Fosamax] 70 mg PO RIDLEY 01/21/16 Aspirin 325 mg PO DAILY@0800 01/21/16 Azithromycin [Zithromax] 250 mg PO MOWEFR 01/21/16 Furosemide [Lasix] 20 mg PO DAILY 01/21/16 Pantoprazole Sodium [Protonix] 40 mg PO DAILY 01/21/16 Smz/Tmp Ds [Bactrim Ds] 800 mg PO MOWEFR 01/21/16 Tacrolimus Anhydrous [Prograf] 1 mg PO BID 01/21/16 Ferrous Sulfate 325 mg PO DAILY 09/07/19 Lisinopril 5 mg PO DAILY 09/07/19 Metoprolol Tartrate 100 mg PO BID 09/07/19 Multivitamin with Minerals [Multiple Vitamin] 1 tab PO DAILY 09/07/19 Prednisone 5 mg PO DAILY 09/07/19 Rosuvastatin Calcium 20 mg PO DAILY 09/07/19 Oxycodone HCl/Acetaminophen [Percocet 5/325] 1 - 2 tablet PO Q4H PRN PRN 7 Days #30 tablet 09/09/19 Allergies/Adverse Reactions: Allergies No Known Allergies Allergy (Verified 09/07/19 08:57) The following prescriptions were given: Oxycodone HCl/Acetaminophen [Percocet 5/325] 1 - 2 tablet PO Q4H PRN PRN 7 Days #30 tablet PRN Reason: Pain Transmission Status: Sent to [facility] Primary Care Physician: Fahad Jones MD [Primary Care Provider] - Test Results: Test results from this visit will be discussed in further detail at your follow- up appointment, if applicable. Please Follow Up With: Khang Holt MD - [phone] When: Call to make a follow up appointment with your doctor in 1 week.
--- NOTE | 2019-09-09 09:32 | PCM.PN.SRG ---
Patient Problems: Active and Suspected Problems Appendicitis (Acute) Subjective: Tolerating p.o. passing flatus pain is well controlled. Has had a lot of drainage from his JEFF of the abdomen but it is all yellow in nature and all serous. He has less than 20 cc/day coming out of his axillary drain. Objective: JEFF drain removed from left axilla as well as abdomen without difficulty. Abdomen is soft tender around the incisions only. - Physical Exam Vitals/I&O's: Vital Signs Temp Pulse Resp BP Pulse Ox 97.5 F L 83 18 127/92 H 98 09/09/19 02:10 09/09/19 02:10 09/09/19 02:10 09/09/19 02:10 09/09/19 07:19 Oxygen Flow Rate (L/min) 1 Oxygen Delivery Method Nasal Cannula Weight: 240 lb 8.389 oz Body Mass Index (BMI) 37.0 Intake and Output for Last 24 Hours 09/07/19 09/08/19 09/09/19 23:59 23:59 23:59 Intake Total 1858.33 / 1858.33 3210.33 / 3710.33 1969 / 1969 Output Total 85 / 85 1900 / 1901 876 / 876 Balance 1773.33 / 1773.33 1310.33 / 1809.33 1094 / 1094 Laboratory Results 09/09/19 05:30: WBC 8.5, RBC 4.26 L, Hgb 12.0 L, Hct 40.2, MCV 94.4 H, MCH 28.2, MCHC 29.9 L, RDW Std Deviation 55.8 H, RDW Coeff of Uma 15.9 H, Plt Count 241, MPV 10.9, Immature Gran % (Auto) 0.600, Neut % (Auto) 84.9 H, Lymph % (Auto) 7.2 L, [place] % (Auto) 6.3, Eos % (Auto) 0.8, Baso % (Auto) 0.2, Absolute Neuts (auto) 7.2, Absolute Lymphs (auto) 0.61 L, Nucleated RBC % 0 09/09/19 05:30: Sodium 138, Potassium 4.8, Chloride 108 H, Carbon Dioxide 28.0, Anion Gap 2 L, BUN 23 H, Creatinine 1.29, Estim Creat Clear Calc 51.24, Est GFR (MDRD) Af Amer 71, Est GFR (MDRD) Non-Af 59 L, BUN/Creatinine Ratio 17.8, Glucose 130 H, Calcium 7.9 L, Magnesium 2.3 Current Medications Acetaminophen (Tylenol) 650 mg PO Q6H PRN PRN PRN Reason: Pain Score 1-3/Temp > 100.7 F Last Admin: 09/08/19 20:54 Dose: 650 mg Documented by: Alendronate Sodium (Fosamax) 70 mg PO RIDLEY [facility] Furosemide (Lasix) 20 mg PO DAILY [facility] Last Admin: 09/08/19 12:17 Dose: 20 mg Documented by: Hydrocortisone Sodium Succinate (Solu-Cortef) 50 mg IV Q8 [facility] Last Admin: 09/09/19 05:29 Dose: 50 mg Documented by: Hydromorphone HCl (Dilaudid Inj) 0.5 - 1 mg IV Q2H PRN PRN PRN Reason: Pain Score 1-10/10 Hydromorphone HCl (Dilaudid Inj) 0.5 - 1 mg IV Q2H PRN PRN PRN Reason: Pain Score 1-10/10 Piperacillin Sod/Tazobactam (Sod 3.375 gm/ Sodium Chloride) 50 mls @ 12.5 mls/hr IV Q8 [facility] Last Admin: 09/09/19 05:39 Dose: 12.5 mls/hr Documented by: Sodium Chloride () 250 mls @ 15 mls/hr IV .[id number] PRN PRN Reason: Saline Flush Last Infusion: 09/08/19 17:58 Dose: 15 mls/hr Documented by: Sodium Chloride () 1,000 mls @ 100 mls/hr IV .Q10H [facility] Last Admin: 09/09/19 02:30 Dose: 100 mls/hr Documented by: Lisinopril (Zestril) 5 mg PO DAILY [facility] Last Admin: 09/08/19 12:17 Dose: 5 mg Documented by: Metoprolol Tartrate (Lopressor (Beta Sharmaine)) 100 mg PO BID [facility] Last Admin: 09/08/19 21:53 Dose: 100 mg Documented by: Ondansetron HCl (Zofran) 4 mg IV Q8H PRN PRN PRN Reason: NAUSEA Oxycodone HCl (Oxyir) 5 - 10 mg PO Q4H PRN PRN PRN Reason: Pain Score 1-07/14 Last Admin: 09/09/19 08:54 Dose: 10 mg Documented by: Pantoprazole Sodium (Protonix) 40 mg PO DAILY [facility] Last Admin: 09/08/19 12:16 Dose: 40 mg Documented by: Sodium Chloride () 10 - 40 ml IV UD PRN PRN Reason: SALINE FLUSH Last Admin: 09/09/19 05:30 Dose: 10 ml Documented by: Tacrolimus (Prograf) 1 mg PO BID [facility] Last Admin: 09/08/19 21:52 Dose: 1 mg Documented by: Medical Necessity - Tobacco Use Smoking Status: Former smoker Assessment/Plan All Active Problems Appendicitis (Acute) We will discharge the patient home today. Have instructed them that if his pain were to recur it is more likely he has an abscess that needs to be dealt with and he will need to be seen in an emergent fashion. However I doubt that this is going to happen his white count has precipitously come back down to normal and his diet is fine without fevers.
[2019-09-09] MEDS: Lisinopril 5 MG Tablet PO (10:06)
[2019-09-09] MEDS: Pantoprazole Sodium 40 MG Tablet PO (10:06)
[2019-09-09] MEDS: Furosemide 20 MG Tablet PO (10:07)
[2019-09-09] MEDS: Tacrolimus Anhydrous 1 MG Capsule PO (10:09)
[2019-09-09 10:10] VITALS: BP 154/98; PULSE 83
[2019-09-09] MEDS: Metoprolol Tartrate 100 MG Tablet PO (10:10)
[2019-09-09 11:57] VITALS: BP 130/70; PULSE 74; RESP 18; TEMP 37; O2SAT 94
--- NOTE | 2019-09-12 16:16 | CASEMGMT ---
Case Management DC F/u Call: DC Date: 09/09/19 DC Diagnosis: Appendicitis (Acute) DC Disposition: Home Lace/Strata: 07/07 Called patient listed cell phone on demographics, answered and this documentation writer introduced self and role. Patient states that he is doing great, states not taking much pain medication. Confirmed has a f/u appointment on 09/15/19 at 1300. Denies any issues, questions or concerns with [facility], medications or f/u. Thanked patient for choosing care at [facility] and ended conversation. Cali Martini, RNCM
== END 2019-09-09 12:00 | disposition home or self-care (01) | DRG 342 ==
LOC: ED 13:31 → SDC 14:30 → MS3 16:27 → SDC 16:31 → MS3 09-08 06:55
PROVIDERS: Physician Assistant; Admitting Provider Surgery; Emergency Provider Emergency Medicine; Family Provider Family Medicine; PCP Family Medicine; Referring Provider Surgery; Visit Provider Internal Medicine
PROC: 0DTJ4ZZ Resection of Appendix, Percutaneous Endoscopic Approach (ICD-10-PCS; CPT 44970; principal; 2019-09-07 14:40)
DX: K35.31 Acute appendicitis with localized peritonitis and gangrene, without perforation (principal); Z94.2 Lung transplant status; Z48.24 Encounter for aftercare following lung transplant; J44.9 Chronic obstructive pulmonary disease, unspecified; N18.3 Chronic kidney disease, stage 3 (moderate); I12.9 Hypertensive chronic kidney disease with stage 1 through stage 4 chronic kidney disease, or unspecified chronic kidney disease; E78.5 Hyperlipidemia, unspecified; Z68.37 Body mass index [BMI] 37.0-37.9, adult; Z79.899 Other long term (current) drug therapy; E66.9 Obesity, unspecified; Z87.891 Personal history of nicotine dependence; Z51.81 Encounter for therapeutic drug level monitoring
CPT/HCPCS: 36415; 71046; 74176; 80048; 80076; 80195; 80197; 81001; 82040; 82247; 82248; 82728; 82784; 82977; 83036; 83540; 83550; 83690; 83735; 84075; 84100; 84450; 84460; 84466; 84550; 85025; 87496; 88304; 93005; 99251; 99285; J7030; J7050; J7120; A4216; C1760; G0463; J2405

== ENCOUNTER 2019-10-19 08:21 | Outpatient (RCR) | payer MEDICARE, OTHER, SELFPAY ==
[2019-09-07 17:28] VITALS: BMI 37.0
[2019-10-03 09:13] VITALS: BMI 36.1
[2019-10-19 10:05] LABS: Absolute Lymphocyte Count 0.97 X10^3/uL (0.83-4.51); Absolute Neutrophil Count 3.8 X10^3/uL (2.0-7.7); Basophil# 0.05 X10^3/uL; Basophil% 0.9 % (0-1); Eosinophil# 0.36 X10^3/uL; Eosinophils% 6.2 % (0-5); Hematocrit 41.6 % (40-54); Hemoglobin 12.6 g/dL (13.0-16.5); Lymphocyte # 0.97 X10^3/ul (4.0); Lymphocyte % 16.8 % (19-41); Mean Corp Hgb Conc 30.3 g/dL (32-36); Mean Corpuscular Hgb 27.7 pg (27.0-32.0); Mean Corpuscular Volume 91.4 fL (80-94); Mean Platelet Vol. 10.2 fl (6.2-12.0); Monocyte# 0.58 X10^3/uL; NRBC Flagged by Analyzer 0 % (0-5); Neutrophil % 65.8 % (47-70); Platelet Count 237 K/mm3 (150-450); RBC Distribution Width CV 16.2 % (11.6-14.6); RBC Distribution Width SD 54.8 fl (35.1-43.9); Red Blood Count 4.55 M/mm3 (4.6-6.2); White Blood Count 5.8 K/mm3 (4.4-11.0)
[2019-10-19 10:37] LABS: AST(SGOT) 19 U/L (15-37); Alanine Aminotransfer ALT/SGPT 27 U/L (16-61); Albumin, Serum 3.7 g/dL (3.2-5.0); Alkaline Phosphatase 44 U/L (45-117); Anion Gap 3 (5-15); BUN 34 mg/dL (7-18); BUN/Creat Ratio 24.6 RATIO (10-20); Calcium,Total 9.1 mg/dL (8.5-10.1); Chloride 101 mmol/L (98-107); Creatinine, Serum 1.38 mg/dL (0.70-1.30); EST Glomerular Filtration Rate 54 mL/min (>60); Est Glom Filt Rate - Afr Amer 66 mL/min (>60); GGTP 16 U/L (15-85); Glucose 92 mg/dL (74-106); Phosphorus 3.4 mg/dL (2.5-4.9); Potassium 4.6 mmol/L (3.5-5.1); Sodium Level 136 mmol/L (136-145); Uric Acid 6.2 mg/dL (3.5-7.2)
[2019-10-21 09:26] LABS: CMV by PCR Negative (Negative); Sirolimus,Blood 6.4 ng/mL (3.0-20.0)
== END 2019-10-19 18:00 | disposition home or self-care (01) ==
LOC: MTLAB 08:21
PROVIDERS: Family Provider Family Medicine; PCP Family Medicine
DX: Z51.0 Encounter for antineoplastic radiation therapy (principal); C44.629 Squamous cell carcinoma of skin of left upper limb, including shoulder; Z94.2 Lung transplant status; R79.9 Abnormal finding of blood chemistry, unspecified; Z48.24 Encounter for aftercare following lung transplant; D89.9 Disorder involving the immune mechanism, unspecified; Z79.899 Other long term (current) drug therapy; Z51.81 Encounter for therapeutic drug level monitoring
CPT/HCPCS: 36415; 77386; 80048; 80195; 80197; 82040; 82247; 82248; 82977; 83735; 84075; 84100; 84450; 84460; 84550; 85025; 87496

== ENCOUNTER → 2019-11-02 10:18 | Outpatient (CLI) | payer MEDICARE, OTHER, SELFPAY ==
[2019-09-07 17:28] VITALS: BMI 37.0
[2019-10-03 09:13] VITALS: BMI 36.1
--- NOTE | 2019-11-02 10:27 | BD_ITS ---
STUDY: DUAL ENERGY X-RAY ABSORPTIOMETRY / DXA REASON FOR EXAM: Male, 69 years old. HX OF BILATERAL LUNG TRANSPLANT 4 YRS AGO -- HX OF SMOKING -- PT ON PREDNISONE [facility] S/P TRANSPLANT -- TAKES LASIX -- TAKES 1000MG CALCIUM + MULTIVITAMIN -- DOES MODERATE AMOUNT OF EXERCISE -- HX OF RIGHT FOOT AND ANKLE FX''s, MULTIPLE COMPRESSION FX''s -- ELKE OF 1.5 INCHES -- PT CURRENTLY HAVING RADIATION TREATMENTS FOR SQUAMOUS CELL CANCER TECHNIQUE: Bone Mineral Density (BMD) measurements of lumbar spine and bilateral hips were obtained. COMPARISON: Comparison is made with prior examination dated April 30, 2017. FINDINGS: Lumbar Spine (L1-L4): g/cm2 (1.197) / T-score (-0.4) / Z-score (0.1) Findings are suggestive of normal bone density with a low fracture risk. Left Femur Total: g/cm2 (0.829) / T-score (-1.9) / Z-score (-1.3) Left Femoral Neck: g/cm2 (0.825) / T-score (-1.9) / Z-score (-0.7) Right Femur Total: g/cm2 (0.759) / T-score (-2.4) / Z-score (-1.7) Right Femoral Neck: g/cm2 (0.776) / T-score (-2.3) / Z-score (-1.1) The T-Scores on the most recent prior examination were: Lumbar Spine (L1-L4): There has been improvement of bone density since the previous examination. Left Femur Total: which represents an improvement of 0.5%. Right Femur Total: which represents an improvement of 0.4%. BD/Dexa Bone Density Study IMPRESSION: The patient is considered osteopenic as outlined below according to World [place] Organization (WHO) criteria with a high fracture risk. There has been improvement of bone density since the previous examination. Reference Information: The T-score is the number of standard deviations above or below the standard which is normal for young adults at their peak bone mineral density. The World Health Organization (WHO) interprets the T-scores as follows: Above -1 Normal bone density Between -1 and -2.5 Osteopenia Equal to / or below -2.5 Osteoporosis As a practical clinical guideline, osteopenia may be graded as follows: Mild -1 through -1.5 Moderate -1.6 through -2.0 Severe -2.1 through -2.4 The Z-score is the number of standard deviations above or below age-matched controls. A Z-score of less than -1.5 would be considered abnormal. References: 1. NIH Osteoporosis and Related Bone Diseases http://www.osteo.org 2. International Society for Clinical Densitometry http://www.iscd.org 3. National Osteoporosis Foundation http://www.nof.org Electronically Signed: Chas Vilchis, at 13:04 EST , Service support ,
== END ==
PROVIDERS: PCP Family Medicine; Referring Provider Internal Medicine Critical Care Medicine; Visit Provider Internal Medicine Critical Care Medicine
DX: Z79.52 Long term (current) use of systemic steroids (principal); Z94.2 Lung transplant status
CPT/HCPCS: 77080

== ENCOUNTER 2019-11-07 07:49 | Outpatient (RCR) | payer MEDICARE, OTHER, SELFPAY ==
[2019-09-07 17:28] VITALS: BMI 37.0
[2019-10-03 09:13] VITALS: BMI 36.1
[2019-11-07 10:29] LABS: Absolute Lymphocyte Count 0.39 X10^3/uL (0.83-4.51); Absolute Neutrophil Count 3.6 X10^3/uL (2.0-7.7); Basophil# 0.04 X10^3/uL; Basophil% 0.8 % (0-1); Eosinophil# 0.31 X10^3/uL; Eosinophils% 6.1 % (0-5); Hematocrit 42.3 % (40-54); Hemoglobin 12.8 g/dL (13.0-16.5); Lymphocyte # 0.39 X10^3/ul (4.0); Lymphocyte % 7.6 % (19-41); Mean Corp Hgb Conc 30.3 g/dL (32-36); Mean Corpuscular Hgb 27.5 pg (27.0-32.0); Mean Corpuscular Volume 90.8 fL (80-94); Mean Platelet Vol. 10.3 fl (6.2-12.0); Monocyte# 0.76 X10^3/uL; Monocyte% 14.9 % (0-10); NRBC Flagged by Analyzer 0 % (0-5); Neutrophil # 3.58 X10^3/uL (2.7-7.7); Neutrophil % 70.2 % (47-70); POSITIVE DIFFERENTIAL YES; Platelet Count 203 K/mm3 (150-450); RBC Distribution Width CV 15.6 % (11.6-14.6); RBC Distribution Width SD 51.9 fl (35.1-43.9); Red Blood Count 4.66 M/mm3 (4.6-6.2); White Blood Count 5.1 K/mm3 (4.4-11.0)
[2019-11-07 10:30] LABS: Differential Indicated SCAN CRITERIA MET
[2019-11-07 10:49] LABS: AST(SGOT) 18 U/L (15-37); Alanine Aminotransfer ALT/SGPT 27 U/L (16-61); Albumin, Serum 3.5 g/dL (3.2-5.0); Alkaline Phosphatase 47 U/L (45-117); Anion Gap 1 (5-15); BUN 26 mg/dL (7-18); BUN/Creat Ratio 20.3 RATIO (10-20); Bilirubin, Direct 0.05 mg/dL (0.00-0.30); Chloride 102 mmol/L (98-107); Creatinine, Serum 1.28 mg/dL (0.70-1.30); EST Glomerular Filtration Rate 59 mL/min (>60); Est Glom Filt Rate - Afr Amer 72 mL/min (>60); GGTP 14 U/L (15-85); Glucose 92 mg/dL (74-106); Phosphorus 3.2 mg/dL (2.5-4.9); Potassium 4.4 mmol/L (3.5-5.1); Sodium Level 136 mmol/L (136-145); Uric Acid 6.2 mg/dL (3.5-7.2)
[2019-11-10 16:10] LABS: CMV by PCR Negative (Negative); Sirolimus,Blood 4.5 ng/mL (3.0-20.0); Tacrolimus (FK506) 3.9 ng/mL (2.0-20.0)
== END 2019-11-07 18:00 | disposition home or self-care (01) ==
LOC: MTLAB 07:49
PROVIDERS: Family Provider Family Medicine; PCP Family Medicine
DX: Z51.0 Encounter for antineoplastic radiation therapy (principal); C44.629 Squamous cell carcinoma of skin of left upper limb, including shoulder; Z94.2 Lung transplant status; R79.9 Abnormal finding of blood chemistry, unspecified; Z48.24 Encounter for aftercare following lung transplant; D89.9 Disorder involving the immune mechanism, unspecified; Z79.899 Other long term (current) drug therapy; Z51.81 Encounter for therapeutic drug level monitoring
CPT/HCPCS: 36415; 77386; 80048; 80195; 80197; 82040; 82247; 82248; 82977; 83735; 84075; 84100; 84450; 84460; 84550; 85025; 87496

== ENCOUNTER → 2019-11-11 | Outpatient (CLI) | payer MEDICARE, OTHER, SELFPAY ==
[2019-09-07 17:28] VITALS: BMI 37.0
[2019-10-03 09:13] VITALS: BMI 36.1
--- NOTE | 2019-11-11 12:58 | SPIR ---
Spirometry PFT Testing Spirometry PFT Testing: COMPLETE PULMONARY FUNCTION TEST INTERPRETATION Brief HPI: Patient is a 69 year old male, currently under the care of Dr. Richey, who presents to [facility] for complete pulmonary function tests secondary to diagnosis of post lung transplant. Respiratory therapist reports good effort and reproducible results. Interpretation: Forced expiration spirometry shows a severe large airways obstructive ventilatory defect with an FEV1 of 40% predicted. There is significant bronchodilator response by strict ATS criteria. Spirograms are of good quality and plateau slowly, indicating slowly emptying areas of the lungs. The respiratory flow volume loop shows decreased expiratory flow rates at all lung volumes consistent with airway obstruction. Compared to previous pulmonary function tests from 08/05/2019, there has been no significant change. Impression: Severe obstructive ventilatory defect with no change compared to 2019
== END | disposition home or self-care (01) ==
LOC: PSN 07:52
PROVIDERS: Family Provider Family Medicine; PCP Family Medicine; Referring Provider Internal Medicine Critical Care Medicine; Visit Provider Internal Medicine Critical Care Medicine
DX: Z51.0 Encounter for antineoplastic radiation therapy (principal); C44.629 Squamous cell carcinoma of skin of left upper limb, including shoulder; Z94.2 Lung transplant status; Z48.24 Encounter for aftercare following lung transplant; Z79.899 Other long term (current) drug therapy
CPT/HCPCS: 77386; 94010

== ENCOUNTER 2019-12-01 13:45 | Outpatient (RCR) | payer MEDICARE, OTHER, SELFPAY ==
[2019-09-07 17:28] VITALS: BMI 37.0
[2019-10-03 09:13] VITALS: BMI 36.1
[2019-11-17 14:04] VITALS: BP 147/98; PULSE 85; RESP 18; TEMP 36.2; BMI 37.0
--- NOTE | 2019-11-17 17:04 | HP.PCM_ITS ---
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 Status: Acute Current Visit: Yes Code(s): L98.499 - Non-pressure chronic ulcer of skin of other sites with unspecified severity (2) Squamous cell carcinoma Status: Acute Current Visit: Yes (3) History of radiation therapy Status: Acute Current Visit: Yes Code(s): Z92.3 - Personal history of irradiation (4) COPD (chronic obstructive pulmonary disease) Status: Chronic Current Visit: No Code(s): J44.9 - Chronic obstructive pulmonary disease, unspecified (5) Hyperlipidemia Status: Chronic Current Visit: No Code(s): E78.5 - Hyperlipidemia, unspecified (6) Hypertension Status: Chronic Current Visit: No Code(s): I10 - Essential (primary) hypertension (7) Lung transplant recipient Status: Chronic Current Visit: No Code(s): Z94.2 - Lung transplant status (8) Skin cancer Status: Chronic Current Visit: No Code(s): C44.90 - Unspecified malignant neoplasm of skin, unspecified History of Present Illness Date of Service: 11/17/19 Chief Complaint: Nonhealing ulceration to left posterior shoulder status post radiation therapy History of Wound: This is a 69-year-old white male who presents to the wound healing center today with complaint of nonhealing ulceration to his left posterior shoulder secondary to radiation therapy. He has a past medical history which is significant for COPD, bilateral lung transplant 2014, hypertension, hyperlipidemia, squamous cell carcinoma, and obesity. In March 2019 the patient had squamous cell excised from his posterior shoulder, another excision was done in May and in July and axillary lymph node was removed as well. Patient did had a skin graft done to his left posterior shoulder as well. Over the past 5 weeks he has been getting radiation therapy and has noted a ulceration around the skin graft to his left posterior shoulder. He states he has been using Silvadene cream daily without much improvement. He does note some clear drainage at times. Denies any systemic signs of infection. Denies any other aggravating or alleviating factors. All other systems reviewed and negative with exception of those listed above. Past Medical History Past Medical History: Chronic Problems (Last Updated 10/03/19 @ 09:16 by Cheryl Blanc RN) Lung transplant recipient (Chronic) Skin cancer (Chronic) COPD (chronic obstructive pulmonary disease) (Chronic) Hypertension (Chronic) Hyperlipidemia (Chronic) Surgical History: - - Bilateral Lung transplant, Taniya fundoplication, excision squamous cell skin cancer. Allergies/Adverse Reactions: Allergies No Known Allergies Allergy (Verified 11/16/19 09:46) Home Medications: Ambulatory Orders Medication Instructions Recorded Acetaminophen [Tylenol] 325 mg PO Q4H PRN 01/21/16 Alendronate Sodium [Fosamax] 70 mg PO RIDLEY 01/21/16 Aspirin 325 mg PO DAILY@0800 01/21/16 Azithromycin [Zithromax] 250 mg PO MOWEFR 01/21/16 Furosemide [Lasix] 20 mg PO DAILY 01/21/16 Pantoprazole Sodium [Protonix] 40 mg PO DAILY 01/21/16 Smz/Tmp Ds [Bactrim Ds] 800 mg PO MOWEFR 01/21/16 Tacrolimus Anhydrous [Prograf] 1 mg PO BID 01/21/16 Ferrous Sulfate 325 mg PO DAILY 09/07/19 Lisinopril 5 mg PO DAILY 09/07/19 Metoprolol Tartrate 100 mg PO BID 09/07/19 Multivitamin with Minerals 1 tab PO DAILY 09/07/19 [Multiple Vitamin] Prednisone 5 mg PO DAILY 09/07/19 Rosuvastatin Calcium 20 mg PO DAILY 09/07/19 Silver Sulfadiazine 1% Crm 1 applic TOPICAL TID #1 bottle 11/09/19 [Silvadene ([facility])] Silver/Foam Bandage [Aquacel Ag 1 ea TP DAILY #20 bandage 11/16/19 Foam Heel 8X5.5] - Family History Maternal No pertinent history Paternal No pertinent history Smoking Status: Former smoker Review of Systems Constitutional: Denies: Chills, Fever, Weight Change Eyes: Denies: Pain, Vision Change HEENT: Denies: Difficulty Hearing, Difficulty Swallowing, Sinus Congestion Cardiovascular: Denies: Chest Pain, Palpitations Respiratory: Denies: Cough, Shortness of Breath Gastrointestinal: Denies: Diarrhea, Nausea, Vomiting Genitourinary: Denies: Dysuria, Hematuria Skin: Reports: Wounds - See HPI Endocrine: Denies: Heat/ Cold Intolerance, Polydipsia, Polyuria Hematologic/ Lymphatic: Denies: Easy Bruising, Easy Bleeding - Physical Exam Vital Signs Temp Pulse Resp BP 97.1 F L 85 18 147/98 H 11/17/19 14:04 11/17/19 14:04 11/17/19 14:04 11/17/19 14:04 General: Alert, Oriented x3, Cooperative, No apparent distress HEENT: Atraumatic Oral: Moist Mucosa Lungs: Clear to auscultation, Normal air movement Cardiovascular: Regular rate, Regular Rhythm Abdomen: Soft, Non Tender Extremities: No clubbing, No cyanosis Skin: Ulcer/ Wound - see nursing documentation, left posterior shoulder radiat ion ulceration with very small amount of adherant slough Wound Measurements and Assessment WC - Nurse 1 - General Ulcer Measurement Start: 11/17/19 13:41 Freq: Status: Active Protocol: Activity Type Activity Date Activity User E-Sign Co-Sign Detail Recorded Client Recorded Date Recorded By Document 11/17/19 14:04 RB [id number] 11/17/19 14:09 RB 11/17/19 14:04 Wound Center Nurse 1 [Ulcer Assessment] 1. L shoulder -Combined with other wound No -Current Size (cm) - Length 17 -Current Size (cm) - Width 13 -Current Size (cm) - Depth 0.1 -Total Square Cm 221 -Photo Taken Yes -Tunneling No -Undermining/Tunneling No -Circular Undermining No -Exudate Amt Medium -Exudate Type Serosanguineous -Wound Margin Flat & Intact -Granulation Amt Medium (34-66%) -Granulation Quality [place] -Slough/Fibrin Yes -Necrosis Amt Small (1-33%) -Necrotic Tissue Type Adherent Slough -Structure Exposed N/A -Texture (Do-wound Skin Appearance) Excoriation -Moisture (Do-wound Skin Appearance Assessed ) -Color (Do-wound Skin Appearance) Assessed -Temperature (Do-wound Skin No Abnormality Appearance) (Pt Warm) -Tenderness on Palpation (Do-wound No Skin Appearance) -Ulcer Cleansing Wound Cleanser -Foul Odor after Cleansing No -Anesthetic Used 4% Lidocaine Solution WC - Nurse 2 - General Ulcer CM Notes Start: 11/17/19 13:41 Freq: Status: Active Protocol: Activity Type Activity Date Activity User E-Sign Co-Sign Detail Recorded Client Recorded Date Recorded By Document 11/17/19 14:41 MW [id number] 11/17/19 14:43 MW 11/17/19 14:41 Wound Center Nurse 2 [Procedure/Treatment] -Time 14:41 -Correct Patient Yes -Correct Side, Site, Position Yes -Correct Procedure Yes -Procedure Performed No -Post Debridement Size (cm) - Length 16.0 -Post Debridement Size (cm) - Width 15.0 -Post Debridement Size (cm) - Depth 0.1 -Total Square Cm 240.00 -Wound/Ulcer Outcome Not Healed -Ulcer Cleansing Not Cleansed -Foul Odor after Cleansing No -Bioengineered Tissue No -Bleeding Controlled with NA -Offloading No -Treatment Response Procedure Tolerated Well [See Physician Procedure note for Specifics] Pain Scale: 0-10 Numeric [Pain] -Is Patient Pain Free? Yes Musculoskeletal: No Muscle Wasting Neurological: Neuro grossly intact Psych/Mental Status: Normal Affect, Appropriate, Alert and oriented to time, place, person, mood and affect Debridement Note Post-Debridement Measurements/Treatment WC - Nurse 2 - General Ulcer CM Notes Start: 11/17/19 13:41 Freq: Status: Active Protocol: Activity Type Activity Date Activity User E-Sign Co-Sign Detail Recorded Client Recorded Date Recorded By Document 11/17/19 14:41 MW [id number] 11/17/19 14:43 MW 11/17/19 14:41 Wound Center Nurse 2 1. L shoulder -Time 14:41 -Correct Patient Yes -Correct Side, Site, Position Yes -Correct Procedure Yes -Procedure Performed No -Post Debridement Size (cm) - Length 16.0 -Post Debridement Size (cm) - Width 15.0 -Post Debridement Size (cm) - Depth 0.1 -Total Square Cm 240.00 -Wound/Ulcer Outcome Not Healed -Ulcer Cleansing Not Cleansed -Foul Odor after Cleansing No -Bioengineered Tissue No -Bleeding Controlled with NA -Offloading No -Treatment Response Procedure Tolerated Well Pain Scale: 0-10 Numeric Is Patient Pain Free? 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 No debridement was performed today. The patient tolerated the procedure well. The patients wound care will consist of:xeroform cover with gauze and tape change daily. Wound cultures were held. Baseline bloodwork held. Patient educated on the importance of diet on wound healing and instructed to increase protein and vitamin C intake. Patient verbalized understanding. Patient will follow up at wound healing center in one week or sooner if needed. This note was generated with [employer] dictation software. It may contain incorrect words, spelling, and punctuation that were not noted in checking the note before signing. Code Visit Office Visits / Consults: [id number] OV L4 Est
[2019-11-24 13:23] VITALS: BP 151/97; PULSE 84; RESP 18; TEMP 36.2; BMI 37.0
--- NOTE | 2019-11-24 21:01 | PN.PCM_ITS ---
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 Status: Acute Current Visit: Yes Code(s): L98.499 - Non-pressure chronic ulcer of skin of other sites with unspecified severity (2) Squamous cell carcinoma Status: Acute Current Visit: Yes (3) History of radiation therapy Status: Acute Current Visit: Yes Code(s): Z92.3 - Personal history of irradiation (4) COPD (chronic obstructive pulmonary disease) Status: Chronic Current Visit: No Code(s): J44.9 - Chronic obstructive pulmonary disease, unspecified (5) Hyperlipidemia Status: Chronic Current Visit: No Code(s): E78.5 - Hyperlipidemia, unspecified (6) Hypertension Status: Chronic Current Visit: No Code(s): I10 - Essential (primary) hypertension (7) Lung transplant recipient Status: Chronic Current Visit: No Code(s): Z94.2 - Lung transplant status (8) Skin cancer Status: Chronic Current Visit: No Code(s): C44.90 - Unspecified malignant neoplasm of skin, unspecified Type of Wound Date of Service: 11/24/19 Chief Complaint: Nonhealing ulceration to left posterior shoulder status post radiation therapy History of Wound: This is a 69-year-old white male who presents to the wound healing center today with complaint of nonhealing ulceration to his left posterior shoulder secondary to radiation therapy. He has a past medical history which is significant for COPD, bilateral lung transplant 2014, hypertens ion, hyperlipidemia, squamous cell carcinoma, and obesity. In March 2019 the patient had squamous cell excised from his posterior shoulder, another excision was done in May and in July and axillary lymph node was removed as well. Patient did had a skin graft done to his left posterior shoulder as well. Over the past 5 weeks he has been getting radiation therapy and has noted a ulceration around the skin graft to his left posterior shoulder. He states he has been using Silvadene cream daily without much improvement. He does note some clear drainage at times. Denies any systemic signs of infection. Denies any other aggravating or alleviating factors. All other systems reviewed and negative with exception of those listed above. Progress of Wound: Radiation ulceration has improved dramatically with the use of Xeroform, no signs of obvious infection at this time, no new concerns. The patient otherwise denies any fever, chills, nausea, vomiting, shortness of breath, chest pain or pressure, palpitations, orthopnea, lower extremity edema, syncope or presyncopal episodes. - Physical Exam Vital Signs Temp Pulse Resp BP 97.1 F L 84 18 151/97 H 11/24/19 13:23 11/24/19 13:23 11/24/19 13:23 11/24/19 13:23 General: Alert, Oriented x3, Cooperative, No apparent distress HEENT: Atraumatic Oral: Moist Mucosa Lungs: Clear to auscultation Cardiovascular: Regular rate Abdomen: Soft, Obese Extremities: No clubbing, No cyanosis, No edema Skin: Ulcer/ Wound - See nursing documentation, radiation ulceration to left posterior shoulder without much adherent slough, no signs of infection at this time, surrounding tissue slight erythema Wound Measurements and Assessment WC - Nurse 1 - General Ulcer Measurement Start: 11/17/19 13:41 Freq: Status: Active Protocol: Activity Type Activity Date Activity User E-Sign Co-Sign Detail Recorded Client Recorded Date Recorded By Document 11/24/19 13:23 RB [id number] 11/24/19 13:25 RB 11/24/19 13:23 Wound Center Nurse 1 [Ulcer Assessment] 1. L shoulder -Combined with other wound No -Current Size (cm) - Length 0.1 -Current Size (cm) - Width 0.1 -Current Size (cm) - Depth 0.1 -Total Square Cm 0.01 -Epithelialization Large 67-100% -Tunneling No -Undermining/Tunneling No -Circular Undermining No -Exudate Amt None Present -Wound Margin Flat & Intact -Granulation Amt Large (67-100%) -Granulation Quality [place] -Slough/Fibrin Yes -Necrosis Amt Small (1-33%) -Necrotic Tissue Type Adherent Slough -Structure Exposed N/A -Texture (Do-wound Skin Appearance) Excoriation -Moisture (Do-wound Skin Appearance Assessed ) -Color (Do-wound Skin Appearance) Assessed -Temperature (Do-wound Skin No Abnormality Appearance) (Pt Warm) -Tenderness on Palpation (Do-wound No Skin Appearance) -Ulcer Cleansing Rinsed/ Irrigated with Saline -Foul Odor after Cleansing No -Anesthetic Used 4% Lidocaine Solution WC - Nurse 2 - General Ulcer CM Notes Start: 11/17/19 13:41 Freq: Status: Active Protocol: Activity Type Activity Date Activity User E-Sign Co-Sign Detail Recorded Client Recorded Date Recorded By Document 11/24/19 14:08 MW [id number] 11/24/19 14:09 MW 11/24/19 14:08 Wound Center Nurse 2 [Procedure/Treatment] -Time 14:09 -Correct Patient Yes -Correct Side, Site, Position Yes -Correct Procedure Yes -Procedure Performed No -Wound/Ulcer Outcome Not Healed -Ulcer Cleansing Rinsed/ Irrigated with Saline -Foul Odor after Cleansing No -Bioengineered Tissue No -Bleeding Controlled with NA -Offloading No -Treatment Response Procedure Tolerated Well [See Physician Procedure note for Specifics] Pain Scale: 0-10 Numeric [Pain] -Is Patient Pain Free? Yes Neurological: Neuro grossly intact Psych/Mental Status: Normal Affect, Appropriate, Alert and oriented to time, place, person, mood and affect Debridement Note Post-Debridement Measurements/Treatment WC - Nurse 2 - General Ulcer CM Notes Start: 11/17/19 13:41 Freq: Status: Active Protocol: Activity Type Activity Date Activity User E-Sign Co-Sign Detail Recorded Client Recorded Date Recorded By Document 11/17/19 14:41 MW [id number] 11/17/19 14:43 MW Document 11/24/19 14:08 MW [id number] 11/24/19 14:09 MW 11/17/19 11/24/19 14:41 14:08 Wound Center Nurse 2 1. L shoulder -Time 14:41 14:09 -Correct Patient Yes Yes -Correct Side, Site, Position Yes Yes -Correct Procedure Yes Yes -Procedure Performed No No -Post Debridement Size (cm) - Length 16.0 -Post Debridement Size (cm) - Width 15.0 -Post Debridement Size (cm) - Depth 0.1 -Total Square Cm 240.00 -Wound/Ulcer Outcome Not Healed Not Healed -Ulcer Cleansing Not Cleansed Rinsed/ Irrigated with Saline -Foul Odor after Cleansing No No -Bioengineered Tissue No No -Bleeding Controlled with NA NA -Offloading No No -Treatment Response Procedure Procedure Tolerated Well Tolerated Well Pain Scale: 0-10 Numeric Is Patient Pain Free? 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 No debridement was performed today. The patients wound care will consist of:xeroform cover with gauze and tape change daily. Wound cultures were held. Baseline bloodwork held. Patient educated on the importance of diet on wound healing and instructed to increase protein and vitamin C intake. Patient verbalized understanding. Patient will follow up at wound healing center in one week or sooner if needed. This note was generated with [employer] dictation software. It may contain incorrect words, spelling, and punctuation that were not noted in checking the note before signing. Code Visit Office Visits / Consults: [id number] OV L3 Est
[2019-12-01 14:12] VITALS: BP 136/80; PULSE 77; RESP 18; TEMP 36.3; BMI 37.0
--- NOTE | 2019-12-01 17:23 | PN.PCM_ITS ---
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 Status: Acute Current Visit: Yes Code(s): L98.499 - Non-pressure chronic ulcer of skin of other sites with unspecified severity (2) Squamous cell carcinoma Status: Acute Current Visit: Yes (3) History of radiation therapy Status: Acute Current Visit: Yes Code(s): Z92.3 - Personal history of irradiation (4) COPD (chronic obstructive pulmonary disease) Status: Chronic Current Visit: No Code(s): J44.9 - Chronic obstructive pulmonary disease, unspecified (5) Hyperlipidemia Status: Chronic Current Visit: No Code(s): E78.5 - Hyperlipidemia, unspecified (6) Hypertension Status: Chronic Current Visit: No Code(s): I10 - Essential (primary) hypertension (7) Lung transplant recipient Status: Chronic Current Visit: No Code(s): Z94.2 - Lung transplant status (8) Skin cancer Status: Chronic Current Visit: No Code(s): C44.90 - Unspecified malignant neoplasm of skin, unspecified Type of Wound Date of Service: 12/01/19 Chief Complaint: Nonhealing ulceration to left posterior shoulder status post radiation therapy History of Wound: This is a 69-year-old white male who presents to the wound healing center today with complaint of nonhealing ulceration to his left posterior shoulder secondary to radiation therapy. He has a past medical history which is significant for COPD, bilateral lung transplant 2014, hypertens ion, hyperlipidemia, squamous cell carcinoma, and obesity. In March 2019 the patient had squamous cell excised from his posterior shoulder, another excision was done in May and in July and axillary lymph node was removed as well. Patient did had a skin graft done to his left posterior shoulder as well. Over the past 5 weeks he has been getting radiation therapy and has noted a ulceration around the skin graft to his left posterior shoulder. He states he has been using Silvadene cream daily without much improvement. He does note some clear drainage at times. Denies any systemic signs of infection. Denies any other aggravating or alleviating factors. All other systems reviewed and negative with exception of those listed above. Progress of Wound: Radiation ulceration has improved dramatically with the use of Xeroform, no signs of obvious infection at this time, no new concerns. The patient otherwise denies any fever, chills, nausea, vomiting, shortness of breath, chest pain or pressure, palpitations, orthopnea, lower extremity edema, syncope or presyncopal episodes. - Physical Exam Vital Signs Temp Pulse Resp BP 97.3 F L 77 18 136/80 H 12/01/19 14:12 12/01/19 14:12 12/01/19 14:12 12/01/19 14:12 General: Alert, Oriented x3, Cooperative, No apparent distress HEENT: Atraumatic Oral: Moist Mucosa Lungs: Clear to auscultation, Normal air movement Cardiovascular: Regular rate, Regular Rhythm Abdomen: Soft, Non Tender Extremities: No clubbing, No cyanosis, No edema Skin: Ulcer/ Wound - Radiation ulceration to left posterior shoulder with only small amount of slough present, no signs of obvious infection at this time Wound Measurements and Assessment WC - Nurse 1 - General Ulcer Measurement Start: 11/17/19 13:41 Freq: Status: Active Protocol: Activity Type Activity Date Activity User E-Sign Co-Sign Detail Recorded Client Recorded Date Recorded By Document 12/01/19 14:12 [id number] 12/01/19 14:13 12/01/19 14:12 Wound Center Nurse 1 [Ulcer Assessment] 1. L shoulder -Combined with other wound No -Current Size (cm) - Length 7.5 -Current Size (cm) - Width 9 -Current Size (cm) - Depth 0.1 -Total Square Cm 67.5 -Photo Taken No -Epithelialization Small 1-33% -Tunneling No -Undermining/Tunneling No -Circular Undermining No -Exudate Amt Small -Exudate Type Serosanguineous -Wound Margin Flat & Intact -Granulation Amt Medium (34-66%) -Granulation Quality [place] -Slough/Fibrin Yes -Necrosis Amt Small (1-33%) -Necrotic Tissue Type Adherent Slough -Structure Exposed N/A -Texture (Do-wound Skin Appearance) Assessed, Localized Edema -Moisture (Do-wound Skin Appearance Assessed,Dry/ ) Scaly -Color (Do-wound Skin Appearance) Assessed -Temperature (Do-wound Skin No Abnormality Appearance) (Pt Warm) -Tenderness on Palpation (Do-wound No Skin Appearance) -Ulcer Cleansing Rinsed/ Irrigated with Saline -Foul Odor after Cleansing No -Anesthetic Used 4% Lidocaine Solution [Edema Assessment] -Lower Limb Edema Present NA WC - Nurse 2 - General Ulcer CM Notes Start: 11/17/19 13:41 Freq: Status: Active Protocol: Activity Type Activity Date Activity User E-Sign Co-Sign Detail Recorded Client Recorded Date Recorded By Document 12/01/19 14:12 [id number] 12/01/19 14:13 12/01/19 14:12 Pain Scale: 0-10 Numeric [Pain] -Is Patient Pain Free? Yes Wound Center Nurse 2 [Procedure/Treatment] 1. L shoulder -Correct Patient No -Correct Side, Site, Position No -Correct Procedure No -Procedure Performed No -Wound/Ulcer Outcome Not Healed [See Physician Procedure note for Specifics] Neurological: Neuro grossly intact Psych/Mental Status: Normal Affect, Appropriate, Alert and oriented to time, place, person, mood and affect Debridement Note Post-Debridement Measurements/Treatment WC - Nurse 2 - General Ulcer CM Notes Start: 11/17/19 13:41 Freq: Status: Active Protocol: Activity Type Activity Date Activity User E-Sign Co-Sign Detail Recorded Client Recorded Date Recorded By Document 11/17/19 14:41 MW [id number] 11/17/19 14:43 MW Document 11/24/19 14:08 MW [id number] 11/24/19 14:09 MW Document 12/01/19 14:12 [id number] 12/01/19 14:13 11/17/19 11/24/19 12/01/19 14:41 14:08 14:12 Wound Center Nurse 2 1. L shoulder -Time 14:41 14:09 -Correct Patient Yes Yes No -Correct Side, Site, Position Yes Yes No -Correct Procedure Yes Yes No -Procedure Performed No No No -Post Debridement Size (cm) - Length 16.0 -Post Debridement Size (cm) - Width 15.0 -Post Debridement Size (cm) - Depth 0.1 -Total Square Cm 240.00 -Wound/Ulcer Outcome Not Healed Not Healed Not Healed -Ulcer Cleansing Not Cleansed Rinsed/ Irrigated with Saline -Foul Odor after Cleansing No No -Bioengineered Tissue No No -Bleeding Controlled with NA NA -Offloading No No -Treatment Response Procedure Procedure Tolerated Well Tolerated Well Pain Scale: 0-10 Numeric Is Patient Pain Free? 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 No debridement was performed today. The patients wound care will consist of:Apply Adaptic cover with gauze and tape change daily. Wound cultures were held. Baseline bloodwork held. Patient educated on the importance of diet on wound healing and instructed to increase protein and vitamin C intake. Patient verbalized understanding. Patient will follow up at wound healing center in one week or sooner if needed. This note was generated with [email or web address] dictation software. It may contain incorrect words, spelling, and punctuation that were not noted in checking the note before signing. Code Visit Office Visits / Consults: [id number] OV L3 Est
== END 2019-12-03 23:59 ==
LOC: WC 13:45
PROVIDERS: PCP Family Medicine; Visit Provider Nurse Practitioner Family
DX: Z51.0 Encounter for antineoplastic radiation therapy (principal); L59.9 Disorder of the skin and subcutaneous tissue related to radiation, unspecified; J44.9 Chronic obstructive pulmonary disease, unspecified; E78.5 Hyperlipidemia, unspecified; I10 Essential (primary) hypertension; E66.9 Obesity, unspecified; L98.499 Non-pressure chronic ulcer of skin of other sites with unspecified severity; C44.629 Squamous cell carcinoma of skin of left upper limb, including shoulder; Z94.2 Lung transplant status; Z79.899 Other long term (current) drug therapy; Z87.891 Personal history of nicotine dependence
CPT/HCPCS: 77307; 77336; 77386; 99212; 99213; G0463

== ENCOUNTER 2019-12-06 07:14 | Outpatient (RCR) | payer MEDICARE, OTHER, SELFPAY ==
[2019-10-03 09:13] VITALS: BMI 36.1
[2019-12-06 10:24] LABS: Absolute Lymphocyte Count 0.22 X10^3/uL (0.83-4.51); Absolute Neutrophil Count 3.8 X10^3/uL (2.0-7.7); Basophil# 0.03 X10^3/uL; Basophil% 0.6 % (0-1); Eosinophil# 0.19 X10^3/uL; Eosinophils% 3.9 % (0-5); Hematocrit 40.7 % (40-54); Hemoglobin 12.9 g/dL (13.0-16.5); Lymphocyte # 0.22 X10^3/ul (4.0); Lymphocyte % 4.5 % (19-41); Mean Corp Hgb Conc 31.7 g/dL (32-36); Mean Corpuscular Hgb 28.7 pg (27.0-32.0); Mean Corpuscular Volume 90.6 fL (80-94); Mean Platelet Vol. 10.6 fl (6.2-12.0); Monocyte# 0.61 X10^3/uL; Monocyte% 12.6 % (0-10); NRBC Flagged by Analyzer 0 % (0-5); Neutrophil # 3.77 X10^3/uL (2.7-7.7); POSITIVE DIFFERENTIAL YES; Platelet Count 216 K/mm3 (150-450); RBC Distribution Width CV 15.3 % (11.6-14.6); RBC Distribution Width SD 50.5 fl (35.1-43.9); Red Blood Count 4.49 M/mm3 (4.6-6.2); White Blood Count 4.8 K/mm3 (4.4-11.0)
[2019-12-06 10:28] LABS: Differential Indicated SCAN CRITERIA MET
[2019-12-06 10:50] LABS: Platelet Estimate ADEQUATE (ADEQ); Platelet Morphology LARGE
[2019-12-06 10:57] LABS: AST(SGOT) 19 U/L (15-37); Alanine Aminotransfer ALT/SGPT 27 U/L (16-61); Albumin, Serum 3.3 g/dL (3.2-5.0); Alkaline Phosphatase 47 U/L (45-117); Anion Gap 4 (5-15); BUN 27 mg/dL (7-18); BUN/Creat Ratio 20.9 RATIO (10-20); Bilirubin, Direct 0.09 mg/dL (0.00-0.30); Chloride 105 mmol/L (98-107); Creatinine, Serum 1.29 mg/dL (0.70-1.30); EST Glomerular Filtration Rate 59 mL/min (>60); Est Glom Filt Rate - Afr Amer 71 mL/min (>60); Ferritin 39 ng/mL (26-388); GGTP 10 U/L (15-85); Glucose 101 mg/dL (74-106); Iron 61 ug/dL (65-175); Iron Binding Capacity,Total 281 ug/dL (250-450); Magnesium 2.2 mg/dL (1.6-2.6); PERCENT IRON SATURATION 21.7 % (15.0-55.0); Phosphorus 3.3 mg/dL (2.5-4.9); Potassium 4.5 mmol/L (3.5-5.1); Sodium Level 140 mmol/L (136-145)
[2019-12-06 11:33] LABS: Hemoglobin A1c 6.1 % (4.2-6.3)
[2019-12-09 12:07] LABS: Immunoglobulin A 74 mg/dL (61-437)
[2019-12-09 23:52] LABS: CMV by PCR Negative (Negative); Immunoglobulin G 994 mg/dL (700-1600); Immunoglobulin M 17 mg/dL (20-172); Sirolimus,Blood 6.1 ng/mL (3.0-20.0); Tacrolimus (FK506) 4.7 ng/mL (2.0-20.0); Transferrin 219 mg/dL (200-370)
== END 2019-12-06 18:00 | disposition home or self-care (01) ==
LOC: MTLAB 07:14
PROVIDERS: Family Provider Family Medicine; PCP Family Medicine
DX: Z94.2 Lung transplant status (principal); Z48.24 Encounter for aftercare following lung transplant; R79.9 Abnormal finding of blood chemistry, unspecified; D89.9 Disorder involving the immune mechanism, unspecified; Z79.899 Other long term (current) drug therapy; Z51.81 Encounter for therapeutic drug level monitoring
CPT/HCPCS: 36415; 80048; 80195; 80197; 82040; 82247; 82248; 82728; 82784; 82977; 83036; 83540; 83550; 83735; 84075; 84100; 84450; 84460; 84466; 84550; 85025; 87496; 94010

== ENCOUNTER → 2019-12-06 | Outpatient (CLI) | payer MEDICARE, OTHER, SELFPAY ==
[2019-10-03 09:13] VITALS: BMI 36.1
[2019-12-01 14:12] VITALS: BMI 37.0
--- NOTE | 2019-12-06 15:16 | SPIR_ITS ---
Spirometry PFT Testing Spirometry PFT Testing: COMPLETE PULMONARY FUNCTION TEST INTERPRETATION Brief HPI: Patient is a 69 year old male, currently under the care of Dr. Richey, who presents to [facility] for complete pulmonary function tests secondary to diagnosis of status post lung transplant. Respiratory therapist reports good effort and reproducible results. Interpretation: Forced expiration spirometry shows a severe large airways obstructive ventilatory defect with an FEV1 of 39% predicted. There was no bronchodilator response ordered. Spirograms are of good quality and plateau slowly, indicating slowly emptying areas of the lungs. The respiratory flow volume loop shows decreased expiratory flow rates at all lung volumes consistent with airway obstruction. Compared to previous pulmonary function tests from 11/11/2019, there has been no significant change. Impression: Severe large airways obstructive ventilatory defect with no significant change compared to 11/11/2019
== END | disposition home or self-care (01) ==
LOC: PSN 06:48
PROVIDERS: Family Provider Family Medicine; PCP Family Medicine; Referring Provider Internal Medicine Critical Care Medicine; Visit Provider Internal Medicine Critical Care Medicine
DX: Z94.2 Lung transplant status (principal)
CPT/HCPCS: 94010

== ENCOUNTER 2019-12-08 12:46 | Outpatient (RCR) | payer MEDICARE, OTHER, SELFPAY ==
[2019-10-03 09:13] VITALS: BMI 36.1
[2019-12-04 01:07] VITALS: BP 136/80; PULSE 77; RESP 18; TEMP 36.3
[2019-12-08 13:02] VITALS: BP 142/81; PULSE 75; RESP 18; TEMP 36.7; BMI 37.0
--- NOTE | 2019-12-08 19:36 | PCM.WC.PN ---
(1) History of radiation therapy Status: Acute Code(s): Z92.3 - Personal history of irradiation (2) Skin ulcer due to radiation exposure Status: Acute Code(s): L98.499 - Non-pressure chronic ulcer of skin of other sites with unspecified severity (3) Squamous cell carcinoma Status: Acute (4) COPD (chronic obstructive pulmonary disease) Status: Chronic Code(s): J44.9 - Chronic obstructive pulmonary disease, unspecified (5) Hyperlipidemia Status: Chronic Code(s): E78.5 - Hyperlipidemia, unspecified (6) Hypertension Status: Chronic Code(s): I10 - Essential (primary) hypertension (7) Lung transplant recipient Status: Chronic Code(s): Z94.2 - Lung transplant status (8) Skin cancer Status: Chronic Code(s): C44.90 - Unspecified malignant neoplasm of skin, unspecified Type of Wound Date of Service: 12/08/19 Chief Complaint: Nonhealing ulceration to left posterior shoulder status post radiation therapy History of Wound: This is a 69-year-old white male who presents to the wound healing center today with complaint of nonhealing ulceration to his left posterior shoulder secondary to radiation therapy. He has a past medical history which is significant for COPD, bilateral lung transplant 2014, hypertension, hyperlipidemia, squamous cell carcinoma, and obesity. In March 2019 the patient had squamous cell excised from his posterior shoulder, another excision was done in May and in July and axillary lymph node was removed as well. Patient did had a skin graft done to his left posterior shoulder as well. Over the past 5 weeks he has been getting radiation therapy and has noted a ulceration around the skin graft to his left posterior shoulder. He states he has been using Silvadene cream daily without much improvement. He does note some clear drainage at times. Denies any systemic signs of infection. Denies any other aggravating or alleviating factors. All other systems reviewed and negative with exception of those listed above. Progress of Wound: Radiation ulceration has Resolved, no new concerns. The patient otherwise denies any fever, chills, nausea, vomiting, shortness of breath, chest pain or pressure, palpitations, orthopnea, lower extremity edema, syncope or presyncopal episodes. - Physical Exam Vital Signs Temp Pulse Resp BP 98.0 F 75 18 142/81 H 12/08/19 13:02 12/08/19 13:02 12/08/19 13:02 12/08/19 13:02 General: Alert, Oriented x3, Cooperative, No apparent distress HEENT: PERRLA, EOMI Oral: Moist Mucosa Lungs: Clear to auscultation, Normal air movement Cardiovascular: Regular rate, Regular Rhythm Skin: Ulcer/ Wound - Almost entirely healed, only small amount of open granular tissue present, no signs of infection at this time Neurological: Neuro grossly intact Psych/Mental Status: Normal Affect, Appropriate, Alert and oriented to time, place, person, mood and affect Debridement Note Post-Debridement Measurements/Treatment WC - Nurse 2 - General Ulcer CM Notes Start: 12/08/19 13:01 Freq: Status: Active Protocol: Activity Type Activity Date Activity User E-Sign Co-Sign Detail Recorded Client Recorded Date Recorded By Document 12/08/19 13:27 [place] [id number] 12/08/19 13:27 [place] 12/08/19 13:27 Wound Center Nurse 2 1. L shoulder -Correct Patient No -Correct Side, Site, Position No -Correct Procedure No -Procedure Performed No -Post Debridement Size (cm) - Length 0 -Post Debridement Size (cm) - Width 0 -Post Debridement Size (cm) - Depth 0 -Total Square Cm 0 -Wound/Ulcer Outcome Healed- Epithelialized Pain Scale: 0-10 Numeric Is Patient Pain Free? Yes No debridement was completed today Assessment/Plan Assessment: see above diagnoses Plan: The patient was seen and examined at the wound center today and was updated on the plan of care. No debridement was performed today. The patients wound care will consist of:Apply Adaptic cover with gauze and tape change daily For 1 more week, due to the fact that the wound is now very small and patient would like to be discharged from the wound healing center, will discharge today as wound is essentially almost entirely healed. Wound cultures were held. Baseline bloodwork held. Patient educated on the importance of diet on wound healing and instructed to increase protein and vitamin C intake. Patient verbalized understanding. Patient will follow up at wound healing center As needed. This note was generated with Weekdoneation software. It may contain incorrect words, spelling, and punctuation that were not noted in checking the note before signing. Office Visits / Consults: [id number] L3 Est
== END 2020-01-03 23:59 ==
LOC: WC 12:46
PROVIDERS: PCP Family Medicine; Visit Provider Nurse Practitioner Family
DX: Z09 Encounter for follow-up examination after completed treatment for conditions other than malignant neoplasm (principal); J44.9 Chronic obstructive pulmonary disease, unspecified; E78.5 Hyperlipidemia, unspecified; I10 Essential (primary) hypertension; E66.9 Obesity, unspecified; C44.629 Squamous cell carcinoma of skin of left upper limb, including shoulder; Z92.3 Personal history of irradiation; Z94.2 Lung transplant status
CPT/HCPCS: 99213; G0463

== ENCOUNTER 2020-01-09 07:30 | Outpatient (RCR) | payer MEDICARE, OTHER, SELFPAY ==
[2019-10-03 09:13] VITALS: BMI 36.1
[2020-01-09 09:52] LABS: Absolute Lymphocyte Count 0.52 X10^3/uL (0.83-4.51); Absolute Neutrophil Count 3.5 X10^3/uL (2.0-7.7); Basophil# 0.03 X10^3/uL; Basophil% 0.6 % (0-1); Eosinophil# 0.27 X10^3/uL; Eosinophils% 5.3 % (0-5); Hematocrit 42.6 % (40-54); Hemoglobin 12.9 g/dL (13.0-16.5); Lymphocyte # 0.52 X10^3/ul (4.0); Lymphocyte % 10.3 % (19-41); Mean Corp Hgb Conc 30.3 g/dL (32-36); Mean Corpuscular Hgb 27.7 pg (27.0-32.0); Mean Corpuscular Volume 91.4 fL (80-94); Mean Platelet Vol. 10.3 fl (6.2-12.0); Monocyte% 13.9 % (0-10); NRBC Flagged by Analyzer 0 % (0-5); Neutrophil # 3.51 X10^3/uL (2.7-7.7); Neutrophil % 69.5 % (47-70); POSITIVE DIFFERENTIAL YES; Platelet Count 226 K/mm3 (150-450); RBC Distribution Width CV 15.3 % (11.6-14.6); RBC Distribution Width SD 50.7 fl (35.1-43.9); Red Blood Count 4.66 M/mm3 (4.6-6.2); White Blood Count 5.1 K/mm3 (4.4-11.0)
[2020-01-09 10:17] LABS: Differential Indicated SCAN CRITERIA MET
[2020-01-09 10:19] LABS: Differential Comment SCANNED
[2020-01-09 10:22] LABS: AST(SGOT) 24 U/L (15-37); Alanine Aminotransfer ALT/SGPT 32 U/L (16-61); Albumin, Serum 3.5 g/dL (3.2-5.0); Alkaline Phosphatase 57 U/L (45-117); Anion Gap 4 (5-15); BUN 30 mg/dL (7-18); BUN/Creat Ratio 23.4 RATIO (10-20); Bilirubin, Direct 0.09 mg/dL (0.00-0.30); Calcium,Total 9.1 mg/dL (8.5-10.1); Chloride 103 mmol/L (98-107); Creatinine, Serum 1.28 mg/dL (0.70-1.30); EST Glomerular Filtration Rate 59 mL/min (>60); Est Glom Filt Rate - Afr Amer 72 mL/min (>60); GGTP 16 U/L (15-85); Glucose 95 mg/dL (74-106); Phosphorus 3.6 mg/dL (2.5-4.9); Potassium 4.4 mmol/L (3.5-5.1); Sodium Level 139 mmol/L (136-145); Uric Acid 6.5 mg/dL (3.5-7.2)
[2020-01-17 12:46] LABS: CMV by PCR Negative (Negative); Sirolimus,Blood 6.2 ng/mL (3.0-20.0); Tacrolimus (FK506) 4.3 ng/mL (2.0-20.0)
== END 2020-02-02 18:00 | disposition home or self-care (01) ==
LOC: MTLAB 07:30
PROVIDERS: Family Provider Family Medicine; PCP Family Medicine
DX: Z94.2 Lung transplant status (principal); Z48.24 Encounter for aftercare following lung transplant; D89.9 Disorder involving the immune mechanism, unspecified; Z79.899 Other long term (current) drug therapy; R79.9 Abnormal finding of blood chemistry, unspecified; Z51.81 Encounter for therapeutic drug level monitoring
CPT/HCPCS: 36415; 80048; 80195; 80197; 82040; 82247; 82248; 82977; 83735; 84075; 84100; 84450; 84460; 84550; 85025; 87496

== ENCOUNTER → 2020-01-17 | Outpatient (CLI) | payer MEDICARE, OTHER, SELFPAY ==
[2019-10-03 09:13] VITALS: BMI 36.1
--- NOTE | 2020-01-17 12:42 | CT_ITS ---
STUDY: CT BRAIN WITH AND WITHOUT CONTRAST REASON FOR EXAM: Male, 69 years old. NEW LEFT EAR LESION, HX-METASTATIC SQUAMOUS CELL, AOI MARKED WITH BB, HAD RAD TX DECEMBER 2019, HX-BILAT LUNG TRANSPLANT RADIATION DOSAGE (If Supplied By Facility): CTDIvol = ( 29.75 ) mGy, DLP = ( 2373.23 ) mGycm TECHNIQUE: Transaxial CT imaging of the brain was performed pre and post contrast administration. The examination was performed with intravenous administration of 75ML ISOVUE 370. Individualized dose optimization techniques were used for this CT. COMPARISON: None. FINDINGS: The palpable abnormality corresponds to a 1.7 cm x 1.9 cm soft tissue mass in the left side abutting the left ear adjacent to the posterior aspect of the left zygomatic arch. Following intravenous contrast ministration, there is evidence of inhomogeneous uptake. A neoplastic process should be ruled out. Normal calvarium. There is mild cerebral atrophy with widening of the extra-axial spaces and ventricular dilatation. Normal white matter tracts of the cerebral hemispheres. Normal basal ganglia and thalami. Normal brainstem. Normal cerebellum. There is no intracranial hemorrhage. There are no findings of an acute ischemic infarction. Atherosclerotic plaques of the cavernous portions of the internal carotid arteries as well as the vertebral arteries bilaterally. Normal visualized paranasal sinuses. CT/Brain/Head W/WO Contrast IMPRESSION: The palpable abnormality corresponds to a 1.7 cm x 1.9 cm inhomogeneously enhancing mass in the left side adjacent to the anterior aspect of the left ureteral abutting the posterior aspect of the left zygomatic arch. A neoplastic process should be ruled out. Electronically Signed: Chas Vilchis, at 13:47 EDT , Service support ,
--- NOTE | 2020-01-17 12:42 | CT_ITS ---
STUDY: CT SOFT TISSUE NECK WITH CONTRAST REASON FOR EXAM: Male, 69 years old. NEW LEFT EAR LESION, HX-METASTATIC SQUAMOUS CELL, AOI MARKED WITH BB, HAD RAD TX DECEMBER 2019, HX-BILAT LUNG TRANSPLANT RADIATION DOSAGE (If Supplied By Facility): CTDIvol = ( 29.75 ) mGy, DLP = ( 2373.23 ) mGycm TECHNIQUE: The patient was scanned in a multi-detector CT scanner. High resolution transaxial imaging was performed following intravenous administration of IV 75mL Isovue-370. Sagittal and coronal images were reconstructed. Individualized dose optimization techniques were used for this CT. COMPARISON: None. FINDINGS: The palpable abnormality corresponds to a 1.9 cm x 1.7 cm x 3.2 cm enhancing mass within the soft tissues anterior to the left earlobe and adjacent to the left temporomandibular joint. This corresponds to the palpable normality. A neoplastic process should be ruled out. This nodular density is partially enhancing. There is evidence of a 9.6 mm x 5 mm dense calcification in the anterior aspect of the left parotid gland. Normal bilateral durability technician spaces. Normal bilateral parapharyngeal spaces. Normal bilateral carotid spaces. Normal bilateral sublingual and submandibular glands and spaces. Normal visualized nasopharynx. Normal retropharyngeal space. Normal perivertebral space. Normal visualized bilateral faucial tonsils. The visualized tongue, tongue base and oropharynx are normal. The visualized cervical lymph nodes (levels I-) are within normal size limits, and maintain normal morphology. There is no demonstrated solid or cystic mass lesion. There is no abnormal contrast enhancement. Normal epiglottis, bilateral vallecula and hypopharynx. The pre-epiglottic and paraglottic adipose spaces are normal. Normal visualized bilateral piriform sinuses, aryepiglottic folds, vocal cords, and arytenoid-cricoid articulations. Normal subglottic trachea. Mild degree of heterogeneous enhancement of the right lobe of the thyroid. Normal visualized pulmonary apices. Normal visualized paranasal sinuses. Disc space narrowing and spondylosis at the C3-C4 level. CT/Soft Tissue Neck W/WO Contrast IMPRESSION: The palpable abnormality corresponds to a 1.9 cm x 1.7 cm x 3.2 cm partially enhancing mass anterior to the left ureteral abutting the left temporomandibular joint. A neoplastic process should be ruled out. Electronically Signed: Chas Vilchis, at 13:50 EDT , Service support ,
== END | disposition home or self-care (01) ==
LOC: CT 12:41
PROVIDERS: PCP Family Medicine
DX: C77.9 Secondary and unspecified malignant neoplasm of lymph node, unspecified (principal)
CPT/HCPCS: 70470; 70492; Q9967

== ENCOUNTER 2020-02-06 09:10 | Outpatient (RCR) | payer MEDICARE, OTHER, SELFPAY ==
[2019-10-03 09:13] VITALS: BMI 36.1
[2020-02-06 10:02] LABS: Absolute Lymphocyte Count 0.57 X10^3/uL (0.83-4.51); Absolute Neutrophil Count 5.5 X10^3/uL (2.0-7.7); Basophil# 0.04 X10^3/uL; Basophil% 0.6 % (0-1); Eosinophils% 2.9 % (0-5); Hematocrit 40.5 % (40-54); Hemoglobin 12.5 g/dL (13.0-16.5); Lymphocyte # 0.57 X10^3/ul (4.0); Lymphocyte % 8.2 % (19-41); Mean Corp Hgb Conc 30.9 g/dL (32-36); Mean Corpuscular Hgb 28.5 pg (27.0-32.0); Mean Corpuscular Volume 92.3 fL (80-94); Monocyte# 0.62 X10^3/uL; NRBC Flagged by Analyzer 0 % (0-5); Neutrophil # 5.46 X10^3/uL (2.7-7.7); POSITIVE DIFFERENTIAL YES; Platelet Count 212 K/mm3 (150-450); RBC Distribution Width CV 15.9 % (11.6-14.6); RBC Distribution Width SD 53.1 fl (35.1-43.9); Red Blood Count 4.39 M/mm3 (4.6-6.2); White Blood Count 6.9 K/mm3 (4.4-11.0)
[2020-02-06 10:08] LABS: Differential Indicated SCAN CRITERIA MET
[2020-02-06 10:27] LABS: Differential Comment SCANNED
[2020-02-06 10:48] LABS: AST(SGOT) 23 U/L (15-37); Alanine Aminotransfer ALT/SGPT 21 U/L (16-61); Albumin, Serum 3.5 g/dL (3.2-5.0); Alkaline Phosphatase 56 U/L (45-117); Anion Gap 5 (5-15); BUN 39 mg/dL (7-18); BUN/Creat Ratio 27.1 RATIO (10-20); Bilirubin, Direct 0.07 mg/dL (0.00-0.30); Calcium,Total 9.3 mg/dL (8.5-10.1); Chloride 104 mmol/L (98-107); Creatinine, Serum 1.44 mg/dL (0.70-1.30); EST Glomerular Filtration Rate 52 mL/min (>60); Est Glom Filt Rate - Afr Amer 63 mL/min (>60); GGTP 17 U/L (15-85); Glucose 116 mg/dL (74-106); Phosphorus 3.7 mg/dL (2.5-4.9); Potassium 4.6 mmol/L (3.5-5.1); Sodium Level 138 mmol/L (136-145); Uric Acid 7.8 mg/dL (3.5-7.2)
[2020-02-09 15:32] LABS: CMV by PCR Negative (Negative); Sirolimus,Blood 5.3 ng/mL (3.0-20.0); Tacrolimus (FK506) 8.9 ng/mL (2.0-20.0)
== END 2020-02-06 18:00 | disposition home or self-care (01) ==
LOC: MTLAB 09:10
PROVIDERS: Family Provider Family Medicine; PCP Family Medicine
DX: Z94.2 Lung transplant status (principal); Z48.24 Encounter for aftercare following lung transplant; R79.9 Abnormal finding of blood chemistry, unspecified; D89.9 Disorder involving the immune mechanism, unspecified; Z79.899 Other long term (current) drug therapy; Z51.81 Encounter for therapeutic drug level monitoring
CPT/HCPCS: 36415; 80048; 80195; 80197; 82040; 82247; 82248; 82977; 83735; 84075; 84100; 84450; 84460; 84550; 85025; 87496

== ENCOUNTER → 2020-02-07 | Outpatient (CLI) | payer MEDICARE, OTHER, SELFPAY ==
[2019-09-07 17:28] VITALS: BMI 37.0
[2019-10-03 09:13] VITALS: BMI 36.1
--- NOTE | 2020-02-09 11:40 | SPIR ---
Spirometry PFT Testing Spirometry PFT Testing: INTRODUCTION: The patient is a 69-year-old male that presented for pulmonary function studies status post lung transplantation. Respiratory therapy reports good patient effort. INTERPRETATION: Forced expiration spirometry demonstrates the presence of a very severe large airways obstructive ventilatory defect. FEV1 was noted to be 31% of predicted. Decreased FVC could be suggestive of an underlying restrictive ventilatory impairment. Recommend lung volumes to confirm restriction. IMPRESSION: Very severe large airways obstructive ventilatory defect.
== END | disposition home or self-care (01) ==
PROVIDERS: PCP Family Medicine; Referring Provider Internal Medicine Critical Care Medicine; Visit Provider Internal Medicine Critical Care Medicine
DX: Z48.24 Encounter for aftercare following lung transplant (principal); Z94.2 Lung transplant status; Z79.899 Other long term (current) drug therapy
CPT/HCPCS: 94010

== ENCOUNTER → 2020-03-01 | Outpatient (CLI) | payer MEDICARE, OTHER, SELFPAY ==
[2019-10-03 09:13] VITALS: BMI 36.1
[2020-02-28 14:16] VITALS: BMI 35.6
[2020-03-05 14:49] LABS: Sirolimus,Blood 5.1 ng/mL (3.0-20.0); Tacrolimus (FK506) 3.2 ng/mL (2.0-20.0)
== END | disposition home or self-care (01) ==
LOC: MTLAB 07:33
PROVIDERS: PCP Family Medicine; Referring Provider Internal Medicine Critical Care Medicine; Visit Provider Internal Medicine Critical Care Medicine
DX: D89.9 Disorder involving the immune mechanism, unspecified (principal); R79.9 Abnormal finding of blood chemistry, unspecified; Z94.2 Lung transplant status; Z51.81 Encounter for therapeutic drug level monitoring; Z79.899 Other long term (current) drug therapy
CPT/HCPCS: 36415; 80195; 80197

== ENCOUNTER 2020-03-09 08:51 | Day surgery (SDC) | payer MEDICARE, OTHER, SELFPAY ==
[2019-10-03 09:13] VITALS: BMI 36.1
[2020-03-01 13:58] VITALS: BMI 35.4
--- NOTE | 2020-03-02 09:16 | HP_ITS ---
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: port placement Engineering Agent Required: No Accompanied by: Is patient in pain?: No Allergies No Known Allergies Allergy (Verified 03/01/20 13:58) Medications Acetaminophen [Tylenol] 650 mg PO Q4H PRN 01/21/16 [History Confirmed 03/01/20] Alendronate Sodium [Fosamax] 70 mg PO RIDLEY 01/21/16 [History Confirmed 03/01/20] Azithromycin [Zithromax] 250 mg PO MOWEFR 01/21/16 [History Confirmed 03/01/20] Furosemide [Lasix] 20 mg PO DAILY 01/21/16 [History Confirmed 03/01/20] Pantoprazole Sodium [Protonix] 40 mg PO DAILY 01/21/16 [History Confirmed 03/01/20] Smz/Tmp Ds [Bactrim Ds] 800 mg PO MOWEFR 01/21/16 [History Confirmed 03/01/20] Tacrolimus Anhydrous [Prograf] 1 mg PO BID 01/21/16 [History Confirmed 03/01/20] Ferrous Sulfate 325 mg PO DAILY 09/07/19 [History Confirmed 03/01/20] Lisinopril 5 mg PO DAILY 09/07/19 [History Confirmed 03/01/20] Metoprolol Tartrate 100 mg PO BID 09/07/19 [History Confirmed 03/01/20] Multivitamin with Minerals [Multiple Vitamin] 1 tab PO DAILY 09/07/19 [History Confirmed 03/01/20] Prednisone 5 mg PO DAILY 09/07/19 [History Confirmed 03/01/20] Rosuvastatin Calcium 20 mg PO DAILY 09/07/19 [History Confirmed 03/01/20] Aspirin E.C. [Ecotrin] 81 mg PO DAILY@0800 03/01/20 [History Confirmed 03/01/20] Lidocaine/Prilocaine [Lidocaine-Prilocaine Cream] 1 applicatio TP DAILY PRN PRN 30 Days #1 tube 03/01/20 [Rx Confirmed 03/01/20] Ondansetron [Ondansetron Odt] 8 mg PO Q8H PRN PRN 10 Days #30 tab.rapdis 03/01/20 [Rx Confirmed 03/01/20] Prochlorperazine Maleate 10 mg PO Q6H PRN PRN 10 Days #30 tab 03/01/20 [Rx Confirmed 03/01/20] [facility] Medical History Lung transplant recipient (Chronic) Skin cancer (Chronic) Appendicitis (Acute) COPD (chronic obstructive pulmonary disease) (Chronic) Hypertension (Chronic) Hyperlipidemia (Chronic) History of radiation therapy (Acute) Skin ulcer due to radiation exposure (Acute) Squamous cell cancer of skin of left shoulder (Chronic) Lung metastasis (Acute) Regional lymph node metastasis present (Chronic) Encounter for education (Acute) skin graft (Acute) GERD (gastroesophageal reflux disease) (Acute) Lung transplant recipient (Acute) Skin cancer (Acute) HTN (hypertension) (Chronic) Surgical History History of Taniya fundoplication (Acute) History of appendectomy (Acute) history bilateral lung transplant (Acute) Family History Mother Heart disease Father Heart disease Social History (Updated 03/02/20 @ 09:[address] hKang Holt MD) Smoking Status: Former smoker HPI HPI Surgical H&P: Yes HPI: KARIN ANTONIO, is a 69 M who presents to the office today for Evaluation for placement of a PowerPort. 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 History of Present Illness: 05/17/2015: Patient underwent bilateral lung transplantation for end-stage COPD 03/29/2019: Patient underwent a wide excision of the large squamous cell carcinoma of the left posterior shoulder with split thickness skin graft. Preoperatively the gross tumor measurement was 7 cm. 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 March 2019: Patient underwent excision of squamous cell carcinoma of the left posterior shoulder, split thickness skin graft was completed. Pathology showed poorly differentiated SCC with sarcomatous features and the inferior margin was positive. Depth of invasion was 1.7 cm, prominent LVI was identified, PNI negative. Tumor measured at least 6 x 4.2 cm and there was evidence of satellite type lesions. 05/03/2019: Underwent re-resection and pathology showed residual sarcomatoid acantholytic poorly-differentiated SCC with negative margins. 05/17/2019: Patient underwent debridement of the skin graft. There was a 10 x 12 cm granulating wound. Debridement was completed and re-grafting was completed. 06/09/2019: CT chest without contrast was performed for follow-up of bilateral lung transplant with history of pulmonary nodules. There is scarring noted in the posterior medial aspect of the right lower lobe, somewhat nodular thickening adjacent to the pleural surface in this region measuring 1.6 cm compared to 1.5 cm previously. Stable size of a 5 mm nodule within the right middle lobe lateral segment without evidence of new or enlarging pulmonary nodules. Within the left axilla there is a newly enlarged lymph node measuring 1.8 x 2.2 cm with another more posterior left axillary lymph node measuring 1.7 x 2 cm. No other adenopathy is appreciated. 07/26/2019: Ultrasound-guided core needle biopsy of the left axillary lymph node was obtained and pathology demonstrated invasive squamous cell carcinoma involving fibroadipose tissue, no lymph node tissue was identified in the current specimen however the possibility of an entirely replaced lymph node cannot be excluded. FNA of the left axillary mass was completed which demonstrated metastatic squamous cell carcinoma. 08/02/2019: PET scan was performed which demonstrated a small hypermetabolic hyperdense nodule in the right posterior aspect of the parotid gland with a maximum SUV of 9.4 which is indeterminate. There is a hypermetabolic centrally necrotic left axillary mass with a maximum SUV of 27 which is compatible with metastatic disease. Postsurgical changes of the left posterior shoulder with mild hypermetabolic cutaneous/subcutaneous stranding in the surgical bed is identified. There is heterogeneous mild hypermetabolic activity in the subcutaneous soft tissue in the lateral left dorsal foot which should be evaluated clinically. No other evidence disease identified. 08/04/2019: Patient was evaluated by surgical oncology at [facility]. On exam there is evidence of a left axillary mass. The primary site on the posterior left shoulder is well-healed without evidence of recurrence. Plan was made for resection but also referral to medical oncology. 08/05/2019: Patient was evaluated by [facility] medical oncology. Recommendation was for completion of surgery followed by adjuvant radiation therapy. 08/19/2019: Patient underwent left axillary lymph node dissection of levels 1 and 2 as well as 3. The fibrofatty tissue containing lymph nodes was completely dissected out en bloc with a tissue specimen measuring 13 x 8.8 x 6.5 cm. There is a white-tejeda to dark red rubbery to soft mass that has irregular borders and measures 9.8 x 6.2 x 5.4 cm, the mass has extensive hemorrhage and necrosis and is 0.1 cm from the soft tissue margin, areas of necrosis occupy approximately 80% of the mass. 1/12 lymph nodes contained metastatic squamous cell carcinoma, the positive lymph node is matted and measures 9.8 cm in greatest dimension with extranodal extension present. 3 level 3 lymph nodes were obtained and did not contain metastatic carcinoma. 09/16/2019: Patient had follow-up with [facility] surgical oncology and was found to be healing well without evidence of lymphedema. JEFF drain had been previously pulled. There is no evidence of hematoma or seroma. Referral to radiation oncology was placed. ROS General General: No weight change, appetite, fatigue, colon cancer, breast cancer or weakness HEENT HEENT: No difficulty swallowing, eye injury, eye surgery, swollen glands or hoarseness Endo Endocrine: No thyroid disease, diabetes mellitus, thyroid cancer, Hair loss, heat intolerance or cold intolerance Skin Skin: No rash or changing moles Breast Breast: No left breast lump, right breast lump, nipple discharge, breast pain, abnormal mammogram, abnormal US or breast enlargement Musc Musculoskeletal: No back problems, arthritis, rheumatoid arthritis, gout or joint pain Cardio Cardiovascular: No murmur, pacemaker, heart disease, atrial fibrillation, high blood pressure, heart attack, heart stent, palpitations, shortness of breat with exertion or chest pain Psych Psychiatric: No depression, anxiety or hearing voices Resp Respiratory: No shortness of breath, No sleep apnea, No cough, No COPD, No asthma, No emphysema, No wheezing Gastro Gastrointestinal: No abdominal pain, No nausea or vomiting, No diarrhea, No constipation, No blood in stool, No acid reflux, No hemorrhoids, No ulcers, No gallbladder problem, No black,tarry stools Red Hematologic: No blood thinners, No blood disorders, No bleeding, No anemia, No blood clots Neuro Neurologic: No system reviewed and no additional complaints, except as docu, No as per HPI, No abnormal walking, No abnormal hearing, No abnormal movements, No abnormal speech, No behavioral changes, No burning sensations, No confusion, No seizure-like activity, No unsteadiness, No dizziness, No localized weakness, No frequent falls, No headache(s), No lack of coordination, No loss of vision, No memory loss, No numbness, No other visual disturbances, No radiating pain, No restless legs, No sensory deficit, No fainting, No tingling, No tremor(s), No weakness, No other Exam Const General: no acute distress, well developed, well hydrated Orientation: oriented to person, oriented to place, oriented to time [facility] Head: normocephalic, atraumatic Ears: external ears normal Mouth: moist mucous membranes Eyes Sclera: sclerae normal Pupils: normal by confrontation Neck Neck: no lymphadenopathy noted Neck mass: No Thyroid: thyroid normal, symmetrical Chest Chest palpation & inspection: normal inspection of the chest Breast Palpation: No nipple discharge Resp Effort & Inspection: normal respiratory effort Auscultation: clear to auscultation bilaterally Percussion: percussion normal Cardio Rate: regular rate Rhythm: regular rhythm Heart Sounds: no murmurs GI Palpation: soft, no hepatosplenomegaly, no masses, nontender Rectal Exam: other Other: Rectal exam deferred. Extrem General: normal to inspection, no clubbing, cyanosis or edema Assessment & Plan Problems 1. Vascular catheter fitting or adjustment Z45.2 Plan I plan to perform a Right internal jugular port a cath placement. The planned surgical procedure was discussed extensively with the patient. The risks, benefits, anticipated outcomes and possible complication were mentioned. My staff has also explained the procedure in understandable terms and the patient was given the option to take printed material concerning the planned procedure. The patient had the opportunity to ask questions concerning the planned procedure. The patient freely consents to the planned procedure. Orders Orders: CORONAVIRUS 19, OLIVER 03/08/20 Z11.59 Coding Level of Care Code Off vis,new,level 4 Diagnoses Vascular catheter fitting or adjustment Z45.2 03/02/20 0916 <Electronically signed by Khang pena MD> Date _ Khang Holt MD I have re-examined the patient. There are no clinical changes since date of exam.
[2020-03-08 14:34] LABS: Probe Check PASS; Specimen Processing Control PASS
[2020-03-09] VITALS (7 sets, daily range): BP systolic 127–137; BP diastolic 70–85; PULSE 65–69; RESP 16–20; TEMP 36.8–37.7; O2SAT 94–97; BMI 35.6
[2020-03-09] MEDS: Lactated Ringers 1,000 ML 100 ML IV (09:51)
--- NOTE | 2020-03-09 10:59 | PCM.OPRPT ---
Problem List (1) Vascular catheter fitting or adjustment Status: Acute Report of Operation Date of Procedure: 03/09/20 Pre-Operative Diagnosis: Vascular fitting or adjustment Post-Operative Diagnosis: Same Surgery/Procedure Performed:: Right IJ PowerPort placement Type of Anesthesia:: Local MAC Estimated Blood Loss (mL): < 25 cc Description of Procedure: Patient was brought into the operating room. Placed in the supine position. Under an excellent MAC anesthetic bed was placed in the headdown position and ultrasound the right internal jugular vein area. He virtually had almost no right internal jugular vein even with his head down. The right internal jugular vein was less than the size of the internal carotid artery. I ultrasound the left side the left internal jugular vein was much more appropriate probably 3 times the size of the carotid artery on that same side. I made a determination that I did not want in place a subclavian port and therefore I went and placed a left IJ port. The left neck and chest area was sterilely prepped and draped in usual fashion. Local was injected into the neck Seldinger's technique was used to gain access to the vein guidewire was placed over the needle the needle was removed fluoroscopy was used to confirm proper placement of the guidewire. I injected local end of the test incision was made a pocket was created with use of electrocautery. Went to the neck use a scalpel made a skin noah on the guidewire and dilated this area placed the dilator and sheath over the guidewire removing the dilator and guidewire. Single lumen catheter was placed through the sheath the sheath was removed. Fluoroscopy was used to confirm proper length. I tunneled the catheter from the chest up into the neck and brought the catheter down. I cut at the length placed the locking hub on place the port on and secured the 2 with a locking hub. It flushed and irrigated well and it was flushed with 3 cc of heparin flush. I sutured the port into the pocket created with 2 sutures of 2-0 Prolene. Skin incisions were brought together with deep dermal stitches of 3-0 Vicryl. Dermabond was applied. Sterile dressings were applied. Patient tolerated the procedure well. Portable chest x-ray was ordered for the PACU. - Admit VTE Documentation VTE Present on Admission: No VTE Mechan Device Prophylaxis: SCD's VTE Pharm Prophylaxis ordered?: No Reason prophylaxis not ordered:: Treatment Not Indicated - Procedures Cardiovascular CF Procedures [id number]: [id number] Insert tunneled cv cath - Fluoroscopic guidance [id number],
[2020-03-09] MEDS: Cefazolin 2 GM in 0.9% Normal Saline 100 ML IV (11:03)
--- NOTE | 2020-03-09 11:03 | PCM.DC.POR ---
Discharge Diet: No Restrictions - Pain medication may cause nausea. You should typically eat light foods as you take your pain medication. Discharge Activity: May Shower - with the bandage in place 1-2 days after surgery. DO NOT SHOWER WHEN YOUR PORT IS ACCESSED. Additional Activity Instructions:: May not drive, work with heavy equipment, or sign legal documents for [address] if you are no longer taking narcotic pain medications. You may drive when you are no longer taking pain medications. Additional Dressing/Incision Instructions:: Leave the bandage on for 2-3 days. When you remove the bandage, leave the steri-strips intact until they fall off. Allergies/Adverse Reactions: Allergies No Known Allergies Allergy (Verified 03/05/20 14:49) Medications to take at Discharge Acetaminophen [Tylenol] 650 mg PO Q4H PRN 01/21/16 Alendronate Sodium [Fosamax] 70 mg PO RIDLEY 01/21/16 Azithromycin [Zithromax] 250 mg PO MOWEFR 01/21/16 Furosemide [Lasix] 20 mg PO DAILY 01/21/16 Pantoprazole Sodium [Protonix] 40 mg PO DAILY 01/21/16 Smz/Tmp Ds [Bactrim Ds] 800 mg PO MOWEFR 01/21/16 Tacrolimus Anhydrous [Prograf] 1 mg PO BID 01/21/16 Ferrous Sulfate 325 mg PO DAILY 09/07/19 Lisinopril 5 mg PO DAILY 09/07/19 Metoprolol Tartrate 100 mg PO BID 09/07/19 Multivitamin with Minerals [Multiple Vitamin] 1 tab PO DAILY 09/07/19 Prednisone 5 mg PO DAILY 09/07/19 Rosuvastatin Calcium 20 mg PO DAILY 09/07/19 Aspirin E.C. [Ecotrin] 81 mg PO DAILY@0800 03/01/20 Lidocaine/Prilocaine [Lidocaine-Prilocaine Cream] 1 applicatio TP DAILY PRN PRN 30 Days #1 tube 03/01/20 Ondansetron [Ondansetron Odt] 8 mg PO Q8H PRN PRN 10 Days #30 tab.rapdis 03/01/20 Prochlorperazine Maleate 10 mg PO Q6H PRN PRN 10 Days #30 tab 03/01/20 Magnesium Oxide [Magnesium] 500 mg PO DAILY 03/05/20 Oxycodone HCl/Acetaminophen [Percocet 5/325] 1 - 2 tablet PO Q4H PRN PRN 6 Days #30 tablet 03/09/20 The following prescriptions were given: Oxycodone HCl/Acetaminophen [Percocet 5/325] 1 - 2 tablet PO Q4H PRN PRN 6 Days #30 tablet PRN Reason: Pain Transmission Status: Sent to [facility]/pharmacy #[id number] Primary Care Physician: Fahad Jones MD [Primary Care Provider] - Test Results: Test results from this visit will be discussed in further detail at your follow-up appointment, if applicable. Please Follow Up With: Giuliana Rm MD When: Please plan to follow up in 7 days in the office.
[2020-03-09] MEDS: Bupivacaine Mpf 0.5% 30 ML VIAL (11:38)
--- NOTE | 2020-03-09 11:58 | RAD_ITS ---
STUDY: X-RAY CHEST REASON FOR EXAM: Male, 69 years old. POST OP PORT INSERTION TECHNIQUE: Single AP portable view of the chest. COMPARISON: Comparison is made with prior study dated September 07, 2019. FINDINGS: A left-sided portacatheter has been inserted. The tip is in the proximal portion of the superior vena cava. Persistent increased markings at the left lung base with blunting of both prosthetic angles. Sternal cerclage wires and vascular clips are present from a prior sternotomy and coronary artery bypass graft procedure (CABG). Normal mediastinum and david. Normal visualized pulmonary arteries. Normal visualized aortic arch and descending thoracic aorta. There are degenerative changes of the visualized thoracic spine. Normal visualized ribs, clavicles, and shoulders. There is no demonstrated abnormality of the visualized soft tissue structures of the upper abdomen. RAD/CXR for Line Placement IMPRESSION: The tip of the left portacatheter is in the proximal portion of the superior vena cava. Stable pleural parenchymal changes at the left lung base with blunting of the right costophrenic angle. Electronically Signed: Chas Vilchis, at 12:17 EDT , Service support ,
== END 2020-03-09 13:25 | disposition home or self-care (01) ==
LOC: SDC 08:53 → AC 08:53
PROVIDERS: Physician Assistant; PCP Family Medicine; Referring Provider Surgery; Visit Provider Surgery
PROC: (CPT 36561; principal; 2020-03-09 10:45)
DX: Z45.2 Encounter for adjustment and management of vascular access device (principal); Z94.2 Lung transplant status; Z48.24 Encounter for aftercare following lung transplant; I10 Essential (primary) hypertension; E78.5 Hyperlipidemia, unspecified; K21.9 Gastro-esophageal reflux disease without esophagitis; Z85.828 Personal history of other malignant neoplasm of skin; Z85.118 Personal history of other malignant neoplasm of bronchus and lung; Z87.891 Personal history of nicotine dependence; Z79.52 Long term (current) use of systemic steroids; Z79.82 Long term (current) use of aspirin; Z79.899 Other long term (current) drug therapy; Z11.59 Encounter for screening for other viral diseases
CPT/HCPCS: 36561; 71045; 77001; 87635; 94010; G2023; J7120; C1788; U0003

== ENCOUNTER → 2020-03-09 | Outpatient (CLI) | payer MEDICARE, OTHER, SELFPAY ==
[2019-09-07 17:28] VITALS: BMI 37.0
[2019-10-03 09:13] VITALS: BMI 36.1
[2020-03-01 13:58] VITALS: BMI 35.4
--- NOTE | 2020-03-09 10:15 | SPIR ---
Spirometry PFT Testing Spirometry PFT Testing: INTRODUCTION: The patient is a 69-year-old male that presents for spirometry secondary to lung transplantation. Respiratory therapy reports good patient effort. INTERPRETATION: Forced expiration spirometry demonstrates findings of a very severe large airways obstructive ventilatory defect, with an FEV1 of 30% of predicted. Spirograms do not plateau indicating slow emptying of the lungs. The respiratory flow volume loop reveals decreased expiratory flow rates at all lung volumes consistent with airways obstruction. IMPRESSION: Very severe large airways obstructive ventilatory defect.
== END | disposition home or self-care (01) ==
LOC: PSN 07:43
PROVIDERS: PCP Family Medicine; Referring Provider Internal Medicine Critical Care Medicine; Visit Provider Internal Medicine Critical Care Medicine
DX: Z94.2 Lung transplant status (principal); Z48.24 Encounter for aftercare following lung transplant; Z79.899 Other long term (current) drug therapy
CPT/HCPCS: 94010

== ENCOUNTER → 2020-04-17 | Outpatient (CLI) | payer MEDICARE, OTHER, SELFPAY ==
[2019-10-03 09:13] VITALS: BMI 36.1
[2020-04-16 08:44] VITALS: BMI 35.9
--- NOTE | 2020-04-17 09:39 | CT_ITS ---
STUDY: CT CHEST WITH CONTRAST REASON FOR EXAM: Male, 69 years old. Abnormal chest x-ray, history of bilateral lung transplant RADIATION DOSAGE (If Supplied By Facility): CTDIvol = ( 18.13 ) mGy, DLP = ( 1284.95 ) mGycm TECHNIQUE: Transaxial imaging was performed following intravenous administration of IV 100mL Isovue-300. Multiplanar coronal and sagittal images were reformatted. Individualized dose optimization techniques were used for this CT. COMPARISON: Plain film from 03/09/2020, CT chest from 10/04/2019 FINDINGS: Lung windows show interstitial changes in both lung mcneal with nonspecific pleural thickening, interstitial scarring and a poorly defined pleural-based opacification in the right lower lobe on axial image 91. However this is unchanged compared to the CT scan of 10/04/2019 and likely represents chronic change Soft tissue windows show stable appearance of a left subclavian port. No suspicious axillary or mediastinal adenopathy. Evidence of remote CABG. No pericardial effusion. Limited cuts through the upper abdomen show a small retrocardiac hiatal hernia. Bony structures show degenerative change. CT/Chest WITH Contrast IMPRESSION: Chronic interstitial changes in both lung mcneal with nonspecific pleural thickening and stable 1.5 cm pleural-based nodule in the right lower lobe. Six-month follow-up recommended to reassure stability No organized infiltrate, or suspicious ground glass opacifications Remote CABG Degenerative bony changes Electronically Signed: Ronan Donohue MD at 11:46 EDT , Service support ,
--- NOTE | 2020-04-17 09:39 | CT_ITS ---
STUDY: CT SOFT TISSUE NECK WITH CONTRAST REASON FOR EXAM: Male, 69 years old. 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 High resolution transaxial imaging was performed following intravenous administration of IV 100mL Isovue-300. Sagittal and coronal images were reconstructed. Individualized dose optimization techniques were used for this CT. COMPARISON: 01/17/2020 FINDINGS: On the previous study there was a 1.9 x 1.7 x 3.2 cm enhancing mass in the left neck near the left pinna and anterior to the left temporal mandibular joint. On today''s examination, that mass lesion has increased in size. It shows some peripheral enhancement and low-density likely necrosis. It measures 3.8 x 4 x 4.5 cm on current exam. There is no associated induration of the subcutaneous fat, no adenopathy, and no associated erosions of the second metacarpal or left parietal bone. There is some mucosal thickening in the left mastoid air cells. There is a stable 1 cm dense calcification in the anterior aspect of the left parotid gland.. Normal bilateral parotid glands. Normal bilateral process operator spaces. Normal bilateral parapharyngeal spaces. Normal bilateral carotid spaces. Normal bilateral sublingual and submandibular glands and spaces. Normal visualized nasopharynx. Normal retropharyngeal space. Normal perivertebral space. Normal visualized bilateral faucial tonsils. The visualized tongue, tongue base and oropharynx are normal. The visualized cervical lymph nodes (levels I-) are within normal size limits, and maintain normal morphology. There is no demonstrated solid or cystic mass lesion. There is no abnormal contrast enhancement. Normal epiglottis, bilateral vallecula and hypopharynx. The pre-epiglottic and paraglottic adipose spaces are normal. Normal visualized bilateral piriform sinuses, aryepiglottic folds, vocal cords, and arytenoid-cricoid articulations. Normal subglottic trachea. Normal bilateral lobes of the thyroid gland. Normal visualized pulmonary apices. Normal visualized paranasal sinuses. There is multilevel degenerative changes of the cervical spine. CT/Soft Tissue Neck WITH Contrast IMPRESSION: Previously described mass anterior to the left ear has increased in size since the previous study. It now measures approximately 3.8 x 4 x 4.5 cm. There is heterogeneous enhancement along the medial aspect, the majority of the lesion is now low-density fluid or necrosis. There is no associated induration of the subcutaneous fat, no adenopathy, or associated osseous erosions Stable calcification in the anterior left parotid gland Left mastoiditis, likely chronic No new suspicious enhancing lesion, airway narrowing or deviation. Degenerative bony changes Electronically Signed: Ronan Donohue MD at 17:45 EDT , Service support ,
[2020-04-17] MEDS: 0.9% Saline Lock 10 ML Syringe IV (10:07)
== END | disposition home or self-care (01) ==
LOC: CT 09:39
PROVIDERS: PCP Family Medicine; Referring Provider Internal Medicine Hematology & Oncology; Visit Provider Internal Medicine Hematology & Oncology
DX: R22.0 Localized swelling, mass and lump, head (principal); C44.629 Squamous cell carcinoma of skin of left upper limb, including shoulder; C44.90 Unspecified malignant neoplasm of skin, unspecified; C78.00 Secondary malignant neoplasm of unspecified lung
CPT/HCPCS: 70491; 71260; Q9967; A4216

== ENCOUNTER → 2020-05-11 11:13 | Outpatient (CLI) | payer MEDICARE, OTHER, SELFPAY ==
[2019-10-03 09:13] VITALS: BMI 36.1
[2020-04-30 13:20] VITALS: BMI 35.9
--- NOTE | 2020-05-11 13:11 | SPIR_ITS ---
Spirometry PFT Testing Spirometry PFT Testing: COMPLETE PULMONARY FUNCTION TEST INTERPRETATION Brief HPI: Patient is a 70 year old male, currently under the care of Dr. Richey, who presents to [facility] for complete pulmonary function tests secondary to diagnosis of status post lung transplant. Respiratory therapist reports good effort and reproducible results. Interpretation: Forced expiration spirometry shows a severe large airways obstructive ventilatory defect with an FEV1 of 36% predicted. There was no bronchodilator response tested. Spirograms are of good quality and plateau slowly, indicating slowly emptying areas of the lungs. The respiratory flow volume loop shows decreased expiratory flow rates at all lung volumes consistent with airway obstruction. Compared to previous pulmonary function tests from 03/09/2020, there is been improvement in FEV1 by 14%. Impression: Severe obstructive ventilatory defect
== END ==
PROVIDERS: PCP Family Medicine; Referring Provider Internal Medicine Critical Care Medicine; Visit Provider Internal Medicine Critical Care Medicine
DX: Z48.24 Encounter for aftercare following lung transplant (principal); Z94.2 Lung transplant status; D89.9 Disorder involving the immune mechanism, unspecified; Z79.899 Other long term (current) drug therapy
CPT/HCPCS: 94010

== ENCOUNTER 2020-06-06 08:22 | Outpatient (RCR) | payer MEDICARE, OTHER, SELFPAY ==
[2019-10-03 09:13] VITALS: BMI 36.1
[2020-03-01 13:58] VITALS: BMI 35.4
[2020-05-28 12:35] VITALS: BMI 36.3
[2020-06-06 10:04] LABS: Absolute Lymphocyte Count 0.34 X10^3/uL (0.83-4.51); Absolute Neutrophil Count 1.7 X10^3/uL (2.0-7.7); Basophil# 0.02 X10^3/uL; Basophil% 0.8 % (0-1); Hematocrit 35.2 % (40-54); Hemoglobin 10.9 g/dL (13.0-16.5); Lymphocyte # 0.34 X10^3/ul (4.0); Lymphocyte % 13.7 % (19-41); Mean Corpuscular Hgb 29.9 pg (27.0-32.0); Mean Corpuscular Volume 96.7 fL (80-94); Mean Platelet Vol. 10.4 fl (6.2-12.0); Monocyte# 0.33 X10^3/uL; Monocyte% 13.3 % (0-10); NRBC Flagged by Analyzer 0 % (0-5); Neutrophil # 1.69 X10^3/uL (2.7-7.7); Neutrophil % 67.8 % (47-70); POSITIVE DIFFERENTIAL YES; POSITIVE MORPHOLOGY YES; Platelet Count 113 K/mm3 (150-450); RBC Distribution Width CV 21.1 % (11.6-14.6); RBC Distribution Width SD 74.4 fl (35.1-43.9); Red Blood Count 3.64 M/mm3 (4.6-6.2); White Blood Count 2.5 K/mm3 (4.4-11.0)
[2020-06-06 10:10] LABS: Differential Indicated SCAN CRITERIA MET
[2020-06-06 10:31] LABS: Hemoglobin A1c 6.1 % (3.8-5.6)
[2020-06-06 10:33] LABS: Anisocytosis 1+
[2020-06-06 10:46] LABS: AST(SGOT) 29 U/L (15-37); Alanine Aminotransfer ALT/SGPT 31 U/L (16-61); Albumin, Serum 3.3 g/dL (3.2-5.0); Alkaline Phosphatase 49 U/L (45-117); Anion Gap 5 (5-15); BUN 26 mg/dL (7-18); BUN/Creat Ratio 23.6 RATIO (10-20); Bilirubin, Direct 0.07 mg/dL (0.00-0.30); Calcium,Total 8.3 mg/dL (8.5-10.1); Chloride 103 mmol/L (98-107); EST Glomerular Filtration Rate 71 mL/min (>60); Est Glom Filt Rate - Afr Amer 85 mL/min (>60); Ferritin 118 ng/mL (26-388); GGTP 17 U/L (15-85); Glucose 91 mg/dL (74-106); Iron 55 ug/dL (65-175); Iron Binding Capacity,Total 277 ug/dL (250-450); Magnesium 2.1 mg/dL (1.6-2.6); PERCENT IRON SATURATION 19.9 % (15.0-55.0); Phosphorus 2.7 mg/dL (2.5-4.9); Potassium 4.5 mmol/L (3.5-5.1); Sodium Level 138 mmol/L (136-145); Uric Acid 5.6 mg/dL (3.5-7.2)
[2020-06-07 12:09] LABS: Pathologist Review Reviewed
[2020-06-14 03:07] LABS: Immunoglobulin A 54 mg/dL (61-437); Immunoglobulin G 687 mg/dL (603-1613)
[2020-06-14 05:34] LABS: CMV by PCR Negative (Negative); Immunoglobulin M 7 mg/dL (20-172); Sirolimus,Blood 2.7 ng/mL (3.0-20.0); Tacrolimus (FK506) 1.9 ng/mL (2.0-20.0); Transferrin 210 mg/dL (177-329)
== END 2020-06-06 18:00 | disposition home or self-care (01) ==
LOC: MTLAB 08:22
PROVIDERS: Family Provider Family Medicine; PCP Family Medicine
DX: Z48.24 Encounter for aftercare following lung transplant (principal); D89.9 Disorder involving the immune mechanism, unspecified; R79.9 Abnormal finding of blood chemistry, unspecified; Z94.2 Lung transplant status; Z51.81 Encounter for therapeutic drug level monitoring; Z79.899 Other long term (current) drug therapy
CPT/HCPCS: 36415; 80048; 80195; 80197; 82040; 82247; 82248; 82728; 82784; 82977; 83036; 83540; 83550; 83735; 84075; 84100; 84450; 84460; 84466; 84550; 85025; 87496

== ENCOUNTER → 2020-06-19 | Outpatient (CLI) | payer MEDICARE, OTHER, SELFPAY ==
[2019-10-03 09:13] VITALS: BMI 36.1
[2020-06-12 12:03] VITALS: BMI 36.7
--- NOTE | 2020-06-19 12:14 | CT_ITS ---
STUDY: CT SOFT TISSUE NECK WITH CONTRAST REASON FOR EXAM: Male, 70 years old. 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 High resolution transaxial imaging was performed following intravenous administration of IV 75mL Isovue-300. Sagittal and coronal images were reconstructed. Individualized dose optimization techniques were used for this CT. COMPARISON: Comparison is made with prior examination dated 04/17/2020. FINDINGS: There is a persistent inhomogeneous enhancing predominantly cystic mass with thick surrounding rim in the left-sided neck adjacent to the left pinna and anterior to the left temporomandibular joint. It presently measures 2.6 cm x 2.7 cm x 4.4 cm. This has decreased in size as compared to prior study. Dense calcifications in the anterior aspect of the left parotid gland. Normal bilateral nut blanker operator spaces. Normal bilateral parapharyngeal spaces. Normal bilateral carotid spaces. Normal bilateral sublingual and submandibular glands and spaces. Normal visualized nasopharynx. Normal retropharyngeal space. Normal perivertebral space. Normal visualized bilateral faucial tonsils. The visualized tongue, tongue base and oropharynx are normal. The visualized cervical lymph nodes (levels I-) are within normal size limits, and maintain normal morphology. There is no demonstrated solid or cystic mass lesion. There is no abnormal contrast enhancement. Normal epiglottis, bilateral vallecula and hypopharynx. The pre-epiglottic and paraglottic adipose spaces are normal. Normal visualized bilateral piriform sinuses, aryepiglottic folds, vocal cords, and arytenoid-cricoid articulations. Normal subglottic trachea. Normal bilateral lobes of the thyroid gland. Normal visualized pulmonary apices. Partial opacification of the mastoid air cells. Marked degree of disc space narrowing and spondylosis at the C3-C4 level. CT/Soft Tissue Neck WITH Contrast IMPRESSION: Interval decrease in size of the mass in the left side of the neck as described. The remainder the examination is unchanged. Electronically Signed: Chas Vilchis, at 13:57 EDT , Service support ,
== END | disposition home or self-care (01) ==
LOC: CT 12:14
PROVIDERS: PCP Family Medicine; Referring Provider Internal Medicine Hematology & Oncology; Visit Provider Internal Medicine Hematology & Oncology
DX: C44.629 Squamous cell carcinoma of skin of left upper limb, including shoulder (principal); C77.9 Secondary and unspecified malignant neoplasm of lymph node, unspecified; C78.00 Secondary malignant neoplasm of unspecified lung
CPT/HCPCS: 70491; Q9967

== ENCOUNTER 2020-07-05 08:44 | Outpatient (RCR) | payer MEDICARE, OTHER, SELFPAY ==
[2019-10-03 09:13] VITALS: BMI 36.1
[2020-06-25 13:33] VITALS: BMI 36.9
[2020-07-05 09:43] LABS: Hematocrit 35.6 % (40-54); Hemoglobin 10.7 g/dL (13.0-16.5); Mean Corp Hgb Conc 30.1 g/dL (32-36); Mean Corpuscular Hgb 31.4 pg (27.0-32.0); Mean Corpuscular Volume 104.4 fL (80-94); Mean Platelet Vol. 10.2 fl (6.2-12.0); POSITIVE MORPHOLOGY YES; Platelet Count 182 K/mm3 (150-450); RBC Distribution Width CV 21.2 % (11.6-14.6); RBC Distribution Width SD 81.9 fl (35.1-43.9); Red Blood Count 3.41 M/mm3 (4.6-6.2)
[2020-07-05 10:02] LABS: AST(SGOT) 23 U/L (15-37); Alanine Aminotransfer ALT/SGPT 30 U/L (16-61); Albumin, Serum 3.3 g/dL (3.2-5.0); Alkaline Phosphatase 108 U/L (45-117); Anion Gap 3 (5-15); BUN 22 mg/dL (7-18); BUN/Creat Ratio 15.4 RATIO (10-20); Bilirubin, Direct < 0.05 mg/dL (0.00-0.30); Calcium,Total 8.7 mg/dL (8.5-10.1); Chloride 104 mmol/L (98-107); Creatinine, Serum 1.43 mg/dL (0.70-1.30); EST Glomerular Filtration Rate 52 mL/min (>60); Est Glom Filt Rate - Afr Amer 63 mL/min (>60); GGTP 24 U/L (15-85); Glucose 99 mg/dL (74-106); Magnesium 1.7 mg/dL (1.6-2.6); Phosphorus 3.5 mg/dL (2.5-4.9); Potassium 4.4 mmol/L (3.5-5.1); Sodium Level 138 mmol/L (136-145)
[2020-07-05 10:08] LABS: Differential Indicated MANUAL DIFF
[2020-07-05 10:12] LABS: Eosinophil 1 % (0-5); Lymphocyte 1 % (19-41); Monocyte 13 % (0-10); Myelocyte 1 (0-0); Neutrophil-Band 28 % (0-5); Neutrophil-Segmented 56 % (47-70); Total Cells Counted 100 (MANUAL DIFF)
[2020-07-05 10:15] LABS: Absolute Neutrophil Count 11.8 X10^3/uL (2.0-7.7)
[2020-07-05 10:16] LABS: Absolute Lymphocyte Count 0.14 X10^3/uL (0.83-4.51); Anisocytosis 2+; Dohle Bodies 1+; Macrocytosis 2+; Platelet Estimate ADEQUATE (ADEQ); Polychromasia 1+
[2020-07-06 12:26] LABS: Pathologist Review Reviewed
[2020-07-10 21:11] LABS: CMV by PCR Negative (Negative); Sirolimus,Blood 4.6 ng/mL (3.0-20.0); Tacrolimus (FK506) 3.5 ng/mL (2.0-20.0)
== END 2020-07-05 18:00 | disposition home or self-care (01) ==
LOC: MTLAB 08:44
PROVIDERS: Family Provider Family Medicine; PCP Family Medicine
DX: Z94.2 Lung transplant status (principal); Z48.24 Encounter for aftercare following lung transplant; D89.9 Disorder involving the immune mechanism, unspecified; R79.9 Abnormal finding of blood chemistry, unspecified; Z51.81 Encounter for therapeutic drug level monitoring; Z79.899 Other long term (current) drug therapy
CPT/HCPCS: 36415; 80048; 80195; 80197; 82040; 82247; 82248; 82977; 83735; 84075; 84100; 84450; 84460; 84550; 85025; 87496

== ENCOUNTER 2020-08-08 07:43 | Outpatient (RCR) | payer MEDICARE, OTHER, SELFPAY ==
[2019-10-03 09:13] VITALS: BMI 36.1
[2020-07-23 13:27] VITALS: BMI 35.9
[2020-08-07 13:25] VITALS: BMI 35.9
[2020-08-08 10:06] LABS: Absolute Lymphocyte Count 0.46 X10^3/uL (0.83-4.51); Absolute Neutrophil Count 7.1 X10^3/uL (2.0-7.7); Hematocrit 34.3 % (40-54); Hemoglobin 10.5 g/dL (13.0-16.5); Lymphocyte # 0.46 X10^3/ul (4.0); Lymphocyte % 5.9 % (19-41); Mean Corp Hgb Conc 30.6 g/dL (32-36); Mean Corpuscular Hgb 33.1 pg (27.0-32.0); Mean Corpuscular Volume 108.2 fL (80-94); Mean Platelet Vol. 11.1 fl (6.2-12.0); Monocyte# 0.19 X10^3/uL; Monocyte% 2.4 % (0-10); NRBC Flagged by Analyzer 0 % (0-5); Neutrophil # 7.13 X10^3/uL (2.7-7.7); Neutrophil % 91.1 % (47-70); POSITIVE DIFFERENTIAL YES; POSITIVE MORPHOLOGY YES; Platelet Count 130 K/mm3 (150-450); RBC Distribution Width CV 18.4 % (11.6-14.6); RBC Distribution Width SD 74.3 fl (35.1-43.9); Red Blood Count 3.17 M/mm3 (4.6-6.2); White Blood Count 7.8 K/mm3 (4.4-11.0)
[2020-08-08 10:27] LABS: Hemoglobin A1c 5.5 % (3.8-5.6)
[2020-08-08 10:46] LABS: ALB/GLOB Ratio 0.9 RATIO (0.9-2.4); AST(SGOT) 21 U/L (15-37); Alanine Aminotransfer ALT/SGPT 31 U/L (16-61); Albumin, Serum 3.4 g/dL (3.2-5.0); Alkaline Phosphatase 86 U/L (45-117); Anion Gap 6 (5-15); BUN 30 mg/dL (7-18); BUN/Creat Ratio 25.9 RATIO (10-20); Calcium,Total 8.4 mg/dL (8.5-10.1); Chloride 106 mmol/L (98-107); Creatinine, Serum 1.16 mg/dL (0.70-1.30); EST Glomerular Filtration Rate 66 mL/min (>60); Est Glom Filt Rate - Afr Amer 80 mL/min (>60); Ferritin 189 ng/mL (26-388); Globulin 3.7 g/dL (2.2-4.2); Glucose 123 mg/dL (74-106); Iron 71 ug/dL (65-175); Iron Binding Capacity,Total 267 ug/dL (250-450); Magnesium 1.8 mg/dL (1.6-2.6); PERCENT IRON SATURATION 26.6 % (15.0-55.0); Phosphorus 2.6 mg/dL (2.5-4.9); Potassium 4.5 mmol/L (3.5-5.1); Protein, Total 7.1 g/dL (6.4-8.2); Sodium Level 139 mmol/L (136-145); Uric Acid 4.9 mg/dL (3.5-7.2)
[2020-08-08 10:57] LABS: Differential Indicated SCAN CRITERIA MET
[2020-08-08 11:13] LABS: Differential Comment SCANNED
[2020-08-08 11:14] LABS: Anisocytosis 2+
[2020-08-10 14:28] LABS: GGTP 19 U/L (15-85)
[2020-08-14 12:08] LABS: Immunoglobulin A 61 mg/dL (61-437); Immunoglobulin G 708 mg/dL (603-1613)
[2020-08-14 15:01] LABS: CMV by PCR Negative (Negative); Immunoglobulin M 9 mg/dL (20-172); Sirolimus,Blood 2.4 ng/mL (3.0-20.0); Tacrolimus (FK506) 2.5 ng/mL (2.0-20.0); Transferrin 204 mg/dL (177-329)
== END 2020-08-08 18:00 | disposition home or self-care (01) ==
LOC: MTLAB 07:43
PROVIDERS: Family Provider Family Medicine; PCP Family Medicine
DX: Z94.2 Lung transplant status (principal); Z48.24 Encounter for aftercare following lung transplant; D89.9 Disorder involving the immune mechanism, unspecified; R79.9 Abnormal finding of blood chemistry, unspecified; Z51.81 Encounter for therapeutic drug level monitoring; Z79.899 Other long term (current) drug therapy
CPT/HCPCS: 36415; 80053; 80195; 80197; 82728; 82784; 82977; 83036; 83540; 83550; 83735; 84100; 84466; 84550; 85025; 87496

== ENCOUNTER → 2020-08-14 09:15 | Outpatient (CLI) | payer MEDICARE, OTHER, SELFPAY ==
[2019-10-03 09:13] VITALS: BMI 36.1
[2020-07-23 13:27] VITALS: BMI 35.9
[2020-08-13 12:26] VITALS: BMI 35.9
--- NOTE | 2020-08-14 16:19 | SPIR ---
Spirometry PFT Testing Spirometry PFT Testing: COMPLETE PULMONARY FUNCTION TEST INTERPRETATION Brief HPI: Patient is a 70 year old male, currently under the care of Dr. Richey, who presents to [facility] for complete pulmonary function tests secondary to diagnosis of status post lung transplant. Respiratory therapist reports good effort and reproducible results. Interpretation: Forced expiration spirometry shows a very severe large airways obstructive ventilatory defect with an FEV1 of 35% predicted. Bronchodilator response was not tested. Spirograms are of good quality and plateau slowly, indicating slowly emptying areas of the lungs. The respiratory flow volume loop shows decreased expiratory flow rates at all lung volumes consistent with airway obstruction. Compared to previous pulmonary function tests from 05/11/2020, there has been no significant change. Impression: Very severe large airways obstructive ventilatory defect, but no change compared to previous testing on 05/11/2020
== END ==
PROVIDERS: PCP Family Medicine; Referring Provider Internal Medicine Critical Care Medicine; Visit Provider Internal Medicine Critical Care Medicine
DX: R94.2 Abnormal results of pulmonary function studies (principal); D84.89 Other immunodeficiencies; Z94.2 Lung transplant status; Z48.24 Encounter for aftercare following lung transplant; Z79.899 Other long term (current) drug therapy
CPT/HCPCS: 94010

== ENCOUNTER 2020-09-07 09:02 | Outpatient (RCR) | payer MEDICARE, OTHER, SELFPAY ==
[2019-10-03 09:13] VITALS: BMI 36.1
[2020-09-03 13:18] VITALS: BMI 35.6
[2020-09-07 10:16] LABS: Absolute Lymphocyte Count 0.36 X10^3/uL (0.83-4.51); Absolute Neutrophil Count 5.2 X10^3/uL (2.0-7.7); Basophil# 0.03 X10^3/uL; Basophil% 0.5 % (0-1); Eosinophil# 0.21 X10^3/uL; Eosinophils% 3.4 % (0-5); Hematocrit 36.7 % (40-54); Hemoglobin 11.3 g/dL (13.0-16.5); Lymphocyte # 0.36 X10^3/ul (4.0); Lymphocyte % 5.8 % (19-41); Mean Corp Hgb Conc 30.8 g/dL (32-36); Mean Corpuscular Hgb 33.5 pg (27.0-32.0); Mean Corpuscular Volume 108.9 fL (80-94); Mean Platelet Vol. 10.9 fl (6.2-12.0); Monocyte# 0.45 X10^3/uL; Monocyte% 7.2 % (0-10); NRBC Flagged by Analyzer 0 % (0-5); Neutrophil # 5.18 X10^3/uL (2.7-7.7); Neutrophil % 82.6 % (47-70); POSITIVE DIFFERENTIAL YES; POSITIVE MORPHOLOGY YES; Platelet Count 115 K/mm3 (150-450); RBC Distribution Width CV 17.5 % (11.6-14.6); RBC Distribution Width SD 71.1 fl (35.1-43.9); Red Blood Count 3.37 M/mm3 (4.6-6.2); White Blood Count 6.3 K/mm3 (4.4-11.0)
[2020-09-07 10:19] LABS: Differential Indicated SCAN CRITERIA MET
[2020-09-07 10:43] LABS: AST(SGOT) 20 U/L (15-37); Alanine Aminotransfer ALT/SGPT 30 U/L (16-61); Albumin, Serum 3.3 g/dL (3.2-5.0); Alkaline Phosphatase 67 U/L (45-117); Anion Gap 4 (5-15); BUN 22 mg/dL (7-18); BUN/Creat Ratio 24.2 RATIO (10-20); Calcium,Total 8.7 mg/dL (8.5-10.1); Chloride 106 mmol/L (98-107); Creatinine, Serum 0.91 mg/dL (0.70-1.30); EST Glomerular Filtration Rate 88 mL/min (>60); Est Glom Filt Rate - Afr Amer 106 mL/min (>60); Globulin 3.3 g/dL (2.2-4.2); Glucose 112 mg/dL (74-106); Magnesium 1.5 mg/dL (1.6-2.6); Phosphorus 2.5 mg/dL (2.5-4.9); Potassium 4.2 mmol/L (3.5-5.1); Protein, Total 6.6 g/dL (6.4-8.2); Sodium Level 139 mmol/L (136-145); Uric Acid 6.2 mg/dL (3.5-7.2)
[2020-09-07 10:54] LABS: Anisocytosis 1+
[2020-09-19 15:22] LABS: CMV by PCR Negative (Negative); Sirolimus,Blood 3.6 ng/mL (3.0-20.0); Tacrolimus (FK506) 2.9 ng/mL (2.0-20.0)
== END 2020-09-07 18:00 | disposition home or self-care (01) ==
LOC: MTLAB 09:02
PROVIDERS: Family Provider Family Medicine; PCP Family Medicine
DX: Z94.2 Lung transplant status (principal); Z48.24 Encounter for aftercare following lung transplant; D89.9 Disorder involving the immune mechanism, unspecified; R79.9 Abnormal finding of blood chemistry, unspecified; Z51.81 Encounter for therapeutic drug level monitoring; Z79.899 Other long term (current) drug therapy
CPT/HCPCS: 36415; 80053; 80195; 80197; 83735; 84100; 84550; 85025; 87496

== ENCOUNTER → 2020-09-13 09:11 | Outpatient (CLI) | payer MEDICARE, OTHER, SELFPAY ==
[2019-10-03 09:13] VITALS: BMI 36.1
[2020-07-23 13:27] VITALS: BMI 35.9
[2020-09-10 13:31] VITALS: BMI 35.7
--- NOTE | 2020-09-13 16:53 | SPIR ---
Spirometry PFT Testing Spirometry PFT Testing: COMPLETE PULMONARY FUNCTION TEST INTERPRETATION Brief HPI: Patient is a 70 year old male, currently under the care of Dr. Richey, who presents to [facility] for complete pulmonary function tests secondary to diagnosis of status post lung transplant. Respiratory therapist reports good effort and reproducible results. Interpretation: Forced expiration spirometry shows a severe large airways obstructive ventilatory defect with an FEV1 of 36% predicted. Spirograms are of good quality and plateau slowly, indicating slowly emptying areas of the lungs. The respiratory flow volume loop shows decreased expiratory flow rates at all lung volumes consistent with airway obstruction. Compared to previous pulmonary function tests from 08/14/2020, there has been no significant change. Impression: Severe obstructive ventilatory defect
== END ==
PROVIDERS: PCP Family Medicine; Referring Provider Internal Medicine Critical Care Medicine; Visit Provider Internal Medicine Critical Care Medicine
DX: R94.2 Abnormal results of pulmonary function studies (principal); Z94.2 Lung transplant status; Z48.24 Encounter for aftercare following lung transplant; Z79.899 Other long term (current) drug therapy
CPT/HCPCS: 94010

== ENCOUNTER → 2020-09-18 07:54 | Outpatient (CLI) | payer MEDICARE, OTHER, SELFPAY ==
[2019-10-03 09:13] VITALS: BMI 36.1
[2020-09-10 13:31] VITALS: BMI 35.7
[2020-09-17 08:57] VITALS: BMI 35.6
--- NOTE | 2020-09-18 07:55 | MRI_ITS ---
STUDY: MRI BRAIN WITH AND WITHOUT CONTRAST REASON FOR EXAM: Male, 70 years old. Pre auricular scc of face, ST mass, eval left pre-auricular area. Positive biopsy. 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 Concern for facial nerve involvement TECHNIQUE: Standardized multiplanar fat and water weighted pulse sequences were obtained. 20ml Dotarem via port was administered for the contrast portion of the examination. COMPARISON: CT neck with contrast 06/19/2020. FINDINGS: No restricted diffusion to suspect acute or subacute ischemic infarct. Normal size of the ventricles and extra-axial spaces for the patient''s age. Normal white matter tracts of the supratentorial brain. Normal bilateral basal ganglia. Normal thalami. There is no extra-axial fluid accumulation. Normal flow voids within the major intracranial circulation suggesting patency by spin echo criteria. Normal venous enhancement. There is no enhancing intra-axial or extra-axial abnormality. Normal sella turcica, pituitary gland, infundibular stalk, optic chiasm and hypothalamus. Normal tectal plate and pineal gland. Normal midbrain, kiara and medulla. Normal cerebellum. Normal basal cisterns. Normal bilateral temporal bones. Normal bilateral internal auditory canals. No demonstrated orbital abnormality, within the constraints of a routine brain study. Normal visualized paranasal sinuses. Normal calvarium and skull base. Left preauricular soft tissues thickening enhances with contrast. This extends into the enhancing soft tissue density in the neurovascular bundle area of the left parotid gland. Normal visualized upper cervical spine. MRI/Brain W/WO Contrast IMPRESSION: 1. Normal unenhanced and enhanced MRI of the brain. 2. No MRI evidence of any enhancing lesions of the left facial nerve in the cisternal portion, intracanalicular portion, middle ear portion and mastoid portion. The detail is limited due to motion. 3. Abnormal enhancing left preauricular soft tissues thickening extending to the neurovascular bundle area of the left parotid gland. They may be postoperative changes and postradiation changes. 4. Marked decrease in size of the left preauricular soft tissue mass when compared to preoperative CT neck of 06/19/2020. Electronically Signed: Mukesh Hernandez MD at 11:22 EST , Service support ,
--- NOTE | 2020-09-18 07:55 | MRI_ITS ---
STUDY: MRI ORBITS WITH AND WITHOUT CONTRAST REASON FOR EXAM: Male, 70 years old. Positive biopsy. 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 Concern for facial nerve involvement TECHNIQUE: Standardized fat and water weighted pulse sequences were obtained in all 3 orthogonal planes, pre-and post contrast administration. 20ml Dotarem via port was administered for the contrast portion of the examination. COMPARISON: CT neck with contrast 06/19/2020. FINDINGS: Enhancing soft tissue mass and/or post operative and/or post radiation changes in the left preauricular soft tissue mass area. This has however decreased in size since 06/19/2020. The enhancing soft tissue density extends to the left parotid gland near the left neurovascular bundle. Involvement of the involvement in the retromalleolar portion of left facial nerve is difficult to exclude without prior MRI scan for comparison. The cisternal portion, intracanicular portion, middle ear portion and mastoid portion of the left facial nerve did not show any suspicious abnormal contrast enhancement to suspect perineural spread of neoplasm at this time. The brainstem is normal. Normal orbital globes. Normal bilateral optic nerve sheath complexes and optic nerves. Normal bilateral intraconal and extraconal spaces. Normal bilateral extraocular muscles. Normal optic chiasm and post-chiasmatic tracts. Normal sella turcica, pituitary gland, infundibular stalk, and hypothalamus. Normal bilateral cavernous sinuses. Normal tectal plate and pineal gland. Normal flow voids within the major intracranial circulation suggesting patency by spin echo criteria. Normal size of the ventricles and extra-axial spaces for the patient''s age. Normal white matter tracts of the supratentorial brain. Normal bilateral basal ganglia. Normal thalami. There is no extra-axial fluid accumulation. Normal midbrain, kiara and medulla. Normal cerebellum. Normal basal cisterns. MRI/Orbit Face Neck W/WO Contrast IMPRESSION: 1. Enhancing soft tissue density in the left preauricular space which has decreased in size when compared to CT neck with contrast of 06/19/2020. This enhancing soft tissue density extends into the left parotid gland with suspicious partial encasement of the left neurovascular bundle. Invasion of the parotid portion of the left facial nerve is difficult to exclude. These may also represent post radiation changes but there are no postop MRI scan or postop CT neck for comparison. Additionally, soft tissue detail is limited by motion degradation. 2. No abnormal enhancing perineural spread of neoplasm in the mastoid portion, middle ear portion, intracanalicular portion and cisternal portion of the left facial nerve at this time. Electronically Signed: Mukesh Hernandez MD at 11:30 EST , Service support ,
[2020-09-18] MEDS: 0.9% Saline Lock 10 ML Syringe IV (09:35)
== END ==
PROVIDERS: PCP Family Medicine; Referring Provider Student in an Organized Health Care Education/Training Program; Visit Provider Student in an Organized Health Care Education/Training Program
DX: C44.90 Unspecified malignant neoplasm of skin, unspecified (principal); G51.0 Bell's palsy; C44.629 Squamous cell carcinoma of skin of left upper limb, including shoulder; C78.00 Secondary malignant neoplasm of unspecified lung
CPT/HCPCS: 70543; 70553; 96372; A9575; A4216; Q5111

== ENCOUNTER 2020-09-21 07:59 | Outpatient (RCR) | payer MEDICARE, OTHER, SELFPAY ==
[2019-10-03 09:13] VITALS: BMI 36.1
[2020-09-10 13:31] VITALS: BMI 35.7
[2020-09-17 08:57] VITALS: BMI 35.6
[2020-09-21 08:11] VITALS: BP 134/74; PULSE 90; TEMP 36.7; BMI 35.6
--- NOTE | 2020-09-21 10:31 | HP.PCM_ITS ---
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 Status: Chronic Code(s): L98.492 - Non-pressure chronic ulcer of skin of other sites with fat layer exposed (2) Metastatic squamous cell carcinoma to head and neck Status: Chronic Code(s): C79.89 - Secondary malignant neoplasm of other specified sites (3) Facial nerve palsy Status: Chronic Code(s): G51.0 - Bui's palsy (4) Chemotherapy induced neutropenia Status: Chronic Code(s): D70.1 - Agranulocytosis secondary to cancer chemotherapy; T45.1X5A - Adverse effect of antineoplastic and immunosuppressive drugs, initial encounter (5) History of radiation therapy Status: Chronic Code(s): Z92.3 - Personal history of irradiation (6) Lung transplant recipient Status: Chronic Code(s): Z94.2 - Lung transplant status History of Present Illness Date of Service: 09/21/20 Chief Complaint: Ulceration of the left preauricular region due to metastatic squamous cell carcinoma History of Wound: This is a 70-year-old white male who [facility] for evaluation of a left preauricular ulceration with underlying metastatic squamous cell carcinoma. He has a past medical history significant for COPD, bilateral lung transplant 2014, multiple squamous cell carcinomas, hypertension, hyperlipidemia, and obesity. In January 2020, the patient underwent a biopsy of a painless, progressively enlarging left preauricular soft tissue lesion, which was positive for metastatic squamous cell carcinoma. He is being treated with chemotherapy. He states the ulceration opened approximately 1 month ago (~mid-August 2020). Initially it was draining only intermittenty, but in recent weeks it has begun to continuously drain copious amounts of bloody discharge. He denies any purulent or malodorous drainage. The ulceration is tender to palpation. He denies any fever, chills, nausea, vomiting, or diarrhea. An MRI of the face/head/neck was done on 09/18/2020 and showed an enhancing soft tissue density in the left preauricular space that extends to the left parotid gland with suspicious partial encasement of the left neurovascular bundle. Per my discussion this morning with Dr. Goode (rad/onc), the patient is following up with [facility] today to plan for upcoming radiation treatments (these are expected to begin by 10/08/2019). Past Medical History Past Medical History: Chronic Problems (Last Reviewed 09/17/20 @ 08:56 by Divya Duff) Metastatic squamous cell carcinoma to head and neck (Chronic) Skin ulcer of face with fat layer exposed (Chronic) Facial nerve palsy (Chronic) Insomnia (Chronic) Anxiety (Chronic) Chemotherapy induced neutropenia (Chronic) Drug rash (Chronic) Lung transplant recipient (Chronic) Skin cancer (Chronic) COPD (chronic obstructive pulmonary disease) (Chronic) Hypertension (Chronic) Hyperlipidemia (Chronic) History of radiation therapy (Chronic) Squamous cell cancer of skin of left shoulder (Chronic) Lung metastasis (Chronic) Regional lymph node metastasis present (Chronic) Surgical History: - - Bilateral Lung transplant, Taniya fundoplication, excision squamous cell skin cancer. Allergies/Adverse Reactions: Allergies No Known Allergies Allergy (Verified 09/17/20 08:56) Home Medications: Ambulatory Orders Medication Instructions Recorded Acetaminophen [Tylenol] 650 mg PO Q4H PRN 01/21/16 Alendronate Sodium [Fosamax] 70 mg PO RIDLEY 01/21/16 Azithromycin [Zithromax] 250 mg PO MOWEFR 01/21/16 Furosemide [Lasix] 20 mg PO DAILY 01/21/16 Pantoprazole Sodium [Protonix] 40 mg PO DAILY 01/21/16 Smz/Tmp Ds [Bactrim Ds] 800 mg PO MOWEFR 01/21/16 Tacrolimus Anhydrous [Prograf] 1 mg PO BID 01/21/16 Ferrous Sulfate 325 mg PO DAILY 09/07/19 Lisinopril 5 mg PO DAILY 09/07/19 Metoprolol Tartrate 100 mg PO BID 09/07/19 Multivitamin with Minerals 1 tab PO DAILY 09/07/19 [Multiple Vitamin] Prednisone 5 mg PO DAILY 09/07/19 Rosuvastatin Calcium 20 mg PO DAILY 09/07/19 Aspirin E.C. [Ecotrin] 81 mg PO DAILY@0800 03/01/20 Lidocaine/Prilocaine 1 applicatio TP DAILY PRN PRN 30 03/01/20 [Lidocaine-Prilocaine Cream] Days #1 tube Ondansetron [Ondansetron Odt] 8 mg PO Q8H PRN PRN 10 Days #30 03/01/20 tab.rapdis Prochlorperazine Maleate 10 mg PO Q6H PRN PRN 10 Days #30 03/01/20 tab Doxycycline [Vibramycin] 100 mg PO BID #60 cap 03/19/20 Hydrocortisone 2.5% Crm [Hytone] 1 applic TOPICAL BID PRN PRN #2 03/23/20 tube hydrOXYzine tablet [Atarax tablet] 10 - 20 mg PO QHS PRN 30 Days #30 09/03/20 tab Magnesium Oxide [Magnesium] 500 mg PO BID 5 Days cap 09/10/20 - Family History Maternal Family History: Family History (Last Reviewed 09/17/20 @ 08:56 by Divya Duff) Mother Heart disease Father Heart disease No pertinent history Paternal Family History: Family History (Last Reviewed 09/17/20 @ 08:56 by Divya Duff) Mother Heart disease Father Heart disease No pertinent history Smoking Status: Former smoker Review of Systems Constitutional: Reports: Weight Change. Denies: Chills, Fever Eyes: Denies: Pain, Vision Change Cardiovascular: Reports: Edema. Denies: Chest Pain, Chest Pressure, Chest Tightness Respiratory: Reports: Shortness of breath upon exertion Gastrointestinal: Denies: Diarrhea, Nausea, Vomiting Genitourinary: Denies: Dysuria, Hematuria Musculoskeletal: Denies: Muscle pain Skin: Reports: Lesions - left preauricular ulceration, Rash - previous facial rash, now well-controlled Neurological: Reports: Focal weakness - left sided facial droop Psychiatric: Denies: Anxiety, Depression Endocrine: Denies: Polydipsia, Polyuria Hematologic/ Lymphatic: Denies: Hx of blood clot - Physical Exam Vital Signs Temp Pulse BP 98.1 F 90 134/74 H 09/21/20 08:11 09/21/20 08:11 09/21/20 08:11 General: Alert, Cooperative, No apparent distress HEENT: EOMI Oral: Moist Mucosa Neck: Supple, No JVD, Negative Carotid Bruits, Trachea Midline Lungs: Clear to auscultation, Normal air movement Cardiovascular: Regular rate, Regular Rhythm Abdomen: Bowel Sounds Present, Soft, Non Tender Extremities: Capillary Refill Less than 3 Seconds, Edema Skin: Ulcer/ Wound - Left preauricular ulceration with subcutaneous layer exposed with probing to bone. No tunneling or undermining. There is no purulent/malodorous drainage, but copious amounts of bloody drainage present. No periulcer erythema or warmth. Periulcer region is tender to palpation. Wound Measurements and Assessment WC - Nurse 1 - General Ulcer Measurement Start: 09/21/20 08:11 Freq: Status: Active Protocol: Activity Type Activity Date Activity User E-Sign Co-Sign Detail Recorded Client Recorded Date Recorded By Document 09/21/20 08:11 PEDRO [id number] 09/21/20 08:35 PEDRO 09/21/20 08:11 Wound Center Nurse 1 [Ulcer Assessment] #2 Left Preauricular -Current Size (cm) - Length 0.3 -Current Size (cm) - Width 2 -Current Size (cm) - Depth 2 -Total Square Cm 0.6 -Exudate Amt Medium -Exudate Type Serosanguineous -Wound Margin Distinct, Outline Attached -Granulation Amt Medium (34-66%) -Granulation Quality Red -Necrosis Amt Medium (34-66%) -Necrotic Tissue Type Adherent Slough -Texture (Do-wound Skin Appearance) Assessed, Scarring -Moisture (Do-wound Skin Appearance No Abnormality, ) Assessed -Color (Do-wound Skin Appearance) No Abnormality, Assessed -Tenderness on Palpation (Do-wound No Skin Appearance) -Ulcer Cleansing Rinsed/ Irrigated with Saline -Foul Odor after Cleansing No -Anesthetic Used 4% Lidocaine Solution Musculoskeletal: No Muscle Wasting Neurological: Facial Droop - Left sided Psych/Mental Status: Normal Affect, Appropriate Debridement Note No debridement was completed today Assessment/Plan Active Problems (Last Reviewed 09/17/20 @ 08:56 by Divya Duff) Metastatic squamous cell carcinoma to head and neck (Chronic) Facial nerve palsy (Chronic) Chemotherapy induced neutropenia (Chronic) Lung transplant recipient (Chronic) History of radiation therapy (Chronic) Assessment: see above diagnoses Plan: The patient was seen and examined [facility]. No debridement was performed today. The patient's wound care will consist of daily application of absorbent wound dressing and use of a Dale ear dressing for further protection and management of drainage. Wound dressings may be changed daily or more frequently if needed due to saturation or contamination. The patient may cleanse the do-ulcer area with antibacterial soap and water using a wash cloth. The head/ulcer area should not be submerged in water. The patient should increase his protein intake to aid in healing. Wound cultures were collected today; we will follow up with results once available. Bloodwork from 09/17/2020 was reviewed and was significant for anemia (hemoglobin 10.7), normal creatinine with an estimated GFR of 86, and normal LFTs. Face/head/neck MRI reviewed as annotated above. Discussed at length with the patient that jeremy ridement will not be performed due to the presence of cancer, and that the ulcer will likely not heal until the cancer in that region is eradicated. The patient will be placed on a palliative care plan and can follow-up on a monthly basis or sooner if needed due to changes in wound status. We will continue to evaluate healing potential throughout the course of treatment. We discussed the future po ssibility of hyperbaric oxygen treatment to aid in wound healing, should he have delayed wound healing >6 months following completion of radiation treatment. The patient is agreeable with the above plan of care. We will schedule a 1 month follow-up appointment. Note: [employer] speech recognition head waitress software was used to create portions of this document. Sound-alike and misspelled words, as well as other head waitress errors may be contained in the documentation. Office Visits / Consults: [id number] [facility] Est
== END 2020-10-04 23:59 ==
LOC: WC 07:59
PROVIDERS: PCP Family Medicine; Referring Provider Student in an Organized Health Care Education/Training Program; Visit Provider Nurse Practitioner Family
DX: Z51.0 Encounter for antineoplastic radiation therapy (principal); L98.492 Non-pressure chronic ulcer of skin of other sites with fat layer exposed; C79.89 Secondary malignant neoplasm of other specified sites; G51.0 Bell's palsy; D70.1 Agranulocytosis secondary to cancer chemotherapy; T45.1X5A Adverse effect of antineoplastic and immunosuppressive drugs, initial encounter; Z92.3 Personal history of irradiation; Z94.2 Lung transplant status; J44.9 Chronic obstructive pulmonary disease, unspecified; F41.9 Anxiety disorder, unspecified; I10 Essential (primary) hypertension; E78.5 Hyperlipidemia, unspecified; Z79.82 Long term (current) use of aspirin; Z82.49 Family history of ischemic heart disease and other diseases of the circulatory system; Z85.828 Personal history of other malignant neoplasm of skin; Z87.891 Personal history of nicotine dependence; C44.629 Squamous cell carcinoma of skin of left upper limb, including shoulder; C78.00 Secondary malignant neoplasm of unspecified lung
CPT/HCPCS: 77014; 77290; 87070; 87075; 87077; 87186; 87205; 96523; 99213; Q9967; A4216; G0463

== ENCOUNTER 2020-10-24 09:10 | Outpatient (RCR) | payer MEDICARE, OTHER, SELFPAY ==
[2019-10-03 09:13] VITALS: BMI 36.1
[2020-10-15 08:50] VITALS: BMI 35.1
[2020-10-19 08:11] VITALS: BMI 35.1
--- NOTE | 2020-10-24 09:00 | SOAP_ITS ---
REASON FOR REFERRAL: The patient is a 70 year old male referred for a clinical assessment of the swallow function at 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 His primary issue is anterior bolus containment due to his left facial palsy, as he needs to physically hold his right labial structures closed to prevent anterior bolus loss. He additionally reports discomfort with mandibular movement, along with a slight restriction in mandibular range of motion. He reports a recent reduction in appetite, though denies early satiety (feeling full after few bites), inanition, nausea, or emesis. He denies odynophagia (pain during swallow), though does report 7/10 pain with mandibular movement. He reports a recent uptake in hypogeusia (reduced taste) and dysgeusia (abnormal / unpleasant taste). He reports mild xerostomia (dry mouth). He denies issues with diurnal sialorrhea (drooling during the daytime). He denies current issues with reflux / heartburn, globus sensation, post prandial substernal discomfort, or feelings of bolus stasis. He denies any current or previous issues with aspiration related pulmonary complications, to include pneumonia, bronchitis, or unexplained asthma symptoms. He appears cognitively intact, affect appears appropriate. The patient is fully ambulatory, no difficulties with posture maintenance. He appears sufficiently nourished. He reports he is independent for all ADLs and IADLs. 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 status post wide excision (03/29/2019), and repeat excision (05/03/2019), with axillary metastatic disease and left axillary LN dissection of levels 1- 3 (08/19/2019), status post chemoradiation (6000 cGy in 30 fractions with 600 cGy boost in 3 fractions 10/13/2019 to 11/28/2019; Carboplatin/Taxol/Cetuximab 03/12/2020), with imaging suggesting progression of left preauricular mass currently undergoing radiation therapy to the left parotid/preauricular region (2400 cGy/6600 cGy) and concomitant chemotherapy (weekly carbo kobuk), lung metastasis, regional lymph node metastasis present, end stage chronic obstructive pulmonary disease, status post bilateral lung transplantation, status post Taniya fundoplication, gastroesophageal reflux disease, hypertension, hyperlipidemia, appendicitis, status post appendectomy. PREVIOUS MODIFIED BARIUM SWALLOW STUDY: None ADDITIONAL OBJECTIVE ASSESSMENT RESULTS: 09/18/2020 MRI (head) revealed normal unenhanced and enhanced MRI of the brain; no MRI evidence of any enhancing lesions of the left facial nerve in the cisternal portion, intracanalicular portion, middle ear portion and mastoid portion, detail is limited due to motion; abnormal enhancing left preauricular soft tissues thickening extending to the neurovascular bundle area of the left parotid gland, may be postoperative changes and post radiation changes; marked decrease in size of the left preauricular soft tissue mass when compared to preoperative CT neck of 06/19/2020. 09/18/2020 MRI (head / face) revealed enhancing soft tissue density in the left preauricular space which has decreased in size when compared to CT neck with contrast of 06/19/2020; enhancing soft tissue density extends into the left parotid gland with suspicious partial encasement of the left neurovascular bundle; invasion of the parotid portion of the left facial nerve is difficult to exclude; may also represent post radiation changes but there are no postop MRI scan or postop CT neck for comparison, soft tissue detail is limited by motion degradation; no abnormal enhancing perineural spread of neoplasm in the mastoid portion, middle ear portion, intracanalicular portion and cisternal portion of the left facial nerve at this time. 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 SUPPLEMENTARY DYSPHAGIA ASSESSMENT RESULTS (SCALES / PROM): PERFORMANCE STATUS SCALE FOR HEAD & NECK CANCER PATIENT S (PSS-HN): NORMALCY OF DIET: 100 ? full diet (no restrictions) PUBLIC EATIN ? no restriction of place, food, or company UNDERSTANDABILITY OF SPEECH: 100 ? always understandable PSS-HN TOTAL SCORE: 300/300 PSS-HN SCORE INTERPRETATION: higher scores indicate higher degrees of functioning. ORAL MOTOR / MODIFIED CRANIAL NERVE ASSESSMENT (QUALITATIVE): TRIGEMINAL NERVE (CNV): abnormal; left facial hypoesthesia; left anterior lingual hypoesthesia FACIAL NERVE (CNVII): impaired; complete left facial nerve palsy GLOSSOPHARYNGEAL NERVE (CNIX): no clinically significant abnormalities observed VAGUS NERVE (CNX): no clinically significant abnormalities observed HYPOGLOSSAL NERVE (CNXII): no clinically significant abnormalities observed FACIAL STRUCTURES: open left facial ulceration with clear discharge during movement MANDIBULAR FUNCTIONING: left mandibular crepitus with movement; restricted mandibular opening DENTITION: natural upper / lower dentition in sufficient repair SALIVATION: mild xerostomia (dry mouth); no current issues with salivary management. COUGH SUFFICIENCY: appropriate volitional cough intensity ORAL MOTOR / MODIFIED CRANIAL NERVE ASSESSMENT (QUANTITATIVE): HOUSE BRACKMANN SCALE FOR FACIAL PARALYSIS GROSS FUNCTION ? GENERAL: grade (total paralysis) DESCRIPTION: no movement GROSS FUNCTION ? AT REST: grade (total paralysis) DESCRIPTION: no movement MOTION FUNCTION ? FOREHEAD: grade (total paralysis) DESCRIPTION: no movement MOTION FUNCTION ? EYES: grade (total paralysis) DESCRIPTION: no movement MOTION FUNCTION ? MOUTH: grade (total paralysis) DESCRIPTION: no movement. PEITERSEN GRADING SYSTEM: GRADE: grade IV DEGREE OF PALSY: complete DESCRIPTION OF PALSY: complete; no function INTER-INCISOR DISTANCE (IID) AVERAGE IID: 3.5 cm IID GRADE: grade I IID GRADE DESCRIPTION: inter-incisor distance equal to or more than 3 cm WORLD HEALTH ORGANIZATION (WHO) ORAL MUCOSITIS SCALE: WHO ORAL MUCOSITIS SCALE GRADE: grade 0 WHO ORAL MUCOSITIS SCALE GRADE DESCRIPTION: no objective findings, function irrelevant SCALE OF SUBJECTIVE TOTAL TASTE ACUITY (STTA): STTA GRADE: grade III STTA GRADE DESCRIPTION: severe loss of taste acuity, and frequently inconvenient in daily life RTOG RADIATION MORBIDITY SCORING CRITERIA FOR XEROSTOMIA: ACUTE REACTIONS: grade I GRADE DESCRIPTION: mild mouth dryness; slightly thickened saliva; may have slightly altered taste, such as metallic taste; changes are not reflected by alteration in baseline feeding SIALORRHEA SCORING SCALE (SSS): SSS SCORE: 1 (of 9) SSS DESCRIPTION: dry, never drools CLINICAL ASSESSMENT OF SWALLOW FUNCTION (QUANTITATIVE): REPETITIVE SALIVA SWALLOWING TEST (RSST): RSST RESULT: pass RSST DESCRIPTION: able to elicit 2 dry swallows within 30 seconds. 1OZ WATER SWALLOWING TEST (1OZ WST): 1OZ WST RESULTS: normal ? 1 (of 5) 1OZ WST DESCRIPTION: single swallow without coughing during ingestion DRINKING EPISODES: sipping; drinking water in a cautious manner 3OZ WATER SWALLOWING TEST (3OZ WST): 3OZ WST RESULTS: abnormal DRINKING EPISODES: swallow speed < 10mL/s; stopping and starting CAMPOS ASSESSMENT OF SWALLOWING ABILITY ? CANCER (MASA-C): MASA ASPIRATION SEVERITY SCORE: 177 MASA SEVERITY SCORE DESCRIPTION: mild impairment MASA-C DYSPHAGIA RISK RATING: probable; moderate evidence for disorder requiring intervention or further investigation CLINICAL ASSESSMENT OF SWALLOW FUNCTION (QUALITATIVE): ORAL PREPARATORY PHASE: competent bolus manipulation with slightly impacted mastication rate, slight restriction in rotary movement attributed to mild trismus; impaired left sided anterior bolus containment with the patient self-compensating (holding labial edge closed to complete seal) ORAL TRANSITIONAL PHASE: sufficient bolus transportation; no lingual discoordination (no tremor / undulations) noted upon digital palpation; slight left side specific consolidation; no signs or symptoms of premature posterior bolus loss; PHARYNGEAL PHASE: reduced hyolaryngeal excursion and duration upon digital palpation possibly suggestive of suboptimal laryngeal vestibule closure / pressure / duration; no obvious findings suggestive of pharyngeal phase delay / dyssynchrony; no subjective signs of pharyngeal dysmotility; no subjective signs of velopharyngeal impairments; occasional post prandial throat clearing possibly suggestive of overt aspiration, though without consistent presentation. ESOPHAGEAL PHASE: esophageal phase appears unremarkable COMPLICATING FACTORS AND NOTABLE FINDINGS: appears to demonstrate awareness into difficulties considering his previously established compensatory measures and openness to report symptoms, suggesting a positive prognosis despite his plethora of premorbid medical issues that are associated with dysphagia and negative pulmonary response to aspiration. CLINICAL ASSESSMENT OF SWALLOW FUNCTION (SEVERITY GRADING): SWALLOWING PERFORMANCE SCALE (SPS): SPS SCORE: 4 (of 7) SPS SEVERITY LEVEL: mild to moderate SPS SCORE DESCRIPTION: mild-moderate impairment with need for therapeutic precautions: mild dysfunction in oral and pharyngeal stage; requires modified diet and therapeutic precautions to minimize aspiration risk INTERVENTION CONSIDERATIONS AND RECOMMENDATIONS: I cannot definitively rule out silent aspiration at bedside. I would consider objective assessment of the oropharyngeal swallow function if silent aspiration is suspected. The patient is at higher risk of silent aspiration secondary to the diagnosis of chronic obstructive pulmonary disease (COPD) in addition to irradiation associated dysphagia. I would consider the patient to be at higher risk for continual changes and possible decline in swallow functioning / dysphagia severity post irradiation (late effects of radiation fibrosis can occur upwards of 40 years post treatment); following the current intervention cycle, he would benefit from continual monitoring and yearly follow up modified barium swallow studies for at least 5 years post irradiation. RECOMMENDATIONS FOR INTERVENTION: The patient requires intensive skilled speech-language intervention targeting diet texture management and training / implementation of recommended compensatory strategies; training and implementation of a Trismus based exercise program to promote improved (aneudy-irradiation) and sustained (post- irradiation) mandibular functioning; development, training and implementation of a home-based prophylactic swallowing exercise program to promote the highest level of preserved post-irradiation swallow functioning; training and implementation of a home oral care protocol to reduce the effects of xerostomia and improve / maintain the integrity of the oral mucosa reducing the risk of aspiration related pulmonary complications; patient / caregiver education regarding aneudy and post-irradiation dysphagia and associated symptomology; patient and caregiver education regarding dysphagia associated with the diagnosis of chronic obstructive pulmonary disease (COPD); patient and caregiver training targeting meal preparation throughout the irradiation cycle; with recommendations for further diagnostic assessment of the swallow function under fluoroscopy via Modified Barium Swallow (MBS) study; with goal adjustment as clinically indicated. POST ASSESSMENT EDUCATION: The results and recommendations were discussed with the patient immediately following completion of the assessment, with the patient verbalizing understanding and agreement with all recommendations and education provided. We discussed factors impacting effects of aspiration, to include: the quantity of aspiration, the depth of aspiration (trachea or distal airways), and the physical properties of the aspirate. We discussed consequences of oropharyngeal dysphagia, to include pulmonary complications from tracheobronchial aspiration; potential for airway obstruction / asphyxiation; inadequate oral intake because of dysphagia; reduced caloric intake resulting in unintentional and potentially medically complicating loss of weight; impairment in mental and physical condition to include depression and deterioration in the quality of life. higher risk for social isolation / anxiety / depression, increased disability rates, and lengthening of healing; complications in overall course of care with later discharge from acute admissions / increased length of hospitalizations, increased likelihood for discharge to [facility], and overall worse rehabilitation outcomes; and increased risk for mortality / . We discussed the patient?s elevated risk for continual changes and possible decline in swallow functioning / dysphagia severity throughout the chemoradiation intervention cycle; the patient would benefit from continued monitoring across all domains throughout irradiation therapy including post irradiation. We discussed recommendations for prophylactic oropharyngeal strengthening / range of motion exercises to reduce the effects of aneudy and post radiation induced oropharyngeal dysphagia associated with head and neck cancer, with handouts provided outlining the recommended exercises; further / continual training is highly indicated to ensure proper execution and maintenance to the program. We discussed recommendations for mandibular range of motion stretching and exercise to reduce the effects of trismus and facilitate improved / maintained mandibular functioning, with handouts provided outlining the recommended exercises; further / continual training is indicated to ensure proper execution and maintenance to the program. I provided reinforcement of prior patient and family education regarding the importance of oral care throughout the irradiation process and post- irradiation, with recommendations for an aggressive oral care program. I provided brief overview of signs and symptoms of aspiration, with recommendations for the patient to further discuss symptoms with the patient?s care provider / care team. DIET TEXTURE RECOMMENDATIONS: Will recommend a regular ? soft, bite sized textured (IDDSI: 6), thin liquid diet (IDDSI: 0) diet RECOMMENDED COMPENSATORY STRATEGIES: right side bolus placement, check for left buccal pocketing, reduced bolus volume / rate of ingestion, cut solids into bite sized pieces (4mm x 4mm x15), liquid chaser at reasonable intervals, seated upright at 90 degrees during PO intake, remain upright for 30-60 minutes post meal (GERD precaution) FUNCTIONAL OUTCOMES: OUTCOME 1: the patient will tolerate the least restrictive means of nutrition to facilitate adequate hydration / nutrition with optimum safety and efficiency of swallowing function during P.O. intake without overt signs and symptoms of aspiration. OUTCOME 2: the patient will demonstrate and utilize recommended oropharyngeal range of motion exercise within the patient?s clinical and home-based program to improve and maintain overall oropharyngeal functioning and reducing the effects of post-irradiation dysphagia, with minimal cueing and prompting provide by the clinician, across 2 out of 3 sessions. OUTCOME 3: the patient will demonstrate and utilize recommended mandibular range of motion stretching and exercise within the patient?s clinical and home based program to improve and maintain overall mandibular functioning and oral preparatory functioning reducing the effects of trismus, with minimal cueing and prompting provide by the clinician, across 2 out of 3 sessions. OUTCOME 4: the patient will participate in a home-based oral care program established during intervention sessions to facilitate improved and maintained integrity of the oral mucosa throughout the irradiation process with complete independence. OUTCOME 5: the patient will participate in continual patient / patient caregiver education regarding aneudy and post-irradiation dysphagia and associated symptomology to facilitate improved awareness and insight into the patient?s current and anticipated dysphagia related complications and potential impact on the patient?s overall medical stability. OUTCOME 6: the patient will participate in a Modified Barium Swallow (MBS) study to objectively assess the patient?s oropharyngeal swallowing function, to determine the least restrictive means of nutrition, to objectively assess the effectiveness of previously identified strategies / precautions, and to identify appropriate intervention approaches / strategies to implement during treatment sessions at the supervised level. OUTCOME 7: goal adjustment as needed Benjie Yoder M.A., CCC-TOOLING INSPECTOR, CBIS MBSImP Certified, LSVT Certified [facility] Speech-Language Pathology Department Email: [email or web address]
== END 2020-10-24 19:00 | disposition home or self-care (01) ==
LOC: SP 09:10
PROVIDERS: PCP Family Medicine; Referring Provider Student in an Organized Health Care Education/Training Program; Visit Provider Student in an Organized Health Care Education/Training Program
DX: C77.9 Secondary and unspecified malignant neoplasm of lymph node, unspecified (principal)
CPT/HCPCS: 92610

== ENCOUNTER 2020-11-02 08:00 | Outpatient (RCR) | payer MEDICARE, OTHER, SELFPAY ==
[2019-10-03 09:13] VITALS: BMI 36.1
[2020-10-05 00:39] VITALS: BP 134/74; PULSE 90; TEMP 36.7
[2020-10-15 08:50] VITALS: BMI 35.1
[2020-10-19 08:11] VITALS: BP 128/78; PULSE 82; TEMP 36.1; BMI 35.1
--- NOTE | 2020-10-19 08:52 | PN.PCM_ITS ---
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 Status: Chronic Code(s): L98.492 - Non-pressure chronic ulcer of skin of other sites with fat layer exposed (2) Metastatic squamous cell carcinoma to head and neck Status: Chronic Code(s): C79.89 - Secondary malignant neoplasm of other specified sites (3) Chemotherapy induced neutropenia Status: Chronic Code(s): D70.1 - Agranulocytosis secondary to cancer chemotherapy; T45.1X5A - Adverse effect of antineoplastic and immunosuppressive drugs, initial encounter (4) Facial nerve palsy Status: Chronic Code(s): G51.0 - Bui's palsy (5) History of radiation therapy Status: Chronic Code(s): Z92.3 - Personal history of irradiation (6) Lung transplant recipient Status: Chronic Code(s): Z94.2 - Lung transplant status Type of Wound Date of Service: 10/19/20 Chief Complaint: Ulceration of the left preauricular region due to metastatic squamous cell carcinoma History of Wound: This is a 70-year-old white male who [facility] for evaluation of a left preauricular ulceration with underlying metastatic squamous cell carcinoma. He has a past medical history significant for COPD, bilateral lung transplant 2014, multiple squamous cell carcinomas, hypertension, hyperlipidemia, and obesity. In January 2020, the patient underwent a biopsy of a painless, progressively enlarging left preauricular soft tissue lesion, which was positive for metastatic squamous cell carcinoma. He is being treated with chemotherapy. He states the ulceration opened approximately mid-August 2020. Initially it was draining only intermittenty, but subsequently started to continuously drain copious amounts of bloody discharge. He denied any purulent or malodorous drainage. The ulceration was tender to palpation. He denied any fever, chills, nausea, vomiting, or diarrhea. An MRI of the face/head/neck was done on 09/18/2020 and showed an enhancing soft tissue density in the left preauricular space that extends to the left parotid gland with suspicious partial encasement of the left neurovascular bundle. Per my discussion 09/21/[address] Goode (rad/onc), the patient would be following up with [facility] later that day to plan for upcoming radiation treatments. Progress of Wound: The patient has started radiation therapy. He has completed radiation treatments to the left parotid/preauricular region. A wound culture was collected on 09/21/2020 and was significant for the following: Rare Enterococcus faecalis, 1+ coag negative staph (possible skin contamination), 1+ gram-positive dandy, anaerobic Propionibacterium acnes, and anaerobic beta- lactamase positive Prevotella melaninogenica. There were no clinical signs of infection at the time of culture collection. The patient was started on Augmentin 875/125 mg 1 tab p.o. every 12 hours x10 days. This has been completed. The patient denies any fever or chills. He has had increased pain in the preauricular region, which may potentially be due to radiation treatment. His bleeding has decreased slightly. He reports a small amount of yellow, malodorous drainage from his preauricular wound, which onset in the last 2 to 3 days. - Physical Exam Vital Signs Temp Pulse BP 97.0 F L 82 128/78 H 10/19/20 08:11 10/19/20 08:11 10/19/20 08:11 General: Alert, Cooperative, No apparent distress Neck: Supple, Trachea Midline Lungs: Normal air movement Extremities: Capillary Refill Less than 3 Seconds Skin: Ulcer/ Wound - Left preauricular ulceration with subcutaneous layer exposed. Tissue is more approximated today, unable to probe to bone. No noted tunneling or undermining. There is no purulent/malodorous drainage; moderate amount of bloody drainage present. No periulcer erythema or warmth. Tender to palpation Wound Measurements and Assessment WC - Nurse 1 - General Ulcer Measurement Start: 10/19/20 08:10 Freq: Status: Active Protocol: Activity Type Activity Date Activity User E-Sign Co-Sign Detail Recorded Client Recorded Date Recorded By Document 10/19/20 08:11 PEDRO [id number] 10/19/20 08:13 PEDRO 10/19/20 08:11 Wound Center Nurse 1 [Ulcer Assessment] #2 Left Preauricular -Current Size (cm) - Length 5 -Current Size (cm) - Width 1.2 -Current Size (cm) - Depth 2.5 -Total Square Cm 6.0 -Exudate Amt Small -Exudate Type Serosanguineous -Wound Margin Distinct, Outline Attached -Granulation Amt Medium (34-66%) -Granulation Quality Red -Necrosis Amt Medium (34-66%) -Necrotic Tissue Type Adherent Slough -Texture (Do-wound Skin Appearance) Assessed, Scarring -Moisture (Do-wound Skin Appearance No Abnormality, ) Assessed -Color (Do-wound Skin Appearance) No Abnormality, Assessed -Temperature (Do-wound Skin No Abnormality Appearance) (Pt Warm) -Tenderness on Palpation (Do-wound No Skin Appearance) -Ulcer Cleansing Rinsed/ Irrigated with Saline -Foul Odor after Cleansing No -Anesthetic Used 4% Lidocaine Solution,5% Lidocaine Gel 1. L shoulder -Current Size (cm) - Length 0 -Current Size (cm) - Width 0 -Current Size (cm) - Depth 0 -Total Square Cm 0 WC - Nurse 2 - General Ulcer CM Notes Start: 10/19/20 08:10 Freq: Status: Active Protocol: Activity Type Activity Date Activity User E-Sign Co-Sign Detail Recorded Client Recorded Date Recorded By Document 10/19/20 08:27 [place] [id number] 10/19/20 08:28 [place] 10/19/20 08:27 Wound Center Nurse 2 [Procedure/Treatment] #2 Left Preauricular -Time 08:42 -Correct Patient Yes -Correct Side, Site, Position Yes -Correct Procedure Yes -Procedure Performed Yes -Type of Procedure Debridement -Clinical Debridement Epidermis / Dermis -Tissue Removed Epidermis -Post Debridement (cm) - Length 4.5 -Post Debridement (cm) - Width 1.5 -Post Debridement (cm) - Depth 2.5 -Total Square (Post) (cm) 6.75 -Area of Debridement (cm) - Length 4.5 -Area of Debridement (cm) - Width 1.5 -Total Square (Area) (cm) 6.75 -Tunneling No -Undermining/Tunneling No -Circular Undermining No -Wound/Ulcer Outcome Not Healed -Ulcer Cleansing Rinsed/ Irrigated with Saline -Foul Odor after Cleansing No -Bioengineered Tissue No -Bleeding Controlled with Pressure -Offloading No -Treatment Response Procedure Tolerated Well -Debridement - Open, 1st 20sq cm Yes [See Physician Procedure note for Specifics] Pain Scale: 0-10 Numeric [Pain] -Is Patient Pain Free? Yes - Nurse 3 - General Ulcer D/C NN Start: 10/19/20 08:10 Freq: Status: Active Protocol: Activity Type Activity Date Activity User E-Sign Co-Sign Detail Recorded Client Recorded Date Recorded By Document 10/19/20 08:31 [email or web address] [id number] 10/19/20 08:31 10/19/20 08:31 Wound Care Nurse 3 [Wound Dressing] #2 Left Preauricular -Ulcer Cleansing Rinsed/ Irrigated with Saline -Foul Odor after Cleansing No -Primary Dressing Covered/Secured Dry Gauze, with Secured with Tape Pain Scale: 0-10 Numeric [Pain] -Is Patient Pain Free? Yes WC - Visit Discharge [Visit Discharge Information] -Discharge Condition Stable -Ambulatory Status Ambulatory -Transportation Private Auto -Medication Reconcilliation completed Yes & provided to patient/care provider -Clinical Summary of Care Provided Yes Neurological: Facial Droop - Left sided Psych/Mental Status: Normal Affect, Appropriate Debridement Note Post-Debridement Measurements/Treatment - Nurse 2 - General Ulcer CM Notes Start: 10/19/20 08:10 Freq: Status: Active Protocol: Activity Type Activity Date Activity User E-Sign Co-Sign Detail Recorded Client Recorded Date Recorded By Document 10/19/20 08:27 JF [id number] 10/19/20 08:28 10/19/20 08:27 Wound Center Nurse 2 #2 Left Preauricular -Time 08:42 -Correct Patient Yes -Correct Side, Site, Position Yes -Correct Procedure Yes -Procedure Performed Yes -Type of Procedure Debridement -Clinical Debridement Epidermis / Dermis -Tissue Removed Epidermis -Post Debridement (cm) - Length 4.5 -Post Debridement (cm) - Width 1.5 -Post Debridement (cm) - Depth 2.5 -Total Square (Post) (cm) 6.75 -Area of Debridement (cm) - Length 4.5 -Area of Debridement (cm) - Width 1.5 -Total Square (Area) (cm) 6.75 -Tunneling No -Undermining/Tunneling No -Circular Undermining No -Wound/Ulcer Outcome Not Healed -Ulcer Cleansing Rinsed/ Irrigated with Saline -Foul Odor after Cleansing No -Bioengineered Tissue No -Bleeding Controlled with Pressure -Offloading No -Treatment Response Procedure Tolerated Well -Debridement - Open, 1st 20sq cm Yes Pain Scale: 0-10 Numeric Is Patient Pain Free? Yes - Nurse 3 - General Ulcer D/C NN Start: 10/19/20 08:10 Freq: Status: Active Protocol: Activity Type Activity Date Activity User E-Sign Co-Sign Detail Recorded Client Recorded Date Recorded By Document 10/19/20 08:31 [place] [id number] 10/19/20 08:31 [place] 10/19/20 08:31 Wound Care Nurse 3 #2 Left Preauricular -Ulcer Cleansing Rinsed/ Irrigated with Saline -Foul Odor after Cleansing No -Primary Dressing Covered/Secured with Dry Gauze, Secured with Tape Pain Scale: 0-10 Numeric Is Patient Pain Free? Yes WC - Visit Discharge Discharge Condition Stable Ambulatory Status Ambulatory Transportation Private Auto Medication Reconcilliation completed & Yes provided to patient/care provider Clinical Summary of Care Provided Yes Wound debrided: Left preauricular ulcer Laterality: Left Type of Debridement: Selective debridement - Superficial selective, epidermal debridement, in efforts to obtain accurate culture. Anesthesia Used: 5% Lidocaine Gel Depth: Down to and including healthy tissue Percentage of wound debrided: 10 Instrument Used: - - Gauze and saline Tissue Removed: Superficial devitalized tissue Severity: Fat Layer Exposed Amount of bleeding with debridement: Moderate Bleeding Controlled with: Compression and gauze Patient tolerated procedure well Assessment/Plan Active Problems (Last Reviewed 10/15/20 @ 08:50 by Darcy Stovall) Metastatic squamous cell carcinoma to head and neck (Chronic) Skin ulcer of face with fat layer exposed (Chronic) Facial nerve palsy (Chronic) Chemotherapy induced neutropenia (Chronic) Lung transplant recipient (Chronic) History of radiation therapy (Chronic) Assessment: see above diagnoses Plan: The patient was seen and examined at [facility] today. Minimal, superficial selective debridement of epidermis performed today, in efforts to obtain accurate wound culture. The patient's wound care will consist of daily application of absorbent wound dressing and use of a Dale ear dressing for further protection and management of drainage. Wound dressings may be changed daily or more frequently if needed due to saturation or contamination. The patient may cleanse the do-ulcer area with antibacterial soap and water using a wash cloth. The head/ulcer area should not be submerged in water. The patient should increase his protein intake to aid in healing. He was started on Óscar by Dr. Goode, and this should be continued. Wound cultures were collected again today; we will follow up with results once available. Bloodwork from 09/17/2020 was significant for anemia (hemoglobin 10.7), normal creatinine with an estimated GFR of 86, and normal LFTs. Face/head/neck MRI reviewed as annotated above. Discussed at length with the patient that aggressive debridement will not be performed due to the presence of cancer, and that the ulcer will likely not heal until the cancer in that region is eradicated. The patient will be placed on a palliative care plan. I will have him follow-up in 2 weeks. We will continue to evaluate healing potential throughout the course of treatment. We discussed the future possibility of hyperbaric oxygen treatment to aid in wound healing, should he have delayed w ound healing >6 months following completion of radiation treatment. We will also consider a consult with Dr. Claros, plastic surgery. The patient is agreeable with the above plan of care. Dr. Goode was called and updated on patient's status and plan of care. Note: [employer] speech recognition ocular care aide software was used to create portions of this document. Sound-alike and misspelled words, as well as other ocular care aide errors may be contained in the documentation. [id number]: Other Procedure See Report - [id number]
--- NOTE | 2020-10-22 16:26 | WC ---
Prescription for Doxycycline was called into [facility]. 100mg PO BID X 14 days. Patient was made aware of prescription.
[2020-11-02 08:09] VITALS: BP 110/62; PULSE 83; RESP 18; TEMP 36.2; BMI 35.1
--- NOTE | 2020-11-02 08:30 | PCM.WC.PN ---
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 Status: Chronic Code(s): L98.492 - Non-pressure chronic ulcer of skin of other sites with fat layer exposed (2) Metastatic squamous cell carcinoma to head and neck Status: Chronic Code(s): C79.89 - Secondary malignant neoplasm of other specified sites (3) Chemotherapy induced neutropenia Status: Chronic Code(s): D70.1 - Agranulocytosis secondary to cancer chemotherapy; T45.1X5A - Adverse effect of antineoplastic and immunosuppressive drugs, initial encounter (4) Facial nerve palsy Status: Chronic Code(s): G51.0 - Bui's palsy (5) History of radiation therapy Status: Chronic Code(s): Z92.3 - Personal history of irradiation (6) Lung transplant recipient Status: Chronic Code(s): Z94.2 - Lung transplant status Type of Wound Date of Service: 11/02/20 Chief Complaint: Ulceration of the left preauricular region due to metastatic squamous cell carcinoma History of Wound: This is a 70-year-old white male who [facility] for evaluation of a left preauricular ulceration with underlying metastatic squamous cell carcinoma. He has a past medical history significant for COPD, bilateral lung transplant 2014, multiple squamous cell carcinomas, hypertension, hyperlipidemia, and obesity. In January 2020, the patient underwent a biopsy of a painless, progressively enlarging left preauricular soft tissue lesion, which was positive for metastatic squamous cell carcinoma. He is being treated with chemotherapy. He states the ulceration opened approximately mid-August 2020. Initially it was draining only intermittenty, but subsequently started to continuously drain copious amounts of bloody discharge. He denied any purulent or malodorous drainage. The ulceration was tender to palpation. He denied any fever, chills, nausea, vomiting, or diarrhea. An MRI of the face/head/neck was done on 09/18/2020 and showed an enhancing soft tissue density in the left preauricular space that extends to the left parotid gland with suspicious partial encasement of the left neurovascular bundle. Per my discussion 09/21/[address] Goode (rad/onc), the patient would be following up with [facility] later that day to plan for upcoming radiation treatments. Progress of Wound: The patient has started radiation therapy. He has completed radiation treatments to the left parotid/preauricular region. A wound culture was collected on 09/21/2020 and was significant for the following: Rare Enterococcus faecalis, 1+ coag negative staph (possible skin contamination), 1+ gram-positive dandy, anaerobic Propionibacterium acnes, and anaerobic beta-lactamase positive Prevotella melaninogenica. There were no clinical signs of infection at the time of culture collection. The patient was started on Augmentin 875/125 mg 1 tab p.o. every 12 hours x10 days. This has been completed. A wound culture collected 10/19/20 was significant for the followin+ Staphylococcus epidermidis (possible skin contamination), 1+ corynebacterium amycolatum. He was started on doxycycline 100mg PO BID x 14 days. He is currently taking this and tolerating it well. The patient denies any fever or chills. He has had increased pain in the preauricular region, which may potentially be due to radiation treatment. His bleeding is much less today, though he reports this varies in amount. He denies purulent drainage. He reports occasional malodor from his ulcer. There are no clinical signs of infection today, and the ulcer's depth is decreasing. - Physical Exam Vital Signs Temp Pulse Resp BP 97.2 F L 83 18 110/62 11/02/20 08:09 11/02/20 08:09 11/02/20 08:09 11/02/20 08:09 General: Alert, Cooperative, No apparent distress HEENT: - - left facial droop; left eye ptosis Oral: Moist Mucosa Neck: Supple, Trachea Midline Lungs: Normal air movement Abdomen: Obese Extremities: No clubbing, No cyanosis Skin: Ulcer/ Wound - Left preauricular ulceration with subcutaneous layer exposed. Ulcer depth has improved; does not probe to bone. No noted tunneling or undermining. No purulent/malodorous drainage. Small amount of bloody drainage present today. No periulcer erythema or warmth. Tender to palpation. Wound Measurements and Assessment WC - Nurse 1 - General Ulcer Measurement Start: 10/19/20 08:10 Freq: Status: Active Protocol: Activity Type Activity Date Activity User E-Sign Co-Sign Detail Recorded Client Recorded Date Recorded By Document 11/02/20 08:09 PL [id number] 11/02/20 08:14 PL 11/02/20 08:09 Wound Center Nurse 1 [Ulcer Assessment] #2 Left Preauricular -Current Size (cm) - Length 4.5 -Current Size (cm) - Width 1.5 -Total Square Cm 6.75 -Photo Taken No -Epithelialization None Present -Tunneling No -Undermining/Tunneling No -Circular Undermining No -Exudate Amt Large -Exudate Type Serous -Granulation Amt Small (1-33%) -Granulation Quality Red -Slough/Fibrin Yes -Necrosis Amt Medium (34-66%) -Necrotic Tissue Type Adherent Slough -Ulcer Cleansing Rinsed/ Irrigated with Saline -Foul Odor after Cleansing No -Anesthetic Used 4% Lidocaine Solution Neurological: Facial Droop Psych/Mental Status: Normal Affect, Appropriate Debridement Note Post-Debridement Measurements/Treatment PAYTON - Nurse 2 - General Ulcer CM Notes Start: 10/19/20 08:10 Freq: Status: Active Protocol: Activity Type Activity Date Activity User E-Sign Co-Sign Detail Recorded Client Recorded Date Recorded By Document 10/19/20 08:27 [place] [id number] 10/19/20 08:28 [place] 10/19/20 08:27 Wound Center Nurse 2 #2 Left Preauricular -Time 08:42 -Correct Patient Yes -Correct Side, Site, Position Yes -Correct Procedure Yes -Procedure Performed Yes -Type of Procedure Debridement -Clinical Debridement Epidermis / Dermis -Tissue Removed Epidermis -Post Debridement (cm) - Length 4.5 -Post Debridement (cm) - Width 1.5 -Post Debridement (cm) - Depth 2.5 -Total Square (Post) (cm) 6.75 -Area of Debridement (cm) - Length 4.5 -Area of Debridement (cm) - Width 1.5 -Total Square (Area) (cm) 6.75 -Tunneling No -Undermining/Tunneling No -Circular Undermining No -Wound/Ulcer Outcome Not Healed -Ulcer Cleansing Rinsed/ Irrigated with Saline -Foul Odor after Cleansing No -Bioengineered Tissue No -Bleeding Controlled with Pressure -Offloading No -Treatment Response Procedure Tolerated Well -Debridement - Open, 1st 20sq cm Yes Pain Scale: 0-10 Numeric Is Patient Pain Free? Yes PAY[place] - Nurse 3 - General Ulcer D/C NN Start: 10/19/20 08:10 Freq: Status: Active Protocol: Activity Type Activity Date Activity User E-Sign Co-Sign Detail Recorded Client Recorded Date Recorded By Document 10/19/20 08:31 [place] [id number] 10/19/20 08:31 [place] 10/19/20 08:31 Wound Care Nurse 3 #2 Left Preauricular -Ulcer Cleansing Rinsed/ Irrigated with Saline -Foul Odor after Cleansing No -Primary Dressing Covered/Secured with Dry Gauze, Secured with Tape Pain Scale: 0-10 Numeric Is Patient Pain Free? Yes WC - Visit Discharge Discharge Condition Stable Ambulatory Status Ambulatory Transportation Private Auto Medication Reconcilliation completed & Yes provided to patient/care provider Clinical Summary of Care Provided Yes No debridement was completed today Assessment/Plan Active Problems (Last Reviewed 10/29/20 @ 10:48 by Darcy Stovall) Metastatic squamous cell carcinoma to head and neck (Chronic) Skin ulcer of face with fat layer exposed (Chronic) Facial nerve palsy (Chronic) Chemotherapy induced neutropenia (Chronic) Lung transplant recipient (Chronic) History of radiation therapy (Chronic) Assessment: see above diagnoses Plan: The patient was seen and examined at [facility] today. No debridement was performed today. The ulcer was cleansed with normal saline and gauze. The patient's wound care will consist of daily application of absorbent wound dressing and use of a Patrick ear dressing for further protection and management of drainage. Wound dressings may be changed daily or more frequently if needed due to saturation or contamination. The patient may cleanse the aneudy-ulcer area with antibacterial soap and water using a wash cloth. The head/ulcer area should not be submerged in water. The patient should increase his protein intake to aid in healing. He was started on Óscar by Dr. Goode, and this should be continued. Wound cultures were deferred today. I will have the patient complete his 14-day course of doxycycline 100 mg p.o. twice daily. Bloodwork from 09/17/2020 was significant for anemia (hemoglobin 10.7), normal creatinine with an estimated GFR of 86, and normal LFTs. Face/head/neck MRI reviewed as annotated above. Previously discussed at length with the patient that aggressive debridement will not be performed due to the presence of cancer, and that the ulcer will likely not heal until the cancer in that region is eradicated. The patient was be placed on a palliative care plan. I will have him follow-up in 2 weeks for reassessment. We will continue to evaluate healing potential throughout the course of treatment. We discussed the future possibility of hyperbaric oxygen treatment to aid in wound healing, should he have delayed wound healing >6 months following completion of radiation treatment. I discussed the patient's case with Dr. Claros ([facility] plastic surgery). Per our discussion, Dr. Claros advised that the patient be treated at a tertiary care center. Names and contact information were given to the patient today for 2 [facility] plastic surgeons specializing in head and neck reconstruction. It was recommended that he schedule a consult. The patient states he will reach out to [facility], as this is his preferred place of treatment. The patient is agreeable with the above plan of care. Note: [employer] speech recognition metallurgical specialist software was used to create portions of this document. Sound-alike and misspelled words, as well as other metallurgical specialist errors may be contained in the documentation. Office Visits / Consults: [id number] OV L3 Est
== END 2020-11-04 23:59 ==
LOC: WC 08:00
PROVIDERS: PCP Family Medicine; Referring Provider Student in an Organized Health Care Education/Training Program; Visit Provider Nurse Practitioner Family
DX: L98.492 Non-pressure chronic ulcer of skin of other sites with fat layer exposed (principal); C79.89 Secondary malignant neoplasm of other specified sites; D70.1 Agranulocytosis secondary to cancer chemotherapy; T45.1X5A Adverse effect of antineoplastic and immunosuppressive drugs, initial encounter; G51.0 Bell's palsy; Z94.2 Lung transplant status; Z92.3 Personal history of irradiation; J44.9 Chronic obstructive pulmonary disease, unspecified; E78.5 Hyperlipidemia, unspecified; I10 Essential (primary) hypertension; E66.9 Obesity, unspecified
CPT/HCPCS: 77386; 87070; 87075; 87077; 87186; 87205; 97597; 99213; G0463

== ENCOUNTER → 2020-11-23 10:37 | Outpatient (CLI) | payer MEDICARE, OTHER, SELFPAY ==
[2019-10-03 09:13] VITALS: BMI 36.1
[2020-11-08 09:10] VITALS: BMI 32.6
[2020-11-23 08:20] VITALS: BMI 32.6
--- NOTE | 2020-11-24 05:51 | SPIR_ITS ---
Spirometry PFT Testing Spirometry PFT Testing: COMPLETE PULMONARY FUNCTION TEST INTERPRETATION Brief HPI: Patient is a 70 year old male, currently under the care of Dr. Richey, who presents to [facility] for complete pulmonary function tests secondary to diagnosis of status post transplant. Respiratory therapist reports good effort and reproducible results. Interpretation: Forced expiration spirometry shows a severe large airways obstructive ventilatory defect with an FEV1 of 35% predicted. There is no bronchodilator testing. Spirograms are of good quality and plateau slowly, indicating slowly emptying areas of the lungs. The respiratory flow volume loop shows decreased expiratory flow rates at all lung volumes consistent with airway obstruction. Compared to previous pulmonary function tests from 09/13/2020, there has been no significant change. Impression: Severe obstructive ventilatory defect with no significant change compared to previous
== END ==
LOC: PSN 10:38
PROVIDERS: PCP Family Medicine; Referring Provider Internal Medicine Critical Care Medicine; Visit Provider Internal Medicine Critical Care Medicine
DX: D84.9 Immunodeficiency, unspecified (principal); Z94.2 Lung transplant status; Z48.24 Encounter for aftercare following lung transplant; Z79.899 Other long term (current) drug therapy
CPT/HCPCS: 94010

== ENCOUNTER 2020-11-30 08:00 | Outpatient (RCR) | payer MEDICARE, OTHER, SELFPAY ==
[2019-10-03 09:13] VITALS: BMI 36.1
[2020-11-02 08:50] VITALS: BMI 34.2
[2020-11-05 00:34] VITALS: BP 110/62; PULSE 83; RESP 18; TEMP 36.2
[2020-11-15 09:16] VITALS: BMI 33.0
[2020-11-16 08:03] VITALS: BP 117/67; PULSE 83; TEMP 36.3; BMI 33.0
--- NOTE | 2020-11-16 08:33 | PCM.WC.PN ---
(1) Facial nerve palsy Status: Chronic Code(s): G51.0 - Bui's palsy (2) History of radiation therapy Status: Chronic Code(s): Z92.3 - Personal history of irradiation (3) Lung transplant recipient Status: Chronic Code(s): Z94.2 - Lung transplant status (4) Metastatic squamous cell carcinoma to head and neck Status: Chronic Code(s): C79.89 - Secondary malignant neoplasm of other specified sites (5) Skin ulcer of face with fat layer exposed Status: Chronic Code(s): L98.492 - Non-pressure chronic ulcer of skin of other sites with fat layer exposed Type of Wound Date of Service: 11/16/20 Chief Complaint: Ulceration of the left preauricular region due to metastatic squamous cell carcinoma History of Wound: This is a 70-year-old white male who [facility] for evaluation of a left preauricular ulceration with underlying metastatic squamous cell carcinoma. He has a past medical history significant for COPD, bilateral lung transplant 2014, multiple squamous cell carcinomas, hypertension, hyperlipidemia, and obesity. In January 2020, the patient underwent a biopsy of a painless, progressively enlarging left preauricular soft tissue lesion, which was positive for metastatic squamous cell carcinoma. He is being treated with chemotherapy. He states the ulceration opened approximately mid-August 2020. Initially it was draining only intermittenty, but subsequently started to continuously drain copious amounts of bloody discharge. He denied any purulent or malodorous drainage. The ulceration was tender to palpation. He denied any fever, chills, nausea, vomiting, or diarrhea. An MRI of the face/head/neck was done on 09/18/2020 and showed an enhancing soft tissue density in the left preauricular space that extends to the left parotid gland with suspicious partial encasement of the left neurovascular bundle. Per my discussion 09/21/[address] Goode (rad/onc), the patient would be following up with [facility] later that day to plan for upcoming radiation treatments. Progress of Wound: The patient has completed 32/33 radiation treatments to the left parotid/preauricular region. A wound culture was collected on 09/21/2020 and was significant for the following: Rare Enterococcus faecalis, 1+ coag negative staph (possible skin contamination), 1+ gram-positive dandy, anaerobic Propionibacterium acnes, and anaerobic beta-lactamase positive Prevotella melaninogenica. There were no clinical signs of infection at the time of culture collection. The patient was started on Augmentin 875/125 mg 1 tab p.o. every 12 hours x10 days. This has been completed. A wound culture collected 10/19/20 was significant for the followin+ Staphylococcus epidermidis (possible skin contamination), 1+ corynebacterium amycolatum. He was started on doxycycline 100mg PO BID x 14 days. He has completed the 14 day course. The patient denies any fever or chills. He had increased pain in the preauricular region following initiation of radiation treatment, though he denies further worsening of pain. He is now seeing [facility] for pain management and receiving morphine gel to apply to the preauricular ulcer. His bleeding remains mild today, though he reports this varies in amount. He has been using daily Adaptic and gauze dressings to the preauricular ulcer. He denies purulent drainage. He denies malodorous drainage. There are no clinical signs of infection today, and the ulcer's depth continues to decrease. - Physical Exam Vital Signs Temp Pulse Resp BP 97.4 F L 83 18 117/67 11/16/20 08:03 11/16/20 08:03 11/05/20 00:34 11/16/20 08:03 General: Alert, Cooperative, No apparent distress HEENT: - - Left ptosis Oral: Moist Mucosa Neck: Supple Lungs: Normal air movement Abdomen: Obese Extremities: Capillary Refill Less than 3 Seconds Skin: Ulcer/ Wound - Left preauricular ulceration with subQ layer exposed. Moderate amount of slough present. The ulcer does not probe to bone. No noted tunneling or undermining. No purulent/malodorous drainage. Small amount of bloody drainage present today. No periulcer erythema or warmth. Tender to palpation. Wound Measurements and Assessment WC - Nurse 1 - General Ulcer Measurement Start: 11/16/20 08:03 Freq: Status: Active Protocol: Activity Type Activity Date Activity User E-Sign Co-Sign Detail Recorded Client Recorded Date Recorded By Document 11/16/20 08:03 PEDRO [id number] 11/16/20 08:10 PEDRO 11/16/20 08:03 Wound Center Nurse 1 [Ulcer Assessment] #2 Left Preauricular -Current Size (cm) - Length 2.5 -Current Size (cm) - Width 3.5 -Current Size (cm) - Depth 0.4 -Total Square Cm 8.75 -Exudate Amt Large -Exudate Type Serosanguineous -Wound Margin Distinct, Outline Attached -Granulation Amt Medium (34-66%) -Granulation Quality Red -Necrosis Amt Medium (34-66%) -Necrotic Tissue Type Adherent Slough -Texture (Do-wound Skin Appearance) Assessed, Scarring -Moisture (Do-wound Skin Appearance No Abnormality, ) Assessed -Color (Do-wound Skin Appearance) No Abnormality, Assessed -Temperature (Do-wound Skin No Abnormality Appearance) (Pt Warm) -Tenderness on Palpation (Do-wound No Skin Appearance) -Ulcer Cleansing Rinsed/ Irrigated with Saline -Foul Odor after Cleansing No -Anesthetic Used 4% Lidocaine Solution,5% Lidocaine Gel Musculoskeletal: Tenderness - Of left preauricular area Neurological: Facial Droop - Left-sided Psych/Mental Status: Normal Affect, Appropriate Debridement Note No debridement was completed today Assessment/Plan Assessment: see above diagnoses Plan: The patient was seen and examined at [facility] today. No debridement was performed today. The ulcer was cleansed with normal saline and gauze. The patient's wound care will consist of daily application of Adaptic and gauze dressings. A [place] ear dressing for further protection and management of drainage may be used as needed. Wound dressings may be changed daily or more frequently if needed due to saturation or contamination. The patient may cleanse the do-ulcer area with antibacterial soap and water using a wash cloth. The head/ulcer area should not be submerged in water. The patient should increase his protein intake to aid in healing. He was started on Óscar by Dr. Goode, and this should be continued. There are no clinical signs of infection today. Wound cultures were deferred today. Bloodwork from 09/17/2020 was significant for anemia (hemoglobin 10.7), normal creatinine with an estimated GFR of 86, and normal LFTs. Face/head/neck MRI reviewed as annotated above. Previously discussed at length with the patient that aggressive debridement will not be performed due to the presence of cancer, and that the ulcer will likely not heal until the cancer in that region is eradicated. The patient was placed on a palliative care wound healing plan. I will have him follow-up in 2 weeks for reassessment. We will continue to evaluate healing potential throughout the course of treatment. We discussed the future possibility of hyperbaric oxygen treatment to aid in wound healing, should he have delayed wound healing >6 months following completion of radiation treatment. I discussed the patient's case with Dr. Claros ([facility] plastic surgery). Per our discussion, Dr. Claros advised that the patient be treated at a tertiary care center due to concerns for bleeding and complications with debridement of this highly vascularized region. The patient states he will reach out to his transplant team at [facility] for recommendations on head/neck surgeons, as this is his preferred place of treatment. The patient is agreeable with the above plan of care. Note: [employer] speech recognition forensic technician software was used to create portions of this document. Sound-alike and misspelled words, as well as other forensic technician errors may be contained in the documentation. Office Visits / Consults: [id number] L3 Est
[2020-11-30 08:08] VITALS: BP 139/74; PULSE 91; TEMP 36.3; BMI 33.0
--- NOTE | 2020-11-30 08:28 | PN.PCM_ITS ---
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 Status: Chronic Code(s): L98.492 - Non-pressure chronic ulcer of skin of other sites with fat layer exposed (2) Facial nerve palsy Status: Chronic Code(s): G51.0 - Bui's palsy (3) History of radiation therapy Status: Chronic Code(s): Z92.3 - Personal history of irradiation (4) Lung transplant recipient Status: Chronic Code(s): Z94.2 - Lung transplant status (5) Metastatic squamous cell carcinoma to head and neck Status: Chronic Code(s): C79.89 - Secondary malignant neoplasm of other specified sites Type of Wound Date of Service: 11/30/20 Chief Complaint: Ulceration of the left preauricular region due to metastatic squamous cell carcinoma History of Wound: This is a 70-year-old white male who [facility] for evaluation of a left preauricular ulceration with underlying metastatic squamous cell carcinoma. He has a past medical history significant for COPD, bilateral lung transplant 2014, multiple squamous cell carcinomas, hypertension, hyperlipidemia, and obesity. In January 2020, the patient underwent a biopsy of a painless, progressively enlarging left preauricular soft tissue lesion, which was positive for metastatic squamous cell carcinoma. He is being treated with chemotherapy. He states the ulceration opened approximately mid-August 2020. Initially it was draining only intermittenty, but subsequently started to continuously drain copious amounts of bloody discharge. He denied any purulent or malodorous drainage. The ulceration was tender to palpation. He denied any fever, chills, nausea, vomiting, or diarrhea. An MRI of the face/head/neck was done on 09/18/2020 and showed an enhancing soft tissue density in the left preauricular space that extends to the left parotid gland with suspicious partial encasement of the left neurovascular bundle. Per my discussion 09/21/[address] Goode (rad/onc), the patient would be following up with [facility] later that day to plan for upcoming radiation treatments. Progress of Wound: The patient has completed 33/ radiation treatments to the left parotid/preauricular region. A wound culture was collected on 09/21/2020 and was significant for the following: Rare Enterococcus faecalis, 1+ coag negative staph (possible skin contamination), 1+ gram-positive dandy, anaerobic Propionibacterium acnes, and anaerobic beta-lactamase positive Prevotella melaninogenica. There were no clinical signs of infection at the time of culture collection. The patient was started on Augmentin 875/125 mg 1 tab p.o. every 12 hours x10 days. This has been completed. A wound culture collected 10/19/20 was significant for the followin+ Staphylococcus epidermidis ( possible skin contamination), 1+ corynebacterium amycolatum. He was started on doxycycline 100mg PO BID x 14 days. He has completed the 14 day course. The patient denies any fever or chills. He had increased pain in the preauricular region following initiation of radiation treatment, though he denies further worsening of pain. He is now seeing [facility] for pain management and receiving morphine gel to apply to the preauricular ulcer, which has been of significant benefit. His bleeding remains mild today. He has been using daily Adaptic and gauze dressings to the preauricular ulcer. He denies purulent drainage. He denies malodorous drainage. He denies fever or chills. There are no clinical signs of infection today, and the ulcer's depth continues to decrease. - Physical Exam Vital Signs Temp Pulse Resp BP 97.4 F L 91 18 139/74 H 11/30/20 08:08 11/30/20 08:08 11/05/20 00:34 11/30/20 08:08 General: Alert, Cooperative, No apparent distress Oral: Moist Mucosa Neck: Trachea Midline Lungs: Normal air movement Abdomen: Obese Skin: Ulcer/ Wound - Left preauricular ulceration with subcutaneous layer exposed. Large amount of slough present. The ulcer does not probe to bone. No tunneling or undermining noted. No purulent/malodorous drainage. Small amount of bloody drainage present today. No periulcer erythema or warmth.Improved tenderness Wound Measurements and Assessment WC - Nurse 1 - General Ulcer Measurement Start: 11/16/20 08:03 Freq: Status: Active Protocol: Activity Type Activity Date Activity User E-Sign Co-Sign Detail Recorded Client Recorded Date Recorded By Document 11/30/20 08:08 PEDRO [id number] 11/30/20 08:12 PEDRO 11/30/20 08:08 Wound Center Nurse 1 [Ulcer Assessment] #2 Left Preauricular -Current Size (cm) - Length 3.9 -Current Size (cm) - Width 2.4 -Current Size (cm) - Depth 0.4 -Total Square Cm 9.36 -Exudate Amt Large -Exudate Type Serosanguineous -Wound Margin Distinct, Outline Attached -Granulation Amt Medium (34-66%) -Granulation Quality Red -Necrosis Amt Medium (34-66%) -Necrotic Tissue Type Adherent Slough -Texture (Do-wound Skin Appearance) Assessed, Scarring -Moisture (Do-wound Skin Appearance No Abnormality, ) Assessed -Color (Do-wound Skin Appearance) No Abnormality, Assessed -Temperature (Do-wound Skin No Abnormality Appearance) (Pt Warm) -Tenderness on Palpation (Do-wound No Skin Appearance) -Ulcer Cleansing Rinsed/ Irrigated with Saline -Foul Odor after Cleansing No -Anesthetic Used 5% Lidocaine Gel Neurological: - - Left facial droop Psych/Mental Status: Normal Affect, Appropriate Debridement Note Post-Debridement Measurements/Treatment WC - Nurse 2 - General Ulcer CM Notes Start: 11/16/20 08:03 Freq: Status: Active Protocol: Activity Type Activity Date Activity User E-Sign Co-Sign Detail Recorded Client Recorded Date Recorded By Document 11/16/20 08:40 PL [id number] 11/16/20 08:40 PL 11/16/20 08:40 Wound Center Nurse 2 #2 Left Preauricular -Procedure Performed No Pain Scale: 0-10 Numeric Is Patient Pain Free? Yes - Nurse 3 - General Ulcer D/C NN Start: 11/16/20 08:03 Freq: Status: Active Protocol: Activity Type Activity Date Activity User E-Sign Co-Sign Detail Recorded Client Recorded Date Recorded By Document 11/16/20 08:36 KR [id number] 11/16/20 08:37 KR 11/16/20 08:36 Wound Care Nurse 3 #2 Left Preauricular -Ulcer Cleansing Rinsed/ Irrigated with Saline -Foul Odor after Cleansing No -Primary Dressing Applied NonAdherent Contact Layer -Primary Dressing Covered/Secured with Dry Gauze, Secured with Tape Pain Scale: 0-10 Numeric Is Patient Pain Free? Yes WC - Visit Discharge Discharge Condition Stable Ambulatory Status Ambulatory Transportation Private Auto No debridement was completed today Assessment/Plan Active Problems (Last Reviewed 11/26/20 @ 10:01 by Darcy Galindo Metastatic squamous cell carcinoma to head and neck (Chronic) Skin ulcer of face with fat layer exposed (Chronic) Facial nerve palsy (Chronic) Lung transplant recipient (Chronic) History of radiation therapy (Chronic) Assessment: see above diagnoses Plan: The patient was [facility] and [facility]. No debridement was performed today. The ulcer was cleansed with normal saline and gauze. The patient's wound care will consist of daily application of Adaptic and gauze dressings. A Dale ear dressing for further protection and management of drainage may be used as needed. Wound dressings may be changed daily or more frequently if needed due to saturation or contamination. The patient should cleanse the do-ulcer area with antibacterial soap and water using a wash cloth. The head/ulcer area should not be submerged in water. The patient should increase his protein intake to aid in healing. He was started on Óscar by Dr. Goode, and this should be continued. There are no clinical signs of infection today. Wound cultures were deferred today. Bloodwork from 09/17/2020 was significant for anemia (hemoglobin 10.7), normal creatinine with an estimated GFR of 86, and normal LFTs. Face/head/neck MRI reviewed as annotated above. Previously discussed at length with the patient that aggressive debridement will not be performed due to the presence of cancer, and that the ulcer will likely not heal until the cancer in that region is eradicated. The patient was placed on a palliative care wound healing plan. I will have him follow-up in 1 month for reassessment. We will continue to evaluate healing potential throughout the course of treatment. We discussed the future possibility of hyperbaric oxygen treatment to aid in wound healing, should he have delayed wound healing >6 months following completion of radiation treatment. I previously discussed the patient's case with Dr. Claros ([facility] plastic surgery). Per our discussion, Dr. Claros advised that the patient be treated at a tertiary care center due to concerns for bleeding and complications with debridement of this highly vascularized region. The patient is working with his team at [facility] to establish with a head/neck surgeon, as this is his preferred place of treatment. The patient is agreeable with the above plan of care. Note: [employer] speech recognition security expert software was used to create portions of this document. Sound-alike and misspelled words, as well as other security expert errors may be contained in the documentation. Office Visits / Consults: [id number] OV L3 Est
== END 2020-12-02 23:59 ==
LOC: WC 08:00
PROVIDERS: PCP Family Medicine; Referring Provider Student in an Organized Health Care Education/Training Program; Visit Provider Nurse Practitioner Family
DX: L98.492 Non-pressure chronic ulcer of skin of other sites with fat layer exposed (principal); C79.89 Secondary malignant neoplasm of other specified sites; D70.1 Agranulocytosis secondary to cancer chemotherapy; T45.1X5A Adverse effect of antineoplastic and immunosuppressive drugs, initial encounter; G51.0 Bell's palsy; J44.9 Chronic obstructive pulmonary disease, unspecified; Z92.3 Personal history of irradiation; Z94.2 Lung transplant status; E78.5 Hyperlipidemia, unspecified; I10 Essential (primary) hypertension; E66.9 Obesity, unspecified
CPT/HCPCS: 99213; G0463

== ENCOUNTER → 2020-12-21 10:36 | Outpatient (CLI) | payer MEDICARE, OTHER, SELFPAY ==
[2019-10-03 09:13] VITALS: BMI 36.1
[2020-11-08 09:10] VITALS: BMI 32.6
[2020-11-30 08:45] VITALS: BMI 32.8
--- NOTE | 2020-12-21 13:46 | SPIR ---
Spirometry PFT Testing Spirometry PFT Testing: COMPLETE PULMONARY FUNCTION TEST INTERPRETATION Brief HPI: Patient is a 70 year old male, currently under the care of Dr. Richey, who presents to [facility] for complete pulmonary function tests secondary to diagnosis of post transplant. Respiratory therapist reports good effort and reproducible results. Interpretation: Forced expiration spirometry shows a severe large airways obstructive ventilatory defect with an FEV1 of 41% predicted. There was no bronchodilator response tested. Spirograms are of good quality and plateau slowly, indicating slowly emptying areas of the lungs. The respiratory flow volume loop shows decreased expiratory flow rates at all lung volumes consistent with airway obstruction. Compared to previous pulmonary function tests from 11/23/2020, there is been a significant improvement in FVC and FEV1 by 24% and 17% respectively. Impression: Severe large airways obstructive ventilatory defect with some improvement over the last month
== END ==
PROVIDERS: PCP Family Medicine; Referring Provider Internal Medicine Critical Care Medicine; Visit Provider Internal Medicine Critical Care Medicine
DX: Z79.4 Long term (current) use of insulin (principal); Z48.24 Encounter for aftercare following lung transplant; Z79.899 Other long term (current) drug therapy; D84.9 Immunodeficiency, unspecified
CPT/HCPCS: 94010

== ENCOUNTER 2020-12-28 08:00 | Outpatient (RCR) | payer MEDICARE, OTHER, SELFPAY ==
[2019-10-03 09:13] VITALS: BMI 36.1
[2020-11-30 08:45] VITALS: BMI 32.8
[2020-12-03 00:29] VITALS: BP 139/74; PULSE 91; RESP 18; TEMP 36.3
[2020-12-28 08:01] VITALS: BP 135/79; PULSE 78; RESP 18; TEMP 36.2; BMI 32.8
--- NOTE | 2020-12-28 11:51 | PN.PCM_ITS ---
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 Status: Chronic Code(s): L98.492 - Non-pressure chronic ulcer of skin of other sites with fat layer exposed (2) Metastatic squamous cell carcinoma to head and neck Status: Chronic Code(s): C79.89 - Secondary malignant neoplasm of other specified sites (3) Facial nerve palsy Status: Chronic Code(s): G51.0 - Bui's palsy (4) History of radiation therapy Status: Chronic Code(s): Z92.3 - Personal history of irradiation Type of Wound Date of Service: 12/28/20 Chief Complaint: Ulceration of the left preauricular region due to metastatic squamous cell carcinoma History of Wound: This is a 70-year-old white male who [facility] for evaluation of a left preauricular ulceration with underlying metastatic squamous cell carcinoma. He has a past medical history significant for COPD, bilateral lung transplant 2014, multiple squamous cell carcinomas, hypertension, hyperlipidemia, and obesity. In January 2020, the patient underwent a biopsy of a painless, progressively enlarging left preauricular soft tissue lesion, which was positive for metastatic squamous cell carcinoma. He is being treated with chemotherapy. He states the ulceration opened approximately mid-August 2020. Initially it was draining only intermittenty, but subsequently started to continuously drain copious amounts of bloody discharge. He denied any purulent or malodorous drainage. The ulceration was tender to palpation. He denied any fever, chills, nausea, vomiting, or diarrhea. An MRI of the face/head/neck was done on 09/18/2020 and showed an enhancing soft tissue density in the left preauricular space that extends to the left parotid gland with suspicious partial encasement of the left neurovascular bundle. Per my discussion 09/21/[address] Goode (rad/onc), the patient would be following up with [facility] later that day to plan for upcoming radiation treatments. Progress of Wound: The patient has completed 33/ radiation treatments to the left parotid/preauricular region. A wound culture was collected on 09/21/2020 and was significant for the following: Rare Enterococcus faecalis, 1+ coag negative staph (possible skin contamination), 1+ gram-positive dandy, anaerobic Propionibacterium acnes, and anaerobic beta-lactamase positive Prevotella melaninogenica. There were no clinical signs of infection at the time of culture collection. The patient was started on Augmentin 875/125 mg 1 tab p.o. every 12 hours x10 days. This has been completed. A wound culture collected 10/19/20 was significant for the followin+ Staphylococcus epidermidis (possible skin contamination), 1+ corynebacterium amycolatum. He was started on doxycycline 100mg PO BID x 14 days. He has completed the 14 day course. The patient denies any fever or chills. He had increased pain in the preauricular region following initiation of radiation treatment, though he denies further worsening of pain. He is now seeing [facility] for pain management and receiving morphine gel to apply to the preauricular ulcer, which has been of significant benefit. His bleeding remains mild today. He has been using daily Adaptic and gauze dressings to the preauricular ulcer. He denies purulent drainage. He denies malodorous drainage. He denies fever or chills. There is a significant amount of slough and devitalized tissue present today and it is difficult to determine full wound depth without thorough debridement. The patient has not yet scheduled an appt w/ head and neck surgery for consultation as previously instructed. He states he has an upcoming MRI and PET scan next week in 2 weeks to determine reponse to therapy. - Physical Exam Vital Signs Temp Pulse Resp BP 97.1 F L 78 18 135/79 H 12/28/20 08:01 12/28/20 08:01 12/28/20 08:01 12/28/20 08:01 General: Alert, Cooperative, No apparent distress Oral: Moist Mucosa Neck: Trachea Midline Lungs: Normal air movement Abdomen: Obese Skin: Ulcer/ Wound - Left preauricular ulceration with subcutaneous layer exposed. Large amount of slough present. Ulcer depth is difficult to determine due to large amount of slough. No purulent/malodorous drainage. There is crusting present in the cavum conchae and scapha; scrubbing not tolerated., - - No erythema or warmth or ulcer/periulcer. Tender to palpation. Wound Measurements and Assessment WC - Nurse 1 - General Ulcer Measurement Start: 12/28/20 08:01 Freq: Status: Active Protocol: Activity Type Activity Date Activity User E-Sign Co-Sign Detail Recorded Client Recorded Date Recorded By Document 12/28/20 08:01 PL [id number] 12/28/20 08:09 PL 12/28/20 08:01 Wound Center Nurse 1 [Ulcer Assessment] #2 Left Preauricular -Combined with other wound No -Current Size (cm) - Length 5.0 -Current Size (cm) - Width 2.5 -Current Size (cm) - Depth 2.0 -Total Square Cm 12.50 -Photo Taken No -Epithelialization None Present -Tunneling No -Undermining/Tunneling No -Circular Undermining No -Exudate Amt Large -Exudate Type Serosanguineous -Granulation Amt None Present (0 %) -Slough/Fibrin Yes -Necrosis Amt Large (67-100%) -Necrotic Tissue Type Adherent Slough -Texture (Do-wound Skin Appearance) Excoriation -Moisture (Do-wound Skin Appearance Weeping ) -Color (Do-wound Skin Appearance) No Abnormality -Temperature (Do-wound Skin No Abnormality Appearance) (Pt Warm) -Tenderness on Palpation (Do-wound Yes Skin Appearance) -Ulcer Cleansing Rinsed/ Irrigated with Saline -Foul Odor after Cleansing No -Anesthetic Used 4% Lidocaine Solution WC - Nurse 2 - General Ulcer CM Notes Start: 12/28/20 08:01 Freq: Status: Active Protocol: Activity Type Activity Date Activity User E-Sign Co-Sign Detail Recorded Client Recorded Date Recorded By Document 12/28/20 10:39 PL [id number] 12/28/20 10:40 PL 12/28/20 10:39 Wound Center Nurse 2 [Procedure/Treatment] -Post Debridement (cm) - Length 5 -Post Debridement (cm) - Width 2.3 -Post Debridement (cm) - Depth 1.6 -Total Square (Post) (cm) 11.5 -Wound/Ulcer Outcome Not Healed -Ulcer Cleansing Rinsed/ Irrigated with Saline -Foul Odor after Cleansing No [See Physician Procedure note for Specifics] Pain Scale: 0-10 Numeric [Pain] -Is Patient Pain Free? Yes PAYTON - Nurse 3 - General Ulcer D/C NN Start: 12/28/20 08:01 Freq: Status: Active Protocol: Activity Type Activity Date Activity User E-Sign Co-Sign Detail Recorded Client Recorded Date Recorded By Document 12/28/20 08:55 JF [id number] 12/28/20 08:56 12/28/20 08:55 Wound Care Nurse 3 [Wound Dressing] #2 Left Preauricular -Ulcer Cleansing Rinsed/ Irrigated with Saline -Foul Odor after Cleansing No -Primary Dressing Applied NonAdherent Contact Layer -Primary Dressing Covered/Secured Dry Gauze, with Secured with Tape Pain Scale: 0-10 Numeric [Pain] -Is Patient Pain Free? Yes - Visit Discharge [Visit Discharge Information] -Discharge Condition Stable -Ambulatory Status Ambulatory -Transportation Private Auto -Medication Reconcilliation completed Yes & provided to patient/care provider -Clinical Summary of Care Provided Yes Neurological: Facial Droop - Left-sided Psych/Mental Status: Normal Affect, Appropriate Debridement Note Post-Debridement Measurements/Treatment - Nurse 2 - General Ulcer CM Notes Start: 12/28/20 08:01 Freq: Status: Active Protocol: Activity Type Activity Date Activity User E-Sign Co-Sign Detail Recorded Client Recorded Date Recorded By Document 12/28/20 10:39 PL [id number] 12/28/20 10:40 PL 12/28/20 10:39 Wound Center Nurse 2 #2 Left Preauricular -Post Debridement (cm) - Length 5 -Post Debridement (cm) - Width 2.3 -Post Debridement (cm) - Depth 1.6 -Total Square (Post) (cm) 11.5 -Wound/Ulcer Outcome Not Healed -Ulcer Cleansing Rinsed/ Irrigated with Saline -Foul Odor after Cleansing No Pain Scale: 0-10 Numeric Is Patient Pain Free? Yes - Nurse 3 - General Ulcer D/C NN Start: 12/28/20 08:01 Freq: Status: Active Protocol: Activity Type Activity Date Activity User E-Sign Co-Sign Detail Recorded Client Recorded Date Recorded By Document 12/28/20 08:55 [id number] 12/28/20 08:56 12/28/20 08:55 Wound Care Nurse 3 #2 Left Preauricular -Ulcer Cleansing Rinsed/ Irrigated with Saline -Foul Odor after Cleansing No -Primary Dressing Applied NonAdherent Contact Layer -Primary Dressing Covered/Secured with Dry Gauze, Secured with Tape Pain Scale: 0-10 Numeric Is Patient Pain Free? Yes - Visit Discharge Discharge Condition Stable Ambulatory Status Ambulatory Transportation Private Auto Medication Reconcilliation completed & Yes provided to patient/care provider Clinical Summary of Care Provided Yes Assessment/Plan Assessment: see above diagnoses Plan: The patient was seen and examined at [facility] today. No debridement was performed today. The ulcer was cleansed with normal saline and gauze, which was not well tolerated. The patient's wound care will consist of daily application of Adaptic and gauze dressings. A Dale ear dressing for further protection and management of drainage may be used as needed. Wound dressings may be changed daily or more frequently if needed due to saturation or contamination. The patient should cleanse the do-ulcer area with antibacterial soap and water using a wash cloth. The head/ulcer area should not be submerged in water. The patient should increase his protein intake to aid in healing. He was started on Óscar by Dr. Goode, and this should be continued. Due to large amounts of slough, repeat wound cultures were collected today. Bloodwork from 09/17/2020 was significant for anemia (hemoglobin 10.7), normal creatinine with an estimated GFR of 86, and normal LFTs. Face/head/neck MRI reviewed as annotated above. Previously discussed at length with the patient that aggressive debridement will not be performed due to the presence of cancer, and that the ulcer will likely not heal until the cancer in that region is eradicated. He has repeat PET scan and MRI scheduled in the upcoming weeks to determine response to treatment. I previously discussed the patient's case with Dr. Claros ([facility] plastic surgery). Per our discussion, Dr. Claros advised that the patient be treated at a tertiary care center due to concerns for bleeding and complications with debridement of this highly vascularized region. The patient was encouraged to schedule a consult with head/neck surgery, but has not yet done so. He plans to use an [facility] head/neck surgeon, as this is his preferred place of treatment. We have offered to assist in establishing with a specialist and he has declined. The importance of this was again emphasized. The patient was placed on a palliative care wound healing plan. I will have him follow-up in 1 month for reassessment. We will continue to evaluate healing potential throughout the course of treatment. We discussed the future possibility of hyperbaric oxygen treatment to aid in wound healing, should he have delayed wound healing >6 months following completion of radiation treatment. The patient is agreeable with the above plan of care. Note: [employer] speech recognition dynamiter software was used to create portions of this document. Sound-alike and misspelled words, as well as other dynamiter errors may be contained in the documentation. Office Visits / Consults: [id number] OV L4 Est
--- NOTE | 2021-01-09 11:42 | WC ---
Prescription for Gentamicin ointment 0.1% was called into [facility] pharmacy on [address] Patient was notified and instructed on use. Pt also stated that he had an MRI and CT yesterday (01/08/21) and would be reviewing results with his physician and then contacting a head and neck surgeon.
== END 2021-01-02 23:59 ==
LOC: WC 08:00
PROVIDERS: PCP Family Medicine; Referring Provider Student in an Organized Health Care Education/Training Program; Visit Provider Nurse Practitioner Family
DX: L98.492 Non-pressure chronic ulcer of skin of other sites with fat layer exposed (principal); C79.89 Secondary malignant neoplasm of other specified sites; G51.0 Bell's palsy; Z92.3 Personal history of irradiation; Z94.2 Lung transplant status; J44.9 Chronic obstructive pulmonary disease, unspecified; I10 Essential (primary) hypertension; E78.5 Hyperlipidemia, unspecified
CPT/HCPCS: 87070; 87075; 87077; 87186; 87205; 99213; G0463

== ENCOUNTER → 2021-01-08 11:48 | Outpatient (CLI) | payer MEDICARE, OTHER, SELFPAY ==
[2019-10-03 09:13] VITALS: BMI 36.1
[2020-11-29 09:29] VITALS: BMI 32.8
[2020-12-31 11:27] VITALS: BMI 30.2
--- NOTE | 2021-01-08 11:59 | MRI_ITS ---
STUDY: MRI BRAIN WITH AND WITHOUT CONTRAST REASON FOR EXAM: Male, 70 years old. follow up treated SCC of the face -- assess disease response, compare to previous TECHNIQUE: Standardized multiplanar fat and water weighted pulse sequences were obtained. IV 17ml Dotarem was administered for the contrast portion of the examination. COMPARISON: MRI of the brain dated September 18, 2020. CT of the neck dated September 21, 2020. FINDINGS: Reidentification of the spiculated soft tissue in the posterior aspect of the left parotid gland extending into the left periventricular region that avidly enhances on the postcontrast portion of the study and involves 70 x 3.04 cm region similar to what was seen on the prior study. Findings could represent post radiation/postoperative changes. No new abnormality is seen and no additional extension into the surrounding soft tissues. Correlation with nuclear medicine PET scan can be obtained to determine if there is any malignant uptake remaining tissue. There is mild cerebral atrophy with widening of the extra-axial spaces and ventricular dilatation. Normal white matter tracts of the supratentorial brain. There is no evidence for recent intracranial ischemia or other cause of cytotoxic edema on diffusion weighted imaging (DWI). Normal bilateral basal ganglia. Normal thalami. There is no extra-axial fluid accumulation. Normal flow voids within the major intracranial circulation suggesting patency by spin echo criteria. Normal venous enhancement. There is no enhancing intra-axial or extra-axial abnormality. Normal sella turcica, pituitary gland, infundibular stalk, optic chiasm and hypothalamus. Normal tectal plate and pineal gland. Normal midbrain, kiara and medulla. Normal cerebellum. Normal basal cisterns. Normal bilateral temporal bones. Normal bilateral internal auditory canals. No demonstrated orbital abnormality, within the constraints of a routine brain study. Normal visualized paranasal sinuses. Normal calvarium and skull base. Normal visualized soft tissue structures. Normal visualized upper cervical spine. MRI/Brain W/WO Contrast IMPRESSION: 1. Involutional changes of the brain, as described above. 2. Reidentification of the spiculated soft tissue in the posterior aspect of the left parotid gland extending into the left periventricular region that avidly enhances on the postcontrast portion of the study and involves 70 x 3.04 cm region similar to what was seen on the prior study. Findings could represent post radiation/postoperative changes. No new abnormality is seen and no additional extension into the surrounding soft tissues. Correlation with nuclear medicine PET scan can be obtained to determine if there is any malignant uptake remaining tissue. Electronically Signed: Peyman Mitchell MD at 23:16 EDT , Service support ,
--- NOTE | 2021-01-08 11:59 | MRI_ITS ---
INDICATION: follow up treated SCC of the face -- please compare to prior exams EXAMINATION: MRI - MR Face Neck Orbit WO/W Contrast TECHNIQUE: Multiplanar and multisequence MR images of the neck were performed without and with IV gadolinium. IV Contrast Dosage and Agent: 17ml Dotarem IV 17ml Dotarem COMPARISON: MRI of the brain and neck dated September 18, 2020. CT therapy exam dated September 21, 2020. MRI of the brain dated JANUARY 08, 2021 FINDINGS: Reidentification of the spiculated soft tissue in the posterior aspect of the left parotid gland extending into the left periventricular region that avidly enhances on the postcontrast portion of the study and involves 4.7 x 3.04 cm region similar to what was seen on the prior study. Findings could represent post radiation/postoperative changes. Similar mild changes seen in the aryepiglottic folds and concentrically of the parapharyngeal mucosa with minimal edema and enhancement, but without a mass. Persistent hypertrophy and edema in the left superior posterior aspect of the tongue and parapharyngeal mucosa as well as the overlying left masseter muscle and pterygoid fossa, most consistent with posttreatment changes to this region. No demonstrated invasive process of the body of the mandible. 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 No new abnormality is seen and no additional extension into the surrounding soft tissues. Correlation with nuclear medicine PET scan can be obtained to determine if there is any malignant uptake remaining tissue. Unremarkable right parotid gland and facial and neck structures. LYMPH NODES: No cervical or supraclavicular lymphadenopathy. VASCULAR STRUCTURES: Unremarkable. VISUALIZED PORTIONS OF THE ORBITS, PARANASAL SINUSES, MASTOID AIR CELLS AND SKULL BASE: Unremarkable. THORACIC INLET: Clear lung apices. CERVICAL SPINE: Unremarkable. Include Additional Portions As Necessary. MRI/Orbit Face Neck W/WO Contrast IMPRESSION: 1. Reidentification of the spiculated soft tissue in the posterior aspect of the left parotid gland extending into the left periventricular region that avidly enhances on the postcontrast portion of the study and involves 4.7 x 3.04 cm region similar to what was seen on the prior study. 2. .Findings could represent post radiation/postoperative changes. 3. Persistent hypertrophy and edema in the left superior posterior aspect of the tongue and parapharyngeal mucosa as well as the overlying left masseter muscle and pterygoid fossa, most consistent with posttreatment changes to this region. 4. No demonstrated invasive process of the body of the mandible. 5. 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 6. No new abnormality is seen and no additional extension into the surrounding soft tissues. 7. Correlation with nuclear medicine PET scan can be obtained to determine if there is any malignant uptake remaining tissue. Electronically Signed: Peyman Mitchell MD at 23:26 EDT , Service support ,
== END ==
PROVIDERS: PCP Family Medicine; Referring Provider Student in an Organized Health Care Education/Training Program; Visit Provider Student in an Organized Health Care Education/Training Program
DX: C79.89 Secondary malignant neoplasm of other specified sites (principal); C44.622 Squamous cell carcinoma of skin of right upper limb, including shoulder
CPT/HCPCS: 70543; 70553; 78815; A9552; A9575; A4216

== ENCOUNTER 2021-01-15 08:09 | Outpatient (RCR) | payer MEDICARE, OTHER, SELFPAY ==
[2019-10-03 09:13] VITALS: BMI 36.1
[2020-12-31 11:27] VITALS: BMI 30.2
[2021-01-15 10:04] LABS: Absolute Lymphocyte Count 0.61 X10^3/uL (0.83-4.51); Absolute Neutrophil Count 3.4 X10^3/uL (2.0-7.7); Basophil# 0.03 X10^3/uL; Basophil% 0.6 % (0-1); Eosinophils% 5.9 % (0-5); Hematocrit 34.6 % (40-54); Hemoglobin 10.2 g/dL (13.0-16.5); Lymphocyte # 0.61 X10^3/ul (4.0); Mean Corp Hgb Conc 29.5 g/dL (32-36); Mean Corpuscular Hgb 28.4 pg (27.0-32.0); Mean Corpuscular Volume 96.4 fL (80-94); Mean Platelet Vol. 10.3 fl (6.2-12.0); Monocyte# 0.75 X10^3/uL; Monocyte% 14.7 % (0-10); NRBC Flagged by Analyzer 0 % (0-5); Neutrophil % 66.6 % (47-70); Platelet Count 289 K/mm3 (150-450); RBC Distribution Width CV 15.9 % (11.6-14.6); RBC Distribution Width SD 57.1 fl (35.1-43.9); Red Blood Count 3.59 M/mm3 (4.6-6.2); White Blood Count 5.1 K/mm3 (4.4-11.0)
[2021-01-15 10:25] LABS: AST(SGOT) 12 U/L (15-37); Alanine Aminotransfer ALT/SGPT 16 U/L (16-61); Albumin, Serum 3.3 g/dL (3.2-5.0); Alkaline Phosphatase 44 U/L (45-117); BUN 41 mg/dL (7-18); Bilirubin, Direct 0.08 mg/dL (0.00-0.30); Calcium,Total 9.5 mg/dL (8.5-10.1); Creatinine, Serum 1.62 mg/dL (0.70-1.30); EST Glomerular Filtration Rate 45 mL/min (>60); Est Glom Filt Rate - Afr Amer 55 mL/min (>60); GGTP 22 U/L (15-85); Glucose 118 mg/dL (74-106); Magnesium 2.1 mg/dL (1.6-2.6); Phosphorus 3.3 mg/dL (2.5-4.9); Potassium 4.1 mmol/L (3.5-5.1); Sodium Level 139 mmol/L (136-145); Uric Acid 8.1 mg/dL (3.5-7.2)
[2021-01-15 16:17] LABS: Chloride 102 mmol/L (98-107)
[2021-01-23 12:41] LABS: CMV by PCR Negative (Negative); Tacrolimus (FK506) 3.7 ng/mL (2.0-20.0)
== END 2021-01-15 18:00 | disposition home or self-care (01) ==
LOC: MTLAB 08:09
PROVIDERS: Family Provider Family Medicine; PCP Family Medicine
DX: Z94.2 Lung transplant status (principal); Z48.24 Encounter for aftercare following lung transplant; D89.9 Disorder involving the immune mechanism, unspecified; R79.9 Abnormal finding of blood chemistry, unspecified; Z51.81 Encounter for therapeutic drug level monitoring; Z79.899 Other long term (current) drug therapy
CPT/HCPCS: 36415; 80053; 80195; 80197; 82040; 82247; 82248; 82310; 82374; 82435; 82565; 82947; 82977; 83735; 84075; 84100; 84132; 84295; 84450; 84460; 84520; 84550; 85025; 87496

== ENCOUNTER 2021-02-27 11:00 | Outpatient (RCR) | payer MEDICARE, OTHER, SELFPAY ==
[2019-10-03 09:13] VITALS: BMI 36.1
[2020-12-31 11:27] VITALS: BMI 30.2
== END 2021-03-04 23:59 ==
LOC: NS 11:00
PROVIDERS: PCP Family Medicine; Visit Provider Internal Medicine Hematology & Oncology
DX: Z00.00 Encounter for general adult medical examination without abnormal findings (principal)

== ENCOUNTER 2021-04-16 11:24 | Inpatient (IN) | payer MEDICARE, OTHER, SELFPAY ==
[2019-10-03 09:13] VITALS: BMI 36.1
[2021-04-15 11:57] VITALS: BMI 23.3
[2021-04-16] VITALS (16 sets, daily range): BP systolic 86–138; BP diastolic 53–87; PULSE 80–122; RESP 12–24; TEMP 36.8–37.7; O2SAT 91–100; BMI 26.8; BMI 24.8
--- NOTE | 2021-04-16 11:52 | EKG12_ITS ---
Test Reason : Blood Pressure : / mmHG Vent. Rate : 114 BPM Atrial Rate : 114 BPM P-R Int : 148 ms QRS Dur : 094 ms QT Int : 320 ms P-R-T Axes : 013 082 065 degrees QTc Int : 441 ms Sinus tachycardia Low voltage QRS Borderline ECG Confirmed by DICK SOLORZANO MD ([id number]), commercial production editor MIREYA SALAZAR ([id number]) on 04/17/2021 12:03:38 PM Referred By: AJAY Confirmed By:DICK SOLORZANO MD
--- NOTE | 2021-04-16 11:54 | EX.ED.DYSGE1 ---
HPI History of Present Illness Chief Complaint: Unresponsive Informant: patient, spouse/S.O. 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 He was brought to the ER because he was very difficult to arouse this morning by his he tried to wake him up and was unable. She states he tried to mumble some words like leave me alone but would not wake up. Called EMS, upon their arrival he was very lethargic with oxygen saturations in the 30s. They stimulated him and put him on oxygen, and he gradually became more alert with oxygen saturations in the 90s. At this time he is much more alert, the patient does not remember any of this, and he does not feel bad. He states he feels a little short of breath. The states that he does vomit up mucus occasionally, thinks he may have at 1 point yesterday but unknown overnight. She does not sleep in the same bed as he does. He denies any chest pain, abdominal pain, nausea right now, he has had diarrhea constipation intermittently due to the combination of chemotherapy and methadone for pain. 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 The states that right now he appears to be more at baseline with regards to his mental status. 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 Skin cancer Skin cancer skin graft Skin ulcer due to radiation exposure Squamous cell cancer of skin of left shoulder Home Medications acetaminophen 650 mg PO Q4H PRN 01/21/16 [History Last Taken 09/07/19] pantoprazole 40 mg PO DAILY 01/21/16 [History Last Taken 09/06/19] sulfamethoxazole-trimethoprim 800 mg PO MOWEFR 01/21/16 [History Last Taken 09/07/19] tacrolimus 1 mg PO BID 01/21/16 [History Last Taken 09/07/19] multivitamin with minerals 1 tab PO DAILY 09/07/19 [History Last Taken 09/07/19] prednisone 5 mg PO DAILY 09/07/19 [History Last Taken 09/07/19] lidocaine-prilocaine 1 applicatio TP DAILY PRN PRN 30 Days #1 tube 03/01/20 [Rx Last Taken Unknown] Morphine Compounded Gel 0.5 ml TOPICAL BID 11/26/20 [History Last Taken Unknown] clindamycin phosphate 1 % topical gel 1 applic TOPICAL BID 04/15/21 [History Last Taken Unknown] hydroxyzine HCl 10 mg tablet 10 mg PO QHS PRN PRN 04/15/21 [History Last Taken Unknown] lorazepam 0.5 mg tablet 0.5 mg PO BID PRN 04/15/21 [History Last Taken Unknown] methadone 10 mg tablet 10 mg PO BID 04/15/21 [History Last Taken Unknown] naloxone 4 mg/actuation nasal spray 4 mg INTRANASAL Q3M PRN 04/15/21 [History Last Taken Unknown] oxycodone 5 mg capsule 5 mg PO Q4H PRN 04/15/21 [History Last Taken Unknown] sennosides 8.6 mg capsule 8.6 mg PO DAILY PRN 04/15/21 [History Last Taken Unknown] tretinoin (antineoplastic) 10 mg capsule PO 04/15/21 [History Last Taken Unknown] Allergy/AdvReac Type Severity Reaction Status Date / Time No Known Allergies Allergy Verified 04/15/21 12:09 Family History Mother Heart disease Father Heart disease Surgical History history bilateral lung transplant History of appendectomy History of Taniya fundoplication Social History Smoking Status: Former smoker ROS ROS ED Constitutional Constitutional ED: Denies chills or fever(s) Eyes Eyes: Denies change in vision or diplopia ENT ENT ED: Reports as per HPI and other Details: Facial masses and left facial droop ; Denies rhinorrhea or sore throat Cardiovascular Cardiovascular: Denies chest pain or palpitations Respiratory/Chest Respiratory/Chest: Reports as per HPI and dyspnea; Denies cough Gastrointestinal Gastrointestinal: Denies abdominal pain, diarrhea, nausea or vomiting Genitourinary Genitourinary ED: Denies dysuria or hematuria Musculoskeletal Musculoskeletal: Denies back pain or neck pain Integumentary Denies abscess or rash Neurologic Neurologic: Denies headache(s), paresthesias or weakness Psychiatric Psychiatric: Denies anxiety or suicidal thoughts EXAM Physical Exam Const Vital Signs: 04/16/21 11:26 04/16/21 11:33 04/16/21 12:20 Temperature 98.7 F 98.7 F Temperature Source Temporal Temporal Pulse Rate 117 H 117 H 114 H Respiratory Rate 14 14 12 Blood Pressure 121/74 H 121/74 H 100/74 Blood Pressure Mean 89 89 82 Pulse Ox 93 93 Oxygen Delivery Method Nasal Cannula Nasal Cannula Nasal Cannula Oxygen Flow Rate (L/min) 4 4 3 04/16/21 12:21 04/16/21 12:33 04/16/21 13:00 Temperature 98.2 F 98.3 F Temperature Source Temporal Temporal Pulse Rate 112 H 111 H Respiratory Rate 12 14 Blood Pressure 110/74 113/73 Blood Pressure Mean 86 86 Pulse Ox 100 100 Oxygen Delivery Method Nasal Cannula Non-Rebreather Non-Rebreather Oxygen Flow Rate (L/min) 3 04/16/21 14:00 04/16/21 15:00 04/16/21 15:47 Temperature 98.7 F 99.4 F H Temperature Source Temporal Temporal Pulse Rate 112 H 117 H 80 Respiratory Rate 16 19 H 14 Blood Pressure 119/77 119/77 97/53 L Blood Pressure Mean 91 91 67 Pulse Ox 100 Oxygen Delivery Method Non-Rebreather Oxygen Flow Rate (L/min) Positive well nourished and well developed General Appearance ED: well developed and NAD HEENT Reports moist mucous membranes HEENT Narrative: Left facial droop peripheral in nature. Large mass left side of face, small mass on forehead. No active drainage from either. normocephalic and atraumatic Eyes PERRL and EOMs intact bilaterally Eyes Narrative: Pupils 3 mm briskly reactive Neck full ROM and supple Resp normal respiratory effort and clear to auscultation bilaterally Cardio regular rate, regular rhythm and no murmurs GI non-tender and non-distended Auscultation: normoactive bowel sounds Palpation: soft Back/Spine no CVA tenderness General Back: other FROM Extremity normal to inspection General Extremety ED: Negative for edema, pulses abnormal or tenderness General Extremity: Negative for edema or pulses abnormal Neuro oriented x3, CN's II-XII intact bilaterally and no sensory deficits noted Sensorium / Orientation: awake and alert Motor Exam: strength 5/5 throughout Skin no rashes or lesions noted and no wounds MDM MDM MDM Narrative Medical decision making narrative: Patient has renal sufficiency although it is improved compared with what it had been, acute hyperkalemia at 6.9 without evidence of hemolysis and without any EKG changes, and a troponin of 1363. No abn bicarb to suggest acute acidosis; lactate WNL. His EKG shows no acute injury pattern. Clinically he is doing well without chest pain. His chest x-ray does not appear to show any acute infiltrates to suggest pneumonia as cause for his hypoxemia and decreased level of consciousness. I held off doing his CT head looking for metastases or other lesions/bleeding until I saw his chest x-ray to see if he also needed CT angiography of the chest. At this time I do think he needs that, his EGFR is 35-39, and I discussed the risk with the patient and , and they agreed to go forward with this and get IV fluid bolus to try to minimize the chance of acute kidney injury, she really does not want him to have anything invasive like a heart cath which we discussed the possibility of as well. It is possible that an acute OR was the initial presenting problem here, it is also possible that something causing him to be very hypoxic caused acute cardiac injury as a result. Clinically he is stable now on oxygen nasal cannula. In having further discussion with the , he is DNR Comfort Care arrest and they prefer not to undergo invasive testing/procedures including heart catheterization. He currently is being treated with chemotherapy, they are considering discontinuing that, they did already discuss with hospice some time ago, but he is not a candidate as long as he is getting chemotherapy which they are still doing. He sees Dr. Win with oncology here locally. He also follows with an oncologist at [facility]. They prefer to stay here if possible for inpatient care rather than to go to [facility] today. At this time, CTs are pending; will treat empirically w/ Lovenox 1mg/kg. Lab Data Attestation: I reviewed the patient's lab results. Labs: Laboratory Results - last 24 hr 04/16/21 04/16/21 04/16/21 12:28 12:28 12:28 WBC 9.1 RBC 3.74 L Hgb 9.2 L Hct 31.5 L MCV 84.2 MCH 24.6 L MCHC 29.2 L RDW Std Deviation 54.2 H RDW Coeff of Uma 17.6 H Plt Count 191 MPV 10.6 Immature Gran % (Auto) 0.800 Neut % (Auto) 89.1 H Lymph % (Auto) 0.7 L [place] % (Auto) 9.2 Eos % (Auto) 0.1 Baso % (Auto) 0.1 Absolute Neuts (auto) 8.1 H Absolute Lymphs (auto) 0.06 L Nucleated RBC % 0 Differential Comment SCANNED Sodium 132 L Potassium 6.9 H* Chloride 101 Carbon Dioxide 29.0 Anion Gap 2 L BUN 41 H Creatinine 1.85 H Estim Creat Clear Calc 35.23 Est GFR (MDRD) Af Amer 47 L Est GFR (MDRD) Non-Af 39 L BUN/Creatinine Ratio 22.2 H Glucose 124 H Lactic Acid 0.6 Calcium 8.7 Total Bilirubin 0.20 AST 50 H ALT 24 Alkaline Phosphatase 78 Troponin I High Sens 1363.0 H* Total Protein 7.0 Albumin 2.6 L Globulin 4.4 H Albumin/Globulin Ratio 0.6 L Urine Color Urine Clarity Urine pH Ur Specific Stowell Urine Protein Urine Glucose (UA) Urine Ketones Urine Occult Blood Urine Nitrite Urine Bilirubin Urine Urobilinogen Ur Leukocyte Esterase Urine RBC Urine WBC Ur Squamous Epith Cells Amorphous Sediment Urine Bacteria Urine Mucus 04/16/21 12:42 WBC RBC Hgb Hct MCV MCH MCHC RDW Std Deviation RDW Coeff of Uma Plt Count MPV Immature Gran % (Auto) Neut % (Auto) Lymph % (Auto) [place] % (Auto) Eos % (Auto) Baso % (Auto) Absolute Neuts (auto) Absolute Lymphs (auto) Nucleated RBC % Differential Comment Sodium Potassium Chloride Carbon Dioxide Anion Gap BUN Creatinine Estim Creat Clear Calc Est GFR (MDRD) Af Amer Est GFR (MDRD) Non-Af BUN/Creatinine Ratio Glucose Lactic Acid Calcium Total Bilirubin AST ALT Alkaline Phosphatase Troponin I High Sens Total Protein Albumin Globulin Albumin/Globulin Ratio Urine Color Yellow Urine Clarity Clear Urine pH 5.0 Ur Specific Stowell 1.015 Urine Protein 30 H Urine Glucose (UA) Normal Urine Ketones Negative Urine Occult Blood Negative Urine Nitrite Negative Urine Bilirubin Negative Urine Urobilinogen Normal Ur Leukocyte Esterase Negative Urine RBC 0 SEEN Urine WBC 0-5 SEEN Ur Squamous Epith Cells 0 SEEN Amorphous Sediment 1+ Urine Bacteria 0 SEEN Urine Mucus 0 SEEN Radiography Diagnostic Testing: Radiology Impression Chest X-Ray 04/16/21 13:27 IMPRESSION: Stable pleural parenchymal changes at the lung bases slightly worse on the left side. Electronically Signed: Chas Vilchis MD at 13:54 EDT , Service support , EKG Initial EKG: Attestation: I personally reviewed and interpreted this EKG as follows: Interpretation: No Acute Injury Pattern and Sinus Tachycardia Comments: Mildly peaked T waves which are unchanged compared with prior, no other changes of hyperkalemia Prior EKG tracings: available for review Prior: Unchanged Discharge Plan Dx/Rx/DC Orders Clinical Impression: Hypoxemia, Metastatic squamous cell carcinoma to head and neck, Non-ST elevation OR (NSTEMI), Hyperkalemia, CRI (chronic renal insufficiency) Disposition Disposition: Acute Care Hospital [facility]
[2021-04-16 12:43] LABS: Absolute Lymphocyte Count 0.06 X10^3/uL (0.83-4.51); Absolute Neutrophil Count 8.1 X10^3/uL (2.0-7.7); Basophil# 0.01 X10^3/uL; Basophil% 0.1 % (0-1); Eosinophil# 0.01 X10^3/uL; Eosinophils% 0.1 % (0-5); Hematocrit 31.5 % (40-54); Hemoglobin 9.2 g/dL (13.0-16.5); Lymphocyte # 0.06 X10^3/ul (0.83-4.51); Lymphocyte % 0.7 % (19-41); Mean Corp Hgb Conc 29.2 g/dL (32-36); Mean Corpuscular Hgb 24.6 pg (27.0-32.0); Mean Corpuscular Volume 84.2 fL (80-94); Mean Platelet Vol. 10.6 fl (6.2-12.0); Monocyte# 0.83 X10^3/uL; Monocyte% 9.2 % (0-10); NRBC Flagged by Analyzer 0 % (0-5); Neutrophil # 8.08 X10^3/uL (2.7-7.7); Neutrophil % 89.1 % (47-70); POSITIVE DIFFERENTIAL YES; Platelet Count 191 K/mm3 (150-450); RBC Distribution Width CV 17.6 % (11.6-14.6); RBC Distribution Width SD 54.2 fl (35.1-43.9); Red Blood Count 3.74 M/mm3 (4.6-6.2); White Blood Count 9.1 K/mm3 (4.4-11.0)
[2021-04-16 12:44] LABS: Differential Indicated SCAN CRITERIA MET
[2021-04-16 12:48] LABS: Bacteria 0 SEEN /hpf (None Seen); Mucous, Urine 0 SEEN /hpf (<or=2+); Red Blood Cells-Urine 0 SEEN /hpf (0-5); Squamous Epithelial Cells - UA 0 SEEN /hpf (0-5)
[2021-04-16 12:55] LABS: Color, Urine Yellow (Yellow); Glucose, Dipstick Normal (Normal); Ketone-Dipstick Negative (Negative); Leukocyte Esterase-Dipstick Negative /ul (Negative); Nitrite-Dipstick Negative (Negative); Occult Blood-Urine Negative /ul (Negative); Protein-Dipstick 30 mg/dl (Negative); Specific Gravity, Urine 1.015 (1.002-1.030); Urine Bilirubin Dipstick Negative (Negative); Urine Clarity Clear (Clear); Urine Urobilinogen Normal (Normal)
[2021-04-16 13:02] LABS: Amorphous Sediment 1+; White Blood Cells 0-5 SEEN /hpf (0-5)
[2021-04-16 13:04] LABS: Differential Comment SCANNED
[2021-04-16 13:10] LABS: ALB/GLOB Ratio 0.6 RATIO (0.9-2.4); AST(SGOT) 50 U/L (15-37); Alanine Aminotransfer ALT/SGPT 24 U/L (16-61); Albumin, Serum 2.6 g/dL (3.2-5.0); Alkaline Phosphatase 78 U/L (45-117); Anion Gap 2 (5-15); BUN 41 mg/dL (7-18); BUN/Creat Ratio 22.2 RATIO (10-20); Calcium,Total 8.7 mg/dL (8.5-10.1); Chloride 101 mmol/L (98-107); Creatinine, Serum 1.85 mg/dL (0.70-1.30); EST Glomerular Filtration Rate 39 mL/min (>60); Est Glom Filt Rate - Afr Amer 47 mL/min (>60); Estimated Creatinine Clearance 35.23 ml/min; Globulin 4.4 g/dL (2.2-4.2); Glucose 124 mg/dL (74-106); Lactic Acid 0.6 mmol/L (0.4-1.9); Potassium 6.9 mmol/L (3.5-5.1); Sodium Level 132 mmol/L (136-145)
--- NOTE | 2021-04-16 13:27 | RAD_ITS ---
STUDY: X-RAY CHEST REASON FOR EXAM: Male, 70 years old. Patient was found unresponsive. TECHNIQUE: Single AP portable view of the chest. COMPARISON: Comparison is made with prior examination dated 03/09/2020. FINDINGS: A left-sided portacatheter is seen with the tip in the midportion of the superior vena cava. EKG electrodes are seen. Stable blunting of the right cusp and ganglia. Stable mild pleural parenchymal changes at left lung base. There is no demonstrated pleural abnormality. Sternal cerclage wires are present from a prior sternotomy. Normal mediastinum and david. Normal visualized pulmonary arteries. Normal visualized aortic arch and descending thoracic aorta. Normal visualized thoracic spine. Deformity of the left sixth rib anterolaterally. There is no demonstrated abnormality of the visualized soft tissue structures of the upper abdomen. RAD/Chest 1 View (Portable) IMPRESSION: Stable pleural parenchymal changes at the lung bases slightly worse on the left side. Electronically Signed: Chas Vilchis MD at 13:54 EDT , Service support ,
--- NOTE | 2021-04-16 13:55 | CT_ITS ---
STUDY: CTA CHEST REASON FOR EXAM: Male, 70 years old. hypoxemia, sob, active skin cancer RADIATION DOSAGE (If Supplied By Facility): CTDIvol = ( 13.62 ) mGy, DLP = ( 515.22 ) mGycm TECHNIQUE: The examination was performed with the intravenous administration of IV 100mL [id number]-370. Post-processing of the angiographic images was performed, with multiplanar reformation and 3D reconstruction. Individualized dose optimization techniques were used for this CT. COMPARISON: None. FINDINGS: Normal enhancement of the main pulmonary artery and right and left pulmonary arteries. Normal enhancement of the bilateral peripheral pulmonary arteries. Interlobar segmental and proximal to mid subsegmental vessels are well opacified without evidence for intraluminal thrombus. More distal subsegmental vessels are not as well visualized. Atherosclerotic changes of the aorta without evidence for aneurysm. There is no demonstrated aortic dissection. Heart is enlarged and there is coronary artery calcification. Normal mediastinum. Normal hilar regions. Normal visualized trachea and bronchi. The lungs are well expanded. There is mild nonspecific interstitial thickening with diffuse groundglass opacities likely on the basis of pulmonary interstitial edema. There are small bilateral pleural effusions with consolidation of the right middle and lower lobes. There is also mild consolidation left lower lobe and lingula. Normal chest wall structures. Dorsal spine demonstrates degenerative change. Postsurgical change status post sternal resection Normal visualized upper abdomen. CT/CTA Chest W/WO Contrast IMPRESSION: Probable mild congestive failure with small bilateral effusions with mild consolidation of both lower lobes lingula and right middle lobe.. Possibility of coexisting pneumonia not excluded. No definitive evidence for pulmonary embolus although this may be further assessed with DOPPLER scan of the deep venous system of lower extremities if clinically warranted Electronically Signed: Chester Rod MD at 16:55 EDT , Service support ,
--- NOTE | 2021-04-16 13:56 | CT_ITS ---
STUDY: CT BRAIN WITHOUT CONTRAST REASON FOR EXAM: Male, 70 years old. decreased LOC, skin cancer, lethargic, undergoing chemo RADIATION DOSAGE (If Supplied By Facility): CTDIvol = ( 44.99 ) mGy, DLP = ( 829.85 ) mGycm TECHNIQUE: Transaxial CT imaging of the brain was performed without administration of intravenous contrast material. Individualized dose optimization techniques were used for this CT. COMPARISON: No relevant priors. FINDINGS: There is a soft tissue mass in the scalp of the left forehead which may be consistent with known neoplasm. There is no definitive evidence for involvement of the frontal bone. Minor calcification of cavernous carotids. Normal size ventricles and extra-axial spaces for the patient''s age. Minor periventricular white matter ischemic changes.. Normal basal ganglia and thalami. Normal brainstem. Normal cerebellum. There is no intracranial hemorrhage. There are no findings of an acute ischemic infarction. Diffuse opacification of left mastoid air cells and tympanic cavity consistent with otomastoiditis Mild mucosal thickening of the maxillary and ethmoid air cells bilaterally.. CT/Brain/Head without Contrast IMPRESSION: Minor periventricular white matter ischemic changes without evidence for mass or acute bleed. No definitive evidence for brain metastasis although limited exam without contrast. Soft tissue mass in the left forehead without definitive evidence for involvement of the frontal bone. Left-sided otomastoiditis of uncertain chronicity Electronically Signed: Chester Rod MD at 16:46 EDT , Service support ,
[2021-04-16] MEDS: Aspirin 81 MG TAB.CHEW 324 MG PO (15:07)
[2021-04-16] MEDS: 0.9% Normal Saline 1,000 ML 999 ML IV (15:09)
[2021-04-16] MEDS: Sodium Polystyrene Sulfonate 15 GM/60 ML UDC PO (15:09)
--- NOTE | 2021-04-16 16:23 | HP.PCM.HOS_ITS ---
HPI - General General Date of Admission: 04/16/21 Date of Service: 04/16/21 Chief Complaint: Altered mental HPI Narrative KARIN ANTONIO, is a 70 M who presents with altered mental status. Patient's history was provided by the . 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 Patient's found patient to be very difficult to arouse hence her calling the squad. Patient was brought to the emergency department was found to have elevated troponin consistent with acute non-STEMI. He was also found to have hyperkalemia with potassium greater than 6 treatment initiated in the ED and subsequently admitted to the intensive care unit. 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 Skin cancer Skin cancer skin graft Skin ulcer due to radiation exposure Squamous cell cancer of skin of left shoulder Home Medications acetaminophen 650 mg PO Q4H PRN 01/21/16 [History Last Taken 09/07/19] sulfamethoxazole-trimethoprim 800 mg PO MOWEFR 01/21/16 [History Last Taken 09/07/19] tacrolimus 1 mg PO BID 01/21/16 [History Last Taken 09/07/19] multivitamin with minerals 1 tab PO DAILY 09/07/19 [History Last Taken 09/07/19] prednisone 5 mg PO DAILY 09/07/19 [History Last Taken 09/07/19] lidocaine-prilocaine 1 applicatio TP DAILY PRN PRN 30 Days #1 tube 03/01/20 [Rx Last Taken Unknown] Morphine Compounded Gel 0.5 ml TOPICAL BID 11/26/20 [History Last Taken Unknown] clindamycin phosphate 1 % topical gel 1 applic TOPICAL BID 04/15/21 [History Last Taken Unknown] hydroxyzine HCl 10 mg tablet 10 mg PO QHS PRN PRN 04/15/21 [History Last Taken Unknown] lorazepam 0.5 mg tablet 0.5 mg PO BID PRN 04/15/21 [History Last Taken Unknown] methadone 10 mg tablet 10 mg PO BID 04/15/21 [History Last Taken Unknown] naloxone 4 mg/actuation nasal spray 4 mg INTRANASAL Q3M PRN 04/15/21 [History Last Taken Unknown] oxycodone 5 mg capsule 5 mg PO Q4H PRN 04/15/21 [History Last Taken Unknown] sennosides 8.6 mg capsule 8.6 mg PO DAILY PRN 04/15/21 [History Last Taken Unknown] tretinoin (antineoplastic) 10 mg capsule PO 04/15/21 [History Last Taken Unknown] erythromycin 1 applic LEFT EYE BID 04/16/21 [History Last Taken Unknown] haloperidol 0.5 mg PO BID 04/16/21 [History Last Taken Unknown] hydrocortisone 1 applic TOPICAL DAILY PRN PRN 04/16/21 [History Last Taken Unknown] interferon alejandro-2b [Intron A] 5 mmu SUBCUT MOWEFR 04/16/21 [History Last Taken 04/15/21] ondansetron mg PO Q8H PRN PRN 04/16/21 [History Last Taken Unknown] Allergy/AdvReac Type Severity Reaction Status Date / Time No Known Allergies Allergy Verified 04/15/21 12:09 Family History Mother Heart disease Father Heart disease Surgical History history bilateral lung transplant History of appendectomy History of Taniya fundoplication Social History Smoking Status: Former smoker ROS Review of Systems ROS Unobtainable: due to encephalopathy Vital Signs Vital Signs Vital Signs: 04/16/21 11:26 04/16/21 11:33 04/16/21 12:20 Temperature 98.7 F 98.7 F Temperature Source Temporal Temporal Pulse Rate 117 H 117 H 114 H Respiratory Rate 14 14 12 Blood Pressure 121/74 H 121/74 H 100/74 Blood Pressure Mean 89 89 82 Pulse Ox 93 93 Oxygen Delivery Method Nasal Cannula Nasal Cannula Nasal Cannula Oxygen Flow Rate (L/min) 4 4 3 04/16/21 12:21 04/16/21 12:33 04/16/21 13:00 Temperature 98.2 F 98.3 F Temperature Source Temporal Temporal Pulse Rate 112 H 111 H Respiratory Rate 12 14 Blood Pressure 110/74 113/73 Blood Pressure Mean 86 86 Pulse Ox 100 100 Oxygen Delivery Method Nasal Cannula Non-Rebreather Non-Rebreather Oxygen Flow Rate (L/min) 3 04/16/21 14:00 04/16/21 15:00 04/16/21 15:47 Temperature 98.7 F 99.4 F H Temperature Source Temporal Temporal Pulse Rate 112 H 117 H 80 Respiratory Rate 16 19 H 14 Blood Pressure 119/77 119/77 97/53 L Blood Pressure Mean 91 91 67 Pulse Ox 100 Oxygen Delivery Method Non-Rebreather Oxygen Flow Rate (L/min) Weight Weight: 78.8 kg Body Mass Index (BMI) 26.8 Physical Exam Narrative GENERAL: Lethargic but arousable HEENT: Right facial palsy with necrotizing skin meds involving the right temporal region EYES; Anicteric, Normal Conjunctiva NECK; supple, normal thyroid, RESPIRATORY: Diminished to auscultation CARDIOVASCULAR: Regular S1 S2, GI: soft, normoactive bowel sounds, : No Renal angle tenderness; EXTREMITIES: No edema, no clubbing, MUSCULOSKELETAL: no muscle waisting NEURO: Awake; no lateralizing signs. SKIN: As described above PSYCH; Flat affect Results Lab / Micro Data Result Diagrams: 04/16/21 12:28 04/16/21 12:28 Labs: Laboratory Results - last 24 hr 04/16/21 12:28: WBC 9.1, RBC 3.74 L, Hgb 9.2 L, Hct 31.5 L, MCV 84.2, MCH 24.6 L , MCHC 29.2 L, RDW Std Deviation 54.2 H, RDW Coeff of Uma 17.6 H, Plt Count 191, MPV 10.6, Immature Gran % (Auto) 0.800, Neut % (Auto) 89.1 H, Lymph % (Auto) 0.7 L, [place] % (Auto) 9.2, Eos % (Auto) 0.1, Baso % (Auto) 0.1, Absolute Neuts (auto) 8.1 H, Absolute Lymphs (auto) 0.06 L, Nucleated RBC % 0, Differential Comment SCANNED 04/16/21 12:28: Sodium 132 L, Potassium 6.9 H*, Chloride 101, Carbon Dioxide 29.0, Anion Gap 2 L, BUN 41 H, Creatinine 1.85 H, Estim Creat Clear Calc 35.23, Est GFR (MDRD) Af Amer 47 L, Est GFR (MDRD) Non-Af 39 L, BUN/Creatinine Ratio 2 2.2 H, Glucose 124 H, Calcium 8.7, Total Bilirubin 0.20, AST 50 H, ALT 24, Alkaline Phosphatase 78, Troponin I High Sens 1363.0 H*, Total Protein 7.0, Albumin 2.6 L, Globulin 4.4 H, Albumin/Globulin Ratio 0.6 L 04/16/21 12:28: Lactic Acid 0.6 04/16/21 12:42: Urine Color Yellow, Urine Clarity Clear, Urine pH 5.0, Ur Specific [place] 1.015, Urine Protein 30 H, Urine Glucose (UA) Normal, Urine Ketones Negative, Urine Occult Blood Negative, Urine Nitrite Negative, Urine Bilirubin Negative, Urine Urobilinogen Normal, Ur Leukocyte Esterase Negative, Urine RBC 0 SEEN, Urine WBC 0-5 SEEN, Ur Squamous Epith Cells 0 SEEN, Amorphous Sediment 1+, Urine Bacteria 0 SEEN, Urine Mucus 0 SEEN Radiology Impression Chest X-Ray 04/16/21 13:27 IMPRESSION: Stable pleural parenchymal changes at the lung bases slightly worse on the left side. Electronically Signed: Chas Vilchis MD at 13:54 EDT , Service support , Assessment & Plan Assessment/Plan (1) Hyperkalemia: (2) Non-ST elevation [place] (NSTEMI): (3) Skin cancer: (4) Facial nerve palsy: PLAN: Patient is a 70-year-old gentleman admitted with altered mental status Acute metabolic encephalopathy -In a patient with squamous cell carcinoma involving the head and neck with skin mets. Patient was found to have impaired kidney function with hyperkalemia as well as elevated troponin with hypoxia. Placed on supplemental oxygen admitted to the intensive care unit for subsequent evaluation 2. Acute hypoxic respiratory failure ?Checks x-ray demonstrated pleural thickening. CTA of the chest ordered to rule out pulmonary embolism. Placed on supplemental oxygen titrated to keep oxygen saturation greater than 90 3. Elevated troponin secondary to acute non-STEMI -May be related to patient acute hypoxia. In any case patient family declined any intervention patient will therefore be managed medically. As part of his evaluation ordered a 2D echo 4. Chronic kidney disease with hyperkalemia -Patient did receive Kayexalate in the ED. Subsequently ordered albuterol insulin and dextrose with repeat potassium ordered. 5. Squamous cell carcinoma involving head and neck with skin mets -Patient is followed by oncology as outpatient 6. Facial nerve palsy -Results of patient skin meds plan is to treat symptomatically 7. History of bilateral lung transplants ?On account of end-stage COPD on 05/17/2015 7. Chronic pain syndrome did continue patient pain regimen 9. DVT prophylaxis ?SC Lovenox Advance planning; did discuss with the patient and family regarding advanced directives as well as CODE STATUS. Did explain the various scenarios involved ( FULL CODE, DNR CCA, DNR CCA with no intubation, and DNR CC and what each meant) patient elected to be DNR CCA no intubation. Order was placed. Time spent on discussion 18 minutes. Charges/Coding Visit Charges Inpatient E&M: 26939 Init Hosp L3 Procedures Hospitalists Procedures: 09291 Advncd Care Plan 30 Min
[2021-04-16] MEDS: Enoxaparin 80 MG/0.8 ML Syringe SC (16:37)
--- NOTE | 2021-04-16 16:52 | ED.RN ---
report called to jorge bedolla
--- NOTE | 2021-04-16 16:54 | NURSING ---
ICU 4 KITTOE HYPOXEMIA, NSTEMI, HYPERKALEMIA, CRI
--- NOTE | 2021-04-16 17:21 | ECHOCS_ITS ---
Reason For Study: S/P NC Procedure This was a 2D Doppler, Color Flow transthoracic echocardiogram. The study was technically difficult. Exam performed portable in ICU/CCU. Left Ventricle Normal LV size. The estimated ejection fraction is 25 %. Severe segmental systolic dysfunction (see wall motion). Stage 2 diastolic dysfunction. [place] : Akinetic. Anterio-Basal: Normal. Lateral-Basal: Normal. Posterior-Basal: Akinetic. Infero-Basal: Akinetic. Basal inferoseptal: Hypokinetic. Mid- Anterior : Akinetic. Mid-Lateral : Normal. Mid-Posterior: Hypokinetic. Mid-Inferior: Hypokinetic. Mid-inferoseptal : Hypokinetic. Mid-anteroseptal : Akinetic. Right Ventricle Normal RV size. Normal systolic function. Atria Normal left atrium. Normal right atrium. Mitral Valve Normal mitral valve. Tricuspid Valve Normal tricuspid valve. Mild (1+) tricuspid valve insufficiency. Pulmonary artery systolic pressure is 42 mmHg. Aortic Valve Normal aortic valve. Trisinus/trileaflet aortic valve. Pulmonic Valve Normal pulmonic valve. Great Vessels Normal aortic root. The pulmonary artery is normal size. Normal inferior vena cava. Pericardium/Pleural No pericardial effusion. Medication Diluted definity 4ml given slow IV push to enhance endocardial definition. MMode/2D Measurements & Calculations LVIDd: 4.6 cm IVSd: 0.94 cm Ao root diam: 3.4 cm LVIDs: 3.0 cm LVPWd: 0.87 cm RVDd: 3.7 cm FS: 34.3 % LAV(MOD-bp): 83.3 ml LVAd ap4: 36.1 cm2 LVAd ap2: 35.8 cm2 LAV(MOD-bp) Indexed: 45.2 ml/m2 LVLd ap4: 8.6 cm LVLd ap2: 9.1 cm LAV(MOD-sp2): 80.2 ml EDV(MOD-sp4): 125.6 ml EDV(MOD-sp2): 117.0 ml LAV(MOD-sp4): 80.5 ml EDV(sp4-el): 127.8 ml EDV(sp2-el): 119.8 ml LVAs ap4: 29.1 cm2 LVAs ap2: 28.1 cm2 LVLs ap4: 7.8 cm LVLs ap2: 8.4 cm ESV(MOD-sp4): 89.2 ml ESV(MOD-sp2): 79.9 ml ESV(sp4-el): 92.3 ml ESV(sp2-el): 80.1 ml EF(MOD-sp4): 28.9 % EF(MOD-sp2): 31.7 % EF(sp4-el): 27.8 % SV(MOD-sp4): 36.3 ml SV(MOD-sp2): 37.1 ml SV(sp4-el): 35.6 ml LA A4 area: 25.9 cm2 LA dimension(2D): 4.8 cm RA A4 area: 18.3 cm2 Doppler Measurements & Calculations MV E max andrea: 102.8 cm/sec Lat Peak E' Andrea: 11.4 cm/sec Med Peak E' Andrea: 6.7 cm/sec MV A max andrea: 77.4 cm/sec E/E' lat: 9.0 E/E' med: 15.3 MV E/A: 1.3 Ao V2 max: 110.3 cm/sec LV V1 max: 87.5 cm/sec PA V2 max: 84.4 cm/sec Ao max P.9 mmHg LV V1 max P.1 mmHg TR max andrea: 311.3 cm/sec TR max P.8 mmHg ECHO/Echo Complete W/ Contrast Interpretation Summary Normal LV size. The estimated ejection fraction is 25 %. Severe segmental systolic dysfunction (see wall motion). Pulmonary artery systolic pressure is 42 mmHg. Stage 2 diastolic dysfunction. Compared to previous study, the left ventricular systolic function has worsened .. Ordering Physician: Joel Mccallum Referring Physician: Fahad Jones MD Performed By: Alana Anne RDCS
[2021-04-16] MEDS: 0.9% Normal Saline 1,000 ML 125 ML IV (18:36)
[2021-04-16] MEDS: Furosemide 100 MG/10 ML Vial 80 MG IV (18:48)
[2021-04-16] MEDS: Pantoprazole Sodium 40 MG Tablet PO (19:00)
[2021-04-16] MEDS: Albuterol 2.5 MG/3 ML VIAL.NEB. INHALATION ×4 (19:03)
[2021-04-16] MEDS: Insulin Lispro 10 UNIT in Syringe 0 ML 6 UNIT IV (19:04)
[2021-04-16] MEDS: 0.9% Saline Lock 10 ML Syringe IV (19:06)
[2021-04-16] MEDS: Dextrose 50%-Water 25 GM/50 ML DISP.SYRIN IV (19:07)
[2021-04-16 20:52] LABS: Potassium 4.9 mmol/L (3.5-5.1)
[2021-04-16] MEDS: Methadone 10 MG Tablet PO (23:52)
[2021-04-17] VITALS (23 sets, daily range): BP systolic 89–135; BP diastolic 57–88; PULSE 109–121; RESP 16–26; TEMP 36.5–37.1; O2SAT 83–100; BMI 24.9
[2021-04-17] MEDS: 0.9% Normal Saline 1,000 ML 125 ML IV ×2 (03:00→10:57)
[2021-04-17] MEDS: oxyCODONE 5 MG Tablet PO (04:57)
--- NOTE | 2021-04-17 05:07 | EKG12_ITS ---
Test Reason : CP Blood Pressure : / mmHG Vent. Rate : 120 BPM Atrial Rate : 120 BPM P-R Int : 120 ms QRS Dur : 086 ms QT Int : 308 ms P-R-T Axes : 044 072 038 degrees QTc Int : 435 ms Sinus tachycardia Low voltage QRS Borderline ECG No previous ECGs available Confirmed by LAURYN LIMON, SON ([id number]), mapping editor MIREYA SALAZAR ([id number]) on 04/19/2021 9:34:21 AM Referred By: Confirmed By:SADI COMBS MD
[2021-04-17 05:18] LABS: Absolute Neutrophil Count 7.9 X10^3/uL (2.0-7.7); Basophil# 0.03 X10^3/uL; Basophil% 0.3 % (0-1); Eosinophil# 0.02 X10^3/uL; Eosinophils% 0.2 % (0-5); Hematocrit 34.7 % (40-54); Hemoglobin 10.2 g/dL (13.0-16.5); Lymphocyte % 4.9 % (19-41); Mean Corp Hgb Conc 29.4 g/dL (32-36); Mean Corpuscular Hgb 24.7 pg (27.0-32.0); Mean Platelet Vol. 10.2 fl (6.2-12.0); Monocyte# 1.61 X10^3/uL; Monocyte% 15.8 % (0-10); NRBC Flagged by Analyzer 0 % (0-5); Neutrophil # 7.88 X10^3/uL (2.7-7.7); Neutrophil % 77.5 % (47-70); POSITIVE DIFFERENTIAL YES; Platelet Count 186 K/mm3 (150-450); RBC Distribution Width CV 17.9 % (11.6-14.6); RBC Distribution Width SD 54.9 fl (35.1-43.9); Red Blood Count 4.13 M/mm3 (4.6-6.2); White Blood Count 10.2 K/mm3 (4.4-11.0)
[2021-04-17 05:21] LABS: Differential Indicated SCAN CRITERIA MET
[2021-04-17 05:38] LABS: Anion Gap 9 (5-15); BUN 41 mg/dL (7-18); BUN/Creat Ratio 23.7 RATIO (10-20); Calcium,Total 8.7 mg/dL (8.5-10.1); Chloride 101 mmol/L (98-107); Creatinine, Serum 1.73 mg/dL (0.70-1.30); EST Glomerular Filtration Rate 42 mL/min (>60); Est Glom Filt Rate - Afr Amer 51 mL/min (>60); Estimated Creatinine Clearance 37.68 ml/min; Glucose 114 mg/dL (74-106); Magnesium 2.1 mg/dL (1.6-2.6); Potassium 5.3 mmol/L (3.5-5.1); Sodium Level 136 mmol/L (136-145)
--- NOTE | 2021-04-17 06:13 | NURSING ---
c/o pain of 10 across chest and up into head. ekg done labs drawn and hospitalist shown ekg and notified of pain, oxy ir 5mg given and it did help with the pain, will monitor
[2021-04-17] MEDS: Methadone 10 MG Tablet PO (09:01)
[2021-04-17] MEDS: Enoxaparin 40 MG/0.4 ML Syringe SC (09:03)
[2021-04-17] MEDS: Pantoprazole Sodium 40 MG Tablet PO (09:04)
--- NOTE | 2021-04-17 09:58 | EX.NTREPO ---
Medical Nutrition Therapy - History Nutrition Services has been consulted to:: Manage nutrient details of diet order Current diet/nutrition support order:: Regular. Ensure Enlive 120mL 4x/day - Anthropometric Measurements Height:: 5 ft 7.5 in Weight:: 73.255 kg Body Mass Index (BMI):: 24.9 - Relevant Labs Relevant Labs:: RBC 4.13 M/mm3 (4.6-6.2) L 04/17/21 05:10 Hgb 10.2 g/dL (13.0-16.5) L 04/17/21 05:10 Hct 34.7 % (40-54) L 04/17/21 05:10 MCH 24.7 pg (27.0-32.0) L 04/17/21 05:10 MCHC 29.4 g/dL (32-36) L 04/17/21 05:10 RDW Std Deviation 54.9 fl (35.1-43.9) H 04/17/21 05:10 RDW Coeff of Uma 17.9 % (11.6-14.6) H 04/17/21 05:10 Immature Gran % (Auto) 1.300 % (0.0-0.9) H 04/17/21 05:10 Neut % (Auto) 77.5 % (47-70) H 04/17/21 05:10 Lymph % (Auto) 4.9 % (19-41) L 04/17/21 05:10 [place] % (Auto) 15.8 % (0-10) H 04/17/21 05:10 Absolute Neuts (auto) 7.9 X10^3/uL (2.0-7.7) H 04/17/21 05:10 Absolute Lymphs (auto) 0.50 X10^3/uL (0.83-4.51) L 04/17/21 05:10 Sodium 132 mmol/L (136-145) L 04/16/21 12:28 Potassium 5.3 mmol/L (3.5-5.1) H 04/17/21 05:10 Anion Gap 2 (5-15) L 04/16/21 12:28 BUN 41 mg/dL (7-18) H 04/17/21 05:10 Creatinine 1.73 mg/dL (0.70-1.30) H 04/17/21 05:10 Est GFR (MDRD) Af Amer 51 mL/min (>60) L 04/17/21 05:10 Est GFR (MDRD) Non-Af 42 mL/min (>60) L 04/17/21 05:10 BUN/Creatinine Ratio 23.7 RATIO (10-20) H 04/17/21 05:10 Glucose 114 mg/dL (74-106) H 04/17/21 05:10 AST 50 U/L (15-37) H 04/16/21 12:28 Troponin I High Sens 55368.6 pg/mL (3.0-78.5) H* 04/16/21 22:30 Albumin 2.6 g/dL (3.2-5.0) L 04/16/21 12:28 Globulin 4.4 g/dL (2.2-4.2) H 04/16/21 12:28 Albumin/Globulin Ratio 0.6 RATIO (0.9-2.4) L 04/16/21 12:28 - Assessment Food and Nutrient Intake: No breakfast this date. Pt on non-rebreather oxygen mask this AM. Unable to provide much information to RDN at time of assessment. Per review of EMR, wt was 97.522 kg during 2020. CBW 73.255- 24.2 kg/25% wt loss x 5 months is significant for malnutrition. Pt and had been previously meeting w/ outpatient oncology dietitian d/t wt loss and poor appetite/PO intake. - Nutrition Diagnosis: Intake Problem Inadequate Oral Intake Intake Problem - Etiology: r/t decreased appetite d/t cancer, respiratory status Intake Problem - Signs/Symptoms: as evidenced by estimated PO intake meeting less than 75% of pt's estimated nutritional needs > 3 months, no PO intake this AM. Status: Active Problem - Nutrition Diagnosis: Clinical Problem Chronic Disease or Condition Related Malnutrition Clinical Problem - Etiology: severe, chronic malnutrition r/t inadequate energy intake w/ increased nutrient needs d/t metastatic cancer, wounds Clinical Problem - Signs/Symptoms: as evidenced by unintentional wt loss of 24.2kg/25% x 5 months, estimated PO intake meeting less than 75% of estimated nutritional needs >3 months Status: Active Problem - Protein Calorie Malnutrition Evidence of Malnutrition Exists: Yes Severe Protein Calorie Malnutrition:: Chronic - Nutrition Intervention Nutrition Prescription: 2583-7798 calories/day (30 calories/kg). 73-110 g protein/day (1.0-1.5 g/kg). 1831mL fluid/day (25mL/kg) - Food / Nutrient Delivery Interventions Summary of nutrition intervention:: Provide oral nutrition supplement Nutrition support ordered as / adjusted to:: continue regular diet and ensure enlive w/ medpass as tolerated; will fortify foods for additional calories/protein if consumed. - MNT Monitoring Active Nutrition Patient: Yes Nutrition Status: Requires Follow Up 3-5 Days
--- NOTE | 2021-04-17 15:35 | NURSING ---
spoke with Joshua at [facility], medical records faxed at this time.
--- NOTE | 2021-04-17 15:47 | NURSING ---
spoke with Joshua at [facility], per Dr. Waldron, [facility] staff will be meeting with patient and family tomorrow.
--- NOTE | 2021-04-17 16:07 | PN.HOSP_ITS ---
Subjective Subjective Patient is currently very somnolent, per discussion with nursing he was just given his methadone and scheduled oxycodone. He has had marked troponin elevation and an echocardiogram was being performed upon my examination. No specific issues per discussion with nursing staff Objective Data Objective Data Vital Signs: Vital Signs Temp Pulse Resp BP Pulse Ox 98.8 F 117 H 18 111/77 100 04/17/21 08:16 04/17/21 14:37 04/17/21 14:37 04/17/21 14:37 04/17/21 14:37 Oxygen Flow Rate (L/min) 5 Oxygen Delivery Method Non-Rebreather Weight: 73.255 kg Body Mass Index (BMI) 24.9 Intake & Output: Intake and Output for Last 24 Hours 04/15/21 04/16/21 04/17/21 23:59 23:59 23:59 Intake Total 1000 / 1280 2863.33 / 2863.33 Output Total 375 / 775 825 / 825 Balance 625 / 505 2038.33 / 2038.33 Lab / Micro Data Result Diagrams: 04/17/21 05:10 04/17/21 05:10 Labs: Laboratory Results - last 24 hr 04/16/21 19:55: Potassium 4.9 04/16/21 19:55: Troponin I High Sens 7891.5 H* 04/16/21 22:30: Troponin I High Sens 14848.6 H* 04/17/21 05:10: WBC 10.2, RBC 4.13 L, Hgb 10.2 L, Hct 34.7 L, MCV 84.0, MCH 24.7 L, MCHC 29.4 L, RDW Std Deviation 54.9 H, RDW Coeff of Uma 17.9 H, Plt Count 186, MPV 10.2, Immature Gran % (Auto) 1.300 H, Neut % (Auto) 77.5 H, Lymph % (Auto) 4.9 L, [place] % (Auto) 15.8 H, Eos % (Auto) 0.2, Baso % (Auto) 0.3, Absolute Neuts (auto) 7.9 H, Absolute Lymphs (auto) 0.50 L, Nucleated RBC % 0 04/17/21 05:10: Sodium 136, Potassium 5.3 H, Chloride 101, Carbon Dioxide 26.0, Anion Gap 9, BUN 41 H, Creatinine 1.73 H, Estim Creat Clear Calc 37.68, Est GFR (MDRD) Af Amer 51 L, Est GFR (MDRD) Non-Af 42 L, BUN/Creatinine Ratio 23.7 H, Glucose 114 H, Calcium 8.7, Magnesium 2.1 Micro: Microbiology 04/16/21 15:50 Interface Orders SARS-CoV-2 Antigen (Rapid) - Final Radiography Diagnostic Testing: Radiology Impression Chest CTA 04/16/21 13:55 IMPRESSION: Probable mild congestive failure with small bilateral effusions with mild consolidation of both lower lobes lingula and right middle lobe.. Possibility of coexisting pneumonia not excluded. No definitive evidence for pulmonary embolus although this may be further assessed with DOPPLER scan of the deep venous system of lower extremities if clinically warranted Electronically Signed: Chester Rod MD at 16:55 EDT , Service support , Brain CT 04/16/21 13:56 IMPRESSION: Minor periventricular white matter ischemic changes without evidence for mass or acute bleed. No definitive evidence for brain metastasis although limited exam without contrast. Soft tissue mass in the left forehead without definitive evidence for involvement of the frontal bone. Left-sided otomastoiditis of uncertain chronicity Electronically Signed: Chester Rod MD at 16:46 EDT , Service support , ADDENDUM: 04/16/21 1705 Echocardiogram 04/16/21 17:21 Interpretation Summary Normal LV size. The estimated ejection fraction is 25 %. Severe segmental systolic dysfunction (see wall motion). Pulmonary artery systolic pressure is 42 mmHg. Stage 2 diastolic dysfunction. Compared to previous study, the left ventricular systolic function has worsened.. Ordering Physician: Joel Mccallum Referring Physician: Fhaad Jones MD Performed By: Alana Anne RDCS Physical Exam Const Constitutional Narrative: Sleepy upper middle-aged white male, lying in bed, nonrebreather in place, patient difficult to arouse, pathology laboratory technologist at bedside Orientation / Consciousness: lethargic HEENT HEENT Narrative: Left side of head with bandage in place and large wound under dressing with drainage--> smells of necrotic tissue Head and Scalp: normocephalic Resp normal respiratory effort, no retractions and no use of accessory muscles Resp Narrative: Diffusely diminished, no current signs of respiratory distress Auscultation: Negative for crackles, rales, rhonchi or wheezes Cardio regular rhythm, S1 normal heart sound, S2 normal heart sound, no murmurs, no rub, no gallops, no clicks and no JVD Cardio Narrative: Mild tachycardia GI normal to inspection, nondistended, normoactive bowel sounds, soft to palpation, non-tender and non-distended Extremity Peripheral Pulses: Yes pulses 2+ throughout Skin no rashes or lesions noted, skin turgor normal, no jaundice, no petechiae and no mottling Skin Narrative: Wound on left side of face as noted above, Mediport left upper chest accessed and clean and dry Neuro Neuro Narrative: Unable to fully examine secondary to patient's somnolence Reflexes within normal limits Psych Psych Narrative: Unable to evaluate Assessment & Plan Assessment/Plan (1) Non-ST elevation [place] (NSTEMI): (2) Hyperkalemia: (3) MARGA (acute kidney injury): (4) CRI (chronic renal insufficiency): (5) Hypoxemia: PLAN: Assessment: NSTEMI Suspected ischemic cardiomyopathy Metabolic encephalopathy Tachycardia Acute hypoxic respiratory failure MARGA on CKD stage II Hyperkalemia Chronic anemia PAH History of bilateral lung transplant GERD Hypertension Hyperlipidemia Metastatic squamous cell carcinoma of the skin Plan: -Patient has been undergoing treatment for 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 since March 2019 when he had a wide excision and skin grafting of the left shoulder--> found to have metastatic disease in August 2019--> adjuvant radiation to the left axilla from October to November 2019--> palliative systemic carboplatinum, Taxol, and Erbitux in September 2020--> patient initially had favorable response but then was found to have progressive disease and palliative radiation with carboplatinum sensitization was performed from September 2020 to November 2020--> patient had been on palliative interferon -Patient has continually had a downhill course with failing performance status, anorexia, dysphagia, weight loss, and Dehydration with MARGA -Was seen by his oncologist in [place] on 04/15/2021--> family was making decision about hospice -Patient with significant NSTEMI--> EF now 25% from 65% in 2014 with regional wall motion abnormality on echo from today -Family not wanting any invasive procedures -Stop IV fluids -Decrease methadone from 10 mg twice daily to 5 mg twice daily/as needed Dilaudid 0.5 mg -I had extensive discussion with the patient's on 04/17/2021 regarding our new findings and concerns--> she is agreeable to hospice consultation--> I did discuss with her the fact that he may not survive this hospitalization and she will call her daughter and have her come in from [place] as able--> I suspect he will most likely need inpatient hospice care for his wound, respiratory status, pain management and debility (I have discussed this with Dr. Waldron at hospice and he is agreeable for most likely an inpatient admission when things have been coordinated with the family) -We will transfer today out of ICU and focus more on comfort related measures--> this will allow the to come in and see him as well -Check chest x-ray and if looks volume overloaded will give Lasix -Continue DNR CCA no intubation CODE STATUS for now--> if family agreeable to hospice we will convert to [place] -Diuresis as needed Charges/Coding Visit Charges Inpatient E&M: 47327 Init Hosp L3
--- NOTE | 2021-04-17 16:30 | RAD_ITS ---
STUDY: X-RAY CHEST REASON FOR EXAM: Male, 70 years old. SOB TECHNIQUE: 1 view COMPARISON: Prior chest radiograph of 04/16/2021 FINDINGS: Port-A-Cath is unchanged in position terminating in the proximal superior vena cava. Stable parenchymal infiltrates. Mild increase in pleural density. Normal cardiac size. Status post a prior limited midline sternotomy. Obscuration of the underlying pulmonary vascularity. Bronchial thickening. Mild plaque and elongation of the thoracic aorta. Normal visualized thoracic spine. Old left rib fracture. There is no demonstrated abnormality of the visualized soft tissue structures of the upper abdomen. RAD/Chest 1 View (Portable) IMPRESSION: Stable infiltrates with slightly more pleural opacity/pleural effusion without other major changes. Stable cardiac size. Port-A-Cath terminates in the proximal superior vena cava. Electronically Signed: Capri De La Rosa MD at 16:54 EDT , Service support ,
--- NOTE | 2021-04-17 16:31 | NURSING ---
report called to heather patel, [facility].
--- NOTE | 2021-04-17 18:53 | NURSING ---
aware pt in rm 129. aware pt may have 2 visitors. quest/concerns answered
[2021-04-17] MEDS: 0.9% Saline Lock 10 ML Syringe IV (22:14)
[2021-04-17] MEDS: guaiFENesin 1,200 MG Tablet 1200 MG PO (22:37)
[2021-04-18] VITALS (20 sets, daily range): BP systolic 80–101; BP diastolic 50–68; PULSE 72–161; RESP 14–16; TEMP 36.3–36.6; O2SAT 86–100
[2021-04-18] MEDS: Metoprolol Tartrate 5 MG/5 ML Vial IV (00:17)
[2021-04-18] MEDS: 0.9% Saline Lock 10 ML Syringe IV ×2 (00:18→10:12)
[2021-04-18 07:17] LABS: Anion Gap 7 (5-15); BUN 33 mg/dL (7-18); BUN/Creat Ratio 26.4 RATIO (10-20); Calcium,Total 8.8 mg/dL (8.5-10.1); Chloride 104 mmol/L (98-107); Creatinine, Serum 1.25 mg/dL (0.70-1.30); EST Glomerular Filtration Rate 61 mL/min (>60); Est Glom Filt Rate - Afr Amer 73 mL/min (>60); Estimated Creatinine Clearance 52.15 ml/min; Glucose 116 mg/dL (74-106); Potassium 5.5 mmol/L (3.5-5.1); Sodium Level 138 mmol/L (136-145)
--- NOTE | 2021-04-18 09:07 | CASEMGMT ---
SHYANN spoke with physician and family wants to talk with Hospice. SHYANN called Hospice and spoke with Rogerio he said they have not received any clinical information. He is aware that Dr Cope at [facility] spoke with Dr Soliz at Hospice yesterday for IPU. SHYANN faxed clinicals to Hospice and Rogerio will follow up with patient's . Drea Thomas CORPORATE LEGAL ASSISTANT MARY
[2021-04-18] MEDS: Furosemide 20 MG/2 ML VIAL IV (10:03)
[2021-04-18] MEDS: Enoxaparin 40 MG/0.4 ML Syringe SC (10:04)
--- NOTE | 2021-04-18 10:32 | CASEMGMT ---
SHYANN received a phone call from Rogerio at Hospice. He said he spoke with patient's and she is on her way to the hospital now. He said their mobile unit can pick patient up at 1130a. He has not passed this along to patient's . He said one of the liaisons will be in to have her sign papers again as the other ones have . Physician does not need to do another doctor to doctor. Patient's arrived at [facility]. SHYANN met with her. Introduced self and role at [facility]. SW let her know that the Hospice will be here to pick patient up at 1130 for their inpatient unit. She was in agreement with this plan. SW then provided emotional support. SHYANN also let RN know this plan. Plan: D/C to [facility]. They will transport via their mobile unit. Drea HERNANDEZ
--- NOTE | 2021-04-18 10:54 | DS.PCM_ITS ---
Providers Date of Admission: 04/16/21 Primary Care Physician: Dr. Fahad Jones MD Consultations 04/17/21 14:42 Consult: Hospice / Palliative Care Routine Consulting Provider: [facility] Reason for Consult: metastatic SSC EMERGENT Consult: No MD Notified: Yes Date Notified: 04/17/21 Time Notified: 14:30 Method of Notification: Verbal Reason For Visit: ACUTE METABOLIC ENCEPHALOPATHY, HYPOKALEMIA Diagnosis Discharge Diagnosis (1) Non-ST elevation [place] (NSTEMI): Status: Acute Code(s): I21.4 - Non-ST elevation (NSTEMI) myocardial infarction (2) Hyperkalemia: Status: Acute Code(s): E87.5 - Hyperkalemia (3) MARGA (acute kidney injury): Status: Acute Code(s): N17.9 - Acute kidney failure, unspecified (4) CRI (chronic renal insufficiency): Status: Chronic Code(s): N18.9 - Chronic kidney disease, unspecified (5) Hypoxemia: Status: Acute Code(s): R09.02 - Hypoxemia Medications at Discharge Home Medications acetaminophen 650 mg PO Q4H PRN 01/21/16 prednisone 5 mg PO DAILY 09/07/19 lidocaine-prilocaine 1 applicatio TP DAILY PRN PRN 30 Days #1 tube 03/01/20 Morphine Compounded Gel 0.5 ml TOPICAL BID 11/26/20 clindamycin phosphate 1 % topical gel 1 applic TOPICAL BID 04/15/21 hydroxyzine HCl 10 mg tablet 10 mg PO QHS PRN PRN 04/15/21 lorazepam 0.5 mg tablet 0.5 mg PO BID PRN 04/15/21 sennosides 8.6 mg capsule 8.6 mg PO DAILY PRN 04/15/21 erythromycin 1 applic LEFT EYE BID 04/16/21 haloperidol 0.5 mg PO BID 04/16/21 hydrocortisone 1 applic TOPICAL DAILY PRN PRN 04/16/21 ondansetron mg PO Q8H PRN PRN 04/16/21 guaifenesin [Mucus Relief ER] 1,200 mg PO BID #0 tab 04/18/21 hydromorphone 0.5 mg IV Q3H PRN PRN #0 ml 04/18/21 Hospital Course Operations None Procedures 2-D Echocardiogram Summary of Care Provided Minutes Spent on Discharge: 42 Hospital Course: Mr. Craft is a 70-year-old male who presented to the emergency department at [facility] on 04/16/2021 with altered mental status. On the day of admission the patient's found him to be very difficult to arouse and she called the EMS. He was brought into the emergency department and found to have an elevated troponin consistent with a acute non- STEMI, MARGA, and hyperkalemia with a potassium greater than 6. He was treated for his potassium in the emergency department and after discussion with the family with regards to his acute non-STEMI they did not want any interventional work-up performed and discussion with environmental attorney was deferred at that point. He was admitted to the intensive care unit and supported with supplemental oxygen, IV fluids, and pain management. An echocardiogram was performed and his EF is now found to be 25% from 65% in 2014. He had regional wall motion abnormalities that were new and likely related to coronary disease. 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 She reported per our discussion on 04/17/2021 that she had been looking at hospice but he had been on interferon and therefore hospice had declined care at that time given the fact that that was life-saving medication. Since that time they had since decided to go off of interferon and she was more interested in discussing things with hospice. Upon discussion of his status with regards to his new depressed ejection fraction and the severity of his illness I made it clear that he may not survive his hospitalization and she wanted to talk to hospice further. We also decreased his methadone dose and ordered as needed Dilaudid given his renal dysfunction as I suspect some of his mental status issues were related to decreased clearance because of his MARGA. His and indicated that he had had a downhill course with failing performance status, anorexia, dysphagia, weight loss and had been suffering from intermittent dehydration now with acute kidney injury. Hospice had a discussion with the and the decision was made to transfer Mr. Craft to the inpatient hospice center. I discussed the case with Dr. Waldron and he was agreeable to admission. He was discharged to inpatient hospice from [facility] on 04/18/2021 I suspect life expectancy is hours to days. Discharge diagnoses: Acute hypoxic respiratory failure Acute NSTEMI Cardiomyopathy suspected ischemic MARGA-resolved CKD stage II Stage IV metastatic squamous cell carcinoma of the skin Nausea Chronic pain related to skin cancer Metabolic encephalopathy Tachycardia Hyperkalemia PAH History of bilateral lung transplant GERD History of hypertension History of hyperlipidemia Chronic anemia Physical Exam Const alert Constitutional Narrative: Confused and oriented only to self, currently on a nonrebreather at 15 L but is able to talk and not markedly dyspneic with conversation, appears older than stated age General Appearance: cooperative HEENT normocephalic HEENT Narrative: Left ear with dressing in place and large wound beneath, 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 and mild facial droop Eyes PERRL, EOMs intact bilaterally and conjunctivae normal Neck supple Neck Narrative: Trachea midline, positive JVD Resp no retractions and no use of accessory muscles Resp Narrative: Mild crackles bilateral bases Auscultation: crackles; Negative for rales, rhonchi or wheezes Cardio regular rhythm, S1 normal heart sound, S2 normal heart sound, no murmurs, no rub, no gallops and no clicks Cardio Narrative: Tachycardia GI normal to inspection, nondistended, normoactive bowel sounds, soft to palpation, non-tender and non-distended Extremity normal to inspection and no clubbing, cyanosis or edema Extremity Narrative: Extremities are cool peripherally Skin skin turgor normal Neuro moves all extremities Sensorium / Orientation: awake, alert and oriented to person Weight / BMI Weight Weight: 71.7 kg Body Mass Index (BMI) 24.9 ABG / Lab / Microbiology Data Result Diagrams: 04/17/21 05:10 04/18/21 06:45 Laboratory: Laboratory Results - last 24 hr 04/18/21 06:45: Sodium 138, Potassium 5.5 H, Chloride 104, Carbon Dioxide 27.0, Anion Gap 7, BUN 33 H, Creatinine 1.25, Estim Creat Clear Calc 52.15, Est GFR (MDRD) Af Amer 73, Est GFR (MDRD) Non-Af 61, BUN/Creatinine Ratio 26.4 H, Glucose 116 H, Calcium 8.8 Microbiology: Microbiology 04/16/21 12:42 Urine, Random Urine Culture - Final Culture exhibits no growth. 04/16/21 12:28 Blood Culture (Wb) - Port Blood Culture - Preliminary No growth in 48 hours. 04/16/21 13:46 Blood Culture (Wb) - Anticubital Right Blood Culture - Preliminary No growth in 48 hours. 04/16/21 15:50 Interface Orders SARS-CoV-2 Antigen (Rapid) - Final Radiography Diagnostic Testing: Radiology Impression Echocardiogram 04/16/21 17:21 Interpretation Summary Normal LV size. The estimated ejection fraction is 25 %. Severe segmental systolic dysfunction (see wall motion). Pulmonary artery systolic pressure is 42 mmHg. Stage 2 diastolic dysfunction. Compared to previous study, the left ventricular systolic function has worsened.. Ordering Physician: Joel Mccallum Referring Physician: Fahad Jones MD Performed By: Alana Anne RDCS Chest X-Ray 04/17/21 16:30 IMPRESSION: Stable infiltrates with slightly more pleural opacity/pleural effusion without other major changes. Stable cardiac size. Port-A-Cath terminates in the proximal superior vena cava. Electronically Signed: Capri De La Rosa MD at 16:54 EDT , Service support , D/C Instructions Discharge Diet: No restrictions Discharge Activity: No Restrictions Meaningful Use Info Meaningful Use Diagnoses (Choose all that apply): None applicable Discharge Plan Admission Admit Date/Time: 04/16/21 16:22 Attending Provider: Tresa Cope Primary Care Provider: Fahad Jones Consulting Providers: Jaymie Cordoba ; Joel Chaney ; Mickie Dueñas ; Colby Patrick ; Yu Eric ; Nissa Ervin FACILITY PLANNER Discharge Orders/Prescriptions Prescriptions: New Mucus Relief ER 1,200 mg Tablet Extended Release 12hr 1,200 mg PO BID Qty: 0 RF: 0 hydromorphone 0.5 mg/0.5 mL Syringe 0.5 mg IV Q3H PRN PRN (Reason: Pain Score 6-10) Qty: 0 RF: 0 Continued lorazepam [Ativan] 0.5 mg tablet 0.5 mg PO BID PRN (Reason: Anxiety) RF: 0 senna 8.6 mg capsule 8.6 mg PO DAILY PRN (Reason: Constipation) RF: 0 clindamycin phosphate 1 % gel 1 applic topical BID RF: 0 hydroxyzine HCl 10 mg tablet 10 mg PO QHS PRN PRN (Reason: sleep aide) RF: 0 acetaminophen 325 MG tablet 650 mg PO Q4H PRN (Reason: Pain) RF: 0 prednisone 5 MG tablet 5 mg PO DAILY RF: 0 lidocaine-prilocaine 30 GM cream 1 applicatio TP DAILY PRN PRN (Reason: Not Specified) 30 Days Qty: 1 RF: 2 Morphine Compounded Gel gel 0.5 ml TOPICAL BID RF: 0 haloperidol 0.5 mg tablet 0.5 mg PO BID RF: 0 erythromycin 5 mg/gram (0.5 %) ointment 1 applic LEFT EYE BID RF: 0 hydrocortisone 2.5 % cream 1 applic TOPICAL DAILY PRN PRN (Reason: steroid) RF: 0 ondansetron 4 mg tablet,disintegrating PO Q8H PRN PRN (Reason: Nausea) RF: 0 Discontinued naloxone 4 mg/actuation spray,non-aerosol 4 mg intranasal Q3M PRN (Reason: Pain) RF: 0 oxycodone 5 mg capsule 5 mg PO Q4H PRN (Reason: Pain) RF: 0 methadone 10 mg tablet 10 mg PO BID RF: 0 tretinoin (antineoplastic) 10 mg capsule 40 mg PO BID RF: 0 sulfamethoxazole-trimethoprim 1 TABLET tablet 800 mg PO MOWEFR RF: 0 tacrolimus 0.5 MG capsule 1 mg PO BID RF: 0 multivitamin with minerals 1 EACH tablet 1 tab PO DAILY RF: 0 Intron A 10 million unit/mL solution 5 mmu subcut MOWEFR RF: 0 Referrals / Follow Up: Fahad Jones MD [Primary Care Provider] - Disposition Disposition (needs filled in before D/C Order can be placed): Hospice in Medical Facility Charges/Coding Visit Charges Inpatient E&M: 32007 Disch Hosp
--- NOTE | 2021-04-18 11:09 | PCM.DC ---
Discharge Instructions Diet Discharge Diet: No restrictions Follow Up Care Test Results: Test results from this visit will be discussed in further detail at your follow-up appointment, if applicable. Discharge Plan Admission Admit Date/Time: 04/16/21 16:22 Attending Provider: Tresa Cope Primary Care Provider: Fahad Jones Consulting Providers: Jaymie Cordoba ; Joel Chaney ; Mickie Dueñas ; Denise Patrick ; Yu Eric ; Nissa Ervin [employer] Discharge Orders/Prescriptions Prescriptions: New Mucus Relief ER 1,200 mg Tablet Extended Release 12hr 1,200 mg PO BID Qty: 0 RF: 0 hydromorphone 0.5 mg/0.5 mL Syringe 0.5 mg IV Q3H PRN PRN (Reason: Pain Score 6-10) Qty: 0 RF: 0 Continued lorazepam [Ativan] 0.5 mg tablet 0.5 mg PO BID PRN (Reason: Anxiety) RF: 0 senna 8.6 mg capsule 8.6 mg PO DAILY PRN (Reason: Constipation) RF: 0 clindamycin phosphate 1 % gel 1 applic topical BID RF: 0 hydroxyzine HCl 10 mg tablet 10 mg PO QHS PRN PRN (Reason: sleep aide) RF: 0 acetaminophen 325 MG tablet 650 mg PO Q4H PRN (Reason: Pain) RF: 0 prednisone 5 MG tablet 5 mg PO DAILY RF: 0 lidocaine-prilocaine 30 GM cream 1 applicatio TP DAILY PRN PRN (Reason: Not Specified) 30 Days Qty: 1 RF: 2 Morphine Compounded Gel gel 0.5 ml TOPICAL BID RF: 0 haloperidol 0.5 mg tablet 0.5 mg PO BID RF: 0 erythromycin 5 mg/gram (0.5 %) ointment 1 applic LEFT EYE BID RF: 0 hydrocortisone 2.5 % cream 1 applic TOPICAL DAILY PRN PRN (Reason: steroid) RF: 0 ondansetron 4 mg tablet,disintegrating PO Q8H PRN PRN (Reason: Nausea) RF: 0 Discontinued naloxone 4 mg/actuation spray,non-aerosol 4 mg intranasal Q3M PRN (Reason: Pain) RF: 0 oxycodone 5 mg capsule 5 mg PO Q4H PRN (Reason: Pain) RF: 0 methadone 10 mg tablet 10 mg PO BID RF: 0 tretinoin (antineoplastic) 10 mg capsule 40 mg PO BID RF: 0 sulfamethoxazole-trimethoprim 1 TABLET tablet 800 mg PO MOWEFR RF: 0 tacrolimus 0.5 MG capsule 1 mg PO BID RF: 0 multivitamin with minerals 1 EACH tablet 1 tab PO DAILY RF: 0 Intron A 10 million unit/mL solution 5 mmu subcut MOWEFR RF: 0 Referrals / Follow Up: Fahad Jones MD [Primary Care Provider] - Disposition Disposition (needs filled in before D/C Order can be placed): Hospice in Medical Facility
[2021-04-18] MEDS: HYDROmorphone 0.5 MG/0.5 ML SYRINGE IV (11:14)
--- NOTE | 2021-04-18 11:50 | CASEMGMT ---
SHYANN faxed d/c summary to Hospice. Drea Thomas MOTION AND TIME STUDY TEACHER MARY
--- NOTE | 2021-04-18 12:08 | NURSING ---
Report given to Hospice Nurse. Questions answered.
== END 2021-04-18 11:52 | disposition hospice, inpatient (51) | DRG 280 ==
LOC: ED 14:01 → ICU 16:46 → PCU 04-17 17:04
PROVIDERS: Internal Medicine; Admitting Provider Internal Medicine; Emergency Provider Emergency Medicine; PCP Family Medicine; Visit Provider Internal Medicine
DX: I21.4 Non-ST elevation (NSTEMI) myocardial infarction (principal); G93.41 Metabolic encephalopathy; J96.01 Acute respiratory failure with hypoxia; E43 Unspecified severe protein-calorie malnutrition; N17.9 Acute kidney failure, unspecified; C79.2 Secondary malignant neoplasm of skin; Z94.2 Lung transplant status; C79.89 Secondary malignant neoplasm of other specified sites; C44.629 Squamous cell carcinoma of skin of left upper limb, including shoulder; R00.0 Tachycardia, unspecified; E87.5 Hyperkalemia; I25.5 Ischemic cardiomyopathy; K21.9 Gastro-esophageal reflux disease without esophagitis; I12.9 Hypertensive chronic kidney disease with stage 1 through stage 4 chronic kidney disease, or unspecified chronic kidney disease; N18.2 Chronic kidney disease, stage 2 (mild); E78.5 Hyperlipidemia, unspecified; D64.9 Anemia, unspecified; Z79.899 Other long term (current) drug therapy; Z87.891 Personal history of nicotine dependence; Z66 Do not resuscitate; Z68.26 Body mass index [BMI] 26.0-26.9, adult; G51.0 Bell's palsy; G89.4 Chronic pain syndrome; C44.622 Squamous cell carcinoma of skin of right upper limb, including shoulder; E86.0 Dehydration
CPT/HCPCS: 36415; 36591; 70450; 71045; 71275; 80048; 80053; 81001; 83605; 83735; 84132; 84484; 85025; 87040; 87086; 87426; 93005; 93306; 94640; 96360; 96361; 97802; 99251; 99285; J7030; P9612; Q9957; Q9967; A4216; C8929; G0463; J0610; J1940; J3490